=== PATIENT | female | born 1970 | race Caucasian/White ===

== ENCOUNTER 2017-10-29 05:44 | Inpatient (IN) | payer OTHER ==
[2017-10-29] MEDS ORDERED: ONDANSETRON 4 MG/2 ML VIAL IVP STA (06:02)
[2017-10-29] MEDS ORDERED: SODIUM CHLORIDE 0.9% 1,000 ML IV STA (06:02)
[2017-10-29] MEDS ORDERED: ASPIRIN 81 MG PO STA (06:02)
[2017-10-29] MEDS ORDERED: NITROGLYCERIN OINT 1 INCH/GM PACKET TOPICAL STA (06:02)
[2017-10-29] MEDS ORDERED: MORPHINE SULFATE 4 MG/0.8 ML SYRINGE (INJ) IV STA (06:02)
--- NOTE | 2017-10-29 06:09 | ED ---
Chest Pain HPI - General Chief Complaint: Chest Pain Stated Complaint: Chest Pain Time Seen by Provider: 10/29/17 05:49 Source: patient Mode of arrival: EMS Limitations: no limitations - History of Present Illness Initial Comments: 47 years old female male with chest pain about an hour ago, was in the center she said chest pain gets worse with deep breaths and it was 78/10. He recently she was evaluated at [facility] 2 days ago she had a cath done according to her she had a blockade to 35% and one of the main arteries she didn't require any stents she was sent home on aspirin area and now pain is 6/10 and no headaches no stiff neck, does have a chest pain and some shortness of breath no abdominal pain no frequency urgency dysuria no symptoms of TIA or CVA - Related Data Home Medications Medication Instructions Recorded Confirmed Ibuprofen [Motrin] 800 mg PO TID PRN 09/08/15 09/08/15 Previous Rx's Medication Instructions Recorded Benzonatate [Tessalon Perles] 100 mg PO TID PRN #12 capsule 09/08/15 Ibuprofen [Motrin] 600 mg PO Q6HR PRN #40 day 09/08/15 Phenazopyridine [Pyridium] 100 mg PO TID 3 Days day 09/08/15 Sulfamethoxazole/Trimethoprim 1 each PO Q12H 10 Days tab 09/08/15 [Bactrim DS 800-160 mg] Allergies Allergy/AdvReac Type Severity Reaction Status Date / Time No Known Allergies Allergy Verified 10/29/17 05:50 Review of Systems ROS Statement: Those systems with pertinent positive or pertinent negative responses have been documented in the HPI. ROS Other: All systems not noted in ROS Statement are negative. Past Medical History Past Medical History: No Reported History History of Any Multi-Drug Resistant Organisms: None Reported Past Surgical History: Heart Catheterization Additional Past Surgical History / Comment(s): wisdom teeth. Past Psychological History: No Psychological Hx Reported Smoking Status: Current every day smoker Past Alcohol Use History: Occasional Past Drug Use History: None Reported General Exam - General Exam Comments Initial Comments: General: The patient is awake and alert, in no distress, and does not appear acutely ill. Skin: Skin is warm and dry and no rashes or lesions are noted. Eye: Pupils are equal, round and reactive to light, extra-ocular movements are intact; there is normal conjunctiva bilaterally. Ears, nose, mouth and throat: There are moist mucous membranes and no oral lesions. Neck: The neck is supple, there is no tenderness or JVD. Cardiovascular: There is a regular rate and rhythm. No murmur, rub or gallop is appreciated. Respiratory: To auscultation bilateral, no wheezing no rhonchi no distress respiratory scott noticed Gastrointestinal: Soft, non-distended, non-tender abdomen without masses or organomegaly noted. There is no rebound or guarding present. Bowel sounds are unremarkable. Back: There is no tenderness to palpation in the midline. There is no obvious deformity. Musculoskeletal: Normal ROM, no tenderness, There is no pedal edema. There is no calf tenderness or swelling. No cords were appreciated. Neurological: CN II-XII intact, Cranial nerves III through XII are intact. There are no obvious motor or sensory deficits. Coordination appears grossly intact. Speech is normal. Psychiatric: Cooperative, appropriate mood & affect, normal judgment. Limitations: no limitations Course Vital Signs 10/29/17 05:46 Temperature 98 F Pulse Rate 75 Respiratory 16 Rate Blood Pressure 120/69 O2 Sat by Pulse 100 Oximetry EKG is normal sinus rhythm ventricular rate 76 MN interval is 124 QRS duration is 80 QT/QTc is 420/472 and aVF this EKG does not reveal any ST elevation or ST depression Patient is reassessed, CBC, troponin, comp his metabolic panel, chest x-ray, EKG are unremarkable she will be admitted to the hospital under Dr. Stein service and cardiology be consulted, this was discussed with the patient and she is agreeable with the Disposition Clinical Impression: Chest pain Disposition: ADMITTED IP TO THIS HOSP Condition: Good Referrals: Kentrell Joseph MD [Primary Care Provider] - 1-2 days
[2017-10-29 06:28] LABS: Basophils % (A) 0 %; Eosinophils # (A) 0.3 k/uL (0-0.7); Eosinophils % (A) 3 %; HCT 32.8 % (34.0-46.0); HGB 10.1 gm/dL (11.4-16.0); Hypochromasia Moderate; Lymphocytes # (A) 1.5 k/uL (1.0-4.8); Lymphocytes % (A) 17 %; MCH 25.3 pg (25.0-35.0); MCHC 30.8 g/dL (31.0-37.0); Monocytes # (A) 0.5 k/uL (0-1.0); Monocytes % (A) 5 %; Neutrophils # (A) 6.2 k/uL (1.3-7.7); Neutrophils % (A) 71 %; Platelet Count 343 k/uL (150-450); RBC 4.01 m/uL (3.80-5.40); RDW 14.2 % (11.5-15.5); WBC 8.7 k/uL (3.8-10.6)
[2017-10-29 06:41] LABS: ALT 17 U/L (9-52); AST 31 U/L (14-36); Albumin 3.9 g/dL (3.5-5.0); Alkaline Phosphatase 74 U/L (38-126); Anion Gap 11 mmol/L; Blood Urea Nitrogen 13 mg/dL (7-17); Calcium 8.9 mg/dL (8.4-10.2); Carbon Dioxide 22 mmol/L (22-30); Chloride 106 mmol/L (98-107); Glucose 89 mg/dL (74-99); Magnesium 2.1 mg/dL (1.6-2.3); Sodium 139 mmol/L (137-145); Total Bilirubin 0.7 mg/dL (0.2-1.3); Total Protein 7.1 g/dL (6.3-8.2)
[2017-10-29 06:43] LABS: Potassium 4.6 mmol/L (3.5-5.1)
[2017-10-29 06:47] LABS: Creatine Kinase 55 U/L (30-135)
--- NOTE | 2017-10-29 06:52 | XR ---
EXAM: XR Chest, 2 Views CLINICAL HISTORY: Chest pain TECHNIQUE: Frontal and lateral views of the chest. COMPARISON: CXR dated 09/08/2015 FINDINGS: Lungs: Unremarkable. No consolidation. Pleural space: Unremarkable. No pneumothorax. Heart: Unremarkable. No cardiomegaly. Mediastinum: Unremarkable. Bones/joints: Unremarkable. IMPRESSION: Normal chest x-rays.
[2017-10-29 06:57] LABS: Creatine Kinase MB <0.2 ng/mL (0.0-2.4)
[2017-10-29 07:01] LABS: Troponin I <0.012 ng/mL (0.000-0.034)
[2017-10-29 07:31] LABS: D-Dimer 0.47 mg/L FEU (<0.60); Prothrombin Time 9.6 sec (9.0-12.0)
[2017-10-29 07:33] LABS: Partial Thromboplastin Time 21.8 sec (22.0-30.0)
[2017-10-29] MEDS ORDERED: MORPHINE SULFATE 4 MG/0.8 ML SYRINGE (INJ) IV PRN (07:33)
[2017-10-29] MEDS ORDERED: NITROGLYCERIN SL TABS 0.4 MG TAB SUBLINGUAL PRN (07:33)
[2017-10-29] MEDS ORDERED: IBUPROFEN 800 MG TAB PO PRN (07:37)
[2017-10-29] MEDS ORDERED: SULFAMETHOX-TMP 800-160MG 1 EACH TAB PO SCH (07:45)
[2017-10-29 12:37] LABS: Creatine Kinase MB 1.7 ng/mL (0.0-2.4)
[2017-10-29 12:47] LABS: Troponin I 0.144 ng/mL (0.000-0.034)
--- NOTE | 2017-10-29 13:18 | P.DS ---
Providers Date of admission: 10/29/17 07:33 Attending physician: Ember Stein Consults: 10/29/17 07:33 Consult Physician Urgent Consulting Provider: Trupti Harris Consult Reason/Comments: Chest pain Do you want consulting provider notified?: Yes Primary care physician: Kentrell Joseph Hospital Course: Patient was discharged before I evaluated the patient Patient Condition at Discharge: Good Plan - Discharge Summary Discharge Rx Participant: No New Discharge Prescriptions: No Action Ibuprofen [Motrin] 800 mg PO TID PRN PRN Reason: Pain Atorvastatin [Lipitor] 10 mg PO HS Aspirin [Adult Low Dose Aspirin EC] 81 mg PO HS Discharge Medication List Ibuprofen [Motrin] 800 mg PO TID PRN 09/08/15 [History] Aspirin [Adult Low Dose Aspirin EC] 81 mg PO HS 10/29/17 [History] Atorvastatin [Lipitor] 10 mg PO HS 10/29/17 [History] Follow up Appointment(s)/Referral(s): Kentrell Joseph MD [Primary Care Provider] - 1-2 days
--- NOTE | 2017-10-29 13:18 | P.HPIM ---
History of Present Illness Patient was discharged before I evaluated the patient Past Medical History Past Medical History: No Reported History History of Any Multi-Drug Resistant Organisms: None Reported Past Surgical History: Heart Catheterization Additional Past Surgical History / Comment(s): wisdom teeth. Past Anesthesia/Blood Transfusion Reactions: No Reported Reaction Past Psychological History: No Psychological Hx Reported Smoking Status: Current every day smoker Past Alcohol Use History: Occasional Past Drug Use History: None Reported - Past Family History Mother Family Medical History: AFIB Brother(s) Family Medical History: Myocardial Infarction ([place]) Additional Family Medical History / Comment(s): brother at age 42 with [place] Medications and Allergies Home Medications Medication Instructions Recorded Confirmed Type Ibuprofen [Motrin] 800 mg PO TID PRN 09/08/15 10/29/17 History Aspirin [Adult Low Dose Aspirin EC] 81 mg PO HS 10/29/17 10/29/17 History Atorvastatin [Lipitor] 10 mg PO HS 10/29/17 10/29/17 History Allergies Allergy/AdvReac Type Severity Reaction Status Date / Time No Known Allergies Allergy Verified 10/29/17 10:53 Physical Exam Vitals: Vital Signs Temp Pulse Pulse Resp BP BP Pulse Ox 10/29/17 12:28 97.7 F 80 16 106/53 99 10/29/17 12:27 97.0 F L 76 16 106/70 99 10/29/17 10:59 68 16 109/57 99 10/29/17 08:33 72 18 132/79 98 10/29/17 07:25 72 18 126/61 99 10/29/17 05:46 98 F 75 16 120/69 100 Intake and Output 10/28/17 10/29/17 10/29/17 22:59 06:59 14:59 Other: Weight 99.79 kg 99.79 kg Results CBC & Chem 7: 10/29/17 05:54 10/29/17 05:54 Labs: Abnormal Lab Results - Last 24 Hours (Table) 10/29/17 10/29/17 10/29/17 Range/Units 05:52 05:54 11:31 Hgb 10.1 L (11.4-16.0) gm/dL Hct 32.8 L (34.0-46.0) % MCHC 30.8 L (31.0-37.0) g/dL APTT 21.8 L (22.0-30.0) sec Troponin I 0.144 H* (0.000-0.034) ng/mL Thrombosis Risk Factor Assmnt - Choose All That Apply Any of the Below Risk Factors Present?: Yes Each Factor Represents 1 point: Age 41-60 years, Obesity (BMI >25) Thrombosis Risk Factor Assessment Total Risk Factor Score: 2 Thrombosis Risk Factor Assessment Level: Low Risk
[2017-10-29] MEDS ORDERED: HEPARIN SODIUM,PORCINE 5,000 UNIT/ML 1 ML VIAL IV ONE (13:23)
[2017-10-29] MEDS ORDERED: HEPARIN SOD,PORK IN 0.45% NACL 25,000 UNIT in 0.45% NACL 1 500ML.BAG IV SCH (13:30)
[2017-10-29 15:10] LABS: Partial Thromboplastin Time 61.5 sec (22.0-30.0); Prothrombin Time 10.2 sec (9.0-12.0)
[2017-10-29] MEDS: PANTOPRAZOLE 40 MG/10 ML VIAL IVP SCH (16:13)
--- NOTE | 2017-10-29 17:02 | P.HPIM ---
History of Present Illness 45-year-old the female came in with compensative chest pain which started today morning, 7/10 chest pain radiating to the left arm pressure-like sensation nonpruritic in nature not associated with food. No wheezes or diaphoresis or shortness of breath patient had a cardiac catheterization done at [facility] about a week ago which did not show any significant coronary it was cardiovascular disease except for some 35% stenosis in one of the 3 main blood vessels. Patient denied any fever chills cough runny nose. Patient's chest pain is reproducible in nature. EKG did not show any acute ST-T wave changes facet of troponin is negative second one is mildly +0.144. Chest pain lasted for about an hour Review of Systems REVIEW OF SYSTEMS: CONSTITUTIONAL: No fever, no malaise, no fatigue. HEENT: No recent visual problems or hearing problems. Denied any sore throat. CARDIOVASCULAR: No orthopnea, PND, no palpitations, no syncope. PULMONARY: No shortness of breath, no cough, no hemoptysis. GASTROINTESTINAL: No diarrhea, no nausea, no vomiting, no abdominal pain. Normoactive bowel sounds. NEUROLOGICAL: No headaches, no weakness, no numbness. HEMATOLOGICAL: Denies any bleeding or petechiae. GENITOURINARY: Denies any burning micturition, frequency, or urgency. MUSCULOSKELETAL/RHEUMATOLOGICAL: Denies any joint pain, swelling, or any muscle pain. ENDOCRINE: Denies any polyuria or polydipsia. The rest of the 14-point review of systems is negative. Past Medical History Past Medical History: No Reported History History of Any Multi-Drug Resistant Organisms: None Reported Past Surgical History: Heart Catheterization Additional Past Surgical History / Comment(s): wisdom teeth. Past Anesthesia/Blood Transfusion Reactions: No Reported Reaction Past Psychological History: No Psychological Hx Reported Smoking Status: Current every day smoker Past Alcohol Use History: Occasional Past Drug Use History: None Reported - Past Family History Mother Family Medical History: AFIB Brother(s) Family Medical History: Myocardial Infarction ([place]) Additional Family Medical History / Comment(s): brother at age 42 with [place] Medications and Allergies Home Medications Medication Instructions Recorded Confirmed Type Ibuprofen [Motrin] 800 mg PO TID PRN 09/08/15 10/29/17 History Aspirin [Adult Low Dose Aspirin EC] 81 mg PO HS 10/29/17 10/29/17 History Atorvastatin [Lipitor] 10 mg PO HS 10/29/17 10/29/17 History Allergies Allergy/AdvReac Type Severity Reaction Status Date / Time No Known Allergies Allergy Verified 10/29/17 10:53 Physical Exam Vitals: Vital Signs Temp Pulse Pulse Pulse Resp BP BP 10/29/17 14:25 97.8 F 82 80 16 112/71 10/29/17 12:28 97.7 F 80 16 106/53 10/29/17 12:27 97.0 F L 76 16 106/70 10/29/17 10:59 68 16 109/57 10/29/17 08:33 72 18 132/79 10/29/17 07:25 72 18 126/61 10/29/17 05:46 98 F 75 16 120/69 Pulse Ox 10/29/17 14:25 99 10/29/17 12:28 99 10/29/17 12:27 99 10/29/17 10:59 99 10/29/17 08:33 98 10/29/17 07:25 99 10/29/17 05:46 100 Intake and Output 10/29/17 10/29/17 10/29/17 06:59 14:59 22:59 Other: Weight 99.79 kg 99.79 kg PHYSICAL EXAMINATION: GENERAL: The patient is alert and oriented x3, not in any acute distress. Well developed, well nourished. HEENT: Pupils are round and equally reacting to light. EOMI. No scleral icterus. No conjunctival pallor. Normocephalic, atraumatic. No pharyngeal erythema. No thyromegaly. CARDIOVASCULAR: S1 and S2 present. No murmurs, rubs, or gallops. PULMONARY: Chest is clear to auscultation, no wheezing or crackles. ABDOMEN: Soft, nontender, nondistended, normoactive bowel sounds. No palpable organomegaly. MUSCULOSKELETAL: No joint swelling or deformity. EXTREMITIES: No cyanosis, clubbing, or pedal edema. NEUROLOGICAL: Gross neurological examination did not reveal any focal deficits. SKIN: No rashes. Results CBC & Chem 7: 10/29/17 05:54 10/29/17 05:54 Labs: Abnormal Lab Results - Last 24 Hours (Table) 10/29/17 10/29/17 10/29/17 Range/Units 05:52 05:54 11:31 Hgb 10.1 L (11.4-16.0) gm/dL Hct 32.8 L (34.0-46.0) % MCHC 30.8 L (31.0-37.0) g/dL APTT 21.8 L (22.0-30.0) sec Troponin I 0.144 H* (0.000-0.034) ng/mL 10/29/17 Range/Units 14:47 Hgb (11.4-16.0) gm/dL Hct (34.0-46.0) % MCHC (31.0-37.0) g/dL APTT 61.5 H (22.0-30.0) sec Troponin I (0.000-0.034) ng/mL Thrombosis Risk Factor Assmnt - Choose All That Apply Any of the Below Risk Factors Present?: Yes Each Factor Represents 1 point: Age 41-60 years, Obesity (BMI >25) Thrombosis Risk Factor Assessment Total Risk Factor Score: 2 Thrombosis Risk Factor Assessment Level: Low Risk Assessment and Plan Plan: -Chest pain: Patient is being treated for non-ST rate microinfarction with IV heparin because of mildly elevated second troponin. Cardiology will evaluated the patient patient appears to have musculoskeletal chest pain from costochondritis. Further management as per cardiology. Patient had a recent cardiac catheterization -Hyperlipidemia -Chronic low back pain
[2017-10-29 18:54] LABS: Creatine Kinase MB 4.1 ng/mL (0.0-2.4); Troponin I 0.816 ng/mL (0.000-0.034)
[2017-10-29] MEDS: ATORVASTATIN 40 MG TAB PO SCH (19:57)
[2017-10-29] MEDS: HEPARIN SODIUM,PORCINE 5,000 UNIT/ML 1 ML VIAL IV PRN (21:37)
[2017-10-30] MEDS: HEPARIN SODIUM,PORCINE 5,000 UNIT/ML 1 ML VIAL IV PRN (04:49)
[2017-10-30 04:57] LABS: Cholesterol 119 mg/dL (<200); HDL Cholesterol 58 mg/dL (40-60); LDL Cholesterol,Calculated 42 mg/dL (0-99); Triglycerides 93 mg/dL (<150)
[2017-10-30] MEDS ORDERED: ASPIRIN 325 MG TAB PO SCH (09:00)
[2017-10-30] MEDS: HEPARIN SODIUM,PORCINE/D5W PMX 25,000 UNIT in DEXTROSE/WATER 1 500ML.BAG IV SCH (11:15)
--- NOTE | 2017-10-30 12:04 | P.CRDCN ---
History of Present Illness Consult date: 10/30/17 Requesting physician: Kimberli Wilson Consult reason: chest pain Chief complaint: Chest pain History of present illness: This is a 47-year-old female with history of nicotine dependence, hyperlipidemia, family history of premature coronary artery disease in her brother who had an [place] at the age of 40 to who was recently at [facility] with a non-Q-wave myocardial infarction at which time she underwent a cardiac catheterization by Dr. Jamaal Cardona which according to the patient revealed a 35% stenosis in one vessel. Patient was discharged home on a baby aspirin and statin. Patient states that initially she did quit smoking following this procedure, however recently her [id number] and she states that she did start smoking again. She re-presents to the hospital on this occasion with symptoms of chest tightness with radiation down the left arm and up into the left jaw. Her EKG on arrival here showed a normal sinus rhythm with no acute changes. Subsequent EKG performed showed normal sinus rhythm with evidence of ischemic changes in the anterior leads as compared with the first EKG. White blood cell count 8.7, hemoglobin 10.1. D-dimer 0.47, sodium 139, potassium 4.6, BUN 13, creatinine 0.5. Magnesium 2.1. Troponins 0.012, 0.14, 0.81. At the time of my examination this morning, patient is currently chest pain free. An echocardiogram with Doppler study has been performed, details still pending. Blood pressure 110/60 with a heart rate in the 70s, 100% on room air. Past Medical History Past Medical History: No Reported History History of Any Multi-Drug Resistant Organisms: None Reported Past Surgical History: Heart Catheterization Additional Past Surgical History / Comment(s): wisdom teeth. Past Anesthesia/Blood Transfusion Reactions: No Reported Reaction Past Psychological History: No Psychological Hx Reported Smoking Status: Current every day smoker Past Alcohol Use History: Occasional Past Drug Use History: None Reported - Past Family History Mother Family Medical History: AFIB Brother(s) Family Medical History: Myocardial Infarction ([place]) Additional Family Medical History / Comment(s): brother at age 42 with [place] Medications and Allergies Home Medications Medication Instructions Recorded Confirmed Type Ibuprofen [Motrin] 800 mg PO TID PRN 03/07/16 04/28/18 History Aspirin [Adult Low Dose Aspirin EC] 81 mg PO HS 10/29/17 10/29/17 History Atorvastatin [Lipitor] 10 mg PO HS 10/29/17 10/29/17 History Allergies Allergy/AdvReac Type Severity Reaction Status Date / Time No Known Allergies Allergy Verified 10/29/17 10:53 Physical Exam Vitals: Vital Signs Temp Pulse Pulse Pulse Resp BP BP 10/30/17 07:49 97.8 F 78 16 111/55 10/30/17 04:00 76 18 10/30/17 03:59 97.7 F 76 18 10/30/17 00:00 97.3 F L 85 18 10/29/17 20:16 10/29/17 20:00 98.1 F 85 85 18 10/29/17 14:25 97.8 F 82 80 16 10/29/17 12:28 97.7 F 80 16 10/29/17 12:27 97.0 F L 76 16 106/70 BP Pulse Ox 10/30/17 07:49 98 10/30/17 04:00 10/30/17 03:59 109/57 99 10/30/17 00:00 115/62 97 10/29/17 20:16 97 10/29/17 20:00 106/63 97 10/29/17 14:25 112/71 99 10/29/17 12:28 106/53 99 10/29/17 12:27 99 Intake and Output 10/29/17 10/30/17 10/30/17 22:59 06:59 14:59 Intake Total 807.667 187.489 Balance 807.667 187.489 Intake: Intake, IV Titration 147.667 187.489 Amount Heparin Sod,Pork in 0.45% 147.667 187.489 NaCl 25,000 unit In 0.45 % NaCl 1 500ml.bag @ 10 UNITS/KG/HR 19.95 mls/hr IV .Q24H [facility] Rx#: [id number] Oral 660 Other: Voiding Method Toilet Toilet Toilet # Voids 1 1 Weight 100.4 kg PHYSICAL EXAMINATION: HEENT: Head is atraumatic, normocephalic. Pupils equal, round. Neck is supple. There is no elevated jugular venous pressure. HEART EXAMINATION: Heart S1, S2 normal. No murmur or gallop heard. CHEST EXAMINATION: Lungs are clear to auscultation and precussion. No chest wall tenderness is noted on palpation or with deep breathing. ABDOMEN: Soft, nontender. Bowel sounds are heard. No organomegaly noted. EXTREMITIES: 2+ peripheral pulses with no evidence of peripheral edema and no calf tenderness noted. NEUROLOGIC patient is awake, alert and oriented -3. . Results 10/29/17 05:54 10/29/17 05:54 Cardiac Enzymes 10/29/17 10/29/17 Range/Units 11:31 17:52 CK-MB (CK-2) 1.7 4.1 H* (0.0-2.4) ng/mL Troponin I 0.144 H* 0.816 H* (0.000-0.034) ng/mL Coagulation 10/29/17 10/29/17 10/30/17 Range/Units 14:47 20:46 04:08 PT 10.2 (9.0-12.0) sec APTT 61.5 H 28.6 44.2 H (22.0-30.0) sec 10/30/17 Range/Units 10:51 PT (9.0-12.0) sec APTT 62.1 H (22.0-30.0) sec Lipids 10/30/17 Range/Units 04:08 Triglycerides 93 (<150) mg/dL Cholesterol 119 (<200) mg/dL HDL Cholesterol 58 (40-60) mg/dL Current Medications Generic Name Dose Route Start Last Admin Trade Name Freq PRN Reason Stop Dose Admin Aspirin 325 mg 10/30/17 09:00 Aspirin PO DAILY [facility] Atorvastatin Calcium 40 mg 10/29/17 21:00 10/29/17 19:57 Lipitor PO 40 mg HS THANH Administration Heparin Sodium (Porcine) 0 unit 10/29/17 13:23 10/30/17 04:49 Heparin IV 2,490 unit PER PROTOCOL PRN Administration Low PTT Protocol Heparin Sodium/Dextrose 25,000 500 mls @ 19.95 mls/hr 10/30/17 07:30 11:15 unit/ IV Solution IV 14.98 units/kg/hr .Q24H [facility] 29.9 mls/hr Protocol Administration 10 UNITS/KG/HR Ibuprofen 800 mg 10/29/17 07:37 Motrin PO TID PRN Mild Pain Morphine Sulfate 4 mg 10/29/17 07:33 Morphine Sulfate (Inj) IV Q5M PRN Chest Pain Nitroglycerin 0.4 mg 10/29/17 07:33 Nitrostat SUBLINGUAL Q5M PRN Chest Pain Pantoprazole Sodium 40 mg 10/29/17 15:15 10/29/17 16:13 Protonix IVP 40 mg DAILY THANH Administration Intake and Output 10/29/17 10/30/17 10/30/17 22:59 06:59 14:59 Intake Total 807.667 187.489 Balance 807.667 187.489 Intake: Intake, IV Titration 147.667 187.489 Amount Heparin Sod,Pork in 0.45% 147.667 187.489 NaCl 25,000 unit In 0.45 % NaCl 1 500ml.bag @ 10 UNITS/KG/HR 19.95 mls/hr IV .Q24H [facility] Rx#: [id number] Oral 660 Other: Voiding Method Toilet Toilet Toilet # Voids 1 1 Weight 100.4 kg 10/29/17 05:54 10/29/17 05:54 EKG Interpretations (text) EKG shows normal sinus rhythm with no acute changes. Assessment and Plan Plan: Assessment and plan #1 symptoms of chest tightness with associated radiation down the left arm and into the jaw, suggesting acute coronary syndrome. Troponins 0.012, 0.014 0.81. EKG shows normal sinus rhythm with no acute changes. Subsequent EKG showed normal sinus rhythm with ST-T wave changes noted in the anterior leads as compared with prior. Patient underwent a cardiac catheterization last week at [facility] which according to the patient revealed a 35% lesion in a vessel. We are waiting the report. #2 nicotine dependence #3 hyperlipidemia Plan We will repeat a subsequent troponin, review echocardiogram with Doppler study. Repeat another EKG. Decrease aspirin to 81 mg daily, continue Lipitor 40, add Plavix to her medication regime as well as a low-dose beta sary. Continue IV heparin. Patient will be kept nothing by mouth at midnight for possible repeat cardiac catheterization in the morning. Dr. Waters will discuss the patient with Dr. DEVYN Cardona, her arnp who performed a cardiac catheterization, recommendations then will be made. DNP note has been reviewed, I agree with a documented findings and plan of care. Patient was seen and examined.
--- NOTE | 2017-10-30 12:35 | ECHOF ---
Referral Reason:chest pain MEASUREMENTS -------- HEIGHT: 162.6 cm WEIGHT: 99.8 kg BP: 106/53 IVSd: 1.1 cm (0.6 - 1.1) LVIDd: 4.3 cm (3.9 - 5.3) LVPWd: 1.1 cm (0.6 - 1.1) EDV(Teich): 82 ml IVSs: 1.4 cm LVIDs: 3.2 cm LVPWs: 1.4 cm ESV(Teich): 42 ml EF(Teich): 49 % %FS: 24 % SV(Teich): 40 ml Ao Diam: 3.3 cm (2.0 - 3.7) RVIDd: 2.6 cm (< 3.3) LALs A4C: 5.1 cm LAAs A4C: 15.0 cm LAESV A-L A4C: 37 ml LAESV MOD A4C: 35 ml LALs A2C: 5.7 cm LAAs A2C: 17.4 cm LAESV A-L A2C: 45 ml LAESV MOD A2C: 43 ml LAESV(A-L): 43 ml LAESV Index (A-L): 21.31 ml/m Ao Diam: 3.0 cm (2.0 - 3.7) LA Diam: 2.4 cm (2.7 - 3.8) AV Cusp: 2.3 cm (1.5 - 2.6) EPSS: 0.6 cm MV E Nelson: 0.90 m/s MV DecT: 276 ms MV Dec Harlan: 3.4 m/s MV A Nelson: 0.83 m/s MV E/A Ratio: 1.09 AV Vmax: 1.74 m/s AV maxP.06 mmHg TR Vmax: 1.22 m/s TR maxP.93 mmHg RAP: 5.00 mmHg RVSP: 10.93 mmHg MV EF SLOPE: 87.15 mm/s (70 - 150) MV EXCURSION: 1.54 cm (> 18.000) FINDINGS -------- Sinus rhythm. This was a technically adequate study. The left ventricular size is normal. There is borderline concentric left ventricular hypertrophy. Overall left ventricular systolic function is normal with, an EF between 55 - 60 %. The right ventricle is normal in size and function. Normal LA size by volume 22+/-6 ml/m2. The right atrium is normal in size. The aortic valve is trileaflet, and appears structurally normal. No aortic stenosis or regurgitation. The mitral valve is normal. There is trace mitral regurgitation. Trace tricuspid regurgitation present. Right ventricular systolic pressure is normal at < 35 mmHg. There is no evidence of pulmonary hypertension. The pulmonic valve is normal. The aortic root size is normal. Normal inferior vena cava with normal inspiratory collapse consistent with estimated right atrial pre ssure of 5 mmHg. There is no pericardial effusion. CONCLUSIONS -------- 1. Sinus rhythm. 2. This was a technically adequate study. 3. The left ventricular size is normal. 4. There is borderline concentric left ventricular hypertrophy. 5. Overall left ventricular systolic function is normal with, an EF between 55 - 60 %. 6. Normal LA size by volume 22+/-6 ml/m2. 7. The aortic valve is trileaflet, and appears structurally normal. No aortic stenosis or regurgitati on. 8. There is trace mitral regurgitation. 9. Trace tricuspid regurgitation present. 10. Right ventricular systolic pressure is normal at < 35 mmHg. 11. There is no evidence of pulmonary hypertension. 12. The aortic root size is normal. 13. There is no pericardial effusion. DRAW FRAME RUNNER: Jose Willis RDCS
[2017-10-30] MEDS: METOPROLOL TARTRATE 12.5 MG TAB PO SCH ×2 (15:03→19:40)
[2017-10-30] MEDS: CLOPIDOGREL 75 MG TAB PO SCH (15:03)
[2017-10-30] MEDS: PANTOPRAZOLE 40 MG/10 ML VIAL IVP SCH (16:02)
--- NOTE | 2017-10-30 16:52 | P.PN ---
Subjective Patient given a chest pain patient has minimally elevated troponin which went up her eyes troponin 0.3 cardiology is considering redo Cardiac catheterization considering elevated troponins and dynamic EKG changes Constitutional: Denied any fatigue denied any fever. Cardio vascular: denied any chest pain, palpitations Gastrointestinal denied any nausea vomiting Pulmonary: Denied any shortness of breath cough Neurologic denied any new focal deficits Objective - Vital Signs Vital signs: Vital Signs Temp 97.7 F 10/30/17 16:33 Pulse 82 10/30/17 16:33 Resp 18 10/30/17 16:33 BP 120/58 10/30/17 16:33 Pulse Ox 97 10/30/17 16:33 Intake & Output 10/29/17 10/30/17 10/30/17 18:59 06:59 18:59 Intake Total 720 635.156 360 Output Total 300 Balance 720 635.156 60 Weight 99.79 kg 100.4 kg Intake: Intake, IV Titration 335.156 Amount Heparin Sod,Pork in 0.45% 335.156 NaCl 25,000 unit In 0.45 % NaCl 1 500ml.bag @ 10 UNITS/KG/HR 19.95 mls/hr IV .Q24H [facility] Rx#: [id number] Oral 720 300 360 Output: Urine 300 Other: Voiding Method Toilet Toilet # Voids 1 - Exam PHYSICAL EXAMINATION: GENERAL: The patient is alert and oriented x3, not in any acute distress. Well developed, well nourished. HEENT: Pupils are round and equally reacting to light. EOMI. No scleral icterus. No conjunctival pallor. Normocephalic, atraumatic. No pharyngeal erythema. No thyromegaly. CARDIOVASCULAR: S1 and S2 present. No murmurs, rubs, or gallops. PULMONARY: Chest is clear to auscultation, no wheezing or crackles. ABDOMEN: Soft, nontender, nondistended, normoactive bowel sounds. No palpable organomegaly. MUSCULOSKELETAL: No joint swelling or deformity. EXTREMITIES: No cyanosis, clubbing, or pedal edema. NEUROLOGICAL: Gross neurological examination did not reveal any focal deficits. SKIN: No rashes. - Labs CBC & Chem 7: 10/29/17 05:54 10/29/17 05:54 Labs: Abnormal Lab Results - Last 24 Hours (Table) 10/29/17 10/30/17 10/30/17 Range/Units 17:52 04:08 10:51 APTT 44.2 H 62.1 H (22.0-30.0) sec CK-MB (CK-2) 4.1 H* (0.0-2.4) ng/mL Troponin I 0.816 H* (0.000-0.034) ng/mL 10/30/17 Range/Units 12:38 APTT (22.0-30.0) sec CK-MB (CK-2) (0.0-2.4) ng/mL Troponin I 0.355 H* (0.000-0.034) ng/mL Assessment and Plan Plan: -Chest pain: Possibility of non-ST elevation myocardial infarction, further management and plan as mentioned above, her chest pain can be musculoskeletal in nature as well. -Hyperlipidemia -Chronic low back pain
[2017-10-30] MEDS: ATORVASTATIN 40 MG TAB PO SCH (19:40)
[2017-10-31] MEDS: METOPROLOL TARTRATE 12.5 MG TAB PO SCH ×2 (09:09→20:46)
[2017-10-31] MEDS: ASPIRIN 81 MG PO SCH (09:09)
[2017-10-31] MEDS: CLOPIDOGREL 75 MG TAB PO SCH (09:09)
[2017-10-31] MEDS: PANTOPRAZOLE 40 MG/10 ML VIAL IVP SCH (09:09)
[2017-10-31] MEDS ORDERED: SODIUM CHLORIDE 0.9% 1,000 ML in EMPTY BAG 1 BAG IV ONE (09:51)
[2017-10-31] MEDS ORDERED: NITROGLYCERIN SL TABS 0.4 MG TAB SUBLINGUAL PRN (09:51)
[2017-10-31] MEDS ORDERED: ASPIRIN 325 MG TAB PO STA (09:51)
[2017-10-31] MEDS ORDERED: ALPRAZolam 0.5 MG TAB PO PRN (09:51)
[2017-10-31] MEDS ORDERED: ALPRAZolam 0.25 MG TAB PO PRN (09:51)
[2017-10-31] MEDS ORDERED: ATORVASTATIN 80 MG TAB PO STA (09:51)
--- NOTE | 2017-10-31 15:03 | P.PN ---
Subjective Progress Note Date: 10/31/17 This is a 47-year-old female with history of nicotine dependence, hyperlipidemia, family history of premature coronary artery disease in her brother who had an [place] at the age of 40 to who was recently at [facility] with a non-Q-wave myocardial infarction at which time she underwent a cardiac catheterization by Dr. Jamaal Cardona which according to the patient revealed a 35% stenosis in one vessel. Patient was discharged home on a baby aspirin and statin. Patient states that initially she did quit smoking following this procedure, however recently her [id number] and she states that she did start smoking again. She re-presents to the hospital on this occasion with symptoms of chest tightness with radiation down the left arm and up into the left jaw. Her EKG on arrival here showed a normal sinus rhythm with no acute changes. Subsequent EKG performed showed normal sinus rhythm with evidence of ischemic changes in the anterior leads as compared with the first EKG. White blood cell count 8.7, hemoglobin 10.1. D-dimer 0.47, sodium 139, potassium 4.6, BUN 13, creatinine 0.5. Magnesium 2.1. Troponins 0.012, 0.14, 0.81. At the time of my examination this morning, patient is currently chest pain free. An echocardiogram with Doppler study has been performed, details still pending. Blood pressure 110/60 with a heart rate in the 70s, 100% on room air. 10/31/2017 It was seen and examined this morning, she denies any further chest discomfort, breathing overall has been stable. She will be scheduled to undergo cardiac catheterization tomorrow with Dr. Jamaal Cardona. 128/65 heart rate in the 60s to 70s. Objective - Vital Signs Vital signs: Vital Signs Temp 97.8 F 10/31/17 11:37 Pulse 73 10/31/17 11:38 Resp 16 10/31/17 11:38 BP 128/65 10/31/17 11:37 Pulse Ox 95 10/31/17 11:37 Intake & Output 10/30/17 10/31/17 10/31/17 18:59 06:59 18:59 Intake Total 360 934.080 360 Output Total 300 Balance 60 934.080 360 Weight 99 kg Intake: Intake, IV Titration 574.080 Amount Heparin Sodium,Porcine/ 574.080 D5w Pmx 25,000 unit In Dextrose/Water 1 500ml. bag @ 10 UNITS/KG/HR 19. 95 mls/hr IV .Q24H [facility] Rx #:[id number] Oral 360 360 360 Output: Urine 300 Other: Voiding Method Toilet Toilet Toilet # Voids 1 2 - Exam PHYSICAL EXAMINATION: HEENT: Head is atraumatic, normocephalic. Pupils equal, round. Neck is supple. There is no elevated jugular venous pressure. HEART EXAMINATION: Heart S1, S2 normal. No murmur or gallop heard. CHEST EXAMINATION: Lungs are clear to auscultation and precussion. No chest wall tenderness is noted on palpation or with deep breathing. ABDOMEN: Soft, nontender. Bowel sounds are heard. No organomegaly noted. EXTREMITIES: 2+ peripheral pulses with no evidence of peripheral edema and no calf tenderness noted. NEUROLOGIC patient is awake, alert and oriented -3. - Labs CBC & Chem 7: 10/29/17 05:54 10/29/17 05:54 Labs: Abnormal Lab Results - Last 24 Hours (Table) 10/30/17 10/31/17 10/31/17 Range/Units 18:35 00:26 05:26 APTT 44.7 H (22.0-30.0) sec Troponin I 0.291 H* 0.287 H* (0.000-0.034) ng/mL 10/31/17 Range/Units 12:55 APTT 51.4 H (22.0-30.0) sec Troponin I (0.000-0.034) ng/mL Assessment and Plan Plan: Assessment and plan #1 symptoms of chest tightness with associated radiation down the left arm and into the jaw, suggesting acute coronary syndrome. Troponins 0.012, 0.014 0.81. EKG shows normal sinus rhythm with no acute changes. Subsequent EKG showed normal sinus rhythm with ST-T wave changes noted in the anterior leads as compared with prior. Patient underwent a cardiac catheterization last week at [facility] which according to the patient revealed a 35% lesion in a vessel. We are waiting the report. #2 nicotine dependence #3 hyperlipidemia Plan Patient will be scheduled to undergo cardiac catheterization tomorrow with Dr. Jamaal Cardona. The risks and benefits were again explained to the patient in detail and she is willing to proceed. DNP note has been reviewed, I agree with a documented findings and plan of care. Patient was seen and examined.
[2017-10-31] MEDS: HEPARIN SODIUM,PORCINE/D5W PMX 25,000 UNIT in DEXTROSE/WATER 1 500ML.BAG IV SCH ×2 (16:57)
[2017-10-31] MEDS: MORPHINE ORAL SOLN 10 MG/5 ML CUP PO PRN ×2 (18:20→20:45)
[2017-10-31] MEDS ORDERED: NITROGLYCERIN OINT 1 INCH/GM PACKET TOPICAL PRN (19:53)
[2017-10-31] MEDS: ATORVASTATIN 40 MG TAB PO SCH (20:46)
[2017-11-01] MEDS: METOPROLOL TARTRATE 12.5 MG TAB PO SCH ×2 (05:40→20:38)
[2017-11-01] MEDS: CLOPIDOGREL 75 MG TAB PO SCH (05:41)
[2017-11-01] MEDS: PANTOPRAZOLE 40 MG/10 ML VIAL IVP SCH (05:41)
[2017-11-01 06:02] LABS: Glucose,Whole Blood 123 mg/dL (75-99)
[2017-11-01 06:05] LABS: HCT 31.5 % (34.0-46.0); HGB 9.5 gm/dL (11.4-16.0); Hypochromasia Moderate; MCH 24.9 pg (25.0-35.0); MCHC 30.1 g/dL (31.0-37.0); MCV 82.7 fL (80.0-100.0); Mean Platelet Volume 7.7; Platelet Count 375 k/uL (150-450); RBC 3.81 m/uL (3.80-5.40); RDW 14.3 % (11.5-15.5); WBC 10.4 k/uL (3.8-10.6)
[2017-11-01 06:28] LABS: Anion Gap 10 mmol/L; Blood Urea Nitrogen 11 mg/dL (7-17); Calcium 8.7 mg/dL (8.4-10.2); Carbon Dioxide 27 mmol/L (22-30); Chloride 101 mmol/L (98-107); Glucose 104 mg/dL (74-99); Potassium 4.4 mmol/L (3.5-5.1); Sodium 138 mmol/L (137-145)
[2017-11-01] MEDS ORDERED: MIDAZOLAM 2 MG/2 ML VIAL ONE (07:11)
[2017-11-01] MEDS ORDERED: LIDOCAINE 2% INJ 20 MG/ML (20 ML MDV) ONE (07:11)
[2017-11-01] MEDS ORDERED: diphenhydrAMINE 50 MG/ML 1 ML VIAL ONE (07:20)
[2017-11-01] MEDS: MIDAZOLAM 2 MG/2 ML VIAL IVP ONE ×2 (07:26→07:35)
[2017-11-01] MEDS ORDERED: diphenhydrAMINE 50 MG/ML 1 ML VIAL IVP ONE (07:26)
[2017-11-01] MEDS ORDERED: IV FLUID CONTINUATION 450 ML IV ONE (07:27)
[2017-11-01] MEDS ORDERED: LIDOCAINE 2% INJ 20 MG/ML SQ ONE (07:34)
[2017-11-01] MEDS ORDERED: BIVALIRUDIN 250 MG in SODIUM CHLORIDE 0.9% 35 ML IV ONE (07:51)
[2017-11-01] MEDS ORDERED: BIVALIRUDIN BOLUS 250 MG/50 ML IV ONE (07:51)
[2017-11-01] MEDS: NITROGLYCERIN 1000MCG/10ML SYRINGE INTRACORON ONE ×2 (08:04→08:33)
[2017-11-01] MEDS ORDERED: IOPAMIDOL-370 100ML BTL INJ ONE ×2 (08:06→08:35)
[2017-11-01] MEDS ORDERED: BIVALIRUDIN 250 MG in SODIUM CHLORIDE 0.9% 50 ML IV ONE (08:29)
[2017-11-01] MEDS ORDERED: TICAGRELOR 90 MG TAB ONE (08:36)
[2017-11-01] MEDS ORDERED: TICAGRELOR 90 MG TAB PO ONE (08:39)
[2017-11-01] MEDS ORDERED: ATROPINE SULFATE 0.1 MG/ML 10ML SYRINGE IV PRN (08:56)
[2017-11-01] MEDS ORDERED: ZOLPIDEM 5 MG TAB PO PRN (08:56)
[2017-11-01] MEDS ORDERED: MAG HYDROX/AL HYDROX/SIMETH 30 ML CUP PO PRN (08:56)
[2017-11-01] MEDS ORDERED: NITROGLYCERIN SL TABS 0.4 MG TAB SUBLINGUAL PRN (08:56)
[2017-11-01] MEDS ORDERED: RX INFO: IV CONTRAST WAS GIVEN 1 EACH MISC MISCELLANE PRN (08:56)
--- NOTE | 2017-11-01 10:03 | LTR ---
DATE OF SERVICE: 11/01/2017 RE: Gertrude Hayden Dear Kentrell; Thank you for the opportunity to participate in the care of Mrs. Gertrude Hayden. I am quite disappointed that this lady came back and now has what seems to be intrinsic dissection or a clot in the area where she had about a 40% narrowing. I deployed 3 drug-eluting stents and the entire mid LAD now has a full metal jacket. Excellent angiographic result was achieved with the patient has total relief of chest pain and angiographic appearance is excellent. Hopefully, she will quit smoking and work with risk factor modification. Prognosis remains guarded. The patient should be on aspirin and Brilinta or Plavix without interruption for 1 year.. Thank you for your referral and please call for questions. With kindest regards. Sincerely yours, MD NAIN Siu / EDA: [id number] /
--- NOTE | 2017-11-01 10:03 | CC ---
CARDIAC CATHETERIZATION REPORT DATE OF SERVICE: 11/01/2017 PROCEDURE: 1. Left heart catheterization and coronary angiography. 2. PTCA and stenting of mid LAD with 3 drug-eluting stents. PERFORMED BY: Dr. Mara Cardona. Moderate conscious sedation time was 1 hour, 5 minutes. Patient was monitored very closely. A combination of Versed and Benadryl were given. EKG, oxygen saturation and hemodynamics were monitored. CLINICAL INFORMATION: Mrs. Gertrude Hayden is a 47-year-old lady who was recently seen by me at [facility] and underwent a cardiac cath when she presented with a borderline troponin elevation and recurrent chest pain without significant EKG changes. Cardiac cath revealed a long lesion in the mid LAD of about 35%-40%, which was a smooth narrowing, noncritical, was advised medical therapy with aspirin and Lipitor and smoking cessation and discharged home. She presented to this hospital with chest discomfort, troponin elevation and precordial EKG changes suggestive of non-ST elevation NC. She was therefore advised repeat cardiac cath with the understanding that there may be some plaque rupture. Risks, benefits, options, rationale were discussed with the patient. PROCEDURE NOTE: Under local anesthesia and strict aseptic precautions, a 6-Yakut introducer was placed in the left femoral artery. Using standard Arben catheters, I performed coronary angiography and the same right Arben catheter was used to check LV pressure but LV- gram was not performed. Following the cardiac cath, I went on to perform PCI of LAD with 3 long drug-eluting stents. CARDIAC CATHETERIZATION FINDINGS: LEFT MAIN CORONARY ARTERY: This is a long patent disease-free vessel that bifurcates into LAD and circumflex. No significant disease noted. LEFT ANTERIOR DESCENDING CORONARY ARTERY: This is a vessel which is quite long and in the middle one-third, there is a long lesion. At the end of the long lesion, there is a 99% stenosis with possibly some thrombus. This represents progression of disease compared to the cath from 11 days ago. There are 2 diagonal branches that come off proximally and several septal branches and the vessel runs all the way to the apex, curves over the apex to supply the inferoapical portion of left ventricle. The entire mid LAD has a long 40%-50% disease segment with the distal end having a 99% stenosis. The possibility of an intrinsic dissection could not be excluded or there could be thrombus. RIGHT CORONARY ARTERY: A dominant vessel, no significant disease distally, bifurcates into PDA and PLV, both of which supply a sizable amount of myocardium. LEFT VENTRICULOGRAM: This was not performed. The left end-diastolic pressure was 15 mmHg without any gradient across the aortic valve. FINAL IMPRESSION: This patient has a 99% mid LAD lesion, represents progression of disease with clot and possibly some intrinsic dissection, although angiographically this was not evident. The circumflex and RCA were free of significant disease. RECOMMENDATION: Recommended intervention and proceeded to perform PCI of LAD in the same setting. PCI PROCEDURE DETAILS: I used a Voda 3.5 guide catheter to cannulate the left coronary artery. The whisper wire was used to cross the lesion, wire was kept distally. A 2.5 caliber, 15 mm Trek balloon was used to dilate the entire length of the lesion. I then deployed a 18 mm long 2.5 caliber Xience stent in the distal area where there was a 99% stenosis and I also went beyond it to cover any possibility of a dissection. Another 18 mm long 2.5 caliber Xience stent was telescoped into this in the midportion and the final proximal stent was a 23 mm long 2.5 caliber Xience stent. All 3 stents were deployed. Patient had chest pain with inflation and EKG changes. Excellent angiographic result without complication was achieved. The patient received 180 mg of Brilinta. She also received Angiomax bolus and infusion. Excellent angiographic result without complication was achieved. Angio-Seal device was used to secure hemostasis and she was sent to the room in a stable condition. The results were discussed with the patient and family. Complete cessation of smoking. a high dose of Lipitor, Brilinta, aspirin and beta blockers were advised. MMODL / IJN: [id number] /
[2017-11-01] MEDS ORDERED: ACETAMINOPHEN TAB 325 MG TAB PO PRN (10:06)
[2017-11-01 11:17] VITALS: BMI 37.5
[2017-11-01] MEDS ORDERED: ONDANSETRON 4 MG/2 ML VIAL IVP PRN (12:16)
[2017-11-01] MEDS: LOSARTAN 25 MG TAB PO SCH (12:26)
[2017-11-01] MEDS: ASPIRIN 81 MG PO SCH (12:26)
[2017-11-01] MEDS: SODIUM CHLORIDE 0.9% 1,000 ML IV SCH ×2 (12:28→20:39)
--- NOTE | 2017-11-01 15:23 | P.PN ---
Subjective 89-year-old admitted for shortness of breath patient does have pneumonia and patient is on the broad-spectrum antibiotics vancomycin and Zosyn and levofloxacin treating for healthcare associated pneumonia patient today's x-ray did show pulmonary edema cannot really assess JVD because of his accessory muscles of breathing. Patient will be given a dose of Lasix repeat a basic metabolic profile today and tomorrow. Echocardiogram will be obtained as well. 11/01/2017 Patient now found to have 99% stenosis of LAD for which patient underwent stenting. Still having some mild chest pressure and nausea patient is already on Protonix Zofran will be added we'll let him cardiology aware of her chest pressure. Constitutional: Denied any fatigue denied any fever. Cardio vascular: As mentioned in HPI Gastrointestinal denied any nausea vomiting Pulmonary: Denied any shortness of breath cough Neurologic denied any new focal deficits Objective - Vital Signs Vital signs: Vital Signs Temp 97.0 F L 11/01/17 09:00 Pulse 67 11/01/17 12:42 Resp 16 11/01/17 10:42 BP 115/66 11/01/17 12:42 Pulse Ox 98 11/01/17 11:51 Intake & Output 10/31/17 11/01/17 11/01/17 18:59 06:59 18:59 Intake Total 1047.145 414.955 921 Output Total 200 Balance 1047.145 414.955 721 Weight 99.3 kg 99.3 kg Intake: IV 303 Intake, IV Titration 307.145 414.955 500 Amount Heparin Sodium,Porcine/ 307.145 414.955 D5w Pmx 25,000 unit In Dextrose/Water 1 500ml. bag @ 10 UNITS/KG/HR 19. 95 mls/hr IV .Q24H [facility] Rx #:[id number] Sodium Chloride 0.9% 1, 500 000 ml @ 75 mls/hr IV . [id number] [facility] Rx#:[id number] Oral 740 118 Output: Urine 200 Other: Voiding Method Toilet Toilet # Voids 2 1 - Exam PHYSICAL EXAMINATION: GENERAL: The patient is alert and oriented x3, not in any acute distress. Well developed, well nourished. HEENT: Pupils are round and equally reacting to light. EOMI. No scleral icterus. No conjunctival pallor. Normocephalic, atraumatic. No pharyngeal erythema. No thyromegaly. CARDIOVASCULAR: S1 and S2 present. No murmurs, rubs, or gallops. PULMONARY: Chest is clear to auscultation, no wheezing or crackles. ABDOMEN: Soft, nontender, nondistended, normoactive bowel sounds. No palpable organomegaly. MUSCULOSKELETAL: No joint swelling or deformity. EXTREMITIES: No cyanosis, clubbing, or pedal edema. NEUROLOGICAL: Gross neurological examination did not reveal any focal deficits. SKIN: No rashes. - Labs CBC & Chem 7: 11/01/17 05:52 11/01/17 05:52 Labs: Abnormal Lab Results - Last 24 Hours (Table) 11/01/17 11/01/17 11/01/17 Range/Units 05:52 05:52 06:00 Hgb 9.5 L (11.4-16.0) gm/dL Hct 31.5 L (34.0-46.0) % MCH 24.9 L (25.0-35.0) pg MCHC 30.1 L (31.0-37.0) g/dL Glucose 104 H (74-99) mg/dL POC Glucose (mg/dL) 123 H (75-99) mg/dL Assessment and Plan Plan: -Chest pain: Possibility of non-ST elevation myocardial infarction, patient underwent cardiac catheterization and stenting of LAD, patient is on dual antiplatelet therapy beta sary statin. -Hyperlipidemia -Chronic low back pain
[2017-11-02 07:14] LABS: Basophils % (A) 0 %; Eosinophils # (A) 0.2 k/uL (0-0.7); Eosinophils % (A) 2 %; HGB 9.4 gm/dL (11.4-16.0); Hypochromasia Moderate; Lymphocytes % (A) 10 %; MCH 24.3 pg (25.0-35.0); MCHC 29.3 g/dL (31.0-37.0); MCV 82.7 fL (80.0-100.0); Mean Platelet Volume 7.1; Monocytes # (A) 0.5 k/uL (0-1.0); Monocytes % (A) 5 %; Neutrophils # (A) 8.2 k/uL (1.3-7.7); Neutrophils % (A) 82 %; Platelet Count 345 k/uL (150-450); RBC 3.87 m/uL (3.80-5.40); RDW 14.2 % (11.5-15.5)
[2017-11-02 07:17] LABS: Anion Gap 10 mmol/L; Blood Urea Nitrogen 10 mg/dL (7-17); Calcium 8.8 mg/dL (8.4-10.2); Carbon Dioxide 25 mmol/L (22-30); Chloride 104 mmol/L (98-107); Glucose 95 mg/dL (74-99); Potassium 4.8 mmol/L (3.5-5.1); Sodium 139 mmol/L (137-145)
[2017-11-02 08:25] VITALS: RESP 18
[2017-11-02] MEDS: ASPIRIN 81 MG PO SCH (08:52)
[2017-11-02] MEDS: LOSARTAN 25 MG TAB PO SCH (08:52)
[2017-11-02] MEDS: METOPROLOL TARTRATE 12.5 MG TAB PO SCH (08:52)
[2017-11-02] MEDS: PANTOPRAZOLE 40 MG/10 ML VIAL IVP SCH (08:52)
[2017-11-02] MEDS ORDERED: TICAGRELOR 90 MG TAB PO SCH (09:00)
--- NOTE | 2017-11-02 10:28 | P.PN ---
Subjective Progress Note Date: 11/02/17 This is a 47-year-old female with history of nicotine dependence, hyperlipidemia, family history of premature coronary artery disease in her brother who had an [place] at the age of 40 to who was recently at [facility] with a non-Q-wave myocardial infarction at which time she underwent a cardiac catheterization by Dr. Jamaal Cardona which according to the patient revealed a 35% stenosis in one vessel. Patient was discharged home on a baby aspirin and statin. Patient states that initially she did quit smoking following this procedure, however recently her [id number] and she states that she did start smoking again. She re-presents to the hospital on this occasion with symptoms of chest tightness with radiation down the left arm and up into the left jaw. Her EKG on arrival here showed a normal sinus rhythm with no acute changes. Subsequent EKG performed showed normal sinus rhythm with evidence of ischemic changes in the anterior leads as compared with the first EKG. White blood cell count 8.7, hemoglobin 10.1. D-dimer 0.47, sodium 139, potassium 4.6, BUN 13, creatinine 0.5. Magnesium 2.1. Troponins 0.012, 0.14, 0.81. At the time of my examination this morning, patient is currently chest pain free. An echocardiogram with Doppler study has been performed, details still pending. Blood pressure 110/60 with a heart rate in the 70s, 100% on room air. 10/31/2017 It was seen and examined this morning, she denies any further chest discomfort, breathing overall has been stable. She will be scheduled to undergo cardiac catheterization tomorrow with Dr. Jamaal Cardona. 128/65 heart rate in the 60s to 70s. 11/02/2017 Patient was taken to the cardiac catheterization lab yesterday where she underwent 3 stent placements to her left anterior descending artery. She was seen and examined this morning, feels well, denies any chest pain or difficulty in breathing. Left groin is soft with no evidence of any hematoma. Hemodynamically stable. EKG shows normal sinus rhythm with no new changes post- PCI. Hemoglobin 9.4, platelet count 345. BUN 10, creatinine 0.6. The patient has been encouraged to be up ambulating in the hallway today, we'll plan for possible discharge home around suppertime tonight if stable. Objective - Vital Signs Vital signs: Vital Signs Temp 97.8 F 11/02/17 08:00 Pulse 73 11/02/17 08:00 Resp 18 11/02/17 08:00 BP 111/56 11/02/17 08:00 Pulse Ox 96 11/02/17 08:00 Intake & Output 11/01/17 11/02/17 11/02/17 18:59 06:59 18:59 Intake Total 1397 400 118 Output Total 200 200 Balance 1197 200 118 Weight 99.3 kg 99.7 kg Intake: IV 303 Intake, IV Titration 500 Amount Sodium Chloride 0.9% 1, 500 000 ml @ 75 mls/hr IV . [id number] [facility] Rx#:[id number] Oral 594 400 118 Output: Urine 200 200 Other: Voiding Method Toilet # Voids 1 - Exam PHYSICAL EXAMINATION: HEENT: Head is atraumatic, normocephalic. Pupils equal, round. Neck is supple. There is no elevated jugular venous pressure. HEART EXAMINATION: Heart S1, S2 normal. No murmur or gallop heard. CHEST EXAMINATION: Lungs are clear to auscultation and precussion. No chest wall tenderness is noted on palpation or with deep breathing. ABDOMEN: Soft, nontender. Bowel sounds are heard. No organomegaly noted. Left groin soft, no evidence of any hematoma. EXTREMITIES: 2+ peripheral pulses with no evidence of peripheral edema and no calf tenderness noted. NEUROLOGIC patient is awake, alert and oriented -3. - Labs CBC & Chem 7: 11/02/17 06:04 11/02/17 06:04 Labs: Abnormal Lab Results - Last 24 Hours (Table) 11/02/17 Range/Units 06:04 Hgb 9.4 L (11.4-16.0) gm/dL Hct 32.0 L (34.0-46.0) % MCH 24.3 L (25.0-35.0) pg MCHC 29.3 L (31.0-37.0) g/dL Neutrophils # 8.2 H (1.3-7.7) k/uL Assessment and Plan Plan: Assessment and plan #1 symptoms of chest tightness with associated radiation down the left arm and into the jaw, suggesting acute coronary syndrome. Troponins 0.012, 0.014 0.81. EKG shows normal sinus rhythm with no acute changes. Subsequent EKG showed normal sinus rhythm with ST-T wave changes noted in the anterior leads as compared with prior. Patient underwent a cardiac catheterization last week at [facility] which according to the patient revealed a 35% lesion in a vessel. We are waiting the report. #2 nicotine dependence #3 hyperlipidemia Plan Patient underwent angioplasty with 3 stent placements to the LAD. She may be able to be discharged home later today, a follow-up appointment will be made with Dr. Jamaal Cardona on the of this month at 10 AM. Patient will be discharged home on aspirin 81 mg daily, Lipitor 80 mg daily, Cozaar 25 mg daily , metoprolol 12-1/2 mg twice a day, Brilinta 90 mg one tablet by mouth twice a day and sublingual nitroglycerin as needed for chest pain. Patient again has been encouraged regarding the importance of nicotine cessation and discontinuing the use of vapor cigarettes. DNP note has been reviewed, I agree with a documented findings and plan of care. Patient was seen and examined.
--- NOTE | 2017-11-02 10:55 | P.DS ---
Providers Date of admission: 10/30/17 15:35 Attending physician: Kentrell Joseph Consults: 10/29/17 13:21 Consult Physician Urgent Consulting Provider: Ibrahima Rasmussen Consult Reason/Comments: chest pain Do you want consulting provider notified?: Already Contacted 11/01/17 08:57 Consult Physician Routine Consulting Provider: Ibrahima Rasmussen Consult Reason/Comments: Post Interventional patient Do you want consulting provider notified?: Already Contacted Primary care physician: Kentrell Joseph Hospital Course: Patient was admitted for chest pain, had a recent cardiac catheterization which did not show any significant coronary occlusion but patient had dynamic EKG changes along with elevated troponin because of which patient underwent repeat cardiac catheterization which did not show any significant abnormality the third catheterization did show 99% stenosis of LAD a for which she underwenstenting Patient now found to have 99% stenosis of LAD for which patient underwent stenting. Patient doesn't have a chest pressure doesn't have any nausea vomiting is being discharged today in stable medical condition to home. PHYSICAL EXAMINATION: GENERAL: The patient is alert and oriented x3, not in any acute distress. Well developed, well nourished. HEENT: Pupils are round and equally reacting to light. EOMI. No scleral icterus. No conjunctival pallor. Normocephalic, atraumatic. No pharyngeal erythema. No thyromegaly. CARDIOVASCULAR: S1 and S2 present. No murmurs, rubs, or gallops. PULMONARY: Chest is clear to auscultation, no wheezing or crackles. ABDOMEN: Soft, nontender, nondistended, normoactive bowel sounds. No palpable organomegaly. MUSCULOSKELETAL: No joint swelling or deformity. EXTREMITIES: No cyanosis, clubbing, or pedal edema. NEUROLOGICAL: Gross neurological examination did not reveal any focal deficits. SKIN: No rashes. Assessment and Plan Plan: -Chest pain: Possibility of non-ST elevation myocardial infarction, patient underwent cardiac catheterization and stenting of LAD, patient is on dual antiplatelet therapy beta sary statin. -Hyperlipidemia -Chronic low back pain Patient Condition at Discharge: Good Plan - Discharge Summary Discharge Rx Participant: No New Discharge Prescriptions: New Atorvastatin [Lipitor] 80 mg PO HS #30 tab Losartan [Cozaar] 25 mg PO DAILY #30 tab Metoprolol Tartrate [Lopressor] 12.5 mg PO BID #60 tab Nitroglycerin Sl Tabs [Nitrostat] 0.4 mg SUBLINGUAL Q5M PRN #25 tab PRN Reason: Chest Pain Ticagrelor [Brilinta] 90 mg PO BID #60 tab Continue Aspirin [Adult Low Dose Aspirin EC] 81 mg PO HS Discontinued Ibuprofen [Motrin] 800 mg PO TID PRN PRN Reason: Pain Atorvastatin [Lipitor] 10 mg PO HS Discharge Medication List Aspirin [Adult Low Dose Aspirin EC] 81 mg PO HS 10/29/17 [History] Atorvastatin [Lipitor] 80 mg PO HS #30 tab 11/02/17 [Rx] Losartan [Cozaar] 25 mg PO DAILY #30 tab 11/02/17 [Rx] Metoprolol Tartrate [Lopressor] 12.5 mg PO BID #60 tab 11/02/17 [Rx] Nitroglycerin Sl Tabs [Nitrostat] 0.4 mg SUBLINGUAL Q5M PRN #25 tab 11/02/17 [Rx ] Ticagrelor [Brilinta] 90 mg PO BID #60 tab 11/02/17 [Rx] Follow up Appointment(s)/Referral(s): Kentrell Joseph MD [Primary Care Provider] - 3 Days Bella Cardona MD [STAFF PHYSICIAN] - 11/10/17 10:00 am Patient Instructions/Handouts: *Surgery [facility] - After Heart Catheterization - [employer] Instructions, How to Stop Smoking (DC), Heart Healthy Diet (DC) , Coronary Intravascular Stent Placement (DC) Discharge Disposition: HOME SELF-CARE
--- NOTE | 2017-11-02 10:57 | P.PN ---
Subjective Progress Note Date: 10/31/17 Patient given a chest pain with dynamic EKG changes, had a recent cardiac catheterization which did not show any significant coronary lesion but that is stenosis of 35% in LAD. Patient will undergo Cardiac catheterization again today because the dynamic EKG changes and elevated troponins. Constitutional: Denied any fatigue denied any fever. Cardio vascular: denied any chest pain, palpitations Gastrointestinal denied any nausea vomiting Pulmonary: Denied any shortness of breath cough Neurologic denied any new focal deficits Objective - Vital Signs Vital signs: Vital Signs Temp 97.8 F 11/02/17 08:00 Pulse 73 11/02/17 08:00 Resp 18 11/02/17 08:00 BP 111/56 11/02/17 08:00 Pulse Ox 96 11/02/17 08:00 Intake & Output 11/01/17 11/02/17 11/02/17 18:59 06:59 18:59 Intake Total 1397 400 118 Output Total 200 200 Balance 1197 200 118 Weight 99.3 kg 99.7 kg Intake: IV 303 Intake, IV Titration 500 Amount Sodium Chloride 0.9% 1, 500 000 ml @ 75 mls/hr IV . [id number] [facility] Rx#:[id number] Oral 594 400 118 Output: Urine 200 200 Other: Voiding Method Toilet # Voids 1 - Exam PHYSICAL EXAMINATION: GENERAL: The patient is alert and oriented x3, not in any acute distress. Well developed, well nourished. HEENT: Pupils are round and equally reacting to light. EOMI. No scleral icterus. No conjunctival pallor. Normocephalic, atraumatic. No pharyngeal erythema. No thyromegaly. CARDIOVASCULAR: S1 and S2 present. No murmurs, rubs, or gallops. PULMONARY: Chest is clear to auscultation, no wheezing or crackles. ABDOMEN: Soft, nontender, nondistended, normoactive bowel sounds. No palpable organomegaly. MUSCULOSKELETAL: No joint swelling or deformity. EXTREMITIES: No cyanosis, clubbing, or pedal edema. NEUROLOGICAL: Gross neurological examination did not reveal any focal deficits. SKIN: No rashes. - Labs CBC & Chem 7: 11/02/17 06:04 11/02/17 06:04 Labs: Abnormal Lab Results - Last 24 Hours (Table) 11/02/17 Range/Units 06:04 Hgb 9.4 L (11.4-16.0) gm/dL Hct 32.0 L (34.0-46.0) % MCH 24.3 L (25.0-35.0) pg MCHC 29.3 L (31.0-37.0) g/dL Neutrophils # 8.2 H (1.3-7.7) k/uL Assessment and Plan Plan: -Chest pain: Possibility of non-ST elevation myocardial infarction, patient will undergo cardiac elevation greater than acute changes and elevated troponins -Hyperlipidemia -Chronic low back pain
[2017-11-02 11:27] VITALS: BP 122/63; PULSE 67; TEMP 97.6
--- NOTE | 2017-11-02 13:58 | ECHOF ---
Referral Reason:Ant NSTEMI and LAD PCI MEASUREMENTS -------- HEIGHT: 162.6 cm WEIGHT: 98.9 kg BP: 129/58 IVSd: 1.3 cm (0.6 - 1.1) LVIDd: 3.9 cm (3.9 - 5.3) LVPWd: 1.4 cm (0.6 - 1.1) IVSs: 1.4 cm LVIDs: 3.9 cm LVPWs: 1.3 cm LA Diam: 3.2 cm (2.7 - 3.8) LAESV Index (A-L): 17.40 ml/m Ao Diam: 2.7 cm (2.0 - 3.7) AV Cusp: 1.8 cm (1.5 - 2.6) LA Diam: 3.6 cm (2.7 - 3.8) MV EXCURSION: 19.783 mm (> 18.000) MV EF SLOPE: 49 mm/s (70 - 150) EPSS: 0.6 cm MV E Nelson: 0.58 m/s MV DecT: 277 ms MV A Nelson: 0.68 m/s MV E/A Ratio: 0.85 RAP: 5.00 mmHg RVSP: 15.95 mmHg FINDINGS -------- Sinus rhythm. This was a technically adequate study. The left ventricular size is normal. There is mild concentric left ventricular hypertrophy. Overa ll left ventricular systolic function is normal with, an EF between 55 - 60 %. The right ventricle is normal in size. The left atrial size is normal. The right atrial size is normal. The aortic valve is trileaflet, and appears structurally normal. No aortic stenosis or regurgitation. Mild mitral annular calcification present. Mild mitral regurgitation is present. Mild tricuspid regurgitation present. There is no evidence of pulmonary hypertension. The right v entricular systolic pressure, as measured by Doppler, is 15.95mmHg. There is no pulmonic regurgitation present. The aortic root size is normal. Echo free space represents a pericardial fat pad. CONCLUSIONS -------- 1. The left ventricular size is normal. 2. There is mild concentric left ventricular hypertrophy. 3. Overall left ventricular systolic function is normal with, an EF between 55 - 60 %. 4. The aortic valve is trileaflet, and appears structurally normal. No aortic stenosis or regurgitati on. 5. Mild mitral annular calcification present. 6. Mild mitral regurgitation is present. 7. Mild tricuspid regurgitation present. 8. There is no evidence of pulmonary hypertension. 9. The right ventricular systolic pressure, as measured by Doppler, is 15.95mmHg. 10. There is no pulmonic regurgitation present. 11. The aortic root size is normal. 12. Echo free space represents a pericardial fat pad. REBAR WORKER: Laquita Estrada RDCS
[2017-11-02] MEDS ORDERED: ATORVASTATIN 80 MG TAB PO SCH (21:00)
--- NOTE | 2017-11-03 15:41 | CDI ---
Last Revision, June 2017 Documentation Clarification Form Date: 11/03/17 From: Patrizia Avina Phone: If you have a question regarding this query, please contact Jo Denney at [phone] between 8am and 5pm Admit Date: 10/30/2017 3:35:00 PM Patient Name: Gertrude Hayden Visit Number: [id number] Discharge Date: 11/02/17 ATTENTION: The Clinical Documentation Specialists (CDI) and [facility] Coding Staff appreciate your assistance in clarifying documentation. Please respond to the clarification below the line at the bottom and electronically sign. The CDI & [facility] Coding staff will review the response and follow-up if needed. Please note: Queries are made part of the Legal Health Record. If you have any questions, please contact the author of this message via ITS. Dr. Joe Waters Documentation in Sweta Mess's/your progress notes states that the patient was recently at [facility] with a non-Q wave myocardial infarction at which time she underwent a cardiac cath by Dr. Rajeev Cardona which according to the patient revealed a 35% stenosis in one vessel. Patient History/Risk Factors: Possibility of non-ST elevation myocardial infarction Treatment: Patient had previous heart cath In order to capture the severity of condition and necessary documentation specificity, please clarify the age of the previous MT: Within the last 4 weeks More than 4 weeks Specific date if known Unable to determine MTDD
--- NOTE | 2017-11-08 22:56 | CDI ---
Last Revision, June 2017 Documentation Clarification Form Date: 11/08/17 From: Patrizia Avina Phone: Admit Date: 10/30/2017 3:35:00 PM Patient Name: Gertrude Hayden Visit Number: [id number] Discharge Date: ATTENTION: The Clinical Documentation Specialists (CDI) and [facility] Coding Staff appreciate your assistance in clarifying documentation. Please respond to the clarification below the line at the bottom and electronically sign. The CDI & [facility] Coding staff will review the response and follow-up if needed. Please note: Queries are made part of the Legal Health Record. If you have any questions, please contact the author of this message via ITS. Dr. Joe Waters Thank you for signing your previous query. Please document a response before signing this query. Documentation in Sweta Wheeler's/your progress notes states that the patient was recently at [facility] with a non-Q wave myocardial infarction at which time she underwent a cardiac cath by Dr. Rajeev Cardona which according to the patient revealed a 35% stenosis in one vessel. Patient History/Risk Factors: Possibility of non-ST elevation myocardial infarction Treatment: Patient had previous heart cath In order to capture the severity of condition and necessary documentation specificity, please clarify the age of the previous PR: Within the last 4 weeks More than 4 weeks Specific date if known Unable to determine MTDD
--- NOTE | 2017-11-24 15:12 | P.PN ---
Progress Note - Text Progress Note Date: 11/24/17 This is an addendum to the cardiology progress note dictated. Patient had recent non-Q-wave myocardial infarction within the past 4 weeks. DNP note has been reviewed, I agree with a documented findings and plan of care. Patient was seen and examined.
== END 2017-11-02 12:09 | disposition home or self-care (01) | DRG 247 ==
LOC: EC 05:44 → 3OBS 07:33 → 6SEL 13:10 → OBSVTOIN 10-30 15:35
PROVIDERS: ADMIT Family Medicine; ATTEND Family Medicine
PROC: B2111ZZ Fluoroscopy of Multiple Coronary Arteries using Low Osmolar Contrast (ICD-10-PCS; 2017-11-01)
PROC: 027036Z Dilation of Coronary Artery, One Artery with Three Drug-eluting Intraluminal Devices, Percutaneous Approach (ICD-10-PCS; principal; 2017-11-01 07:15)
PROC: 4A023N7 Measurement of Cardiac Sampling and Pressure, Left Heart, Percutaneous Approach (ICD-10-PCS; 2017-11-01 07:15)
DX: I22.2 Subsequent non-ST elevation (NSTEMI) myocardial infarction (principal); I21.9 Acute myocardial infarction, unspecified; E78.5 Hyperlipidemia, unspecified; F17.290 Nicotine dependence, other tobacco product, uncomplicated; G89.29 Other chronic pain; E66.9 Obesity, unspecified; I25.10 Atherosclerotic heart disease of native coronary artery without angina pectoris; M94.0 Chondrocostal junction syndrome [Tietze]; M54.5 Low back pain; Z79.82 Long term (current) use of aspirin; Z79.899 Other long term (current) drug therapy; Z68.37 Body mass index [BMI] 37.0-37.9, adult
CPT/HCPCS: 36415; 71046; 80048; 80053; 80061; 82550; 82553; 83735; 84484; 84703; 85025; 85027; 85379; 85610; 85730; 93005; 93306; 93458; 94760; 96361; 96374; 96375; 99285

== ENCOUNTER → 2017-11-23 | Outpatient (CLI) | payer OTHER ==
[2017-11-23 14:47] LABS: HCT 28.5 % (34.0-46.0); HGB 8.9 gm/dL (11.4-16.0); Hypochromasia Moderate; MCH 24.6 pg (25.0-35.0); MCHC 31.3 g/dL (31.0-37.0); MCV 78.5 fL (80.0-100.0); Mean Platelet Volume 7.3; Platelet Count 306 k/uL (150-450); RBC 3.63 m/uL (3.80-5.40); RDW 14.8 % (11.5-15.5); WBC 6.3 k/uL (3.8-10.6)
[2017-11-23 15:11] LABS: ALT 57 U/L (9-52); AST 50 U/L (14-36); Anion Gap 13 mmol/L; Blood Urea Nitrogen 11 mg/dL (7-17); Calcium 9.1 mg/dL (8.4-10.2); Carbon Dioxide 26 mmol/L (22-30); Chloride 105 mmol/L (98-107); Glucose 83 mg/dL (74-99); Potassium 4.3 mmol/L (3.5-5.1); Sodium 144 mmol/L (137-145)
== END | disposition home or self-care (01) ==
LOC: LABWHC1 14:31
PROVIDERS: ATTEND Internal Medicine Interventional Cardiology
DX: I25.10 Atherosclerotic heart disease of native coronary artery without angina pectoris (principal)
CPT/HCPCS: 36415; 80048; 84450; 84460; 85027

== ENCOUNTER → 2018-01-03 | Outpatient (CLI) | payer OTHER ==
--- NOTE | 2018-01-03 09:42 | US ---
EXAMINATION TYPE: US pelvis complete transvag DATE OF EXAM: 01/03/2018 COMPARISON: NONE CLINICAL HISTORY: N92.0 EXCESSIVE AND FREQ MENSTRATION WITH CYCLE. Patient states having low iron. H eavy menses TECHNIQUE: Transvaginal (TV) and Transabdominal (TA) . Transabdominal sonographic images of the pel vis were acquired. Transvaginal sonographic images were medically necessary to better assess the fol lowing anatomy: Endometrium and left ovary Date of LMP: 12/15/2017, EXAM MEASUREMENTS: Uterus: 9.1 x 7.5 x 5.3 cm Endometrial Stripe: 1.7 cm Right Ovary: 2.5 x 1.9 x 1.7 cm Left Ovary: 2.7 x 1.2 x 1.8 cm 1. Uterus: Anteverted Heterogenous. Two right cystic appearing lesions seen: 1= fundal - 0.8 x 1.0 x 0.6 cm. 1= COURTNEY- 0.5 x 0.5 x 0.4 cm 2. Endometrium: Thickened 3. Right Ovary: hypoechoic follicle = 1.4 x 1.9 x 1.1 cm. Ovary only seen transabdominally. 4. Left Ovary: wnl 5. Bilateral Adnexa: wnl 6. Posterior cul-de-sac: no free fluid 7. Cervix- nabothian cysts IMPRESSION: 1. Endometrial thickening that could relate to endometrial polyp, endometrial mass, or endometrial hy perplasia. Additionally there is vascularity there is linear towards the central endometrium that cou ld represent a stalk of a polyp. Further evaluation with sonohysterogram or direct visualization melanie mmended. 2. Heterogeneity of the myometrium with cystic myometrial regions could relate to adenomyosis and fur ther characterization with MRI could be performed.
== END | disposition home or self-care (01) ==
LOC: RADUSWWP 06:56
PROVIDERS: ATTEND Family Medicine
DX: N80.0 Endometriosis of uterus (principal); R93.8 Abnormal findings on diagnostic imaging of other specified body structures
CPT/HCPCS: 76830; 76856

== ENCOUNTER 2018-02-13 13:19 | Inpatient (IN) | payer OTHER ==
[2018-02-13] MEDS ORDERED: ASPIRIN 81 MG PO STA (13:29)
[2018-02-13] MEDS ORDERED: NITROGLYCERIN OINT 1 INCH/GM PACKET TOPICAL STA (13:29)
--- NOTE | 2018-02-13 13:31 | ED ---
General Adult HPI - General Chief complaint: Chest Pain Stated complaint: CHEST PAIN TOOK NITRO Time Seen by Provider: 02/13/18 13:20 Source: patient, RN notes reviewed Mode of arrival: wheelchair Limitations: no limitations - History of Present Illness Initial comments: This is a 47-year-old female presents emergency Department complaining of chest heaviness. Patient states she has high blood pressure high cholesterol and has had 3 stents placed in November. Patient states that work she was running around and being very active when she started having chest pressure the center of her chest. Patient denies any radiation of pain. Patient denies any shortness of breath per patient denies any diaphoresis. Patient denies any nausea. Patient denies any abdominal pain patient denies nausea vomiting or diarrhea. Patient states she did take a nitroglycerin it did not seem to improve her symptoms. Patient states that she was not lightheaded or dizzy. Patient states this feels the same as it did when she had her stents placed earlier in the year. Patient denies any recent fever chills or cough. Patient states that her brother of a heart attack at 42 years of age. Patient states she used to smoke but quit since she had her stents placed. - Related Data Home Medications Medication Instructions Recorded Confirmed Aspirin [Adult Low Dose Aspirin EC] 81 mg PO DAILY 10/29/17 02/13/18 Clopidogrel [Plavix] 75 mg PO DAILY 02/13/18 02/13/18 Docusate [Colace] 100 mg PO BID 02/13/18 02/13/18 Ferrous Sulfate [Feosol] 325 mg PO BID 02/13/18 02/13/18 Pantoprazole Sodium [Protonix] 40 mg PO DAILY 02/13/18 02/13/18 Triamcinolone 0.1% Cream [Kenalog 1 applicatio TOPICAL BID PRN 02/13/18 02/13/18 0.1% Cream] Previous Rx's Medication Instructions Recorded Atorvastatin [Lipitor] 80 mg PO HS #30 tab 11/02/17 Losartan [Cozaar] 25 mg PO DAILY #30 tab 11/02/17 Metoprolol Tartrate [Lopressor] 12.5 mg PO BID #60 tab 11/02/17 Nitroglycerin Sl Tabs [Nitrostat] 0.4 mg SUBLINGUAL Q5M PRN #25 tab 05/02/18 Allergies Allergy/AdvReac Type Severity Reaction Status Date / Time No Known Allergies Allergy Verified 02/13/18 14:09 Review of Systems ROS Statement: Those systems with pertinent positive or pertinent negative responses have been documented in the HPI. ROS Other: All systems not noted in ROS Statement are negative. Past Medical History Past Medical History: Chest Pain / Angina, Myocardial Infarction ([place]) History of Any Multi-Drug Resistant Organisms: None Reported Past Surgical History: Heart Catheterization, Heart Catheterization With Stent Additional Past Surgical History / Comment(s): wisdom teeth. Past Anesthesia/Blood Transfusion Reactions: No Reported Reaction Past Psychological History: No Psychological Hx Reported Smoking Status: Current every day smoker Past Alcohol Use History: Occasional Past Drug Use History: None Reported - Past Family History Mother Family Medical History: AFIB Brother(s) Family Medical History: Myocardial Infarction ([place]) Additional Family Medical History / Comment(s): brother at age 42 with [place] General Exam - General Exam Comments Initial Comments: GENERAL: Patient is well-developed and well-nourished. Patient is nontoxic and well- hydrated and is in mild distress. ENT: Neck is soft and supple. No significant lymphadenopathy is noted. Oropharynx is clear. Moist mucous membranes. Neck has full range of motion without eliciting any pain. EYES: The sclera were anicteric and conjunctiva were pink and moist. Extraocular movements were intact and pupils were equal round and reactive to light. Eyelids were unremarkable. PULMONARY: Unlabored respirations. Good breath sounds bilaterally. No audible rales rhonchi or wheezing was noted. CARDIOVASCULAR: There is a regular rate and rhythm without any murmurs gallops or rubs. ABDOMEN: Soft and nontender with normal bowel sounds. No palpable organomegaly was noted. There is no palpable pulsatile mass. SKIN: Skin is clear with no lesions or rashes and otherwise unremarkable. NEUROLOGIC: Patient is alert and oriented x3. Cranial nerves II through XII are grossly intact. Motor and sensory are also intact. Normal speech, volume and content. Symmetrical smile. MUSCULOSKELETAL: Normal extremities with adequate strength and full range of motion. LYMPHATICS: No significant lymphadenopathy is noted PSYCHIATRIC: Normal psychiatric evaluation. Limitations: no limitations Course Vital Signs 02/13/18 02/13/18 13:20 13:49 Temperature 98.1 F Pulse Rate 64 70 Respiratory 20 18 Rate Blood Pressure 108/64 118/65 O2 Sat by Pulse 99 97 Oximetry Medical Decision Making - Medical Decision Making EKG shows normal sinus rhythm at 67 bpm OH interval 134 QRS is 74 Q-T intervals 450 QTC is 475. Patient's EKG shows no ST segment elevation or depression or T wave abnormalities are noted. Chest x-ray showed no acute abnormality. Started the patient heparin because of her significant history and presenting symptoms. I spoke with the [facility] hospitalist and admitted the patient I wrote admitting orders and I consult cardiology continued heparin and aspirin and Nitropaste on the floor. - Lab Data Result diagrams: 02/13/18 13:42 02/13/18 13:42 Lab Results 02/13/18 02/13/18 02/13/18 Range/Units 13:42 13:42 13:42 WBC 6.1 (3.8-10.6) k/uL RBC 3.75 L (3.80-5.40) m/uL Hgb 8.9 L (11.4-16.0) gm/dL Hct 29.4 L (34.0-46.0) % MCV 78.5 L (80.0-100.0) fL MCH 23.8 L (25.0-35.0) pg MCHC 30.4 L (31.0-37.0) g/dL RDW 17.6 H (11.5-15.5) % Plt Count 346 (150-450) k/uL Neutrophils % 71 % Lymphocytes % 20 % Monocytes % 5 % Eosinophils % 1 % Basophils % 1 % Neutrophils # 4.3 (1.3-7.7) k/uL Lymphocytes # 1.2 (1.0-4.8) k/uL Monocytes # 0.3 (0-1.0) k/uL Eosinophils # 0.1 (0-0.7) k/uL Basophils # 0.0 (0-0.2) k/uL Hypochromasia Marked Anisocytosis Slight Microcytosis Slight PT (9.0-12.0) sec INR (<1.2) APTT (22.0-30.0) sec Sodium 139 (137-145) mmol/L Potassium 4.3 (3.5-5.1) mmol/L Chloride 108 H (98-107) mmol/L Carbon Dioxide 22 (22-30) mmol/L Anion Gap 9 mmol/L BUN 12 (7-17) mg/dL Creatinine 0.50 L (0.52-1.04) mg/dL Est GFR (CKD-EPI)AfAm >90 (>60 ml/min/1.73 sqM) Est GFR (CKD-EPI)NonAf >90 (>60 ml/min/1.73 sqM) Glucose 89 (74-99) mg/dL Calcium 9.0 (8.4-10.2) mg/dL Magnesium 2.0 (1.6-2.3) mg/dL Total Bilirubin 0.4 (0.2-1.3) mg/dL AST 27 (14-36) U/L ALT 35 (9-52) U/L Alkaline Phosphatase 70 (38-126) U/L Total Creatine Kinase 47 (30-135) U/L CK-MB (CK-2) <0.2 (0.0-2.4) ng/mL CK-MB (CK-2) Rel Index Troponin I <0.012 (0.000-0.034) ng/mL Total Protein 6.9 (6.3-8.2) g/dL Albumin 3.9 (3.5-5.0) g/dL 02/13/18 Range/Units 13:42 WBC (3.8-10.6) k/uL RBC (3.80-5.40) m/uL Hgb (11.4-16.0) gm/dL Hct (34.0-46.0) % MCV (80.0-100.0) fL MCH (25.0-35.0) pg MCHC (31.0-37.0) g/dL RDW (11.5-15.5) % Plt Count (150-450) k/uL Neutrophils % % Lymphocytes % % Monocytes % % Eosinophils % % Basophils % % Neutrophils # (1.3-7.7) k/uL Lymphocytes # (1.0-4.8) k/uL Monocytes # (0-1.0) k/uL Eosinophils # (0-0.7) k/uL Basophils # (0-0.2) k/uL Hypochromasia Anisocytosis Microcytosis PT 10.0 (9.0-12.0) sec INR 1.0 (<1.2) APTT 21.5 L (22.0-30.0) sec Sodium (137-145) mmol/L Potassium (3.5-5.1) mmol/L Chloride (98-107) mmol/L Carbon Dioxide (22-30) mmol/L Anion Gap mmol/L BUN (7-17) mg/dL Creatinine (0.52-1.04) mg/dL Est GFR (CKD-EPI)AfAm (>60 ml/min/1.73 sqM) Est GFR (CKD-EPI)NonAf (>60 ml/min/1.73 sqM) Glucose (74-99) mg/dL Calcium (8.4-10.2) mg/dL Magnesium (1.6-2.3) mg/dL Total Bilirubin (0.2-1.3) mg/dL AST (14-36) U/L ALT (9-52) U/L Alkaline Phosphatase (38-126) U/L Total Creatine Kinase (30-135) U/L CK-MB (CK-2) (0.0-2.4) ng/mL CK-MB (CK-2) Rel Index Troponin I (0.000-0.034) ng/mL Total Protein (6.3-8.2) g/dL Albumin (3.5-5.0) g/dL Critical Care Time Critical Care Time: Yes Total Critical Care Time: 35 Disposition Clinical Impression: Unstable angina pectoris Disposition: ADMITTED IP TO THIS HOSP Referrals: Kentrell Joseph MD [Primary Care Provider] - 1-2 days Time of Disposition: 14:54
[2018-02-13 13:59] LABS: Anisocytosis Slight; Basophils % (A) 1 %; Eosinophils # (A) 0.1 k/uL (0-0.7); Eosinophils % (A) 1 %; HCT 29.4 % (34.0-46.0); HGB 8.9 gm/dL (11.4-16.0); Hypochromasia Marked; Lymphocytes # (A) 1.2 k/uL (1.0-4.8); Lymphocytes % (A) 20 %; MCH 23.8 pg (25.0-35.0); MCHC 30.4 g/dL (31.0-37.0); MCV 78.5 fL (80.0-100.0); Mean Platelet Volume 7.1; Microcytosis Slight; Monocytes # (A) 0.3 k/uL (0-1.0); Monocytes % (A) 5 %; Neutrophils # (A) 4.3 k/uL (1.3-7.7); Neutrophils % (A) 71 %; Platelet Count 346 k/uL (150-450); RBC 3.75 m/uL (3.80-5.40); RDW 17.6 % (11.5-15.5); WBC 6.1 k/uL (3.8-10.6)
[2018-02-13 14:12] LABS: ALT 35 U/L (9-52); AST 27 U/L (14-36); Albumin 3.9 g/dL (3.5-5.0); Alkaline Phosphatase 70 U/L (38-126); Anion Gap 9 mmol/L; Blood Urea Nitrogen 12 mg/dL (7-17); Carbon Dioxide 22 mmol/L (22-30); Chloride 108 mmol/L (98-107); Glucose 89 mg/dL (74-99); Potassium 4.3 mmol/L (3.5-5.1); Sodium 139 mmol/L (137-145); Total Bilirubin 0.4 mg/dL (0.2-1.3); Total Protein 6.9 g/dL (6.3-8.2)
[2018-02-13 14:15] LABS: Partial Thromboplastin Time 21.5 sec (22.0-30.0)
[2018-02-13 14:23] LABS: Creatine Kinase 47 U/L (30-135)
[2018-02-13 14:34] LABS: Creatine Kinase MB <0.2 ng/mL (0.0-2.4); Troponin I <0.012 ng/mL (0.000-0.034)
--- NOTE | 2018-02-13 14:42 | XR ---
EXAMINATION TYPE: XR chest 2V DATE OF EXAM: 02/13/2018 COMPARISON: 10/21/2017 TECHNIQUE: PA and lateral views submitted. HISTORY: Pain FINDINGS: The lungs are clear and there is no pneumothorax, pleural effusion, or focal pneumonia. Hypertrophi c change of the spine. IMPRESSION: 1. No acute process.
[2018-02-13] MEDS ORDERED: HEPARIN SODIUM,PORCINE 5,000 UNIT/ML 1 ML VIAL IV ONE (14:49)
[2018-02-13] MEDS ORDERED: NITROGLYCERIN SL TABS 0.4 MG TAB SUBLINGUAL PRN (14:54)
[2018-02-13] MEDS: HEPARIN SOD,PORK IN 0.45% NACL 25,000 UNIT in 0.45% NACL 1 500ML.BAG IV SCH (15:46)
[2018-02-13] MEDS: NITROGLYCERIN OINT 1 INCH/GM PACKET TOPICAL SCH (20:39)
[2018-02-13 20:40] LABS: Creatine Kinase 37 U/L (30-135)
[2018-02-13 20:48] LABS: Creatine Kinase MB <0.2 ng/mL (0.0-2.4); Troponin I <0.012 ng/mL (0.000-0.034)
[2018-02-13] MEDS ORDERED: HEPARIN SODIUM,PORCINE 5,000 UNIT/ML 1 ML VIAL IV STA (22:38)
[2018-02-13] MEDS ORDERED: TRIAMCINOLONE 0.1% CREAM 80 GM TUBE TOPICAL PRN (22:45)
[2018-02-14] MEDS: NITROGLYCERIN OINT 1 INCH/GM PACKET TOPICAL SCH ×4 (00:35→20:30)
[2018-02-14 02:57] LABS: Creatine Kinase 35 U/L (30-135)
[2018-02-14 03:10] LABS: Creatine Kinase MB <0.2 ng/mL (0.0-2.4); Troponin I <0.012 ng/mL (0.000-0.034)
[2018-02-14 03:26] LABS: Cholesterol 106 mg/dL (<200); HDL Cholesterol 47 mg/dL (40-60); LDL Cholesterol,Calculated 40 mg/dL (0-99); Triglycerides 97 mg/dL (<150)
--- NOTE | 2018-02-14 07:04 | P.CRDCN ---
History of Present Illness Consult date: 02/14/18 Chief complaint: Chest pain History of present illness: This is a pleasant 47-year-old female patient who sees Dr. DEVYN Cardona in the office as an outpatient with known history of CAD and status post a stenting of the LAD back in November 2017 where she received 3 stents to the LAD for severe underlying coronary artery disease was admitted to the hospital complaining of chest discomfort patient was in her usual state of health yesterday when she was driving to work and started experiencing discomfort in the mid of the chest , as a pressure on the chest then sharp kind of chest pain, without any radiation to the arm or neck or shoulders and without any associated symptoms of sweating, shortness of breath, dizziness or lightness or syncope. The patient did take nitroglycerin with some improvement in her chest discomfort. She stated that she was compliant with all her medications. She stated that she stopped smoking back in November when she received the stents. The EKG showed sinus rhythm without any ischemic ST or T-wave abnormalities. The cardiac enzymes checked and came in to be unremarkable. The chest x-ray did not show any acute abnormalities. Past Medical History Past Medical History: Coronary Artery Disease (CAD), Chest Pain / Angina, GERD/ Reflux, Myocardial Infarction (LA) Additional Past Medical History / Comment(s): anemia, "i never was told if i had high bp or high cholesterol-they put me on meds after my heart attack" Last Myocardial Infarction Date:: unk History of Any Multi-Drug Resistant Organisms: None Reported Past Surgical History: Heart Catheterization, Heart Catheterization With Stent Additional Past Surgical History / Comment(s): wisdom teeth. pt stated she has had 3 heart caths total, 3 stents Past Anesthesia/Blood Transfusion Reactions: No Reported Reaction, Motion Sickness Date of Last Stent Placement:: 11/01/17 Smoking Status: Former smoker - Past Family History Mother Family Medical History: AFIB Brother(s) Family Medical History: Myocardial Infarction ([place]) Additional Family Medical History / Comment(s): brother at age 42 with [place] Medications and Allergies Home Medications Medication Instructions Recorded Confirmed Type Aspirin [Adult Low Dose Aspirin EC] 81 mg PO DAILY 10/29/17 02/13/18 History Atorvastatin [Lipitor] 80 mg PO HS #30 tab 11/02/17 02/13/18 Rx Losartan [Cozaar] 25 mg PO DAILY #30 tab 11/02/17 02/13/18 Rx Metoprolol Tartrate [Lopressor] 12.5 mg PO BID #60 tab 11/02/17 02/13/18 Rx Nitroglycerin Sl Tabs [Nitrostat] 0.4 mg SUBLINGUAL Q5M PRN #25 tab 11/02/17 Rx Clopidogrel [Plavix] 75 mg PO DAILY 02/13/18 02/13/18 History Docusate [Colace] 100 mg PO BID 02/13/18 02/13/18 History Ferrous Sulfate [Feosol] 325 mg PO BID 02/13/18 02/13/18 History Pantoprazole Sodium [Protonix] 40 mg PO DAILY 02/13/18 02/13/18 History Triamcinolone 0.1% Cream [Kenalog 1 applicatio TOPICAL BID PRN 02/13/18 History 0.1% Cream] Allergies Allergy/AdvReac Type Severity Reaction Status Date / Time No Known Allergies Allergy Verified 02/13/18 14:09 Physical Exam Vitals: Vital Signs Temp Pulse Pulse Resp BP BP Pulse Ox 02/14/18 04:00 98.8 F 72 16 102/64 98 02/13/18 23:10 18 02/13/18 22:56 97.6 F 77 18 111/61 97 02/13/18 22:43 98 F 78 18 101/56 98 02/13/18 21:20 97.8 F 78 18 120/67 98 02/13/18 19:42 66 18 97/53 98 02/13/18 19:00 98.5 F 81 18 123/70 98 02/13/18 15:49 63 16 117/72 02/13/18 13:49 70 18 118/65 97 02/13/18 13:20 98.1 F 64 20 108/64 99 Intake and Output 02/13/18 02/14/18 02/14/18 22:59 06:59 14:59 Intake Total 150.667 Balance 150.667 Intake: Intake, IV Titration 150.667 Amount Heparin Sod,Pork in 0.45% 150.667 NaCl 25,000 unit In 0.45 % NaCl 1 500ml.bag @ 10. 25 UNITS/KG/HR 20 mls/hr IV .Q24H [facility] Rx#: [id number] Other: Voiding Method Toilet # Voids 1 2 Weight 97.568 kg - Constitutional General appearance: no acute distress - Respiratory Respiratory: bilateral: CTA - Cardiovascular Rhythm: regular Heart sounds: normal: S1, S2 Results 02/13/18 13:42 02/13/18 13:42 Cardiac Enzymes 02/13/18 02/13/18 02/13/18 Range/Units 13:42 13:42 20:01 AST 27 (14-36) U/L CK-MB (CK-2) <0.2 <0.2 (0.0-2.4) ng/mL Troponin I <0.012 <0.012 (0.000-0.034) ng/mL 02/14/18 Range/Units 02:08 AST (14-36) U/L CK-MB (CK-2) <0.2 (0.0-2.4) ng/mL Troponin I <0.012 (0.000-0.034) ng/mL Coagulation 02/13/18 02/13/18 02/14/18 Range/Units 13:42 21:47 05:54 PT 10.0 (9.0-12.0) sec APTT 21.5 L 39.4 H 47.7 H (22.0-30.0) sec Lipids 02/13/18 Range/Units 13:42 Triglycerides 97 (<150) mg/dL Cholesterol 106 (<200) mg/dL HDL Cholesterol 47 (40-60) mg/dL CBC 02/13/18 Range/Units 13:42 WBC 6.1 (3.8-10.6) k/uL RBC 3.75 L (3.80-5.40) m/uL Hgb 8.9 L (11.4-16.0) gm/dL Hct 29.4 L (34.0-46.0) % Plt Count 346 (150-450) k/uL Comprehensive Metabolic Panel 02/13/18 Range/Units 13:42 Sodium 139 (137-145) mmol/L Potassium 4.3 (3.5-5.1) mmol/L Chloride 108 H (98-107) mmol/L Carbon Dioxide 22 (22-30) mmol/L BUN 12 (7-17) mg/dL Creatinine 0.50 L (0.52-1.04) mg/dL Glucose 89 (74-99) mg/dL Calcium 9.0 (8.4-10.2) mg/dL AST 27 (14-36) U/L ALT 35 (9-52) U/L Alkaline Phosphatase 70 (38-126) U/L Total Protein 6.9 (6.3-8.2) g/dL Albumin 3.9 (3.5-5.0) g/dL Current Medications Generic Name Dose Route Start Last Admin Trade Name Freq PRN Reason Stop Dose Admin Aspirin 325 mg 02/14/18 09:00 Aspirin PO DAILY [facility] Atorvastatin Calcium 80 mg 02/14/18 21:00 Lipitor PO HS [facility] Docusate Sodium 100 mg 02/14/18 09:00 Colace PO BID [facility] Ferrous Sulfate 325 mg 02/14/18 09:00 Feosol PO BID [facility] Heparin Sodium/Sodium Chloride 500 mls @ 20 mls/hr 02/13/18 15:00 02/13/18 23 :18 25,000 unit/ Sodium Chloride IV 13.32 units/kg/hr .Q24H [facility] 26 mls/hr Titration Protocol 10.25 UNITS/KG/HR Metoprolol Tartrate 12.5 mg 02/14/18 09:00 Lopressor PO BID [facility] Nitroglycerin 1 inch 02/13/18 18:00 02/14/18 06:29 Nitro-Bid Oint TOPICAL Not Given Q6HR [facility] Nitroglycerin 0.4 mg 02/13/18 14:54 Nitrostat SUBLINGUAL Q5M PRN Chest Pain Triamcinolone Acetonide 1 applic 02/13/18 22:45 Kenalog TOPICAL BID PRN Itching Intake and Output 02/13/18 02/14/18 02/14/18 22:59 06:59 14:59 Intake Total 150.667 Balance 150.667 Intake: Intake, IV Titration 150.667 Amount Heparin Sod,Pork in 0.45% 150.667 NaCl 25,000 unit In 0.45 % NaCl 1 500ml.bag @ 10. 25 UNITS/KG/HR 20 mls/hr IV .Q24H [facility] Rx#: [id number] Other: Voiding Method Toilet # Voids 1 2 Weight 97.568 kg 02/13/18 13:42 02/13/18 13:42 Assessment and Plan Assessment: Assessment #1 atypical chest discomfort #2 known CAD and status post a stenting of the LAD Plan #1 the patient was ruled out for acute coronary event #2 I will schedule the patient to undergo a stress echocardiogram. Thank you for allowing us participate in her care and we'll continue following up with the patient
[2018-02-14] MEDS: METOPROLOL TARTRATE 12.5 MG TAB PO SCH ×2 (12:26→20:29)
[2018-02-14] MEDS: DOCUSATE 100 MG CAP PO SCH ×2 (12:26→20:29)
[2018-02-14] MEDS: FERROUS SULFATE 325 MG TAB PO SCH ×2 (12:27→20:29)
[2018-02-14] MEDS: ASPIRIN 325 MG TAB PO SCH (12:27)
[2018-02-14] MEDS ORDERED: NITROGLYCERIN SL TABS 0.4 MG TAB SUBLINGUAL PRN ×2 (12:28→13:25)
--- NOTE | 2018-02-14 12:34 | ECHOS ---
STRESS ECHOCARDIOGRAM DATE OF SERVICE: 02/14/2018 INDICATIONS: Chest pain. MEDICATIONS: BASELINE HEART RATE: 73 BASELINE BLOOD PRESSURE: 108/49 MAXIMUM HEART RATE: 157 MAXIMUM BLOOD PRESSURE: 108/49 85% MPHR: 149 100% MPHR: 175 METS: 7.7 MAXIMUM STAGE REACHED: II TOTAL EXERCISE TIME: 6 minutes CLINICAL INFORMATION: STRESS DATA: Pretesting physical examination showed a heart rate of 73, pressure is 108/49 mmHg. Baseline EKG showed sinus mechanism. The patient exercised on the treadmill according to Elvis protocol for a total of 6 minutes and achieved 7.7 METs. The max heart rate was 157, which is about 89% of maximum predicted heart rate. Maximum blood pressure was 108/49 mmHg. Clinically, the patient developed chest discomfort in response to exercise. The EKG showed about [address]-segment changes. ECHOCARDIOGRAM IMAGES: On echocardiogram images from parasternal long axis view, parasternal short axis view, apical 4 chamber and apical 2 chamber view were obtained as a baseline images, at the peak of the heart rate as well as on recovery. The echocardiogram images reveal wall motion abnormalities concerning for ischemia involving the basal septum of the left ventricle. CONCLUSION: 1. Average exercise tolerance. 2. Chest discomfort and shortness of breath in response to exercise. 3. Mildly abnormal EKG in response to exercise. 4. Abnormal echocardiogram in response to exercise with evidence of wall motion abnormalities concerning for ischemia. MMODL / IJN: [id number] /
[2018-02-14] MEDS ORDERED: SODIUM CHLORIDE 0.9% 1,000 ML in EMPTY BAG 1 BAG IV ONE (13:25)
[2018-02-14] MEDS ORDERED: ALPRAZolam 0.25 MG TAB PO PRN (13:25)
[2018-02-14] MEDS ORDERED: ASPIRIN 325 MG TAB PO STA (13:25)
[2018-02-14] MEDS ORDERED: ALPRAZolam 0.5 MG TAB PO PRN (13:25)
[2018-02-14] MEDS ORDERED: ATORVASTATIN 80 MG TAB PO STA (13:25)
[2018-02-14] MEDS: LOSARTAN 25 MG TAB PO SCH (14:16)
[2018-02-14] MEDS: CLOPIDOGREL 75 MG TAB PO SCH (14:16)
[2018-02-14] MEDS: PANTOPRAZOLE 40 MG TABLET PO SCH (14:17)
[2018-02-14] MEDS: ATORVASTATIN 80 MG TAB PO SCH (20:29)
--- NOTE | 2018-02-15 00:38 | P.HPIM ---
History of Present Illness H&P Date: 02/14/18 Chief Complaint: Chest pain Patient is a 47-year-old female with a known history of coronary artery disease with stent placement in November 2017 came to ER with complaints of chest discomfort. Patient was driving to work yesterday and was experiencing midsternal chest discomfort/ sharp pain. Denied any radiation to the arm neck or shoulders. No associated shortness of breath. No nausea vomiting or headache or dizziness or lightheadedness or diaphoresis. Patient does have significant family history of coronary artery disease. Patient used to smoke but quit since November 2017. Patient has been compliant with her medications. Chest x-ray showed no acute cardiopulmonary process. EKG showed normal sinus rhythm. Troponin 3 negative Review of Systems Constitutional: Patient denies any fever or chills . No generalized weakness or weight loss. Abdomen: Patient denied nausea vomiting and diarrhea and abdominal pain. Cardiovascular: Patient denies any chest pain or short of breath no palpitations. Respiratory: patient denied any cough is from production. No shortness of breath Neurologic: Patient denied any numbness or tingling headache. Musculoskeletal: Patient denies any complaints of joint swelling or deformity. Skin: Negative Psychiatric: Negative Endocrine: No heat or cold intolerance. No recent weight gain. Genitourinary: No dysuria or hematuria. All other 14 point ROS negative except the above Past Medical History Past Medical History: Coronary Artery Disease (CAD), Chest Pain / Angina, GERD/ Reflux, Myocardial Infarction ([place]) Additional Past Medical History / Comment(s): anemia, "i never was told if i had high bp or high cholesterol-they put me on meds after my heart attack" Last Myocardial Infarction Date:: unk History of Any Multi-Drug Resistant Organisms: None Reported Past Surgical History: Heart Catheterization, Heart Catheterization With Stent Additional Past Surgical History / Comment(s): wisdom teeth. pt stated she has had 3 heart caths total, 3 stents Past Anesthesia/Blood Transfusion Reactions: No Reported Reaction, Motion Sickness Date of Last Stent Placement:: 11/01/17 Smoking Status: Former smoker - Past Family History Mother Family Medical History: AFIB Brother(s) Family Medical History: Myocardial Infarction ([place]) Additional Family Medical History / Comment(s): brother at age 42 with [place] Medications and Allergies Home Medications Medication Instructions Recorded Confirmed Type Aspirin [Adult Low Dose Aspirin EC] 81 mg PO DAILY 10/29/17 02/13/18 History Atorvastatin [Lipitor] 80 mg PO HS #30 tab 11/02/17 02/13/18 Rx Losartan [Cozaar] 25 mg PO DAILY #30 tab 11/02/17 02/13/18 Rx Metoprolol Tartrate [Lopressor] 12.5 mg PO BID #60 tab 11/02/17 02/13/18 Rx Nitroglycerin Sl Tabs [Nitrostat] 0.4 mg SUBLINGUAL Q5M PRN #25 tab 11/02/17 Rx Clopidogrel [Plavix] 75 mg PO DAILY 02/13/18 02/13/18 History Docusate [Colace] 100 mg PO BID 02/13/18 02/13/18 History Ferrous Sulfate [Feosol] 325 mg PO BID 02/13/18 02/13/18 History Pantoprazole Sodium [Protonix] 40 mg PO DAILY 02/13/18 02/13/18 History Triamcinolone 0.1% Cream [Kenalog 1 applicatio TOPICAL BID PRN 02/13/18 History 0.1% Cream] Allergies Allergy/AdvReac Type Severity Reaction Status Date / Time No Known Allergies Allergy Verified 02/13/18 14:09 Physical Exam Vitals: Vital Signs Temp Pulse Pulse Resp BP BP Pulse Ox 02/14/18 11:45 98.1 F 77 18 111/72 98 02/14/18 08:00 98.1 F 66 18 101/65 98 02/14/18 04:00 98.8 F 72 16 102/64 98 02/13/18 23:10 18 02/13/18 22:56 97.6 F 77 18 111/61 97 02/13/18 22:43 98 F 78 18 101/56 98 02/13/18 21:20 97.8 F 78 18 120/67 98 02/13/18 19:42 66 18 97/53 98 02/13/18 19:00 98.5 F 81 18 123/70 98 02/13/18 15:49 63 16 117/72 02/13/18 13:49 70 18 118/65 97 02/13/18 13:20 98.1 F 64 20 108/64 99 Intake and Output 02/13/18 02/14/18 02/14/18 22:59 06:59 14:59 Intake Total 150.667 Balance 150.667 Intake: Intake, IV Titration 150.667 Amount Heparin Sod,Pork in 0.45% 150.667 NaCl 25,000 unit In 0.45 % NaCl 1 500ml.bag @ 10. 25 UNITS/KG/HR 20 mls/hr IV .Q24H [facility] Rx#: [id number] Other: Voiding Method Toilet Toilet # Voids 1 2 Weight 97.568 kg PHYSICAL EXAMINATION: Patient is lying in the bed comfortably, no acute distress, awake alert and oriented.. HEENT: Normocephalic. Neck is supple. Pupils reactive. Nostrils clear. Oral cavity is moist. Ears reveal no drainage. Neck reveals no JVD, carotid bruits, or thyromegaly. CHEST EXAMINATION: Trachea is central. Symmetrical expansion. Lung hernandes clear to auscultation and percussion. CARDIAC: Normal S1, S2 with no gallops. No murmurs ABDOMEN: Soft. Bowel sounds normal. No organomegaly. No abdominal bruits. Extremities: reveal no edema. No clubbing or cyanosis Neurologically awake, alert, oriented x3 with well-coordinated movements. No focal deficits noted Skin: No rash or skin lesions. Psychiatric: Coperative. Nonsuicidal Musculoskeletal: No joint swelling or deformity. Normal range of motion. Results CBC & Chem 7: 02/13/18 13:42 02/13/18 13:42 Labs: Abnormal Lab Results - Last 24 Hours (Table) 02/13/18 02/13/18 02/13/18 Range/Units 13:42 13:42 13:42 RBC 3.75 L (3.80-5.40) m/uL Hgb 8.9 L (11.4-16.0) gm/dL Hct 29.4 L (34.0-46.0) % MCV 78.5 L (80.0-100.0) fL MCH 23.8 L (25.0-35.0) pg MCHC 30.4 L (31.0-37.0) g/dL RDW 17.6 H (11.5-15.5) % APTT 21.5 L (22.0-30.0) sec Chloride 108 H (98-107) mmol/L Creatinine 0.50 L (0.52-1.04) mg/dL 02/13/18 02/14/18 Range/Units 21:47 05:54 RBC (3.80-5.40) m/uL Hgb (11.4-16.0) gm/dL Hct (34.0-46.0) % MCV (80.0-100.0) fL MCH (25.0-35.0) pg MCHC (31.0-37.0) g/dL RDW (11.5-15.5) % APTT 39.4 H 47.7 H (22.0-30.0) sec Chloride (98-107) mmol/L Creatinine (0.52-1.04) mg/dL Thrombosis Risk Factor Assmnt - DVT/VTE Prophylaxis DVT/VTE Prophylaxis: Pharmacologic Prophylaxis ordered - Choose All That Apply Each Factor Represents 1 point: Age 41-60 years, Obesity (BMI >25) Thrombosis Risk Factor Assessment Total Risk Factor Score: 2 Thrombosis Risk Factor Assessment Level: Low Risk Assessment and Plan Assessment: Abnormal stress echocardiogram Atypical chest pain. Ruled out acute coronary syndrome. Coronary artery disease with Recent history of stent placement 3 in November 2017 Family history of coronary artery disease GERD History of smoking History of [place] Plan: Patient will be continued on telemetry monitoring. Serial EKG and troponin 3 negative. Patient underwent stress echocardiogram as per cardiology recommendations. Patient was found have wall motion abnormalities in the stress echocardiogram. Cardiology is planning for cardiac catheterization tomorrow. Otherwise patient denied any chest pain at this time. Further recommendations based on the clinical course. Time with Patient: Greater than 30
[2018-02-15] MEDS: DOCUSATE 100 MG CAP PO SCH ×2 (05:34→21:12)
[2018-02-15] MEDS: FERROUS SULFATE 325 MG TAB PO SCH ×2 (05:34→21:12)
[2018-02-15] MEDS: ASPIRIN 325 MG TAB PO SCH (05:34)
[2018-02-15] MEDS: CLOPIDOGREL 75 MG TAB PO SCH (05:34)
[2018-02-15] MEDS: NITROGLYCERIN OINT 1 INCH/GM PACKET TOPICAL SCH (05:34)
[2018-02-15] MEDS: METOPROLOL TARTRATE 12.5 MG TAB PO SCH (05:35)
[2018-02-15] MEDS: PANTOPRAZOLE 40 MG TABLET PO SCH (05:35)
[2018-02-15] MEDS: LOSARTAN 25 MG TAB PO SCH (05:35)
[2018-02-15] MEDS ORDERED: VERAPAMIL 2.5 MG/ML 2 ML AMP ONE (07:06)
[2018-02-15] MEDS ORDERED: MIDAZOLAM 2 MG/2 ML VIAL ONE (07:06)
[2018-02-15] MEDS ORDERED: LIDOCAINE 1% INJ 10MG/ML (20 ML MDV) ONE (07:06)
[2018-02-15] MEDS ORDERED: diphenhydrAMINE 50 MG/ML 1 ML VIAL ONE (07:06)
[2018-02-15] MEDS ORDERED: MIDAZOLAM 2 MG/2 ML VIAL IV ONE (07:26)
[2018-02-15] MEDS ORDERED: IV FLUID CONTINUATION 1,000 ML IV ONE (07:27)
[2018-02-15] MEDS ORDERED: diphenhydrAMINE 50 MG/ML 1 ML VIAL IVP ONE (07:27)
[2018-02-15] MEDS: LIDOCAINE 1% INJ 10MG/ML (20 ML MDV) SQ ONE ×2 (07:31→07:40)
[2018-02-15] MEDS ORDERED: VERAPAMIL SYRINGE (5 MG/10 ML) INTRAARTER ONE (07:32)
[2018-02-15] MEDS ORDERED: fentaNYL (PF) 50 MCG/ML 2 ML AMP ONE (07:45)
[2018-02-15] MEDS ORDERED: fentaNYL (PF) 50 MCG/ML 2 ML AMP IV ONE (07:47)
[2018-02-15] MEDS: NITROGLYCERIN 1000MCG/10ML SYRINGE INTRACORON ONE ×3 (07:53→08:33)
[2018-02-15] MEDS ORDERED: BIVALIRUDIN 250 MG in SODIUM CHLORIDE 0.9% 50 ML IV ONE (08:03)
[2018-02-15] MEDS ORDERED: BIVALIRUDIN BOLUS 250 MG/50 ML IV ONE (08:03)
[2018-02-15] MEDS ORDERED: IOPAMIDOL-370 100ML BTL INJ ONE ×2 (08:22→08:33)
[2018-02-15] MEDS ORDERED: TICAGRELOR 90 MG TAB ONE (08:36)
[2018-02-15] MEDS ORDERED: MORPHINE SULFATE 4 MG/ML SYRINGE ONE ×2 (08:38→10:25)
[2018-02-15] MEDS ORDERED: MAG HYDROX/AL HYDROX/SIMETH 30 ML CUP PO PRN (08:54)
[2018-02-15] MEDS ORDERED: RX INFO: IV CONTRAST WAS GIVEN 1 EACH MISC MISCELLANE PRN (08:54)
[2018-02-15] MEDS ORDERED: ATROPINE SULFATE 0.1 MG/ML 10ML SYRINGE IV PRN (08:54)
[2018-02-15] MEDS: SODIUM CHLORIDE 0.9% 1,000 ML IV SCH (08:55)
[2018-02-15] MEDS: TICAGRELOR 90 MG TAB PO SCH ×2 (13:39→21:12)
[2018-02-15] MEDS: ASPIRIN 81 MG PO SCH (13:39)
[2018-02-15] MEDS: HEPARIN SOD,PORK IN 0.45% NACL 25,000 UNIT in 0.45% NACL 1 500ML.BAG IV SCH (13:40)
[2018-02-15 14:47] VITALS: BMI 36.9
--- NOTE | 2018-02-15 20:19 | CC ---
CARDIAC CATHETERIZATION REPORT DATE OF SERVICE: 02/15/2018. PROCEDURE: 1. Left heart catheterization and coronary angiography. 2. PTCA and stenting of in-stent restenosis in mid LAD with a drug-eluting stent. PERFORMED BY: Dr. Jamaal Cardona. SEDATION: Moderate conscious sedation time was 70 minutes. Patient was administered a combination of fentanyl and Versed, Benadryl and her oxygen saturation, hemodynamics and EKG were monitored closely. PROCEDURE NOTE: Under local anesthesia and strict aseptic precautions, I attempted access from the right radial, but I was unable to get good access, so I switched over to the right femoral. A 6-Kazakh introducer was placed in the right femoral artery under strict aseptic precautions and local anesthesia. Using standard Arben catheters, I performed coronary angiography and noted that the mid LAD within the previously placed stent had a significant lesion. I recommended intervention that was performed expeditiously. LV pressures were obtained with the same right Arben catheter but LV gram was not performed. PTCA PROCEDURE DETAILS: I used a Voda 3.5 curved catheter to cannulate the left coronary artery. A whisper wire was used to cross the lesion. Wire was kept distally. A 2.25 caliber 12 mm Trek balloon was used to help facilitate the advancement of the wire. I used an [place] 2.0 caliber 8 mm long stent and deployed this in the proximal lesion within the stented segment. Excellent angiographic result was achieved. I then used a 2.75 NC trek of 8 mm caliber and postdilated the Yuan stent. Excellent result was achieved. Distally, I used a 2.5 caliber 8 mm NC Trek balloon and gave multiple inflations in the distal area where there was also mild narrowing. Excellent angiographic result was achieved. Proximal to the stented segment, also I given additional inflation within the stented segment. Excellent angiographic result was achieved. The patient received Angiomax bolus and infusion. She also received 90 mg of Brilinta. The sheath was taken out and Angio-Seal device used to secure hemostasis and she was sent to the room in a stable condition. CARDIAC CATHETERIZATION FINDINGS: RIGHT CORONARY ARTERY: Dominant, disease-free vessel, has minor irregularities distally bifurcates in large PDA and PLV. No significant disease in a dominant RCA. LEFT MAIN CORONARY ARTERY: Short, patent vessel, free of significant disease that bifurcates into LAD and circumflex. LEFT ANTERIOR DESCENDING CORONARY ARTERY: This vessel was stented with 3 drug-eluting stents in the entire mid segment. Within the proximal stent, which was a 23 mm long 2.5 caliber stent, there is a narrowing of about 80% noted within the stented segment. There is a another area of narrowing also seen and another area of narrowing that was seen which was at a bend of about 50-60%, but this is thought to be more or less a bridging as well. Beyond this area, the caliber of the vessel improves and it runs all the way to the apex. There are therefore 2 areas of disease one is 80%, one is 50-60% and the 50-60% appears to have some bridging. Proximally, also there is some narrowing of moderate degree noted. The diagonal branch that comes off proximal to the stented segment is widely patent. LEFT POSTERIOR CIRCUMFLEX CORONARY ARTERY: Technically a nondominant vessel, gives off a high obtuse marginal then runs distally in the AV groove has minor irregularities and no significant disease. LEFT VENTRICULOGRAM: This was not performed. PCI PROCEDURE INFO: Lesions within the LAD were addressed with 1 drug-eluting stent and other areas were dilated. Excellent angiographic result was achieved without evident complication. Patient was sent to the room in stable condition and results were discussed with the patient as well as her family members, including her mother and her /boyfriend. NAIN / SALMAN: [id number] /
[2018-02-15] MEDS: ATORVASTATIN 80 MG TAB PO SCH (21:12)
[2018-02-15] MEDS: METOPROLOL TARTRATE 25 MG TAB PO SCH (21:12)
[2018-02-15] MEDS ORDERED: HYDROcodone/APAP 5-325MG 1 EACH TAB PO PRN (22:02)
--- NOTE | 2018-02-15 22:46 | P.PN ---
Subjective Progress Note Date: 02/15/18 Principal diagnosis: Unstable angina status post cardiac catheterization and PCI Patient is a 47-year-old female with a known history of coronary artery disease with stent placement in November 2017 came to ER with complaints of chest discomfort. Patient was driving to work yesterday and was experiencing midsternal chest discomfort/ sharp pain. Denied any radiation to the arm neck or shoulders. No associated shortness of breath. No nausea vomiting or headache or dizziness or lightheadedness or diaphoresis. Patient does have significant family history of coronary artery disease. Patient used to smoke but quit since November 2017. Patient has been compliant with her medications. Chest x-ray showed no acute cardiopulmonary process. EKG showed normal sinus rhythm. Troponin 3 negative 02/15/2018 Denied any complains of chest pain. Troponin 3 negative. Patient underwent cardiac Catheterization and was found to have mid LAD in-stent restenosis post PCI with drug-eluting stent. Otherwise patient denied any shortness of breath. No nausea vomiting or abdominal pain. All other review of systems negative except the above. Current medications reviewed Objective - Vital Signs Vital signs: Vital Signs Temp 97.4 F L 02/15/18 20:00 Pulse 73 02/15/18 20:00 Resp 18 02/15/18 20:00 BP 114/47 02/15/18 20:00 Pulse Ox 93 L 02/15/18 20:00 Intake & Output 02/15/18 02/15/18 02/16/18 06:59 18:59 06:59 Intake Total 980 423.9 Output Total 875 Balance 980 -451.1 Weight 97.568 kg Intake: IV 980 183.9 Sodium Chloride 0.9% 1, 980 000 ml In Empty Bag 1 bag @ 1 ML/KG/HR 97.56 mls/ hr IV .[id number] Rx#: [id number] Intake, IV Titration 0 Amount Sodium Chloride 0.9% 1, 0 000 ml @ 75 mls/hr IV . [id number] [facility] Rx#:[id number] Oral 240 Output: Urine 875 Other: Voiding Method Toilet Toilet # Voids 2 1 1 - Exam PHYSICAL EXAMINATION: Patient is lying in the bed comfortably, no acute distress, awake alert and oriented.. HEENT: Normocephalic. Neck is supple. Pupils reactive. Nostrils clear. Oral cavity is moist. Ears reveal no drainage. Neck reveals no JVD, carotid bruits, or thyromegaly. CHEST EXAMINATION: Trachea is central. Symmetrical expansion. Lung hernandes clear to auscultation and percussion. CARDIAC: Normal S1, S2 with no gallops. No murmurs ABDOMEN: Soft. Bowel sounds normal. No organomegaly. No abdominal bruits. Extremities: reveal no edema. No clubbing or cyanosis Neurologically awake, alert, oriented x3 with well-coordinated movements. No focal deficits noted Skin: No rash or skin lesions. Psychiatric: Coperative. Nonsuicidal Musculoskeletal: No joint swelling or deformity. Normal range of motion. - Labs CBC & Chem 7: 02/13/18 13:42 02/13/18 13:42 Assessment and Plan Assessment: Abnormal stress echocardiogram Unstable angina status post PCI due to mid LAD in-stent restenosis Coronary artery disease with Recent history of stent placement 3 in November 2017 Family history of coronary artery disease GERD History of smoking History of [place] Plan: Patient will be continued on telemetry monitoring. Serial EKG and troponin 3 negative. Patient underwent stress echocardiogram as per cardiology recommendations. Patient was found have wall motion abnormalities in the stress echocardiogram. Patient is status post cardiac Catheterization and PCI. Otherwise patient denied any chest pain at this time. Further recommendations based on the clinical course. Time with Patient: Greater than 30
[2018-02-16] MEDS: SODIUM CHLORIDE 0.9% 1,000 ML IV SCH (00:46)
[2018-02-16 06:27] LABS: Anisocytosis Slight; Basophils % (A) 0 %; Eosinophils # (A) 0.1 k/uL (0-0.7); Eosinophils % (A) 2 %; HCT 27.5 % (34.0-46.0); HGB 8.2 gm/dL (11.4-16.0); Hypochromasia Marked; Lymphocytes # (A) 1.2 k/uL (1.0-4.8); Lymphocytes % (A) 16 %; MCH 23.8 pg (25.0-35.0); MCHC 29.9 g/dL (31.0-37.0); MCV 79.6 fL (80.0-100.0); Microcytosis Slight; Monocytes # (A) 0.5 k/uL (0-1.0); Monocytes % (A) 6 %; Neutrophils # (A) 5.6 k/uL (1.3-7.7); Neutrophils % (A) 75 %; Platelet Count 257 k/uL (150-450); RBC 3.46 m/uL (3.80-5.40); RDW 18.4 % (11.5-15.5); WBC 7.5 k/uL (3.8-10.6)
[2018-02-16 06:33] LABS: Anion Gap 6 mmol/L; Blood Urea Nitrogen 8 mg/dL (7-17); Calcium 8.6 mg/dL (8.4-10.2); Carbon Dioxide 23 mmol/L (22-30); Chloride 108 mmol/L (98-107); Glucose 95 mg/dL (74-99); Potassium 4.1 mmol/L (3.5-5.1); Sodium 137 mmol/L (137-145)
[2018-02-16] MEDS: ASPIRIN 81 MG PO SCH (08:42)
[2018-02-16] MEDS: METOPROLOL TARTRATE 25 MG TAB PO SCH ×2 (08:42→20:17)
[2018-02-16] MEDS: LOSARTAN 25 MG TAB PO SCH (08:42)
[2018-02-16] MEDS: FERROUS SULFATE 325 MG TAB PO SCH ×2 (08:42→20:17)
[2018-02-16] MEDS: TICAGRELOR 90 MG TAB PO SCH ×2 (08:42→20:17)
[2018-02-16] MEDS: DOCUSATE 100 MG CAP PO SCH ×2 (08:42→20:17)
[2018-02-16] MEDS: PANTOPRAZOLE 40 MG TABLET PO SCH (08:42)
--- NOTE | 2018-02-16 14:33 | P.PN ---
Subjective Progress Note Date: 02/16/18 This is a pleasant 47-year-old female patient who sees Dr. DEVYN Cardona in the office as an outpatient with known history of CAD and status post a stenting of the LAD back in November 2017 where she received 3 stents to the LAD for severe underlying coronary artery disease was admitted to the hospital complaining of chest discomfort , her EKG showed normal sinus rhythm without any ischemic ST-T wave changes noted. Cardiac enzymes were checked and came back to be unremarkable. The patient underwent a stress echocardiographic study, which revealed mild abnormality in her EKG, this reason patient was advised to have a cardiac catheterization. This was performed yesterday by Dr. Cardona with subsequent angioplasty and stenting of the right coronary artery. Patient was seen and examined this morning, she was complaining of a significant amount of pain in her right groin, right site looks soft, no evidence of any hematoma, no bruit heard. She denies any chest pain today. Blood pressure 99/50 with a heart rate in the 60s, 99% on room air. EKG shows normal sinus rhythm with no changes from post-PCI. White blood cell count 7.5, hemoglobin 8.2, platelet count 257. Sodium 137, potassium 4.1, BUN 8, creatinine 0.5. Objective - Vital Signs Vital signs: Vital Signs Temp 97.2 F L 02/16/18 12:00 Pulse 67 02/16/18 12:00 Resp 16 02/16/18 12:00 BP 99/58 02/16/18 12:00 Pulse Ox 99 02/16/18 12:00 Intake & Output 02/15/18 02/16/18 02/16/18 18:59 06:59 18:59 Intake Total 423.9 480 Output Total 875 Balance -451.1 480 Weight 97.568 kg 96 kg Intake: IV 183.9 Intake, IV Titration 0 Amount Sodium Chloride 0.9% 1, 0 000 ml @ 75 mls/hr IV . [id number] [facility] Rx#:[id number] Oral 240 480 Output: Urine 875 Other: Voiding Method Toilet # Voids 1 1 1 - Exam PHYSICAL EXAMINATION: GENERAL: 47-year-old female in no acute distress at the time of my examination HEENT: Head is atraumatic, normocephalic. Pupils equal, round. Sclera anicteric. Conjunctiva are clear. Mucous membranes of the mouth are moist. Neck is supple. There is no elevated jugular venous pressure.] bruit is heard. HEART EXAMINATION: Heart S1, S2 normal. No murmur or gallop heard. CHEST EXAMINATION: Lungs are clear to auscultation and precussion. No chest wall tenderness is noted on palpation or with deep breathing. ABDOMEN: Soft, nontender. Bowel sounds are heard. No organomegaly noted. EXTREMITIES: 2+ peripheral pulses with no evidence of peripheral edema and no calf tenderness noted. Right groin soft, no evidence of any hematoma, no bruit , there is some ecchymosis noted. NEUROLOGIC patient is awake, alert and oriented ?-3. . - Labs CBC & Chem 7: 02/16/18 05:56 02/16/18 05:56 Labs: Abnormal Lab Results - Last 24 Hours (Table) 02/16/18 02/16/18 Range/Units 05:56 05:56 RBC 3.46 L (3.80-5.40) m/uL Hgb 8.2 L (11.4-16.0) gm/dL Hct 27.5 L (34.0-46.0) % MCV 79.6 L (80.0-100.0) fL MCH 23.8 L (25.0-35.0) pg MCHC 29.9 L (31.0-37.0) g/dL RDW 18.4 H (11.5-15.5) % Chloride 108 H (98-107) mmol/L Creatinine 0.50 L (0.52-1.04) mg/dL Assessment and Plan Plan: Assessment and plan #1 status post angioplasty and stenting of the LAD #2 history of coronary artery disease with prior stenting of the LAD in 2017 #3 hyperlipidemia #4 prior history of smoking, patient quit smoking in November of this year Plan We'll continue to monitor the patient for 24 hours, continue Brilinta 90 mg twice a day along with a baby aspirin, metoprolol, losartan, and Lipitor. DNP note has been reviewed, I agree with a documented findings and plan of care. Patient was seen and examined.
[2018-02-16] MEDS: ATORVASTATIN 80 MG TAB PO SCH (20:17)
--- NOTE | 2018-02-17 00:07 | P.PN ---
Subjective Progress Note Date: 02/16/18 Principal diagnosis: Unstable angina status post cardiac catheterization and PCI Patient is a 47-year-old female with a known history of coronary artery disease with stent placement in November 2017 came to ER with complaints of chest discomfort. Patient was driving to work yesterday and was experiencing midsternal chest discomfort/ sharp pain. Denied any radiation to the arm neck or shoulders. No associated shortness of breath. No nausea vomiting or headache or dizziness or lightheadedness or diaphoresis. Patient does have significant family history of coronary artery disease. Patient used to smoke but quit since November 2017. Patient has been compliant with her medications. Chest x-ray showed no acute cardiopulmonary process. EKG showed normal sinus rhythm. Troponin 3 negative 02/15/2018 Denied any complains of chest pain. Troponin 3 negative. Patient underwent cardiac Catheterization and was found to have mid LAD in-stent restenosis post PCI with drug-eluting stent. Otherwise patient denied any shortness of breath. No nausea vomiting or abdominal pain. 02/16/2018 Patient denied any complaints of chest pain or shortness of breath today. Patient is status post cardiac catheterization. Continue to monitor for another 24 hours as per cardiology recommendations. No nausea vomiting or abdominal pain. No acute overnight issues. All other review of systems negative except the above. Current medications reviewed Objective - Vital Signs Vital signs: Vital Signs Temp 97.2 F L 02/16/18 16:00 Pulse 63 02/16/18 16:00 Resp 16 02/16/18 16:00 BP 121/63 02/16/18 16:00 Pulse Ox 100 02/16/18 16:00 Intake & Output 02/16/18 02/16/18 02/17/18 06:59 18:59 06:59 Intake Total 720 Balance 720 Weight 96 kg Intake: Oral 720 Other: Voiding Method Toilet # Voids 1 1 - Exam PHYSICAL EXAMINATION: Patient is lying in the bed comfortably, no acute distress, awake alert and oriented.. HEENT: Normocephalic. Neck is supple. Pupils reactive. Nostrils clear. Oral cavity is moist. Ears reveal no drainage. Neck reveals no JVD, carotid bruits, or thyromegaly. CHEST EXAMINATION: Trachea is central. Symmetrical expansion. Lung hernandes clear to auscultation and percussion. CARDIAC: Normal S1, S2 with no gallops. No murmurs ABDOMEN: Soft. Bowel sounds normal. No organomegaly. No abdominal bruits. Extremities: reveal no edema. No clubbing or cyanosis Neurologically awake, alert, oriented x3 with well-coordinated movements. No focal deficits noted Skin: No rash or skin lesions. Psychiatric: Coperative. Nonsuicidal Musculoskeletal: No joint swelling or deformity. Normal range of motion. - Labs CBC & Chem 7: 02/16/18 05:56 02/16/18 05:56 Labs: Abnormal Lab Results - Last 24 Hours (Table) 02/16/18 02/16/18 Range/Units 05:56 05:56 RBC 3.46 L (3.80-5.40) m/uL Hgb 8.2 L (11.4-16.0) gm/dL Hct 27.5 L (34.0-46.0) % MCV 79.6 L (80.0-100.0) fL MCH 23.8 L (25.0-35.0) pg MCHC 29.9 L (31.0-37.0) g/dL RDW 18.4 H (11.5-15.5) % Chloride 108 H (98-107) mmol/L Creatinine 0.50 L (0.52-1.04) mg/dL Assessment and Plan Assessment: Abnormal stress echocardiogram Unstable angina status post PCI due to mid LAD in-stent restenosis Coronary artery disease with Recent history of stent placement 3 in November 2017 Family history of coronary artery disease GERD History of smoking History of SD Plan: Patient will be continued on telemetry monitoring. Serial EKG and troponin 3 negative. Patient underwent stress echocardiogram as per cardiology recommendations. Patient was found have wall motion abnormalities in the stress echocardiogram. Patient is status post cardiac Catheterization and PCI. Otherwise patient denied any chest pain at this time. Further recommendations based on the clinical course. Time with Patient: Greater than 30
[2018-02-17] MEDS: PANTOPRAZOLE 40 MG TABLET PO SCH (08:49)
[2018-02-17] MEDS: FERROUS SULFATE 325 MG TAB PO SCH (08:49)
[2018-02-17] MEDS: METOPROLOL TARTRATE 25 MG TAB PO SCH (08:49)
[2018-02-17] MEDS: ASPIRIN 81 MG PO SCH (08:49)
[2018-02-17] MEDS: LOSARTAN 25 MG TAB PO SCH (08:49)
[2018-02-17] MEDS: DOCUSATE 100 MG CAP PO SCH (08:49)
[2018-02-17] MEDS: TICAGRELOR 90 MG TAB PO SCH (09:52)
[2018-02-17 15:33] VITALS: BP 98/56; PULSE 65; RESP 18; TEMP 97.8
[2018-02-17] MEDS ORDERED: CLOPIDOGREL 75 MG TAB PO ONE (21:00)
[2018-02-18] MEDS ORDERED: CLOPIDOGREL 75 MG TAB PO SCH (09:00)
--- NOTE | 2018-02-20 10:49 | PN ---
PROGRESS NOTE This patient was admitted with unstable angina. Patient underwent a stent to the LAD. She is doing better. She is not having any pain in the right groin. There is no evidence of any hematoma. Blood pressure is 100/60 mmHg. First and second heart sounds are normal. Lungs are clinically clear to auscultation and percussion. The patient will be discharged home and follow up with Dr. Mara Cardona as an outpatient. MMODL / IJN: [id number] /
== END 2018-02-17 16:56 | disposition home or self-care (01) | DRG 247 ==
LOC: EC 13:19 → 3OBS 14:54 → OBSVTOIN 14:55 → 3OBS 22:04 → 6SEL 02-15 09:32
PROVIDERS: ADMIT Internal Medicine; ATTEND Internal Medicine
PROC: B2111ZZ Fluoroscopy of Multiple Coronary Arteries using Low Osmolar Contrast (ICD-10-PCS; 2018-02-15)
PROC: B2151ZZ Fluoroscopy of Left Heart using Low Osmolar Contrast (ICD-10-PCS; 2018-02-15)
PROC: 027034Z Dilation of Coronary Artery, One Artery with Drug-eluting Intraluminal Device, Percutaneous Approach (ICD-10-PCS; principal; 2018-02-15 06:55)
PROC: 4A023N7 Measurement of Cardiac Sampling and Pressure, Left Heart, Percutaneous Approach (ICD-10-PCS; 2018-02-15 06:55)
DX: I25.110 Atherosclerotic heart disease of native coronary artery with unstable angina pectoris (principal); T82.855A Stenosis of coronary artery stent, initial encounter; E78.00 Pure hypercholesterolemia, unspecified; F17.200 Nicotine dependence, unspecified, uncomplicated; I25.2 Old myocardial infarction; K21.9 Gastro-esophageal reflux disease without esophagitis; Y83.1 Surgical operation with implant of artificial internal device as the cause of abnormal reaction of the patient, or of later complication, without mention of misadventure at the time of the procedure; Z79.02 Long term (current) use of antithrombotics/antiplatelets; Z79.82 Long term (current) use of aspirin; Z79.899 Other long term (current) drug therapy; Z82.49 Family history of ischemic heart disease and other diseases of the circulatory system
CPT/HCPCS: 36415; 71046; 80048; 80053; 80061; 82550; 82553; 83735; 84484; 85025; 85610; 85730; 93005; 93351; 93458; 96365; 96366; 96376; 99291

== ENCOUNTER → 2018-08-21 | Outpatient (CLI) | payer OTHER ==
[2018-08-21 17:26] LABS: Anisocytosis Slight; Basophils % (A) 0 %; Eosinophils # (A) 0.1 k/uL (0-0.7); Eosinophils % (A) 1 %; HCT 41.1 % (34.0-46.0); HGB 12.6 gm/dL (11.4-16.0); Hypochromasia Slight; Lymphocytes # (A) 1.7 k/uL (1.0-4.8); Lymphocytes % (A) 22 %; MCH 28.4 pg (25.0-35.0); MCHC 30.7 g/dL (31.0-37.0); MCV 92.6 fL (80.0-100.0); Mean Platelet Volume 7.9; Monocytes # (A) 0.4 k/uL (0-1.0); Monocytes % (A) 5 %; Neutrophils # (A) 5.2 k/uL (1.3-7.7); Neutrophils % (A) 69 %; Platelet Count 270 k/uL (150-450); RBC 4.44 m/uL (3.80-5.40); RDW 17.1 % (11.5-15.5); WBC 7.7 k/uL (3.8-10.6)
== END ==
LOC: LABPAT 16:43
PROVIDERS: ATTEND Obstetrics & Gynecology Obstetrics
DX: Z01.818 Encounter for other preprocedural examination (principal); Z01.812 Encounter for preprocedural laboratory examination; I25.2 Old myocardial infarction; N92.0 Excessive and frequent menstruation with regular cycle
CPT/HCPCS: 36415; 85025; 93005

== ENCOUNTER 2018-08-28 07:37 | Day surgery (SDC) | payer OTHER ==
[2018-08-23 16:00] VITALS: BMI 37.8
[~2018-08-28 07:37] MED LIST: DEXAMETHASONE SOD PHOSPHATE 10 MG/ML 1 ML VIAL IV ONE; LACTATED RINGERS 1,000 ML IV SCH; LIDOCAINE 1% 20 ML VIAL (10MG/ML) FOR IV START INTRADERMA PRN; MIDAZOLAM (PF) 2 MG/2 ML VIAL IV PRN; ceFAZolin IN SWFI 2 GM/20 ML SYRINGE IVP ONE; fentaNYL (PF) 50 MCG/ML 2 ML AMP IV PRN
[2018-08-28] MEDS: ONDANSETRON 4 MG/2 ML VIAL IVP ONE ×2 (08:12→10:23)
[2018-08-28] MEDS ORDERED: DEXAMETHASONE SOD PHOS (MDV) 100 MG/10 ML VIAL IV ONE (08:13)
[2018-08-28] MEDS ORDERED: LIDOCAINE 1% INJ 10MG/ML (20 ML MDV) ONE (09:25)
[2018-08-28] MEDS ORDERED: MIDAZOLAM 2 MG/2 ML VIAL ONE (09:25)
[2018-08-28] MEDS ORDERED: fentaNYL (PF) 50 MCG/ML 2 ML AMP ONE (09:25)
[2018-08-28] MEDS ORDERED: PROPOFOL 10 MG/ML 20 ML VIAL IV ONE (09:25)
[2018-08-28] MEDS ORDERED: ACETAMINOPHEN IV (For NPO) 1,000 MG/100 ML VIAL ONE (09:25)
--- NOTE | 2018-08-28 10:04 | P.OP ---
Date of Procedure: 08/28/18 Preoperative Diagnosis: Menorrhagia uterine fibroids Postoperative Diagnosis: Same Procedure(s) Performed: Hysteroscopy, dilation and curettage, endometrial ablation with NovaSure Anesthesia: SHIN Surgeon: Katelynn Dickson Estimated Blood Loss (ml): 10 IV fluids (ml): 500 Urine output (ml): 50 Pathology: other (Endometrial curettings) Condition: stable Disposition: PACU Indications for Procedure: Heavy menstrual bleeding Operative Findings: Proliferative endometrium with endometrial polyp Description of Procedure: Patient was seen in the preoperative area and procedure was reviewed once again. Patient was just seen in consultation in the office for preop appointment risks reviewed with the patient in detail at that time including an element to infection, bleeding, perforation of the uterus, failure of procedure. Patient stated understanding of these risks and wished to proceed. Patient was taken back to the operating suite where general anesthesia was obtained without difficulty by the anesthesia department. She was then prepped and draped in normal sterile fashion in the dorsal lithotomy position. A weighted speculum was placed in the posterior vaginal vault the bladder was then drained with a red rubber catheter under sterile technique. The endocervical canal was then dilated to 17-Bengali and the uterus was sounded to 1170 m. At this time the hysteroscope was placed through the cervix and toward the uterus endometrial cavity was visualized proliferative endometrium with polyp was noted. Both ostia were visualized no defects were noted. Multiple pictures were taken and the hysteroscope was removed. Sharp curettage was then performed until gritty texture was noted in all 4 quadrants centimeter cavity. NovaSure device was then opened and set to the appropriate measurements 1-6.5, width of 2.5 power of 89 after the cavity assessment was completed and passed the cycle was allowed to complete for 69 seconds. Afterwards the device was removed without difficulty. The single-tooth tenaculum and had been placed on the anterior lip of the cervix was removed and hemostasis was appreciated. All counts were correct 2 patient tolerated procedure well and was taken to the recovery room awake and in stable condition.
[2018-08-28 10:08] VITALS: TEMP 97.6
[2018-08-28 10:57] VITALS: RESP 18
[2018-08-28 11:12] VITALS: BP 135/82; PULSE 78
== END 2018-08-28 11:26 | disposition home or self-care (01) ==
LOC: OR 07:37
PROVIDERS: ATTEND Obstetrics & Gynecology Obstetrics
DX: N84.0 Polyp of corpus uteri (principal); N92.0 Excessive and frequent menstruation with regular cycle; D25.9 Leiomyoma of uterus, unspecified; I25.10 Atherosclerotic heart disease of native coronary artery without angina pectoris; I10 Essential (primary) hypertension; E78.5 Hyperlipidemia, unspecified; I25.2 Old myocardial infarction; E66.9 Obesity, unspecified; Z68.37 Body mass index [BMI] 37.0-37.9, adult; Z87.891 Personal history of nicotine dependence; E78.00 Pure hypercholesterolemia, unspecified; D64.9 Anemia, unspecified; K21.9 Gastro-esophageal reflux disease without esophagitis; Z79.02 Long term (current) use of antithrombotics/antiplatelets; Z79.82 Long term (current) use of aspirin; Z79.899 Other long term (current) drug therapy; Z88.6 Allergy status to analgesic agent
CPT/HCPCS: 81025; 88305; 58563; J2250; J2405; J2001; J3010; J1100; J0131; J2704

== ENCOUNTER → 2018-09-13 | Outpatient (CLI) | payer OTHER ==
--- NOTE | 2018-09-13 15:42 | XR ---
EXAMINATION TYPE: XR Hip Complete LT DATE OF EXAM: 09/13/2018 COMPARISON: NONE HISTORY: Pain TECHNIQUE: 2 views submitted FINDINGS: There is no evidence of erosive change or acute fracture. Hypertrophic change of the acetabulum. No e rosive changes. IMPRESSION: 1. No evidence of acute fracture or dislocation. Correlate for femoral acetabular impingement. Follow -up MRI as clinically warranted.
--- NOTE | 2018-09-13 15:43 | XR ---
EXAM TYPE: LUMBAR SPINE X RAY SERIES COMPARISON: NONE HISTORY: Lower back pain TECHNIQUE: 4 views are submitted. FINDINGS: Alignment is anatomic. The pedicles are intact. The transverse processes are intact. There is no s pondylolysis or spondylolisthesis. Hypertrophic and degenerative change of the vertebral, severe deg enerative disc disease L5-S1. Multilevel facet arthropathy. IMPRESSION: 1. Multilevel degenerative disc disease and facet arthropathy. Suspect foraminal encroachment L5-S1 c orrelate with MRI as clinically warranted.
== END | disposition home or self-care (01) ==
LOC: RADXRMAIN 14:52
PROVIDERS: ATTEND Physician Assistant
DX: M51.37 Other intervertebral disc degeneration, lumbosacral region (principal); M46.97 Unspecified inflammatory spondylopathy, lumbosacral region; M25.552 Pain in left hip
CPT/HCPCS: 72100; 73502

== ENCOUNTER 2018-11-22 15:59 | Observation (INO) | payer OTHER ==
[2018-11-22 16:34] LABS: Basophils % (A) 0 %; Eosinophils # (A) 0.1 k/uL (0-0.7); Eosinophils % (A) 2 %; HCT 42.7 % (34.0-46.0); HGB 13.4 gm/dL (11.4-16.0); Lymphocytes # (A) 1.5 k/uL (1.0-4.8); Lymphocytes % (A) 21 %; MCH 29.5 pg (25.0-35.0); MCHC 31.4 g/dL (31.0-37.0); MCV 93.7 fL (80.0-100.0); Mean Platelet Volume 8.1; Monocytes # (A) 0.5 k/uL (0-1.0); Monocytes % (A) 6 %; Neutrophils % (A) 69 %; Platelet Count 268 k/uL (150-450); RBC 4.55 m/uL (3.80-5.40); RDW 14.5 % (11.5-15.5); WBC 7.3 k/uL (3.8-10.6)
[2018-11-22 16:43] LABS: INR 0.9 (<1.2); Prothrombin Time 9.9 sec (9.0-12.0)
[2018-11-22 16:45] LABS: ALT 15 U/L (9-52); AST 20 U/L (14-36); Albumin 4.3 g/dL (3.5-5.0); Alkaline Phosphatase 65 U/L (38-126); Anion Gap 9 mmol/L; Blood Urea Nitrogen 17 mg/dL (7-17); Calcium 9.8 mg/dL (8.4-10.2); Carbon Dioxide 25 mmol/L (22-30); Chloride 106 mmol/L (98-107); Glucose 92 mg/dL (74-99); Potassium 4.7 mmol/L (3.5-5.1); Sodium 140 mmol/L (137-145); Total Bilirubin 0.5 mg/dL (0.2-1.3); Total Protein 7.5 g/dL (6.3-8.2)
[2018-11-22 17:01] LABS: Partial Thromboplastin Time 22.6 sec (22.0-30.0)
[2018-11-22] MEDS ORDERED: HYDROcodone/APAP 5-325MG 1 EACH TAB PO STA (17:43)
--- NOTE | 2018-11-22 18:02 | ED ---
Chest Pain HPI - General Chief Complaint: Chest Pain Stated Complaint: Chest Pain Time Seen by Provider: 11/22/18 17:35 Source: patient Mode of arrival: wheelchair Limitations: no limitations - History of Present Illness Initial Comments: 38-year-old female patient presents to emergency department today for evaluation of chest pain and upper back pain. Patient states that she has had lingering chest pain for the last 3 days. Patient states his in the left chest. The patient states today she developed pain between her shoulder blades. Patient is currently rating her pain at a 3 out of 10 on the pain scale. Patient does have history of coronary artery disease and does have 3 stents, with the last placed in 02/18. Patient states that the pain waxes and wanes. States she did take a nitro on Tuesday didn't change her pain. Patient states she has intermittent shortness about the pending on the activity she is doing at this time. She denies any nausea or vomiting. Denies any abdominal pain. Denies any constipation, diarrhea, hematuria, dysuria, urinary frequency, urinary urgency. Patient was in to see her primary care physician today, they sent her in for further evaluation. - Related Data Home Medications Medication Instructions Recorded Confirmed Aspirin [Adult Low Dose Aspirin EC] 81 mg PO DAILY 10/29/17 11/22/18 Clopidogrel [Plavix] 75 mg PO DAILY 02/13/18 11/22/18 Docusate [Colace] 100 mg PO BID 02/13/18 11/22/18 Ferrous Sulfate [Iron (65 MG 325 mg PO BID 02/13/18 11/22/18 Elemental)] Pantoprazole Sodium [Protonix] 40 mg PO DAILY 02/13/18 11/22/18 Atorvastatin [Lipitor] 80 mg PO DAILY 08/23/18 11/22/18 Metoprolol Tartrate [Lopressor] 12.5 mg PO HS 08/23/18 11/22/18 Metoprolol Tartrate [Lopressor] 25 mg PO QAM 08/23/18 11/22/18 Hydrocodone/Acetaminophen [[place] 1 tab PO BID 11/22/18 11/22/18 5-325] Lisinopril [Prinivil] 5 mg PO DAILY 11/22/18 11/22/18 Previous Rx's Medication Instructions Recorded Nitroglycerin Sl Tabs [Nitrostat] 0.4 mg SUBLINGUAL Q5M PRN #25 tab 11/02/17 Allergies Allergy/AdvReac Type Severity Reaction Status Date / Time ibuprofen [From Motrin] AdvReac Unknown Verified 11/22/18 18:07 Review of Systems ROS Statement: Those systems with pertinent positive or pertinent negative responses have been documented in the HPI. ROS Other: All systems not noted in ROS Statement are negative. EKG Findings - EKG Comments: EKG Findings:: EKG obtained at 1614 shows normal sinus rhythm with a ventricular rate of 63, CT interval 136, QRS duration 80, QT 414, QTC 423. No evidence of ST elevation or depression. Past Medical History Past Medical History: Coronary Artery Disease (CAD), Chest Pain / Angina, GERD/Reflux, Myocardial Infarction ([place]) Additional Past Medical History / Comment(s): anemia, "i never was told if i had high bp or high cholesterol-they put me on meds after my heart attack" Last Myocardial Infarction Date:: unk History of Any Multi-Drug Resistant Organisms: None Reported Past Surgical History: Heart Catheterization, Heart Catheterization With Stent Additional Past Surgical History / Comment(s): wisdom teeth. pt stated she has had 3 heart caths total, 3 stents Past Anesthesia/Blood Transfusion Reactions: No Reported Reaction, Motion Sickness Date of Last Stent Placement:: 11/01/17 Past Psychological History: No Psychological Hx Reported Smoking Status: Former smoker - Past Family History Mother Family Medical History: AFIB Brother(s) Family Medical History: Myocardial Infarction ([place]) Additional Family Medical History / Comment(s): brother at age 42 with [place] General Exam Limitations: no limitations General appearance: alert, in no apparent distress, other (Physical well- developed, well-nourished adult female patient in no acute distress. Vital signs upon presentation are temperature 98.4F, pulse 63, respirations 16, blood pressure 122/71, pulse ox 100% on room air.) Eye exam: Present: normal appearance, PERRL, EOMI. Absent: scleral icterus, conjunctival injection, periorbital swelling ENT exam: Present: normal exam, normal oropharynx, mucous membranes moist Respiratory exam: Present: normal lung sounds bilaterally. Absent: respiratory distress, wheezes, rales, rhonchi, stridor Cardiovascular Exam: Present: regular rate, normal rhythm, normal heart sounds. Absent: systolic murmur, diastolic murmur, rubs, gallop, clicks GI/Abdominal exam: Present: soft, normal bowel sounds. Absent: distended, tenderness, guarding, rebound, rigid Neurological exam: Present: alert, oriented X3, CN II-XII intact Psychiatric exam: Present: normal affect, normal mood Skin exam: Present: warm, dry, intact, normal color. Absent: rash Course Vital Signs 11/22/18 11/22/18 11/22/18 16:07 18:09 18:45 Temperature 98.4 F Pulse Rate 63 68 67 Respiratory 16 16 Rate Blood Pressure 122/71 124/68 122/63 O2 Sat by Pulse 100 97 96 Oximetry Chest Pain MDM - MDM RADIOLOGY:Two-view x-ray of the chest is obtained. Report was reviewed in its entirety. Impression by Dr. Elizabeth shows normal chest with no change. MDM: 48 old female patient presents to the emergency department today for evaluation of chest pain 3 days, upper back pain starting today. Physical examination is unremarkable. Lungs are clear to auscultation with good air movement. Pain is not reproducible palpation. Labs reviewed and are unremarkable. Troponin negative. Patient does have past medical history significant for coronary artery disease and does have 3 stents. Given her past history and current symptoms will admit for observation, serial troponins, evaluation by cardiology. I did discuss findings, results, plan with the patient, she is agreeable. Disposition Clinical Impression: Chest pain Disposition: ADMITTED IP TO THIS [facility] Condition: Serious Referrals: Kentrell Joseph MD [Primary Care Provider] - 1-2 days Decision to Admit Reason: Admit from EC Decision Date: 11/22/18 Decision Time: 19:15
--- NOTE | 2018-11-22 18:30 | XR ---
EXAMINATION TYPE: XR chest 2V DATE OF EXAM: 11/22/2018 COMPARISON: 02/13/2018 HISTORY: Chest pain TECHNIQUE: Frontal and lateral views of the chest are obtained. FINDINGS: Heart and mediastinum are normal. Lungs are clear. Diaphragm is normal. Bony thorax appear s normal. IMPRESSION: Normal chest. No change.
[2018-11-22] MEDS ORDERED: ASPIRIN 325 MG TAB PO STA (18:40)
[2018-11-22] MEDS ORDERED: NITROGLYCERIN SL TABS 0.4 MG TAB SUBLINGUAL PRN (19:12)
[2018-11-22] MEDS ORDERED: MORPHINE SULFATE 4 MG/ML SYRINGE IVP STA (20:19)
[2018-11-22] MEDS ORDERED: HYDROcodone/APAP 5-325MG 1 EACH TAB PO PRN (21:00)
[2018-11-22] MEDS ORDERED: METOPROLOL TARTRATE 12.5 MG TAB PO SCH (21:00)
[2018-11-22 23:20] VITALS: BMI 37.8
[2018-11-22] MEDS: DOCUSATE 100 MG CAP PO SCH (23:23)
[2018-11-22] MEDS: FERROUS SULFATE 325 MG TAB PO SCH (23:23)
[2018-11-23 04:16] LABS: Cholesterol 117 mg/dL (<200); HDL Cholesterol 52 mg/dL (40-60); LDL Cholesterol,Calculated 36 mg/dL (0-99); Triglycerides 146 mg/dL (<150)
[2018-11-23] MEDS ORDERED: PANTOPRAZOLE 40 MG TABLET PO SCH (07:30)
[2018-11-23] MEDS ORDERED: LISINOPRIL 5 MG TAB PO SCH (09:00)
[2018-11-23] MEDS ORDERED: METOPROLOL TARTRATE 25 MG TAB PO SCH (09:00)
[2018-11-23] MEDS ORDERED: ASPIRIN 325 MG TAB PO SCH (09:00)
[2018-11-23] MEDS ORDERED: ATORVASTATIN 80 MG TAB PO SCH (09:00)
[2018-11-23] MEDS ORDERED: CLOPIDOGREL 75 MG TAB PO SCH (09:00)
--- NOTE | 2018-11-23 10:26 | P.CRDCN ---
History of Present Illness History of present illness: This is a pleasant 48-year-old female past medical history significant for coronary artery disease s/p multiple stent placements with recent in-stent restenosis and dyslipidemia. She follows in the office with Dr. Cardona. She states she has been feeling a pressure sensation in the mid-sternal region for the last 203 days. There is some radiation to the neck and upper back in between the shoulder blades. Associated with mild shortness of breath. The pain is intermittent and not associated with exertion, however the shortness of breath is worse when she exerts herself. No specific aggravating or alleviating factors. Currently chest pain free. EKG reveals sinus bradycardia heart rate 52. Chest x-ray negative for an acute cardiopulmonary process. Laboratory data reviewed, WBC 7.3, hemoglobin 13.4, platelets 268, sodium 140, potassium 4.7, creatinine 0.65, magnesium 2.0, cardiac enzymes negative 3, LDL 36, HDL 52. Current cardiac medications include aspirin 81 mg daily, atorvastatin 80 mg daily, Plavix 75 mg daily, Lopressor 12.5 mg at bedtime and 25 mg in the morning and lisinopril 5 mg daily. Most recent cardiac catheterization in February 2018 revealed in-stent restenosis of the mid LAD which was successfully stented at that time, RCA free of significant disease, left main free of significant disease, there are 3 stents in the LAD entire midsegment, the most proximal stent had 80% narrowing, another narrowing also seen beyond the bend of 50-60% and 2 areas of disease of 80% with some bridging proximally. Most recent echocardiogram obtained in the office November 2017 reveals preserved LV systolic function with ejection fraction 55%. At the time of my exam: CONSTITUTIONAL: Denies fever. Denies chills. EYES: Denies blurred vision. Denies vision changes. Denies eye pain. EARS, NOSE, MOUTH & THROAT: Denies headache. Denies sore throat. Denies ear pain. CARDIOVASCULAR: Denies chest pain. Denies shortness of breath. Denies orthopnea. Denies PND. Denies palpitations. RESPIRATORY: Denies cough. GASTROINTESTINAL: Denies abdominal pain. Denies diarrhea. Denies constipation. Denies nausea. Denies vomiting. MUSCULOSKELETAL: Denies myalgias. INTEGUMENTARY: Denies pruitis. Denies rash. NEUROLOGIC: Denies numbness. Denies tingling. Denies weakness. PSYCHIATRIC: Denies anxiety. Denies depression. ENDOCRINE: Denies fatigue. Denies weight change. Denies polydipsia. Denies polyurina. GENITOURINARY: Denies burning, hematuria or urgency with micturation. HEMATOLOGIC: Denies history of anemia. Denies bleeding. Blood pressure 93/50 heart rate 57 afebrile maintaining oxygen saturation on room air GENERAL: This is a 48-year-old female in no apparent distress at the time of my examination. HEENT: Head is atraumatic, normocephalic. Pupils are equal, round. Sclerae anicteric. Conjunctivae are clear. Mucous membranes of the mouth are moist. Neck is supple. There is no jugular venous distention. No carotid bruit is heard. LUNGS: Clear to auscultation no wheezes, rales or rhonchi. No chest wall tenderness is noted on palpation or with deep breathing. HEART: Regular rate and rhythm without murmurs, rubs or gallops. S1 and S2 heard. ABDOMEN: Soft, nontender. Bowel sounds are heard. No organomegaly noted. EXTREMITIES: No evidence of peripheral edema and no calf tenderness noted. VASCULAR: Radial and dorsalis pedis pulses palpated, no evidence of clubbing. NEUROLOGIC: Patient is awake, alert and oriented x3. ASSESSMENT Chest pain, atypical for angina. An acute coronary event has been ruled out. History of coronary artery disease s/p multiple stent placements, recently in February 2018. Maintained on dual antiplatelet therapy Dyslipidemia PLAN An acute coronary event has been ruled out. Obtain 2-D echocardiogram and Doppler study to assess cardiac structure and function. Perform stress echocardiogram to assess for stress-induced ischemia. Continue aspirin, atorvastatin, Plavix, Lopressor and lisinopril as previously ordered. If stress test is normal she is stable from a cardiac perspective, follow-up with Dr. Cardona in the office in 2 weeks. Thank you kindly for this consultation. Nurse Practitioner note has been reviewed, I agree with a documented findings and plan of care. Patient was seen and examined. Past Medical History Past Medical History: Coronary Artery Disease (CAD), Chest Pain / Angina, GERD/Reflux, Myocardial Infarction ([place]) Additional Past Medical History / Comment(s): anemia, "i never was told if i had high bp or high cholesterol-they put me on meds after my heart attack" Last Myocardial Infarction Date:: unk History of Any Multi-Drug Resistant Organisms: None Reported Past Surgical History: Ablation, Heart Catheterization, Heart Catheterization With Stent Additional Past Surgical History / Comment(s): uterine ablation 08/2018, wisdom teeth. pt stated she has had 3 heart caths total, 4 stents Past Anesthesia/Blood Transfusion Reactions: Postoperative Nausea & Vomiting (PONV) Date of Last Stent Placement:: 02/2018 Past Psychological History: No Psychological Hx Reported Additional Psychological History / Comment(s): lives with boyfriend. works at [employer] Smoking Status: Former smoker Past Alcohol Use History: Occasional Additional Past Alcohol Use History / Comment(s): started smoking at age 45(2014 and quit november 2017, smoked 1/2 ppd Past Drug Use History: None Reported - Past Family History Mother Family Medical History: AFIB Brother(s) Family Medical History: Myocardial Infarction (AL) Additional Family Medical History / Comment(s): brother at age 42 with AL Medications and Allergies Home Medications Medication Instructions Recorded Confirmed Type Aspirin [Adult Low Dose Aspirin EC] 81 mg PO DAILY 10/29/17 11/22/18 History Nitroglycerin Sl Tabs [Nitrostat] 0.4 mg SUBLINGUAL Q5M PRN #25 tab 11/02/17 11/22/18 Rx Clopidogrel [Plavix] 75 mg PO DAILY 02/13/18 11/22/18 History Docusate [Colace] 100 mg PO BID 02/13/18 11/22/18 History Ferrous Sulfate [Iron (65 MG 325 mg PO BID 02/13/18 11/22/18 History Elemental)] Pantoprazole Sodium [Protonix] 40 mg PO DAILY 02/13/18 11/22/18 History Atorvastatin [Lipitor] 80 mg PO DAILY 08/23/18 11/22/18 History Metoprolol Tartrate [Lopressor] 12.5 mg PO HS 08/23/18 11/22/18 History Metoprolol Tartrate [Lopressor] 25 mg PO QAM 08/23/18 11/22/18 History Hydrocodone/Acetaminophen [[place] 1 tab PO BID 11/22/18 11/22/18 History 5-325] Lisinopril [Prinivil] 5 mg PO DAILY 11/22/18 11/22/18 History Allergies Allergy/AdvReac Type Severity Reaction Status Date / Time ibuprofen [From Motrin] AdvReac Unknown Verified 11/22/18 18:07 Physical Exam Vitals: Vital Signs Temp Pulse Pulse Resp BP BP BP 11/23/18 08:00 57 L 18 11/23/18 07:30 97.7 F 57 L 18 93/50 11/23/18 04:00 98.3 F 61 18 106/70 11/23/18 00:00 97.6 F 61 18 116/79 11/22/18 20:50 98 F 52 L 16 132/77 11/22/18 20:00 97.5 F L 56 L 18 121/65 11/22/18 19:42 67 16 132/72 11/22/18 18:45 67 16 122/63 11/22/18 18:09 68 124/68 11/22/18 16:07 98.4 F 63 16 122/71 Pulse Ox 11/23/18 08:00 11/23/18 07:30 98 11/23/18 04:00 99 11/23/18 00:00 98 11/22/18 20:50 99 11/22/18 20:00 100 11/22/18 19:42 96 11/22/18 18:45 96 11/22/18 18:09 97 11/22/18 16:07 100 Intake and Output 11/22/18 11/23/18 11/23/18 22:59 06:59 14:59 Other: Voiding Method Toilet Toilet Toilet # Voids 1 Weight 99.79 kg Results 11/22/18 16:18 11/22/18 16:18 Cardiac Enzymes 11/22/18 11/22/18 11/22/18 Range/Units 16:18 16:18 22:22 AST 20 (14-36) U/L Troponin I <0.012 <0.012 (0.000-0.034) ng/mL 11/23/18 Range/Units 03:55 AST (14-36) U/L Troponin I <0.012 (0.000-0.034) ng/mL Coagulation 11/22/18 Range/Units 16:18 PT 9.9 (9.0-12.0) sec APTT 22.6 (22.0-30.0) sec Lipids 11/23/18 Range/Units 03:55 Triglycerides 146 (<150) mg/dL Cholesterol 117 (<200) mg/dL HDL Cholesterol 52 (40-60) mg/dL CBC 11/22/18 Range/Units 16:18 WBC 7.3 (3.8-10.6) k/uL RBC 4.55 (3.80-5.40) m/uL Hgb 13.4 (11.4-16.0) gm/dL Hct 42.7 (34.0-46.0) % Plt Count 268 (150-450) k/uL Comprehensive Metabolic Panel 11/22/18 Range/Units 16:18 Sodium 140 (137-145) mmol/L Potassium 4.7 (3.5-5.1) mmol/L Chloride 106 (98-107) mmol/L Carbon Dioxide 25 (22-30) mmol/L BUN 17 (7-17) mg/dL Creatinine 0.65 (0.52-1.04) mg/dL Glucose 92 (74-99) mg/dL Calcium 9.8 (8.4-10.2) mg/dL AST 20 (14-36) U/L ALT 15 (9-52) U/L Alkaline Phosphatase 65 (38-126) U/L Total Protein 7.5 (6.3-8.2) g/dL Albumin 4.3 (3.5-5.0) g/dL Current Medications Generic Name Dose Route Start Last Admin Trade Name Freq PRN Reason Stop Dose Admin Hydrocodone Bitart/Acetaminophen 1 each 11/22/18 21:00 [place] 5-325 PO BID PRN Pain Aspirin 325 mg 11/23/18 09:00 Aspirin PO DAILY [facility] Atorvastatin Calcium 80 mg 11/23/18 09:00 Lipitor PO DAILY [facility] Clopidogrel Bisulfate 75 mg 11/23/18 09:00 Plavix PO DAILY [facility] Docusate Sodium 100 mg 11/22/18 21:00 11/22/18 23:23 Colace PO 100 mg BID [facility] Administration Ferrous Sulfate 325 mg 11/22/18 21:00 11/22/18 23:23 Feosol PO 325 mg BID [facility] Administration Lisinopril 5 mg 11/23/18 09:00 Zestril PO DAILY [facility] Metoprolol Tartrate 12.5 mg 11/22/18 21:00 05/22/19 23:22 Lopressor PO 12.5 mg HS THANH Administration Metoprolol Tartrate 25 mg 11/23/18 09:00 Lopressor PO QAM THANH Nitroglycerin 0.4 mg 11/22/18 19:12 Nitrostat SUBLINGUAL Q5M PRN Chest Pain Pantoprazole Sodium 40 mg 11/23/18 07:30 Protonix PO AC-BRKFST THANH Intake and Output 11/22/18 11/23/18 11/23/18 22:59 06:59 14:59 Other: Voiding Method Toilet Toilet Toilet # Voids 1 Weight 99.79 kg 11/22/18 16:18 11/22/18 16:18
--- NOTE | 2018-11-23 10:42 | ECHOF ---
Referral Reason: MEASUREMENTS -------- HEIGHT: 167.6 cm WEIGHT: 99.8 kg BP: IVSd: 1.0 cm (0.6 - 1.1) LVIDd: 4.1 cm (3.9 - 5.3) LVPWd: 1.0 cm (0.6 - 1.1) IVSs: 1.5 cm LVIDs: 1.7 cm LVPWs: 1.2 cm LAESV Index (A-L): 15.98 ml/m Ao Diam: 2.7 cm (2.0 - 3.7) AV Cusp: 2.0 cm (1.5 - 2.6) LA Diam: 2.7 cm (2.7 - 3.8) EPSS: 0.9 cm MV E Nelson: 0.70 m/s MV DecT: 169 ms MV A Nelson: 0.73 m/s MV E/A Ratio: 0.95 RAP: 5.00 mmHg RVSP: 16.79 mmHg MV EF SLOPE: 83.81 mm/s (70 - 150) MV EXCURSION: 1.59 cm (> 18.000) FINDINGS -------- Sinus rhythm. This was a technically good study. The left ventricular size is normal. Left ventricular wall thickness is normal. Overall left vent ricular systolic function is normal with, an EF between 55 - 60 %. The right ventricle is normal in size. Left atrium is normal size by volume. The right atrial size is normal. Interatrial and interventricular septum intact. The aortic valve is trileaflet and appears structurally normal. There is trace mitral regurgitation. Trace tricuspid regurgitation present. The right ventricular systolic pressure, as measured by Dopp ler, is 16.79mmHg. There is no pulmonic regurgitation present. The aortic root size is normal. The inferior vena cava was not well visualized. There is no pericardial effusion. CONCLUSIONS -------- 1. Sinus rhythm. 2. This was a technically good study. 3. The left ventricular size is normal. 4. Left ventricular wall thickness is normal. 5. Overall left ventricular systolic function is normal with, an EF between 55 - 60 %. 6. The right ventricle is normal in size. 7. Left atrium is normal size by volume. 8. The right atrial size is normal. 9. Interatrial and interventricular septum intact. 10. The aortic valve is trileaflet and appears structurally normal. 11. There is trace mitral regurgitation. 12. Trace tricuspid regurgitation present. 13. The right ventricular systolic pressure, as measured by Doppler, is 16.79mmHg. 14. There is no pulmonic regurgitation present. 15. The aortic root size is normal. 16. The inferior vena cava was not well visualized. 17. There is no pericardial effusion. SENIOR TECHNICAL MANAGER: Karrie Manuel RDCS
--- NOTE | 2018-11-23 11:03 | ECHOS ---
STRESS ECHOCARDIOGRAM DATE OF SERVICE: 11/23/2018 INDICATIONS: Chest pain. MEDICATIONS: See list. BASELINE HEART RATE: 77 BASELINE BLOOD PRESSURE: 106/81 MAXIMUM HEART RATE: 162 MAXIMUM BLOOD PRESSURE: 191/72 85% MPHR: 148 100% MPHR: 174 METS: 7.3 MAXIMUM STAGE REACHED: III TOTAL EXERCISE TIME: 6 minutes CLINICAL INFORMATION: Chest pain. RESULTS Baseline EKG shows sinus rhythm, normal axis, normal intervals. Patient exercised on Elvis protocol for a total of 6 minutes achieving 7 METS. 93% of predicted maximal heart rate without chest pain or diagnostic ST-segment depression. Baseline echo shows normal left ventricular size, wall motion and systolic function. Postexercise, there is normal hyperdynamic response of all segments of myocardium noted. CONCLUSIONS: 1. Average exercise tolerance. 2. Negative stress test by EKG criteria. 3. Negative stress echo. MMLASTL / IJN: [id number] /
[2018-11-23 11:13] VITALS: BP 118/53; PULSE 92; RESP 14; TEMP 97.6
[2018-11-23] MEDS: DOCUSATE 100 MG CAP PO SCH (11:14)
[2018-11-23] MEDS: FERROUS SULFATE 325 MG TAB PO SCH (11:14)
[2018-11-23] MEDS ORDERED: ASPIRIN 81 MG PO SCH (11:15)
--- NOTE | 2018-11-23 11:19 | P.HPIM ---
History of Present Illness 48-year-old female presented to family physician with complaints of intermittent chest pain that waxes and wanes for 3 days. Pain radiates to neck and back no nausea or vomiting no sweats. Patient had does have a history of coronary disease with IA and stents 3 Review of Systems Cardiovascular: Reports chest pain Past Medical History Past Medical History: Coronary Artery Disease (CAD), Chest Pain / Angina, GERD/Reflux, Myocardial Infarction ([place]) Additional Past Medical History / Comment(s): anemia, "i never was told if i had high bp or high cholesterol-they put me on meds after my heart attack" Last Myocardial Infarction Date:: unk History of Any Multi-Drug Resistant Organisms: None Reported Past Surgical History: Ablation, Heart Catheterization, Heart Catheterization With Stent Additional Past Surgical History / Comment(s): uterine ablation 08/2018, wisdom teeth. pt stated she has had 3 heart caths total, 4 stents Past Anesthesia/Blood Transfusion Reactions: Postoperative Nausea & Vomiting (PONV) Date of Last Stent Placement:: 02/2018 Past Psychological History: No Psychological Hx Reported Additional Psychological History / Comment(s): lives with boyfriend. works at [employer] Smoking Status: Former smoker Past Alcohol Use History: Occasional Additional Past Alcohol Use History / Comment(s): started smoking at age 45(2014 and quit november 2017, smoked 1/2 ppd Past Drug Use History: None Reported - Past Family History Mother Family Medical History: AFIB Brother(s) Family Medical History: Myocardial Infarction ([place]) Additional Family Medical History / Comment(s): brother at age 42 with IA Medications and Allergies Home Medications Medication Instructions Recorded Confirmed Type Aspirin [Adult Low Dose Aspirin EC] 81 mg PO DAILY 10/29/17 11/22/18 History Nitroglycerin Sl Tabs [Nitrostat] 0.4 mg SUBLINGUAL Q5M PRN #25 tab 11/02/17 11/22/18 Rx Clopidogrel [Plavix] 75 mg PO DAILY 02/13/18 11/22/18 History Docusate [Colace] 100 mg PO BID 02/13/18 11/22/18 History Ferrous Sulfate [Iron (65 MG 325 mg PO BID 02/13/18 11/22/18 History Elemental)] Pantoprazole Sodium [Protonix] 40 mg PO DAILY 02/13/18 11/22/18 History Atorvastatin [Lipitor] 80 mg PO DAILY 08/23/18 11/22/18 History Metoprolol Tartrate [Lopressor] 12.5 mg PO HS 08/23/18 11/22/18 History Metoprolol Tartrate [Lopressor] 25 mg PO QAM 08/23/18 11/22/18 History Hydrocodone/Acetaminophen [[place] 1 tab PO BID 11/22/18 11/22/18 History 5-325] Lisinopril [Prinivil] 5 mg PO DAILY 11/22/18 11/22/18 History Allergies Allergy/AdvReac Type Severity Reaction Status Date / Time ibuprofen [From Motrin] AdvReac Unknown Verified 11/22/18 18:07 Physical Exam Vitals: Vital Signs Temp Pulse Pulse Resp BP BP BP 11/23/18 11:12 97.6 F 92 14 118/53 11/23/18 08:00 57 L 18 11/23/18 07:30 97.7 F 57 L 18 93/50 11/23/18 04:00 98.3 F 61 18 106/70 11/23/18 00:00 97.6 F 61 18 116/79 11/22/18 20:50 98 F 52 L 16 132/77 11/22/18 20:00 97.5 F L 56 L 18 121/65 11/22/18 19:42 67 16 132/72 11/22/18 18:45 67 16 122/63 11/22/18 18:09 68 124/68 11/22/18 16:07 98.4 F 63 16 122/71 Pulse Ox 11/23/18 11:12 95 11/23/18 08:00 11/23/18 07:30 98 11/23/18 04:00 99 11/23/18 00:00 98 11/22/18 20:50 99 11/22/18 20:00 100 11/22/18 19:42 96 11/22/18 18:45 96 11/22/18 18:09 97 11/22/18 16:07 100 Intake and Output 11/22/18 11/23/18 11/23/18 22:59 06:59 14:59 Other: Voiding Method Toilet Toilet Toilet # Voids 1 2 Weight 99.79 kg 99.79 kg - Constitutional General appearance: obese - EENT Eyes: PERRLA Ears: bilateral: normal - Neck Neck: normal ROM - Respiratory Respiratory: bilateral: CTA - Cardiovascular Rhythm: regular - Gastrointestinal General gastrointestinal: soft - Integumentary Integumentary: normal - Neurologic Neurologic: CNII-XII intact - Musculoskeletal Musculoskeletal: gait normal - Psychiatric Psychiatric: A&O x's 3, appropriate affect, intact judgment & insight Results CBC & Chem 7: 11/22/18 16:18 11/22/18 16:18 Chest x-ray: report reviewed Thrombosis Risk Factor Assmnt - Choose All That Apply Any of the Below Risk Factors Present?: Yes Each Factor Represents 1 point: Age 41-60 years, Obesity (BMI >25) Other Risk Factors: No Thrombosis Risk Factor Assessment Total Risk Factor Score: 2 Thrombosis Risk Factor Assessment Level: Low Risk Assessment and Plan Plan: Assessment Chest pain atypical troponins negative 3 History of coronary disease with IA and stents 3 GERD Dyslipidemia Plan Cardiology consultation Stress and echo done awaiting report if negative discharge home
--- NOTE | 2018-11-23 13:12 | P.DS ---
Providers Date of admission: 11/22/18 18:40 Expected date of discharge: 11/23/18 Attending physician: Kentrell Joseph Consults: 11/22/18 19:21 Consult Physician Urgent Consulting Provider: [facility] Consult Reason/Comments: Chest Pain Do you want consulting provider notified?: Yes Primary care physician: Kentrell Joseph [place] Hospital Course: For a special female was admitted through the emergency room for complaints of chest pain. Troponins are negative times three. Patient had echo a stress test negative for cardiology. Cleared for discharge per cardiology. Assessment atypical chest pain troponins negative times three history of coronary disease with RI and stent sensory GERD Plan follow up with family physician Dr. Kentrell Joseph and cardiology Patient Condition at Discharge: Serious Plan - Discharge Summary Discharge Rx Participant: No New Discharge Prescriptions: Continue Aspirin [Adult Low Dose Aspirin EC] 81 mg PO DAILY Nitroglycerin Sl Tabs [Nitrostat] 0.4 mg SUBLINGUAL Q5M PRN #25 tab PRN Reason: Chest Pain Pantoprazole Sodium [Protonix] 40 mg PO DAILY Ferrous Sulfate [Iron (65 MG Elemental)] 325 mg PO BID Clopidogrel [Plavix] 75 mg PO DAILY Docusate [Colace] 100 mg PO BID Metoprolol Tartrate [Lopressor] 12.5 mg PO HS Metoprolol Tartrate [Lopressor] 25 mg PO QAM Atorvastatin [Lipitor] 80 mg PO DAILY Hydrocodone/Acetaminophen [[place] 5-325] 1 tab PO BID Lisinopril [Prinivil] 5 mg PO DAILY Discharge Medication List Aspirin [Adult Low Dose Aspirin EC] 81 mg PO DAILY 10/29/17 [History] Nitroglycerin Sl Tabs [Nitrostat] 0.4 mg SUBLINGUAL Q5M PRN #25 tab 11/02/17 [Rx] Clopidogrel [Plavix] 75 mg PO DAILY 02/13/18 [History] Docusate [Colace] 100 mg PO BID 02/13/18 [History] Ferrous Sulfate [Iron (65 MG Elemental)] 325 mg PO BID 02/13/18 [History] Pantoprazole Sodium [Protonix] 40 mg PO DAILY 02/13/18 [History] Atorvastatin [Lipitor] 80 mg PO DAILY 08/23/18 [History] Metoprolol Tartrate [Lopressor] 12.5 mg PO HS 08/23/18 [History] Metoprolol Tartrate [Lopressor] 25 mg PO QAM 08/23/18 [History] Hydrocodone/Acetaminophen [[place] 5-325] 1 tab PO BID 11/22/18 [History] Lisinopril [Prinivil] 5 mg PO DAILY 11/22/18 [History] Follow up Appointment(s)/Referral(s): Kentrell Joseph MD [Primary Care Provider] - 1-2 days Bella Cardona MD [STAFF PHYSICIAN] - 2 Weeks (Office to call with appointment.)
[2018-11-24] MEDS ORDERED: ASPIRIN 81 MG PO SCH (09:00)
== END 2018-11-23 13:50 | disposition home or self-care (01) ==
LOC: EC 15:59 → 1SOBS 18:40
PROVIDERS: ADMIT Family Medicine; ATTEND Family Medicine
DX: R07.89 Other chest pain (principal); K21.9 Gastro-esophageal reflux disease without esophagitis; I25.10 Atherosclerotic heart disease of native coronary artery without angina pectoris; D64.9 Anemia, unspecified; E78.5 Hyperlipidemia, unspecified; R06.02 Shortness of breath; R00.1 Bradycardia, unspecified; E78.00 Pure hypercholesterolemia, unspecified; E66.9 Obesity, unspecified; Z68.37 Body mass index [BMI] 37.0-37.9, adult; Z79.82 Long term (current) use of aspirin; Z79.02 Long term (current) use of antithrombotics/antiplatelets; Z79.891 Long term (current) use of opiate analgesic; Z79.899 Other long term (current) drug therapy; Z88.6 Allergy status to analgesic agent; I25.2 Old myocardial infarction; Z95.5 Presence of coronary angioplasty implant and graft; Z87.891 Personal history of nicotine dependence; Z82.49 Family history of ischemic heart disease and other diseases of the circulatory system
CPT/HCPCS: 96374; 99285; 36415; 93005; 93306; 93351; 80061; 80053; 83735; 84484 ×2; 85025; 85610; 85730; 71046; G0378 ×2; J2270

== ENCOUNTER → 2018-12-18 | Outpatient (CLI) | payer OTHER ==
--- NOTE | 2018-12-18 08:11 | US ---
EXAMINATION TYPE: US abd limited kidneys/bladder DATE OF EXAM: 12/18/2018 COMPARISON: NONE CLINICAL HISTORY: 48-year-old female M54.5 Low Back Pain R10.9 Abdominal Pain. TECHNIQUE: Multiple sonographic images of the right upper quadrant, bilateral kidneys, and bladder we re obtained. FINDINGS: EXAM MEASUREMENTS: Liver Length: 12.0 cm Gallbladder Wall: 0.5 cm CBD: 0.8 cm Right Kidney: 10.6 x 5.3 x 5.4 cm Left Kidney: 10.9 x 6.4 x 5.9 cm Pancreas: visualized portions wnl Liver: wnl Gallbladder: thickened wall, possibly secondary to poor distention. No stones seen. No surrounding f luid. Positive Ardon's sign CBD: Mildly dilated. Right Kidney: No hydronephrosis. Left Kidney: No hydronephrosis. Bladder: wnl Bilateral Jets Seen Yes IMPRESSION: 1. Positive sonographic Ardon sign noted. Mild circumferential gallbladder wall thickening may relat e to poor distention. No gallstones, abnormal distention, or other ancillary imaging findings of acut e cholecystitis. If further imaging evaluation of the gallbladder is desired, HIDA scan can be consid ered. 2. Mild dilatation of the bile duct at 8 mm. Correlate with alkaline phosphatase and bili levels to e xclude biliary obstruction. ERCP or MRCP if clinically indicated.
== END | disposition home or self-care (01) ==
LOC: RADUSWWP 06:52
PROVIDERS: ATTEND Family Medicine
DX: K82.9 Disease of gallbladder, unspecified (principal); K31.89 Other diseases of stomach and duodenum; M54.5 Low back pain
CPT/HCPCS: 76705; 76770

== ENCOUNTER → 2018-12-22 | Outpatient (CLI) | payer OTHER ==
--- NOTE | 2018-12-22 15:11 | NM ---
Nuclear medicine hepatobiliary scan. HISTORY: Pain. DOSAGE: The patient received 8 ounces of ensure plus and 4.9 mCi of Technetium 99m Choletec. FINDINGS: There is normal hepatic extraction. The gallbladder is seen by 10 minutes. There is bilia ry to bowel clearance by 20 minutes. Ejection fraction is 70%. IMPRESSION: 1. Normal hepatobiliary exam
== END | disposition home or self-care (01) ==
LOC: RADNMMAIN 12:51
PROVIDERS: ATTEND Family Medicine
DX: R10.11 Right upper quadrant pain (principal)
CPT/HCPCS: 78226; A9537

== ENCOUNTER → 2019-01-01 | Outpatient (CLI) | payer OTHER ==
--- NOTE | 2019-01-01 21:52 | CT ---
EXAMINATION TYPE: CT abdomen w con DATE OF EXAM: 01/01/2019 COMPARISON: Correlation ultrasound 12/18/2018 HISTORY: 48-year-old female Right upper quadrant abdominal tenderness. TECHNIQUE: Contiguous axial scanning of the abdomen following administration of 100 ml Isovue 300 IV contrast. Delayed images through the kidneys and coronal/sagittal reconstructions performed. CT DLP: 1233 mGycm Automated exposure control for dose reduction was used. FINDINGS: Heart normal size without pericardial effusion. Coronary vessel calcifications are present. Lung base s clear without pleural effusion. Large amount of ingested debris within the stomach as well as oral contrast material. No focal liver lesion. On the present exam, bile duct has normal caliber. Portal venous system is pat ent. The gallbladder is collapsed. Adrenal glands, kidneys, spleen, and pancreas appear within normal limits. No dilated small bowel, free fluid, or free air. Mild haylee mesentery centrally. Borderline to mildly enlarged yon hepatic lymph nodes measuring up to 1.2 cm. Normal appendix. Moderate stool burden. No pericolonic inflammatory change. Bones: Degenerative disc disease and facet arthropathy lower lumbar spine. IMPRESSION: 1. 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 2. GIVEN A FEW BORDERLINE TO MILDLY ENLARGED YON HEPATIC LYMPH NODES MEASURING UP TO 1.2 CM, THREE- MONTH FOLLOW-UP IS RECOMMENDED TO ENSURE STABILITY/RESOLUTION OF THESE FINDINGS. 3. THE BILE DUCT IS NORMAL CALIBER ON THE PRESENT EXAM. GALLBLADDER IS COLLAPSED AND NORMAL. 4. CAD. MODERATE STOOL BURDEN. DEGENERATIVE CHANGES L5-S1.
== END | disposition home or self-care (01) ==
LOC: RADCTMAIN 16:36
PROVIDERS: ATTEND Internal Medicine Interventional Cardiology
DX: K82.8 Other specified diseases of gallbladder (principal); I25.10 Atherosclerotic heart disease of native coronary artery without angina pectoris; R19.5 Other fecal abnormalities
CPT/HCPCS: 74160; Q9967

== ENCOUNTER 2019-03-01 08:18 | Observation (INO) | payer OTHER ==
[2019-03-01] MEDS ORDERED: ASPIRIN 81 MG PO STA (08:35)
[2019-03-01 08:52] LABS: Basophils % (A) 1 %; Eosinophils # (A) 0.2 k/uL (0-0.7); Eosinophils % (A) 2 %; HCT 41.6 % (34.0-46.0); HGB 13.4 gm/dL (11.4-16.0); Lymphocytes # (A) 1.1 k/uL (1.0-4.8); Lymphocytes % (A) 17 %; MCH 31.5 pg (25.0-35.0); MCHC 32.2 g/dL (31.0-37.0); MCV 97.7 fL (80.0-100.0); Mean Platelet Volume 7.8; Monocytes # (A) 0.4 k/uL (0-1.0); Monocytes % (A) 6 %; Neutrophils # (A) 4.8 k/uL (1.3-7.7); Neutrophils % (A) 72 %; Platelet Count 243 k/uL (150-450); RBC 4.26 m/uL (3.80-5.40); RDW 12.5 % (11.5-15.5); WBC 6.6 k/uL (3.8-10.6)
[2019-03-01 09:01] LABS: INR 0.9 (<1.2); Partial Thromboplastin Time 23.6 sec (22.0-30.0); Prothrombin Time 10.2 sec (9.0-12.0)
[2019-03-01 09:03] LABS: ALT 25 U/L (9-52); AST 24 U/L (14-36); African American GFR (CKD) >90 (>60 ml/min/1.73 sqM); Albumin 4.1 g/dL (3.5-5.0); Alkaline Phosphatase 62 U/L (38-126); Anion Gap 9 mmol/L; Blood Urea Nitrogen 14 mg/dL (7-17); Calcium 8.9 mg/dL (8.4-10.2); Carbon Dioxide 25 mmol/L (22-30); Chloride 105 mmol/L (98-107); Glucose 91 mg/dL (74-99); Magnesium 1.8 mg/dL (1.6-2.3); Potassium 3.9 mmol/L (3.5-5.1); Sodium 139 mmol/L (137-145); Total Bilirubin 0.6 mg/dL (0.2-1.3); Total Protein 7.5 g/dL (6.3-8.2)
--- NOTE | 2019-03-01 09:07 | XR ---
EXAMINATION TYPE: XR chest 2V DATE OF EXAM: 03/01/2019 COMPARISON: 11/23/2015 HISTORY: Chest pain. History of [place]. TECHNIQUE: Frontal and lateral views of the chest are obtained. FINDINGS: There is no focal air space opacity, pleural effusion, or pneumothorax seen. The cardiac silhouette size is within normal limits. The osseous structures are intact. Minimal degenerative ch anges of the thoracic spine. IMPRESSION: No acute cardiopulmonary process.
--- NOTE | 2019-03-01 09:25 | ED ---
Weakness HPI - General Chief complaint: Weakness Stated complaint: Weakness, chest heaviness Time Seen by Provider: 03/01/19 08:24 Source: patient, RN notes reviewed Mode of arrival: wheelchair Limitations: no limitations - History of Present Illness Initial comments: This a 48-year-old female presents emergency Department chief complaint of chest heaviness. Patient states that symptoms have been present for at least a few days maybe up to week but states that worsened. She has taken nitro a few times throughout the week which alleviated some her symptoms. She does admit that she had an [place] last year in November had 3 stents placed and states that she had ago have one replaced in February. Patient states that she is a smoker, she stated that she had no history of hypertension hyperlipidemia diabetes that she does take medications now status post [place]. Patient denies any nausea vomiting nothing seems to make the pain feel better or worse denies shortness of breath. - Related Data Home Medications Medication Instructions Recorded Confirmed Aspirin [Adult Low Dose Aspirin EC] 81 mg PO DAILY 10/29/17 11/22/18 Clopidogrel [Plavix] 75 mg PO DAILY 02/13/18 11/22/18 Docusate [Colace] 100 mg PO BID 02/13/18 11/22/18 Ferrous Sulfate [Iron (65 MG 325 mg PO BID 02/13/18 11/22/18 Elemental)] Pantoprazole Sodium [Protonix] 40 mg PO DAILY 02/13/18 11/22/18 Atorvastatin [Lipitor] 80 mg PO DAILY 08/23/18 11/22/18 Metoprolol Tartrate [Lopressor] 12.5 mg PO HS 08/23/18 11/22/18 Metoprolol Tartrate [Lopressor] 25 mg PO QAM 08/23/18 11/22/18 Hydrocodone/Acetaminophen [[place] 1 tab PO BID 11/22/18 11/22/18 5-325] Lisinopril [Prinivil] 5 mg PO DAILY 11/22/18 11/22/18 Previous Rx's Medication Instructions Recorded Nitroglycerin Sl Tabs [Nitrostat] 0.4 mg SUBLINGUAL Q5M PRN #25 tab 11/02/17 Allergies Allergy/AdvReac Type Severity Reaction Status Date / Time ibuprofen [From Motrin] AdvReac Unknown Verified 03/01/19 08:21 Review of Systems ROS Statement: Those systems with pertinent positive or pertinent negative responses have been documented in the HPI. ROS Other: All systems not noted in ROS Statement are negative. Past Medical History Past Medical History: Coronary Artery Disease (CAD), Chest Pain / Angina, GERD/Reflux, Myocardial Infarction ([place]) Additional Past Medical History / Comment(s): anemia, "i never was told if i had high bp or high cholesterol-they put me on meds after my heart attack" Last Myocardial Infarction Date:: unk History of Any Multi-Drug Resistant Organisms: None Reported Past Surgical History: Ablation, Heart Catheterization, Heart Catheterization With Stent Additional Past Surgical History / Comment(s): uterine ablation 08/2018, wisdom teeth. pt stated she has had 3 heart caths total, 4 stents Past Anesthesia/Blood Transfusion Reactions: Postoperative Nausea & Vomiting (PONV) Date of Last Stent Placement:: 02/2018 Past Psychological History: No Psychological Hx Reported Smoking Status: Former smoker Past Alcohol Use History: Occasional Past Drug Use History: None Reported - Past Family History Mother Family Medical History: AFIB Brother(s) Family Medical History: Myocardial Infarction ([place]) Additional Family Medical History / Comment(s): brother at age 42 with [place] General Exam Limitations: no limitations General appearance: alert, in no apparent distress Head exam: Present: atraumatic, normocephalic, normal inspection Eye exam: Present: normal appearance, PERRL, EOMI. Absent: scleral icterus, conjunctival injection, periorbital swelling ENT exam: Present: normal exam, normal oropharynx, mucous membranes moist Neck exam: Present: normal inspection, full ROM. Absent: tenderness, meningismus, lymphadenopathy Respiratory exam: Present: normal lung sounds bilaterally. Absent: respiratory distress, wheezes, rales, rhonchi, stridor Cardiovascular Exam: Present: regular rate, normal rhythm, normal heart sounds. Absent: systolic murmur, diastolic murmur, rubs, gallop, clicks Neurological exam: Present: alert, oriented X3, CN II-XII intact Skin exam: Present: warm, dry, intact, normal color. Absent: rash Course Vital Signs 03/01/19 08:19 Temperature 97.9 F Pulse Rate 85 Respiratory 18 Rate Blood Pressure 147/87 O2 Sat by Pulse 98 Oximetry EKG Findings - EKG Comments: EKG Findings:: 8:33 normal sinus rhythm rate of 64. 140 QRS 70 QTC/QTC 438/451 Medical Decision Making - Medical Decision Making 48 show female presented for chest discomfort, chest heaviness. These are the same exact symptoms that she's had in the past with her [place]. 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 Patient was started on heparin recheck repeat troponins ordered, cardiology evaluation - Lab Data Result diagrams: 03/01/19 08:39 03/01/19 08:39 Lab Results 03/01/19 03/01/19 03/01/19 Range/Units 08:39 08:39 08:39 WBC 6.6 (3.8-10.6) k/uL RBC 4.26 (3.80-5.40) m/uL Hgb 13.4 (11.4-16.0) gm/dL Hct 41.6 (34.0-46.0) % MCV 97.7 (80.0-100.0) fL MCH 31.5 (25.0-35.0) pg MCHC 32.2 (31.0-37.0) g/dL RDW 12.5 (11.5-15.5) % Plt Count 243 (150-450) k/uL Neutrophils % 72 % Lymphocytes % 17 % Monocytes % 6 % Eosinophils % 2 % Basophils % 1 % Neutrophils # 4.8 (1.3-7.7) k/uL Lymphocytes # 1.1 (1.0-4.8) k/uL Monocytes # 0.4 (0-1.0) k/uL Eosinophils # 0.2 (0-0.7) k/uL Basophils # 0.0 (0-0.2) k/uL PT (9.0-12.0) sec INR (<1.2) APTT (22.0-30.0) sec Sodium 139 (137-145) mmol/L Potassium 3.9 (3.5-5.1) mmol/L Chloride 105 (98-107) mmol/L Carbon Dioxide 25 (22-30) mmol/L Anion Gap 9 mmol/L BUN 14 (7-17) mg/dL Creatinine 0.64 (0.52-1.04) mg/dL Est GFR (CKD-EPI)AfAm >90 (>60 ml/min/1.73 sqM) Est GFR (CKD-EPI)NonAf >90 (>60 ml/min/1.73 sqM) Glucose 91 (74-99) mg/dL Calcium 8.9 (8.4-10.2) mg/dL Magnesium 1.8 (1.6-2.3) mg/dL Total Bilirubin 0.6 (0.2-1.3) mg/dL AST 24 (14-36) U/L ALT 25 (9-52) U/L Alkaline Phosphatase 62 (38-126) U/L Troponin I (0.000-0.034) ng/mL NT-Pro-B Natriuret Pep 164 pg/mL Total Protein 7.5 (6.3-8.2) g/dL Albumin 4.1 (3.5-5.0) g/dL Lipase 94 (23-300) U/L 03/01/19 03/01/19 Range/Units 08:39 08:39 WBC (3.8-10.6) k/uL RBC (3.80-5.40) m/uL Hgb (11.4-16.0) gm/dL Hct (34.0-46.0) % MCV (80.0-100.0) fL MCH (25.0-35.0) pg MCHC (31.0-37.0) g/dL RDW (11.5-15.5) % Plt Count (150-450) k/uL Neutrophils % % Lymphocytes % % Monocytes % % Eosinophils % % Basophils % % Neutrophils # (1.3-7.7) k/uL Lymphocytes # (1.0-4.8) k/uL Monocytes # (0-1.0) k/uL Eosinophils # (0-0.7) k/uL Basophils # (0-0.2) k/uL PT 10.2 (9.0-12.0) sec INR 0.9 (<1.2) APTT 23.6 (22.0-30.0) sec Sodium (137-145) mmol/L Potassium (3.5-5.1) mmol/L Chloride (98-107) mmol/L Carbon Dioxide (22-30) mmol/L Anion Gap mmol/L BUN (7-17) mg/dL Creatinine (0.52-1.04) mg/dL Est GFR (CKD-EPI)AfAm (>60 ml/min/1.73 sqM) Est GFR (CKD-EPI)NonAf (>60 ml/min/1.73 sqM) Glucose (74-99) mg/dL Calcium (8.4-10.2) mg/dL Magnesium (1.6-2.3) mg/dL Total Bilirubin (0.2-1.3) mg/dL AST (14-36) U/L ALT (9-52) U/L Alkaline Phosphatase (38-126) U/L Troponin I <0.012 (0.000-0.034) ng/mL NT-Pro-B Natriuret Pep pg/mL Total Protein (6.3-8.2) g/dL Albumin (3.5-5.0) g/dL Lipase (23-300) U/L Disposition Clinical Impression: Chest pain Disposition: ADMITTED IP TO THIS HOSP Condition: Stable Referrals: Kentrell Joseph MD [Primary Care Provider] - 1-2 days
[2019-03-01] MEDS ORDERED: HEPARIN SODIUM,PORCINE 5,000 UNIT/ML 1 ML VIAL IV ONE (10:12)
[2019-03-01] MEDS: HEPARIN SOD,PORK IN 0.45% NACL 25,000 UNIT in 0.45% NACL 1 250ML.BAG IV SCH (10:53)
--- NOTE | 2019-03-01 11:50 | P.HPIM ---
History of Present Illness 48-year-old female presented emergency room after complaints of fatigue for 1 week and chest pain today. Patient does have history of coronary disease with stents and IA. History of GERD. Review of Systems Constitutional: Reports fatigue Cardiovascular: Reports chest pain Past Medical History Past Medical History: Coronary Artery Disease (CAD), Chest Pain / Angina, GERD/Reflux, Myocardial Infarction ([place]) Additional Past Medical History / Comment(s): anemia, "i never was told if i had high bp or high cholesterol-they put me on meds after my heart attack" Last Myocardial Infarction Date:: unk History of Any Multi-Drug Resistant Organisms: None Reported Past Surgical History: Ablation, Heart Catheterization, Heart Catheterization With Stent Additional Past Surgical History / Comment(s): uterine ablation 08/2018, wisdom teeth. pt stated she has had 3 heart caths total, 4 stents Past Anesthesia/Blood Transfusion Reactions: Postoperative Nausea & Vomiting (PONV) Date of Last Stent Placement:: 02/2018 Past Psychological History: No Psychological Hx Reported Smoking Status: Former smoker Past Alcohol Use History: Occasional Past Drug Use History: None Reported - Past Family History Mother Family Medical History: AFIB Brother(s) Family Medical History: Myocardial Infarction ([place]) Additional Family Medical History / Comment(s): brother at age 42 with [place] Medications and Allergies Home Medications Medication Instructions Recorded Confirmed Type Aspirin [Adult Low Dose Aspirin EC] 81 mg PO DAILY 10/29/17 03/01/19 History Nitroglycerin Sl Tabs [Nitrostat] 0.4 mg SUBLINGUAL Q5M PRN #25 tab 11/02/17 03/01/19 Rx Clopidogrel [Plavix] 75 mg PO DAILY 02/13/18 03/01/19 History Docusate [Colace] 100 mg PO BID 02/13/18 03/01/19 History Ferrous Sulfate [Iron (65 MG 325 mg PO BID 02/13/18 03/01/19 History Elemental)] Pantoprazole Sodium [Protonix] 40 mg PO DAILY 02/13/18 03/01/19 History Atorvastatin [Lipitor] 80 mg PO DAILY 08/23/18 03/01/19 History Metoprolol Tartrate [Lopressor] 12.5 mg PO HS 08/23/18 03/01/19 History Metoprolol Tartrate [Lopressor] 25 mg PO QAM 08/23/18 03/01/19 History Hydrocodone/Acetaminophen [[place] 1 tab PO BID PRN 11/22/18 03/01/19 History 5-325] Lisinopril [Prinivil] 5 mg PO HS 11/22/18 03/01/19 History Acetaminophen-Codeine 300-30mg 1 - 2 tab PO Q4-6H PRN 03/01/19 03/01/19 History [Tylenol w/codeine #3] Allergies Allergy/AdvReac Type Severity Reaction Status Date / Time ibuprofen [From Motrin] AdvReac Unknown Verified 03/01/19 11:00 Physical Exam Vitals: Vital Signs Temp Pulse Resp BP Pulse Ox 03/01/19 10:28 55 L 18 122/67 98 03/01/19 08: 97.9 F 85 18 147/87 98 Intake and Output 02/28/19 03/01/19 03/01/19 22:59 06:59 14:59 Other: Weight 99.79 kg - Constitutional General appearance: mild distress - EENT Eyes: PERRLA Ears: bilateral: normal - Neck Neck: normal ROM - Respiratory Respiratory: bilateral: CTA - Cardiovascular Rhythm: regular - Gastrointestinal General gastrointestinal: soft - Integumentary Integumentary: normal - Neurologic Neurologic: CNII-XII intact - Musculoskeletal Musculoskeletal: gait normal - Psychiatric Psychiatric: A&O x's 3, appropriate affect, intact judgment & insight Results CBC & Chem 7: 03/01/19 08:39 03/01/19 08:39 Chest x-ray: report reviewed (EKG normal sinus rhythm) Assessment and Plan Plan: Assessment Chest pain History of IA with coronary disease with stents GERD Plan Cardiology consultation
--- NOTE | 2019-03-01 14:32 | P.CRDCN ---
History of Present Illness History of present illness: This is a pleasant 48-year-old female past medical history significant for coronary artery disease, myocardial infarction, hypertension, dyslipidemia, gastroesophageal reflux disease and chronic nicotine dependence. She has gone through episodes of tobacco cessation however she isn't smoking for the previous 2 weeks. She follows in the office with Dr. Cardona. 2 weeks ago her ex- who is the father of her 2 children very suddenly and unexpectedly. This has been causing her great amount of stress. She states for the previous one week she has felt increasingly fatigued with intermittent episodes of lightheadedness, shortness of breath and a heavy pressure sensation in the midsternal region that radiates across her entire anterior chest. There is no r adiation through to the back, down the arm, into the neck or jaw. This morning while at work she again was feeling a heavy pressure sensation in the chest but this time she also started feeling nauseated. Due to her previous medical history and her symptoms seeming to progress she came to the hospital for further evaluation. She is seen and examined resting comfortably sitting up in the stretcher in no acute distress. She continues to feel a mild ache in the chest. Sometimes it seems to be exacerbated by taking a deep breath. It is not reproducible on palpation. EKG reveals sinus mechanism, heart rate [address] or T wave abnormalities noted. Chest x-ray negative for an acute cardiopulmonary process. Laboratory data reviewed, WBC 6.6, hemoglobin 13.4, platelets 243, sodium 139, potassium 3.9, creatinine 0.64, magnesium 1.8, cardiac enzymes negative 1, proBNP 164. Current cardiac medications include aspirin 81 mg daily, atorvastatin 80 mg daily, Plavix 75 mg daily, lisinopril 5 mg at bedtime, Lopressor 25 mg in the morning and 12.5 mg at bedtime. Most recent echocardiogram obtained November 2018 reveals preserved LV systolic function with ejection fraction 55-60%. Most recent stress test performed November 2018 was negative for stress-induced ischemia. Most recent cardiac catheterization performed February 2018 revealed in-stent restenosis of the mid LAD which was successfully stented at that time, RCA free of significant disease, left main free of significant disease, 3 stents in the LAD in the midportion, most proximal stent has 80% narrowing, another narrowing seen beyond the bend of 50-60% in 2 areas of disease of 80% with some bridging proximally. At the time of my exam: CONSTITUTIONAL: Denies fever. Denies chills. EYES: Denies blurred vision. Denies vision changes. Denies eye pain. EARS, NOSE, MOUTH & THROAT: Denies headache. Denies sore throat. Denies ear pain. CARDIOVASCULAR: Complains of chest pain. Denies shortness of breath. Denies orthopnea. Denies PND. Denies palpitations. RESPIRATORY: Denies cough. GASTROINTESTINAL: Denies abdominal pain. Denies diarrhea. Denies constipation. Denies nausea. Denies vomiting. MUSCULOSKELETAL: Denies myalgias. INTEGUMENTARY: Denies pruitis. Denies rash. NEUROLOGIC: Denies numbness. Denies tingling. Denies weakness. PSYCHIATRIC: Denies anxiety. Denies depression. ENDOCRINE: Denies fatigue. Denies weight change. Denies polydipsia. Denies polyurina. GENITOURINARY: Denies burning, hematuria or urgency with micturation. HEMATOLOGIC: Denies history of anemia. Denies bleeding. Blood pressure 141/52 heart rate 56 afebrile maintaining oxygen saturation on room air GENERAL: This is a 48-year-old female in no apparent distress at the time of my examination. HEENT: Head is atraumatic, normocephalic. Pupils are equal, round. Sclerae anicteric. Conjunctivae are clear. Mucous membranes of the mouth are moist. Neck is supple. There is no jugular venous distention. No carotid bruit is heard. LUNGS: Clear to auscultation no wheezes, rales or rhonchi. No chest wall tenderness is noted on palpation or with deep breathing. HEART: Regular rate and rhythm without murmurs, rubs or gallops. S1 and S2 heard. ABDOMEN: Soft, nontender. Bowel sounds are heard. No organomegaly noted. EXTREMITIES: No evidence of peripheral edema and no calf tenderness noted. VASCULAR: Radial and dorsalis pedis pulses palpated, no evidence of clubbing. NEUROLOGIC: Patient is awake, alert and oriented x3. ASSESSMENT Precordial chest pain Significant stress and anxiety at home secondary to the loss of the left one History of coronary artery disease status post multiple stent placements with history of in-stent restenosis Hypertension Dyslipidemia Chronic nicotine dependence PLAN Continue to obtain serial cardiac enzymes to rule out an acute coronary event. Decrease aspirin to 81 mg. Resume Plavix, lisinopril, metoprolol and atorvastatin as previously ordered. Obtain limited echocardiogram to assess LV function. Nothing by mouth after midnight tonight. Further recommendations to follow based upon clinical course. Thank you kindly for this consultation. Nurse Practitioner note has been reviewed, I agree with a documented findings and plan of care. Patient was seen and examined. Past Medical History Past Medical History: Coronary Artery Disease (CAD), Chest Pain / Angina, GERD/Reflux, Myocardial Infarction ([place]) Additional Past Medical History / Comment(s): Pt states she has never been diagnosed with htn or high cholesterol-was placed on meds for these after her HI, anemia, chronic low back pain. Last Myocardial Infarction Date:: unk History of Any Multi-Drug Resistant Organisms: None Reported Past Surgical History: Ablation, Heart Catheterization, Heart Catheterization With Stent Additional Past Surgical History / Comment(s): Cardiac caths, PCI with a total of 4 stents, uterine ablation, wisdom teeth extractions. Past Anesthesia/Blood Transfusion Reactions: Motion Sickness, Postoperative Nausea & Vomiting (PONV) Date of Last Stent Placement:: 02/2018 Smoking Status: Former smoker - Past Family History Mother Family Medical History: AFIB Additional Family Medical History / Comment(s): Maternal grandmother also had A fib. Brother(s) Family Medical History: Myocardial Infarction ([place]) Additional Family Medical History / Comment(s): brother at age 42 with [place] Father Family Medical History: Blood Disorder Additional Family Medical History / Comment(s): Father from aides. Medications and Allergies Home Medications Medication Instructions Recorded Confirmed Type Aspirin [Adult Low Dose Aspirin EC] 81 mg PO DAILY 10/29/17 03/01/19 History Nitroglycerin Sl Tabs [Nitrostat] 0.4 mg SUBLINGUAL Q5M PRN #25 tab 11/02/17 03/01/19 Rx Clopidogrel [Plavix] 75 mg PO DAILY 02/13/18 03/01/19 History Docusate [Colace] 100 mg PO BID 02/13/18 03/01/19 History Ferrous Sulfate [Iron (65 MG 325 mg PO BID 02/13/18 03/01/19 History Elemental)] Pantoprazole Sodium [Protonix] 40 mg PO DAILY 02/13/18 03/01/19 History Atorvastatin [Lipitor] 80 mg PO DAILY 08/23/18 03/01/19 History Metoprolol Tartrate [Lopressor] 12.5 mg PO HS 08/23/18 03/01/19 History Metoprolol Tartrate [Lopressor] 25 mg PO QAM 08/23/18 03/01/19 History Hydrocodone/Acetaminophen [[place] 1 tab PO BID PRN 11/22/18 03/01/19 History 5-325] Lisinopril [Prinivil] 5 mg PO HS 11/22/18 03/01/19 History Acetaminophen-Codeine 300-30mg 1 - 2 tab PO Q4-6H PRN 03/01/19 03/01/19 History [Tylenol w/codeine #3] Allergies Allergy/AdvReac Type Severity Reaction Status Date / Time ibuprofen [From Motrin] AdvReac Unknown Verified 03/01/19 11:00 Physical Exam Vitals: Vital Signs Temp Pulse Resp BP Pulse Ox 03/01/19 12:25 97.9 F 56 L 18 141/52 98 03/01/19 10:28 55 L 18 122/67 98 03/01/19 08:19 97.9 F 85 18 147/87 98 Intake and Output 02/28/19 03/01/19 03/01/19 22:59 06:59 14:59 Other: Weight 99.79 kg Results 03/01/19 08:39 03/01/19 08:39 Cardiac Enzymes 03/01/19 03/01/19 Range/Units 08:39 08:39 AST 24 (14-36) U/L Troponin I <0.012 (0.000-0.034) ng/mL Coagulation 03/01/19 Range/Units 08:39 PT 10.2 (9.0-12.0) sec APTT 23.6 (22.0-30.0) sec CBC 03/01/19 Range/Units 08:39 WBC 6.6 (3.8-10.6) k/uL RBC 4.26 (3.80-5.40) m/uL Hgb 13.4 (11.4-16.0) gm/dL Hct 41.6 (34.0-46.0) % Plt Count 243 (150-450) k/uL Comprehensive Metabolic Panel 03/01/19 Range/Units 08:39 Sodium 139 (137-145) mmol/L Potassium 3.9 (3.5-5.1) mmol/L Chloride 105 (98-107) mmol/L Carbon Dioxide 25 (22-30) mmol/L BUN 14 (7-17) mg/dL Creatinine 0.64 (0.52-1.04) mg/dL Glucose 91 (74-99) mg/dL Calcium 8.9 (8.4-10.2) mg/dL AST 24 (14-36) U/L ALT 25 (9-52) U/L Alkaline Phosphatase 62 (38-126) U/L Total Protein 7.5 (6.3-8.2) g/dL Albumin 4.1 (3.5-5.0) g/dL Current Medications Generic Name Dose Route Start Last Admin Trade Name Freq PRN Reason Stop Dose Admin Hydrocodone Bitart/Acetaminophen 1 each 03/01/19 21:00 [place] 5-325 PO BID [facility] Aspirin 325 mg 03/02/19 09:00 Aspirin PO DAILY [facility] Atorvastatin Calcium 80 mg 03/02/19 09:00 Lipitor PO DAILY [facility] Clopidogrel Bisulfate 75 mg 03/02/19 09:00 Plavix PO DAILY [facility] Docusate Sodium 100 mg 03/01/19 21:00 Colace PO BID [facility] Ferrous Sulfate 325 mg 03/01/19 21:00 Feosol PO BID [facility] Heparin Sodium/Sodium Chloride 250 mls @ 10 mls/hr 03/01/19 10:15 03/01/19 10:53 25,000 unit/ Sodium Chloride IV 10.021 units/kg/hr .Q24H THANH 10 mls/hr Administration Protocol 10.021 UNITS/KG/HR Lisinopril 5 mg 03/02/19 09:00 Zestril PO DAILY [facility] Metoprolol Tartrate 12.5 mg 03/01/19 21:00 Lopressor PO HS THANH Metoprolol Tartrate 25 mg 03/02/19 09:00 Lopressor PO QAM [facility] Nitroglycerin 0.4 mg 03/01/19 10:12 Nitrostat SUBLINGUAL Q5M PRN Chest Pain Pantoprazole Sodium 40 mg 03/02/19 07:30 Protonix PO AC-BRKFST THANH Intake and Output 02/28/19 03/01/19 03/01/19 22:59 06:59 14:59 Other: Weight 99.79 kg Patient Weight 08/30/19 06:59 Weight 99.79 kg 03/01/19 08:39 03/01/19 08:39
--- NOTE | 2019-03-01 17:20 | ECHOF ---
Referral Reason:lv function MEASUREMENTS -------- HEIGHT: 162.6 cm WEIGHT: 99.8 kg BP: FINDINGS -------- Sinus rhythm. Limited Study for LV Function. Echo done 11/19. Overall left ventricular systolic function is normal with, an EF between 55 - 60 %. There is no pericardial effusion. CONCLUSIONS -------- 1. Sinus rhythm. 2. Overall left ventricular systolic function is normal with, an EF between 55 - 60 %. 3. There is no pericardial effusion. SIFTER OPERATOR: Laquita Estrada RDCS
[2019-03-01] MEDS ORDERED: HEPARIN SODIUM,PORCINE 5,000 UNIT/ML 1 ML VIAL IV PRN (18:23)
[2019-03-01] MEDS: HYDROcodone/APAP 5-325MG 1 EACH TAB PO SCH (20:22)
[2019-03-01] MEDS: DOCUSATE 100 MG CAP PO SCH (20:23)
[2019-03-01] MEDS: FERROUS SULFATE 325 MG TAB PO SCH (20:23)
[2019-03-01] MEDS ORDERED: METOPROLOL TARTRATE 12.5 MG TAB PO SCH (21:00)
[2019-03-01] MEDS: NITROGLYCERIN SL TABS 0.4 MG TAB SUBLINGUAL PRN ×3 (21:54→22:06)
[2019-03-02] MEDS: HEPARIN SOD,PORK IN 0.45% NACL 25,000 UNIT in 0.45% NACL 1 250ML.BAG IV SCH (04:24)
[2019-03-02 06:36] LABS: Mean Platelet Volume 8.5; Platelet Count 204 k/uL (150-450)
[2019-03-02 06:47] LABS: Cholesterol 112 mg/dL (<200); HDL Cholesterol 51 mg/dL (40-60); LDL Cholesterol,Calculated 38 mg/dL (0-99); Triglycerides 114 mg/dL (<150)
[2019-03-02] MEDS ORDERED: PANTOPRAZOLE 40 MG TABLET PO SCH (07:30)
[2019-03-02 07:34] VITALS: RESP 18
[2019-03-02] MEDS: DOCUSATE 100 MG CAP PO SCH (08:55)
[2019-03-02] MEDS: HYDROcodone/APAP 5-325MG 1 EACH TAB PO SCH (08:55)
[2019-03-02] MEDS: FERROUS SULFATE 325 MG TAB PO SCH (08:56)
[2019-03-02] MEDS ORDERED: ATORVASTATIN 80 MG TAB PO SCH (09:00)
[2019-03-02] MEDS ORDERED: ASPIRIN 325 MG TAB PO SCH (09:00)
[2019-03-02] MEDS ORDERED: LISINOPRIL 5 MG TAB PO SCH (09:00)
[2019-03-02] MEDS ORDERED: METOPROLOL TARTRATE 25 MG TAB PO SCH (09:00)
[2019-03-02] MEDS ORDERED: CLOPIDOGREL 75 MG TAB PO SCH (09:00)
[2019-03-02] MEDS ORDERED: ASPIRIN 81 MG PO SCH (09:00)
--- NOTE | 2019-03-02 09:44 | P.PN ---
Subjective This is a pleasant 48-year-old female past medical history significant for coronary artery disease, myocardial infarction, hypertension, dyslipidemia, gastroesophageal reflux disease and chronic nicotine dependence. She has gone through episodes of tobacco cessation however she isn't smoking for the previous 2 weeks. She follows in the office with Dr. Cardona. 2 weeks ago her ex- who is the father of her 2 children very suddenly and unexpectedly. This has been causing her great amount of stress. She states for the previous one week she has felt increasingly fatigued with intermittent episodes of lightheadedness, shortness of breath and a heavy pressure sensation in the midsternal region that radiates across her entire anterior chest. There is no radiation through to the back, down the arm, into the neck or jaw. This morning while at work she again was feeling a heavy pressure sensation in the chest but this time she also started feeling nauseated. Due to her previous medical history and her symptoms seeming to progress she came to the hospital for further evaluation. She is seen and examined resting comfortably sitting up in the stretcher in no acute distress. She continues to feel a mild ache in the chest. Sometimes it seems to be exacerbated by taking a deep breath. It is not reproducible on palpation. EKG reveals sinus mechanism, heart rate [address] or T wave abnormalities noted. Chest x-ray negative for an acute cardiopulmonary process. Laboratory data reviewed, WBC 6.6, hemoglobin 13.4, platelets 243, sodium 139, potassium 3.9, creatinine 0.64, magnesium 1.8, cardiac enzymes negative 1, proBNP 164. Current cardiac medications include aspirin 81 mg daily, atorvastatin 80 mg daily, Plavix 75 mg daily, lisinopril 5 mg at bedtime, Lopressor 25 mg in the morning and 12.5 mg at bedtime. Most recent echocardiogram obtained November 2018 reveals preserved LV systolic function with ejection fraction 55-60%. Most recent stress test performed November 2018 was negative for stress-induced ischemia. Most recent cardiac catheterization performed February 2018 revealed in-stent restenosis of the mid LAD which was successfully stented at that time, RCA free of significant disease, left main free of significant disease, 3 stents in the LAD in the midportion, most proximal stent has 80% narrowing, another narrowing seen beyond the bend of 50-60% in 2 areas of disease of 80% with some bridging proximally. 03/02/2019 Pt is seen and examined up in no acute distress. She denies active chest pain, shortness of breath, dizziness or palpitations. Cardiac enzymes negative x3, LSL 38, limited echo reveals preserved LV systolic function with EF 55-60% with no pericardia effusion. Blood pressure 111/70 heart rate 61 afebrile and maintaining oxygen saturation on room air. GENERAL: This is a 48-year-old female in no apparent distress at the time of my examination. HEENT: Head is atraumatic, normocephalic. Pupils are equal, round. Sclerae anicteric. Conjunctivae are clear. Mucous membranes of the mouth are moist. Neck is supple. There is no jugular venous distention. No carotid bruit is heard. LUNGS: Clear to auscultation no wheezes, rales or rhonchi. No chest wall tend erness is noted on palpation or with deep breathing. HEART: Regular rate and rhythm without murmurs, rubs or gallops. S1 and S2 heard. ABDOMEN: Soft, nontender. Bowel sounds are heard. No organomegaly noted. EXTREMITIES: No evidence of peripheral edema and no calf tenderness noted. ASSESSMENT Precordial chest pain Significant stress and anxiety at home secondary to the loss of the left one History of coronary artery disease status post multiple stent placements with history of in-stent restenosis Hypertension Dyslipidemia Chronic nicotine dependence PLAN An acute coronary event has been ruled out. Continue current medical regimen. Increase activity and ambulation in the halls. Assess for exertional chest pain. Stable for discharge from a cardiac perspective, follow up in the office with Dr. Cardona in 1-2 weeks. Nurse Practitioner note has been reviewed, I agree with a documented findings and plan of care. Patient was seen and examined. Objective - Vital Signs Vital signs: Vital Signs Temp 98.3 F 03/02/19 07:00 Pulse 61 03/02/19 07:00 Resp 18 03/02/19 07:00 BP 111/70 03/02/19 07:00 Pulse Ox 98 03/02/19 07:00 Intake & Output 03/01/19 03/02/19 03/02/19 18:59 06:59 18:59 Intake Total 77 127.617 Balance 77 127.617 Weight 99.79 kg Intake: Intake, IV Titration 77 127.617 Amount Heparin Sod,Pork in 0.45% 77 127.617 NaCl 25,000 unit In 0.45 % NaCl 1 250ml.bag @ 10. 021 UNITS/KG/HR 10 mls/hr IV .Q24H [facility] Rx#: [id number] Other: # Voids 1 - Labs CBC & Chem 7: 03/02/19 06:09 03/01/19 08:39 Labs: Abnormal Lab Results - Last 24 Hours (Table) 03/01/19 03/01/19 03/02/19 Range/Units 17:55 23:58 06:09 APTT 36.1 H 56.3 H 58.5 H (22.0-30.0) sec
[2019-03-02] MEDS ORDERED: SODIUM CHLORIDE 0.9% 1,000 ML in EMPTY BAG 1 BAG IV ONE (10:41)
--- NOTE | 2019-03-02 10:44 | P.PN ---
Progress Note - Text After ambulating in the halls the patient describes a heavy pressure pain in the chest with radiation around her torso to her back. Recommend proceeding with cardiac catheterization. I have discussed the risks, benefits and alternative therapies for the above-mentioned procedure and for both sedation/analgesia as well as necessary blood product administration, if indicated, as they pertain to this patient. The patient has indicated understanding and acceptance of the risks and procedures discussed.
[2019-03-02] MEDS ORDERED: ASPIRIN 81 MG PO ONE (10:45)
[2019-03-02] MEDS ORDERED: LIDOCAINE 1% INJ 10MG/ML (20 ML MDV) ONE (12:43)
[2019-03-02] MEDS ORDERED: HEPARIN SODIUM 1,000 UN/ML (10ML VL) ONE (12:43)
[2019-03-02] MEDS ORDERED: SODIUM CHLORIDE 0.9% 1,000 ML IV ONE (12:48)
[2019-03-02] MEDS: MIDAZOLAM (PF) 2 MG/2 ML VIAL IVP ONE ×2 (12:51→12:54)
[2019-03-02] MEDS ORDERED: LIDOCAINE 1% INJ 10MG/ML (20 ML MDV) SQ ONE (12:52)
--- NOTE | 2019-03-02 12:53 | P.PN ---
Subjective Patient is a pleasant 48-year-old female came in for chest pain patient did have exertional chest and because of which patient is undergoing cardiac catheterization today. If that's negative patient will be discharged today patient chest pain may be related to degenerative thoracic spine disease. Patient had recent extensive workup for gallbladder disease which was ruled out. If patient the cardiac cath doesn't show any significant occlusion patient will be discharged today. Constitutional: Denied any fatigue denied any fever. Cardio vascular: denied any palpitations Gastrointestinal denied any nausea vomiting Pulmonary: Denied any shortness of breath cough Neurologic denied any new focal deficits All inpatient medications were reviewed and appropriate changes in these medications as dictated in the interval history and assessment and plan. Objective - Vital Signs Vital signs: Vital Signs Temp 97.5 F L 03/02/19 11:20 Pulse 62 03/02/19 11:20 Resp 18 03/02/19 11:20 BP 116/73 03/02/19 11:20 Pulse Ox 96 03/02/19 11:20 Intake & Output 03/01/19 03/02/19 03/02/19 18:59 06:59 18:59 Intake Total 77 127.617 Balance 77 127.617 Weight 99.79 kg Intake: Intake, IV Titration 77 127.617 Amount Heparin Sod,Pork in 0.45% 77 127.617 NaCl 25,000 unit In 0.45 % NaCl 1 250ml.bag @ 10. 021 UNITS/KG/HR 10 mls/hr IV .Q24H [facility] Rx#: [id number] Other: # Voids 1 - Exam PHYSICAL EXAMINATION: GENERAL: The patient is alert and oriented x3, not in any acute distress. Well developed, well nourished. HEENT: Pupils are round and equally reacting to light. EOMI. No scleral icterus. No conjunctival pallor. Normocephalic, atraumatic. No pharyngeal erythema. No thyromegaly. CARDIOVASCULAR: S1 and S2 present. No murmurs, rubs, or gallops. PULMONARY: Chest is clear to auscultation, no wheezing or crackles. ABDOMEN: Soft, nontender, nondistended, normoactive bowel sounds. No palpable organomegaly. MUSCULOSKELETAL: No joint swelling or deformity. EXTREMITIES: No cyanosis, clubbing, or pedal edema. NEUROLOGICAL: Gross neurological examination did not reveal any focal deficits. SKIN: No rashes. - Labs CBC & Chem 7: 03/02/19 06:09 03/01/19 08:39 Labs: Abnormal Lab Results - Last 24 Hours (Table) 03/01/19 03/01/19 03/02/19 Range/Units 17:55 23:58 06:09 APTT 36.1 H 56.3 H 58.5 H (22.0-30.0) sec Assessment and Plan Plan: -Chest pain possibly of unstable angina cannot be ruled out because of which patient will undergo cardiac catheterization that's negative patient will be discharged today. -Anxiety disorder -Sweaty of degenerative thoracic spine disease -Hypertension -The dyslipidemia
--- NOTE | 2019-03-02 12:54 | P.DS ---
Providers Date of admission: 03/01/19 11:11 Attending physician: Kentrell Joseph Consults: 03/01/19 10:12 Consult Physician Urgent Consulting Provider: Horace Rodrigues Consult Reason/Comments: chest pain Do you want consulting provider notified?: Yes Primary care physician: Kentrell Joseph Hospital Course: Please refer to my progress note Patient Condition at Discharge: Stable Plan - Discharge Summary Discharge Rx Participant: No New Discharge Prescriptions: Continue Aspirin [Adult Low Dose Aspirin EC] 81 mg PO DAILY Nitroglycerin Sl Tabs [Nitrostat] 0.4 mg SUBLINGUAL Q5M PRN #25 tab PRN Reason: Chest Pain Pantoprazole Sodium [Protonix] 40 mg PO DAILY Ferrous Sulfate [Iron (65 MG Elemental)] 325 mg PO BID Clopidogrel [Plavix] 75 mg PO DAILY Docusate [Colace] 100 mg PO BID Metoprolol Tartrate [Lopressor] 12.5 mg PO HS Metoprolol Tartrate [Lopressor] 25 mg PO QAM Atorvastatin [Lipitor] 80 mg PO DAILY Hydrocodone/Acetaminophen [Ellery 5-325] 1 tab PO BID PRN PRN Reason: Pain Lisinopril [Prinivil] 5 mg PO HS Acetaminophen-Codeine 300-30mg [Tylenol w/codeine #3] 1 - 2 tab PO Q4-6H PRN PRN Reason: Pain Discharge Medication List Aspirin [Adult Low Dose Aspirin EC] 81 mg PO DAILY 10/29/17 [History] Nitroglycerin Sl Tabs [Nitrostat] 0.4 mg SUBLINGUAL Q5M PRN #25 tab 11/02/17 [Rx] Clopidogrel [Plavix] 75 mg PO DAILY 02/13/18 [History] Docusate [Colace] 100 mg PO BID 02/13/18 [History] Ferrous Sulfate [Iron (65 MG Elemental)] 325 mg PO BID 02/13/18 [History] Pantoprazole Sodium [Protonix] 40 mg PO DAILY 02/13/18 [History] Atorvastatin [Lipitor] 80 mg PO DAILY 08/23/18 [History] Metoprolol Tartrate [Lopressor] 12.5 mg PO HS 08/23/18 [History] Metoprolol Tartrate [Lopressor] 25 mg PO QAM 08/23/18 [History] Hydrocodone/Acetaminophen [Ellery 5-325] 1 tab PO BID PRN 11/22/18 [History] Lisinopril [Prinivil] 5 mg PO HS 11/22/18 [History] Acetaminophen-Codeine 300-30mg [Tylenol w/codeine #3] 1 - 2 tab PO Q4-6H PRN 03/01/19 [History] Follow up Appointment(s)/Referral(s): Kentrell Joseph MD [Primary Care Provider] - 3 Days Bella Cardona MD [Family Provider] - 2 Weeks Discharge Disposition: HOME SELF-CARE
[2019-03-02] MEDS ORDERED: IOPAMIDOL-370 100ML BTL INJ ONE (13:06)
[2019-03-02] MEDS ORDERED: SODIUM CHLORIDE 0.9% 1,000 ML IV SCH (13:30)
[2019-03-02 14:49] VITALS: TEMP 98.4
[2019-03-02 16:23] VITALS: BP 119/56; PULSE 63
--- NOTE | 2019-03-02 16:32 | CC ---
CARDIAC CATHETERIZATION REPORT DATE OF SERVICE: 03/02/2019 PROCEDURE: Left heart catheterization and coronary angiography. PERFORMED BY: Dr. Mara Cardona. Moderate conscious sedation time was 15 minutes. Patient was given 1.5 mg of Versed. His oxygen saturation, hemodynamics and EKG were monitored closely. CLINICAL INFORMATION: Mrs. Gertrude Hayden is a 48-year-old lady with a known history of [id number] IL involving the LAD distribution, for which she had stenting performed in 2018, probably sometime in the spring. Later on for a restenotic lesion in February of 2018, I performed another stent within the stented segment. This was an Yuan stent and I post dilated the entire stented area with a larger balloon. She did well since discharge but came into the hospital with episodes of chest pain that seemed to recur while she was in the hospital without EKG changes, but had significant chest pressure radiating to the back. Troponins were negative. Because of the long stented segment and recurrent chest pains while in the hospital, she was advised coronary angiography after due discussion. I explained to her the rationale, risks, benefits and options. PROCEDURE NOTE: Under local anesthesia and strict aseptic precautions, a 6-Upper Sorbian introducer was placed in the right femoral artery. Standard Arben catheters were used to perform coronary angiography, and the same right Arben catheter was used to check LV pressures. LV gram was not performed. The sheath was taken out and Angio-Seal device used to secure hemostasis and she was sent to the room in stable condition. CARDIAC CATHETERIZATION FINDINGS: The left ventricular end-diastolic pressure was about 14-15 mmHg without any gradient across the aortic valve. CORONARY ANGIOGRAPHY FINDINGS: LEFT MAIN CORONARY ARTERY: Long, patent, disease-free vessel that bifurcates into LAD and circumflex. LEFT ANTERIOR DESCENDING CORONARY ARTERY: Good-caliber vessel extends along the anterior wall, supplying a sizable amount of myocardium. It gives off a diagonal and 2 septal branches, and the entire stented area is widely patent with remarkably good angiographic appearance and flow. Beyond the stented segment, the vessel becomes tortuous. No significant disease. It runs all the way to the apex, supplying a sizable amount of myocardium. The LAD therefore is disease-free and the stented segment is widely patent. LEFT POSTERIOR CIRCUMFLEX CORONARY ARTERY: Nondominant vessel gives off a high first obtuse marginal and then runs in the AV groove and gives off a posterolateral branch. The 2 branches that come off from the circumflex are free of significant disease. RIGHT CORONARY ARTERY: Dominant vessel. No significant disease. Distally bifurcates into large PDA and PLV, both of which are free of significant disease. RCA is therefore a dominant, disease-free vessel. Left ventriculogram was not performed. FINAL IMPRESSION: This patient has widely patent LAD at the site of previous stenting without any restenosis. The dominant RCA and nondominant circumflex are free of significant disease. Filling pressures are at the high end of normal and there is no gradient across the aortic valve. RECOMMENDATIONS: Findings were discussed with the patient, her and mother in great detail. Unfortunately this lady has resumed smoking and is also using some recreational drugs. I have advised her to refrain from smoking, modify her lifestyle, and continued medical therapy, including dual antiplatelet therapy, statin, beta sary and lisinopril will be continued. She will be discharged later on today if she remains stable, and I will see her on Tuesday at 8:15 a.m. I discussed my thoughts in detail with the patient as well as her family members. MMLASTL / IJN: [id number] /
== END 2019-03-02 20:15 | disposition home or self-care (01) ==
LOC: EC 08:18 → 1SOBS 11:11
PROVIDERS: ADMIT Family Medicine; ATTEND Family Medicine
DX: R07.89 Other chest pain (principal); I25.10 Atherosclerotic heart disease of native coronary artery without angina pectoris; F41.9 Anxiety disorder, unspecified; Z73.3 Stress, not elsewhere classified; K21.9 Gastro-esophageal reflux disease without esophagitis; D64.9 Anemia, unspecified; R53.83 Other fatigue; I10 Essential (primary) hypertension; R53.1 Weakness; E78.5 Hyperlipidemia, unspecified; G89.29 Other chronic pain; M54.5 Low back pain; R11.0 Nausea; R42 Dizziness and giddiness; R06.02 Shortness of breath; G31.89 Other specified degenerative diseases of nervous system; F17.200 Nicotine dependence, unspecified, uncomplicated; Z79.82 Long term (current) use of aspirin; Z79.02 Long term (current) use of antithrombotics/antiplatelets; Z79.891 Long term (current) use of opiate analgesic; Z79.899 Other long term (current) drug therapy; Z88.6 Allergy status to analgesic agent; I25.2 Old myocardial infarction; Z95.5 Presence of coronary angioplasty implant and graft; Z82.49 Family history of ischemic heart disease and other diseases of the circulatory system
CPT/HCPCS: 96366 ×3; 96376; 96365; 99285; 36415; 93005; 93308; 93458; 83880; 80061; 80053; 83690; 83735; 84484; 85025; 85049; 85610; 85730 ×2; 71046; G0378 ×2; C1760; C1894 ×2; C1769 ×3; J1644 ×3; J2001; Q9967; J2250

== ENCOUNTER 2019-04-06 13:17 | Emergency (ER) | payer OTHER ==
[2019-04-06 13:24] VITALS: RESP 18
[2019-04-06 15:45] LABS: Basophils % (A) 1 %; Eosinophils # (A) 0.1 k/uL (0-0.7); Eosinophils % (A) 2 %; HCT 42.4 % (34.0-46.0); HGB 13.4 gm/dL (11.4-16.0); Lymphocytes # (A) 1.3 k/uL (1.0-4.8); Lymphocytes % (A) 22 %; MCH 31.1 pg (25.0-35.0); MCHC 31.6 g/dL (31.0-37.0); MCV 98.5 fL (80.0-100.0); Monocytes # (A) 0.2 k/uL (0-1.0); Monocytes % (A) 4 %; Neutrophils # (A) 4.1 k/uL (1.3-7.7); Neutrophils % (A) 69 %; Platelet Count 232 k/uL (150-450); RDW 12.3 % (11.5-15.5)
[2019-04-06 15:48] LABS: ALT 28 U/L (9-52); AST 26 U/L (14-36); African American GFR (CKD) >90 (>60 ml/min/1.73 sqM); Albumin 4.1 g/dL (3.5-5.0); Alkaline Phosphatase 72 U/L (38-126); Anion Gap 10 mmol/L; Blood Urea Nitrogen 13 mg/dL (7-17); Calcium 9.3 mg/dL (8.4-10.2); Carbon Dioxide 24 mmol/L (22-30); Chloride 105 mmol/L (98-107); Glucose 86 mg/dL (74-99); Non-African American GFR(CKD) >90 (>60 ml/min/1.73 sqM); Potassium 3.8 mmol/L (3.5-5.1); Sodium 139 mmol/L (137-145); Total Bilirubin 0.9 mg/dL (0.2-1.3); Total Protein 7.6 g/dL (6.3-8.2)
--- NOTE | 2019-04-06 16:12 | ED ---
General Adult HPI - General Chief complaint: Recheck/Abnormal Lab/Rx Stated complaint: [facility] - carbon monoxide exposure Time Seen by Provider: 04/06/19 14:45 Source: patient Mode of arrival: ambulatory Limitations: no limitations - History of Present Illness Initial comments: Patient is a 48-year-old female presenting to the emergency Department with comp laints of nausea, lightheadedness 3 days. Patient states she works at [employer] and they had a carbon monoxide leak that started on Tuesday. Patient states they did fix it and they are reopened however she still having symptoms. Patient did not go to work today and wanted to be seen. Patient denies any vomiting, chest pain, shortness breath. Patient has no pertinent past medical history. Upon arrival to ER, vital signs are stable. - Related Data Home Medications Medication Instructions Recorded Confirmed Aspirin [Adult Low Dose Aspirin EC] 81 mg PO DAILY 10/29/17 03/01/19 Clopidogrel [Plavix] 75 mg PO DAILY 02/13/18 03/01/19 Docusate [Colace] 100 mg PO BID 02/13/18 03/01/19 Ferrous Sulfate [Iron (65 MG 325 mg PO BID 02/13/18 03/01/19 Elemental)] Pantoprazole Sodium [Protonix] 40 mg PO DAILY 02/13/18 03/01/19 Atorvastatin [Lipitor] 80 mg PO DAILY 08/23/18 03/01/19 Metoprolol Tartrate [Lopressor] 12.5 mg PO HS 08/23/18 03/01/19 Metoprolol Tartrate [Lopressor] 25 mg PO QAM 08/23/18 03/01/19 Hydrocodone/Acetaminophen [Heidrick 1 tab PO BID PRN 11/22/18 03/01/19 5-325] Lisinopril [Prinivil] 5 mg PO HS 11/22/18 03/01/19 Acetaminophen-Codeine 300-30mg 1 - 2 tab PO Q4-6H PRN 03/01/19 03/01/19 [Tylenol w/codeine #3] Previous Rx's Medication Instructions Recorded Nitroglycerin Sl Tabs [Nitrostat] 0.4 mg SUBLINGUAL Q5M PRN #25 tab 11/02/17 Ondansetron Odt [Zofran Odt] 4 mg PO Q8HR PRN #10 tab 04/06/19 Allergies Allergy/AdvReac Type Severity Reaction Status Date / Time ibuprofen [From Motrin] AdvReac Unknown Verified 04/06/19 13:24 Review of Systems ROS Statement: Those systems with pertinent positive or pertinent negative responses have been documented in the HPI. ROS Other: All systems not noted in ROS Statement are negative. Past Medical History Past Medical History: Coronary Artery Disease (CAD), Chest Pain / Angina, GERD /Reflux, Myocardial Infarction (SD) Additional Past Medical History / Comment(s): Pt states she has never been diagnosed with htn or high cholesterol-was placed on meds for these after her SD, anemia, chronic low back pain. Last Myocardial Infarction Date:: unk History of Any Multi-Drug Resistant Organisms: None Reported Past Surgical History: Ablation, Heart Catheterization, Heart Catheterization With Stent Additional Past Surgical History / Comment(s): Cardiac caths, PCI with a total of 4 stents, uterine ablation, wisdom teeth extractions. Past Anesthesia/Blood Transfusion Reactions: Motion Sickness, Postoperative Nausea & Vomiting (PONV) Date of Last Stent Placement:: 02/2018 Past Psychological History: No Psychological Hx Reported Smoking Status: Former smoker Past Alcohol Use History: Occasional Past Drug Use History: None Reported - Past Family History Mother Family Medical History: AFIB Additional Family Medical History / Comment(s): Maternal grandmother also had A fib. Brother(s) Family Medical History: Myocardial Infarction (SD) Additional Family Medical History / Comment(s): brother at age 42 with SD Father Family Medical History: Blood Disorder Additional Family Medical History / Comment(s): Father from aides. General Exam - General Exam Comments Initial Comments: GENERAL: Well-appearing, well-nourished and in no acute distress. HEAD: Atraumatic, normocephalic. EYES: Pupils equal round and reactive to light, extraocular movements intact, sclera anicteric, conjunctiva are normal. ENT: TMs normal, nares patent, oropharynx clear without exudates. Moist mucous membranes. NECK: Normal range of motion, supple without lymphadenopathy or JVD. LUNGS: Breath sounds clear to auscultation bilaterally and equal. No wheezes rales or rhonchi. HEART: Regular rate and rhythm without murmurs, rubs or gallops. ABDOMEN: Soft, nontender, normoactive bowel sounds. No guarding, no rebound. No masses appreciated. : Deferred EXTREMITIES: Normal range of motion, no pitting or edema. No clubbing or cyanosis. NEUROLOGICAL: Cranial nerves II through XII grossly intact. Normal speech, normal gait. PSYCH: Normal mood, normal affect. SKIN: Warm, Dry, normal turgor, no rashes or lesions noted. Limitations: no limitations Course Vital Signs 04/06/19 04/06/19 13:21 16:35 Temperature 98 F 97.8 F Pulse Rate 61 57 L Respiratory 18 18 Rate Blood Pressure 135/71 110/79 O2 Sat by Pulse 99 100 Oximetry Medical Decision Making - Medical Decision Making Patient is a 48-year-old female with carbon monoxide exposure at work 3 days ago. Patient is complaining of nausea, lightheadedness. Patient's vital signs are normal upon arrival. Patient's exam is normal today. CBC, CMP are normal. Carbon monoxide level is normal at 2.4. Patient is stable for discharge at this time. Patient will be discharged with Zofran as needed for nausea. She will follow up with PCP as needed for persistent symptoms. Return parameters were discussed with the patient she verbalized understanding. Case discussed with Dr. France. - Lab Data Result diagrams: 04/06/19 15:24 04/06/19 15:24 Lab Results 04/06/19 04/06/19 04/06/19 Range/Units 15:24 15:24 15:24 WBC 6.0 (3.8-10.6) k/uL RBC 4.30 (3.80-5.40) m/uL Hgb 13.4 (11.4-16.0) gm/dL Hct 42.4 (34.0-46.0) % MCV 98.5 (80.0-100.0) fL MCH 31.1 (25.0-35.0) pg MCHC 31.6 (31.0-37.0) g/dL RDW 12.3 (11.5-15.5) % Plt Count 232 (150-450) k/uL Neutrophils % 69 % Lymphocytes % 22 % Monocytes % 4 % Eosinophils % 2 % Basophils % 1 % Neutrophils # 4.1 (1.3-7.7) k/uL Lymphocytes # 1.3 (1.0-4.8) k/uL Monocytes # 0.2 (0-1.0) k/uL Eosinophils # 0.1 (0-0.7) k/uL Basophils # 0.0 (0-0.2) k/uL Carbon Monoxide, Quant 2.4 (<10.0) % Sodium 139 (137-145) mmol/L Potassium 3.8 (3.5-5.1) mmol/L Chloride 105 (98-107) mmol/L Carbon Dioxide 24 (22-30) mmol/L Anion Gap 10 mmol/L BUN 13 (7-17) mg/dL Creatinine 0.58 (0.52-1.04) mg/dL Est GFR (CKD-EPI)AfAm >90 (>60 ml/min/1.73 sqM) Est GFR (CKD-EPI)NonAf >90 (>60 ml/min/1.73 sqM) Glucose 86 (74-99) mg/dL Calcium 9.3 (8.4-10.2) mg/dL Total Bilirubin 0.9 (0.2-1.3) mg/dL AST 26 (14-36) U/L ALT 28 (9-52) U/L Alkaline Phosphatase 72 (38-126) U/L Total Protein 7.6 (6.3-8.2) g/dL Albumin 4.1 (3.5-5.0) g/dL Disposition Clinical Impression: Carbon monoxide exposure, Nausea Disposition: HOME SELF-CARE Condition: Stable Instructions (If sedation given, give patient instructions): Carbon Monoxide Poisoning (ED) Additional Instructions: Please return to the Emergency Department if symptoms worsen or any other concerns. Follow-up with PCP as necessary. Prescriptions: Ondansetron Odt [Zofran Odt] 4 mg PO Q8HR PRN #10 tab PRN Reason: Nausea Is patient prescribed a controlled substance at d/c from ED?: No Referrals: Kentrell Joseph MD [Primary Care Provider] - 1-2 days
[2019-04-06 16:36] VITALS: BP 110/79; PULSE 57; TEMP 97.8
== END 2019-04-06 16:35 | disposition home or self-care (01) ==
LOC: EC 13:17
DX: T58.91XA Toxic effect of carbon monoxide from unspecified source, accidental (unintentional), initial encounter (principal); R11.0 Nausea; R42 Dizziness and giddiness; I25.119 Atherosclerotic heart disease of native coronary artery with unspecified angina pectoris; I25.2 Old myocardial infarction; K21.9 Gastro-esophageal reflux disease without esophagitis; Z79.82 Long term (current) use of aspirin; Z79.02 Long term (current) use of antithrombotics/antiplatelets; Z79.899 Other long term (current) drug therapy; Z88.6 Allergy status to analgesic agent; Z87.891 Personal history of nicotine dependence; Z95.5 Presence of coronary angioplasty implant and graft; Y92.69 Other specified industrial and construction area as the place of occurrence of the external cause; Y99.0 Civilian activity done for income or pay
CPT/HCPCS: 36415; 80053; 82375; 85025; 99283

== ENCOUNTER → 2019-04-23 | Outpatient (CLI) | payer OTHER ==
--- NOTE | 2019-04-24 10:29 | MM ---
Reason for exam: screening (asymptomatic). Last mammogram was performed 4 years and 8 months ago. History: Family history of breast cancer in maternal aunt. Took hormonal contraceptives for 2 years 6 months. Physical Findings: A clinical breast exam by your physician is recommended on an annual basis and results should be correlated with mammographic findings. MG Screening Mammo w CAD Bilateral CC and MLO view(s) were taken. Prior study comparison: September 03, 2014, mammogram, performed at [facility]. There are scattered fibroglandular densities. Benign appearing calcifications in the right breast. No suspicious abnormality. No significant changes when compared with prior studies. ASSESSMENT: Benign, BI-RAD 2 RECOMMENDATION: Routine screening mammogram of both breasts in 1 year.
== END | disposition home or self-care (01) ==
LOC: RADMAMWWP 10:18
PROVIDERS: ATTEND Family Medicine
DX: Z12.31 Encounter for screening mammogram for malignant neoplasm of breast (principal)
CPT/HCPCS: 77067

== ENCOUNTER 2019-04-30 20:08 | Emergency (ER) | payer OTHER ==
[2019-04-30 20:16] VITALS: RESP 18; TEMP 97.8
--- NOTE | 2019-04-30 21:08 | ED ---
Neuro HPI - General Chief Complaint: Neuro Symptoms/Deficit Stated Complaint: Neuro Symptoms Time Seen by Provider: 04/30/19 20:26 Source: patient, RN notes reviewed, old records reviewed Mode of arrival: ambulatory Limitations: no limitations - History of Present Illness Is the patient presenting with stroke symptoms?: No -: days(s) (3) Initial Comments: This is a 48-year-old female the ER for evaluation. Patient sent in by medics pressure evaluation of right sided face numbness and tingling occasional pain. Patient also right arm tingling currently. Medical history significant for positive history of heart disease, patient has history of stents. Patient's taken all medications as prescribed. Patient states she's had about 3 days of right-sided facial numbness and pain. Left-sided dental infection [facility] His symptoms is brought into her [facility] entered the ER for further management. Patient denying any chest pain no shortness of breath she states when she had her chest pain or heart attack in the past she did have left-sided chest pain completely different than the symptoms she feels now. Patient denying any other neurological complaint no or sensation abnormalities or weakness Location: right face, right arm History of same: No Place: home Severity: mild Quality: numb, tingling Improves With: none Worsens With: none On Anticoagulants: Yes Context: gradual onset Associated Symptoms: denies other symptoms Treatments Prior to Arrival: none - Related Data Home Medications: Home Medications Medication Instructions Recorded Confirmed Aspirin [Adult Low Dose Aspirin EC] 81 mg PO DAILY 10/29/17 04/30/19 Clopidogrel [Plavix] 75 mg PO DAILY 02/13/18 04/30/19 Docusate [Colace] 100 mg PO BID 02/13/18 04/30/19 Ferrous Sulfate [Iron (65 MG 325 mg PO BID 02/13/18 04/30/19 Elemental)] Pantoprazole Sodium [Protonix] 40 mg PO DAILY 02/13/18 04/30/19 Atorvastatin [Lipitor] 80 mg PO DAILY 08/23/18 04/30/19 Metoprolol Tartrate [Lopressor] 12.5 mg PO HS 08/23/18 04/30/19 Metoprolol Tartrate [Lopressor] 25 mg PO QAM 08/23/18 04/30/19 Hydrocodone/Acetaminophen [[place] 1 tab PO BID PRN 11/22/18 04/30/19 5-325] Lisinopril [Prinivil] 5 mg PO HS 11/22/18 04/30/19 Previous Rx's Medication Instructions Recorded Nitroglycerin Sl Tabs [Nitrostat] 0.4 mg SUBLINGUAL Q5M PRN #25 tab 11/02/17 Allergies/Adverse Reactions: Allergies Allergy/AdvReac Type Severity Reaction Status Date / Time ibuprofen [From Motrin] AdvReac Unknown Verified 04/30/19 21:02 Review of Systems ROS Statement: Those systems with pertinent positive or pertinent negative responses have been documented in the HPI. ROS Other: All systems not noted in ROS Statement are negative. General Exam Limitations: no limitations General appearance: alert, in no apparent distress Head exam: Present: atraumatic, normocephalic, normal inspection Eye exam: Present: normal appearance, PERRL, EOMI. Absent: scleral icterus, conjunctival injection, periorbital swelling ENT exam: Present: normal exam, mucous membranes moist Neck exam: Present: normal inspection. Absent: tenderness, meningismus, lymphadenopathy Respiratory exam: Present: normal lung sounds bilaterally. Absent: respiratory distress, wheezes, rales, rhonchi, stridor Cardiovascular Exam: Present: regular rate, normal rhythm, normal heart sounds. Absent: systolic murmur, diastolic murmur, rubs, gallop, clicks GI/Abdominal exam: Present: soft, normal bowel sounds. Absent: distended, tenderness, guarding, rebound, rigid Extremities exam: Present: normal inspection, full ROM, normal capillary refill. Absent: tenderness, pedal edema, joint swelling, calf tenderness Back exam: Present: normal inspection Neurological exam: Present: alert, oriented X3, CN II-XII intact Psychiatric exam: Present: normal affect, normal mood Skin exam: Present: warm, dry, intact, normal color. Absent: rash Stroke MDM - NIH Stroke Scale 1a. Level of Consciousness: (0) alert 1b. LOC Questions: (0) answers correctly 1c. LOC Commands: (0) performs tasks correctly 2. Best Gaze: (0) normal 3. Visual: (0) no visual loss 4. Facial Palsy: (0) normal symmetrical movement 5a. Motor Arm Left: (0) no drift 5b. Motor Arm Right: (0) no drift 6a. Motor Leg Left: (0) no drift 6b. Motor Leg Right: (0) no drift 7. Limb Ataxia: (0) absent 8. Sensory: (0) normal 9. Best Language: (0) no aphasia 10. Dysarthria: (0) normal 11. Extinction/Inattention: (0) no abnormality - Thrombolytic Inclusion/Exclusion Thrombolytic Exclusion Criteria: Symptom Onset > 4.5 Hours - Medical Decision Making 48 female the ER with history of heart disease coming in for nonspecific paresthesias of right face right arm. CT is negative EKG is normal patient can be discharged home - Radiology Data Radiology results: report reviewed, image reviewed - EKG Data -: EKG Interpreted by Me (EKG shows sinus bradycardia rate of 58, RI 120, QRS 80, QTC 447) Past Medical History Past Medical History: Coronary Artery Disease (CAD), Chest Pain / Angina, GERD/Reflux, Myocardial Infarction (MA) Additional Past Medical History / Comment(s): Pt states she has never been diagnosed with htn or high cholesterol-was placed on meds for these after her MA, anemia, chronic low back pain. Last Myocardial Infarction Date:: unk History of Any Multi-Drug Resistant Organisms: None Reported Past Surgical History: Ablation, Heart Catheterization, Heart Catheterization With Stent Additional Past Surgical History / Comment(s): Cardiac caths, PCI with a total of 4 stents, uterine ablation, wisdom teeth extractions. Past Anesthesia/Blood Transfusion Reactions: Motion Sickness, Postoperative Nausea & Vomiting (PONV) Date of Last Stent Placement:: 02/2018 Past Psychological History: No Psychological Hx Reported Smoking Status: Former smoker Past Alcohol Use History: Occasional Past Drug Use History: None Reported - Past Family History Mother Family Medical History: AFIB Additional Family Medical History / Comment(s): Maternal grandmother also had A fib. Brother(s) Family Medical History: Myocardial Infarction (MA) Additional Family Medical History / Comment(s): brother at age 42 with MA Father Family Medical History: Blood Disorder Additional Family Medical History / Comment(s): Father from aides. Course Vital Signs 04/30/19 20:11 Temperature 97.8 F Pulse Rate 69 Respiratory 18 Rate Blood Pressure 122/73 O2 Sat by Pulse 98 Oximetry - Reevaluation(s) Reevaluation #1: 04/30/19 21:07 Medical records reviewed Reevaluation #2: 04/30/19 21:36 Patient has no significant neurological deficit no chest pain Disposition Clinical Impression: Paresthesia Disposition: HOME SELF-CARE Condition: Good Instructions (If sedation given, give patient instructions): Paresthesia (ED) Is patient prescribed a controlled substance at d/c from ED?: No Referrals: Kentrell Joseph MD [Primary Care Provider] - 1-2 days
--- NOTE | 2019-04-30 21:09 | CT ---
EXAMINATION TYPE: CT brain wo con DATE OF EXAM: 04/30/2019 COMPARISON: None HISTORY: Right arm numbness. CT DLP: 1077.4 mGycm. Automated Exposure Control for Dose Reduction was Utilized. TECHNIQUE: CT scan of the head is performed without contrast. FINDINGS: Ventricles and sulci appear normal. There is no mass effect nor midline shift. There is no sign of intracranial hemorrhage. The calvarium is intact. IMPRESSION: Negative head CT scan.
[2019-04-30] MEDS ORDERED: ACET/COD 300 MG/30 MG STARTER PACK 6 TAB BTL PO STA (21:45)
[2019-04-30] MEDS ORDERED: PENICILLIN VK 500MG STARTER 4 TAB BTL PO STA (21:45)
[2019-04-30 21:59] VITALS: BP 118/74; PULSE 72
== END 2019-04-30 21:59 | disposition home or self-care (01) ==
LOC: EC 20:08
DX: R20.2 Paresthesia of skin (principal); I25.119 Atherosclerotic heart disease of native coronary artery with unspecified angina pectoris; K21.9 Gastro-esophageal reflux disease without esophagitis; I25.2 Old myocardial infarction; G89.29 Other chronic pain; M54.5 Low back pain; Z79.82 Long term (current) use of aspirin; Z79.02 Long term (current) use of antithrombotics/antiplatelets; Z79.899 Other long term (current) drug therapy; Z88.6 Allergy status to analgesic agent; Z95.5 Presence of coronary angioplasty implant and graft; Z87.891 Personal history of nicotine dependence; Z82.49 Family history of ischemic heart disease and other diseases of the circulatory system
CPT/HCPCS: 70450; 93005; 99285

== ENCOUNTER 2019-07-17 14:47 | Observation (INO) | payer OTHER ==
[2019-07-17] MEDS ORDERED: NITROGLYCERIN OINT 1 INCH/GM PACKET TOPICAL STA (15:46)
[2019-07-17] MEDS ORDERED: ASPIRIN 81 MG PO STA (15:46)
--- NOTE | 2019-07-17 15:55 | ED ---
General Adult HPI - General Chief complaint: Chest Pain Stated complaint: Chest pain, SOB Source: patient, RN notes reviewed, old records reviewed Mode of arrival: ambulatory Limitations: no limitations - History of Present Illness Initial comments: This is a 49-year-old female with past mental history significant for heart attack and multiple stent placements. Patient denies diabetes high blood pressure or high cholesterol although she says she is taking high blood pressur e high cholesterol medications. Patient denies any smoking. Patient states she started having chest pain yesterday and it has been waxing and waning since then. Patient states today the pain goes to shoulder and some numbness down her arm. Patient also complains of shortness of breath worsening with exertion. Patient denies any fever chills or cough per patient denies lightheadedness or dizziness. Patient denies any numbness weakness. Patient denies abdominal pain patient denies nausea vomiting diarrhea. - Related Data Home Medications Medication Instructions Recorded Confirmed Aspirin [Adult Low Dose Aspirin EC] 81 mg PO DAILY 10/29/17 07/17/19 Clopidogrel [Plavix] 75 mg PO DAILY 02/13/18 07/17/19 Docusate [Colace] 100 mg PO BID 02/13/18 07/17/19 Pantoprazole Sodium [Protonix] 40 mg PO BID 02/13/18 07/17/19 Atorvastatin [Lipitor] 80 mg PO DAILY 08/23/18 07/17/19 Metoprolol Tartrate [Lopressor] 25 mg PO BID 08/23/18 07/17/19 Hydrocodone/Acetaminophen [[place] 1 tab PO BID PRN 11/22/18 07/17/19 5-325] Lisinopril [Prinivil] 5 mg PO DAILY 11/22/18 07/17/19 Fluticasone Nasal [place] [Flonase 2 spr EA NOSTRIL DAILY 07/17/19 07/17/19 Nasal Jay] Pregabalin [Lyrica] 75 mg PO BID 07/17/19 07/17/19 Previous Rx's Medication Instructions Recorded Nitroglycerin Sl Tabs [Nitrostat] 0.4 mg SUBLINGUAL Q5M PRN #25 tab 11/02/17 Allergies Allergy/AdvReac Type Severity Reaction Status Date / Time ibuprofen [From Motrin] AdvReac Unknown Verified 07/17/19 16:41 Review of Systems ROS Statement: Those systems with pertinent positive or pertinent negative responses have been documented in the HPI. ROS Other: All systems not noted in ROS Statement are negative. Past Medical History Past Medical History: Coronary Artery Disease (CAD), Chest Pain / Angina, GERD/Reflux, Myocardial Infarction (PR) Additional Past Medical History / Comment(s): Pt states she has never been diagnosed with htn or high cholesterol-was placed on meds for these after her PR, anemia, chronic low back pain. Last Myocardial Infarction Date:: unk History of Any Multi-Drug Resistant Organisms: None Reported Past Surgical History: Ablation, Heart Catheterization, Heart Catheterization With Stent Additional Past Surgical History / Comment(s): Cardiac caths, PCI with a total of 4 stents, uterine ablation, wisdom teeth extractions. Past Anesthesia/Blood Transfusion Reactions: Motion Sickness, Postoperative Nausea & Vomiting (PONV) Date of Last Stent Placement:: 02/2018 Past Psychological History: No Psychological Hx Reported Smoking Status: Former smoker Past Alcohol Use History: Occasional Past Drug Use History: None Reported - Past Family History Mother Family Medical History: AFIB Additional Family Medical History / Comment(s): Maternal grandmother also had A fib. Brother(s) Family Medical History: Myocardial Infarction (PR) Additional Family Medical History / Comment(s): brother at age 42 with PR Father Family Medical History: Blood Disorder Additional Family Medical History / Comment(s): Father from aides. General Exam - General Exam Comments Initial Comments: GENERAL: Patient is well-developed and well-nourished. Patient is nontoxic and well- hydrated and is in mild distress. ENT: Neck is soft and supple. No significant lymphadenopathy is noted. Oropharynx is clear. Moist mucous membranes. Neck has full range of motion without eliciting any pain. EYES: The sclera were anicteric and conjunctiva were pink and moist. Extraocular movements were intact and pupils were equal round and reactive to light. Eyelids were unremarkable. PULMONARY: Unlabored respirations. Good breath sounds bilaterally. No audible rales rhonchi or wheezing was noted. CARDIOVASCULAR: There is a regular rate and rhythm without any murmurs gallops or rubs. ABDOMEN: Soft and nontender with normal bowel sounds. SKIN: Skin is clear with no lesions or rashes and otherwise unremarkable. NEUROLOGIC: Patient is alert and oriented x3. Cranial nerves II through XII are grossly intact. Motor and sensory are also intact. Normal speech, volume and content. Symmetrical smile. MUSCULOSKELETAL: Normal extremities with adequate strength and full range of motion. LYMPHATICS: No significant lymphadenopathy is noted PSYCHIATRIC: Normal psychiatric evaluation. Limitations: no limitations Course Vital Signs 07/17/19 14:51 Temperature 97.9 F Pulse Rate 65 Respiratory 18 Rate Blood Pressure 116/64 O2 Sat by Pulse 98 Oximetry Medical Decision Making - Medical Decision Making EKG shows normal sinus rhythm at 66 bpm WA interval is 122 QRS is 80 QT interval is 416 QTC is 436. Patient's EKG shows T-wave inversions in 3 and aVF. Chest x-ray shows no acute abnormality. I started the patient heparin because the unstable angina patient a past history. I spoke with Dr. Joseph he agreed to admit the patient wanted the patient admitted with consult cardiology I did so. I continued heparin and aspirin Nitropaste on the floor. - Lab Data Result diagrams: 07/17/19 15:40 07/17/19 15:40 Lab Results 07/17/19 07/17/19 07/17/19 Range/Units 15:40 15:40 15:40 WBC 6.1 (3.8-10.6) k/uL RBC 4.38 (3.80-5.40) m/uL Hgb 13.6 (11.4-16.0) gm/dL Hct 42.3 (34.0-46.0) % MCV 96.6 (80.0-100.0) fL MCH 31.1 (25.0-35.0) pg MCHC 32.2 (31.0-37.0) g/dL RDW 12.3 (11.5-15.5) % Plt Count 264 (150-450) k/uL Neutrophils % 68 % Lymphocytes % 21 % Monocytes % 6 % Eosinophils % 2 % Basophils % 1 % Neutrophils # 4.1 (1.3-7.7) k/uL Lymphocytes # 1.3 (1.0-4.8) k/uL Monocytes # 0.4 (0-1.0) k/uL Eosinophils # 0.1 (0-0.7) k/uL Basophils # 0.0 (0-0.2) k/uL PT 9.4 (9.0-12.0) sec INR 0.9 (<1.2) APTT 21.2 L (22.0-30.0) sec Sodium 139 (137-145) mmol/L Potassium 4.2 (3.5-5.1) mmol/L Chloride 106 (98-107) mmol/L Carbon Dioxide 23 (22-30) mmol/L Anion Gap 10 mmol/L BUN 15 (7-17) mg/dL Creatinine 0.64 (0.52-1.04) mg/dL Est GFR (CKD-EPI)AfAm >90 (>60 ml/min/1.73 sqM) Est GFR (CKD-EPI)NonAf >90 (>60 ml/min/1.73 sqM) Glucose 93 (74-99) mg/dL Calcium 9.0 (8.4-10.2) mg/dL Magnesium 2.0 (1.6-2.3) mg/dL Total Bilirubin 0.5 (0.2-1.3) mg/dL AST 29 (14-36) U/L ALT 20 (4-34) U/L Alkaline Phosphatase 84 (38-126) U/L Troponin I (0.000-0.034) ng/mL Total Protein 7.8 (6.3-8.2) g/dL Albumin 4.2 (3.5-5.0) g/dL 07/17/19 Range/Units 15:40 WBC (3.8-10.6) k/uL RBC (3.80-5.40) m/uL Hgb (11.4-16.0) gm/dL Hct (34.0-46.0) % MCV (80.0-100.0) fL MCH (25.0-35.0) pg MCHC (31.0-37.0) g/dL RDW (11.5-15.5) % Plt Count (150-450) k/uL Neutrophils % % Lymphocytes % % Monocytes % % Eosinophils % % Basophils % % Neutrophils # (1.3-7.7) k/uL Lymphocytes # (1.0-4.8) k/uL Monocytes # (0-1.0) k/uL Eosinophils # (0-0.7) k/uL Basophils # (0-0.2) k/uL PT (9.0-12.0) sec INR (<1.2) APTT (22.0-30.0) sec Sodium (137-145) mmol/L Potassium (3.5-5.1) mmol/L Chloride (98-107) mmol/L Carbon Dioxide (22-30) mmol/L Anion Gap mmol/L BUN (7-17) mg/dL Creatinine (0.52-1.04) mg/dL Est GFR (CKD-EPI)AfAm (>60 ml/min/1.73 sqM) Est GFR (CKD-EPI)NonAf (>60 ml/min/1.73 sqM) Glucose (74-99) mg/dL Calcium (8.4-10.2) mg/dL Magnesium (1.6-2.3) mg/dL Total Bilirubin (0.2-1.3) mg/dL AST (14-36) U/L ALT (4-34) U/L Alkaline Phosphatase (38-126) U/L Troponin I <0.012 (0.000-0.034) ng/mL Total Protein (6.3-8.2) g/dL Albumin (3.5-5.0) g/dL Critical Care Time Critical Care Time: Yes Total Critical Care Time: 35 Disposition Clinical Impression: Unstable angina pectoris Disposition: ADMITTED IP TO THIS HOSP Referrals: Kentrell Joseph MD [Primary Care Provider] - 1-2 days Time of Disposition: 17:17
[2019-07-17 16:10] LABS: Basophils % (A) 1 %; Eosinophils # (A) 0.1 k/uL (0-0.7); Eosinophils % (A) 2 %; HCT 42.3 % (34.0-46.0); HGB 13.6 gm/dL (11.4-16.0); Lymphocytes # (A) 1.3 k/uL (1.0-4.8); Lymphocytes % (A) 21 %; MCH 31.1 pg (25.0-35.0); MCHC 32.2 g/dL (31.0-37.0); MCV 96.6 fL (80.0-100.0); Mean Platelet Volume 8.5; Monocytes # (A) 0.4 k/uL (0-1.0); Monocytes % (A) 6 %; Neutrophils # (A) 4.1 k/uL (1.3-7.7); Neutrophils % (A) 68 %; Platelet Count 264 k/uL (150-450); RBC 4.38 m/uL (3.80-5.40); RDW 12.3 % (11.5-15.5); WBC 6.1 k/uL (3.8-10.6)
[2019-07-17 16:20] LABS: ALT 20 U/L (4-34); AST 29 U/L (14-36); African American GFR (CKD) >90 (>60 ml/min/1.73 sqM); Albumin 4.2 g/dL (3.5-5.0); Alkaline Phosphatase 84 U/L (38-126); Anion Gap 10 mmol/L; Blood Urea Nitrogen 15 mg/dL (7-17); Carbon Dioxide 23 mmol/L (22-30); Chloride 106 mmol/L (98-107); Glucose 93 mg/dL (74-99); Non-African American GFR(CKD) >90 (>60 ml/min/1.73 sqM); Potassium 4.2 mmol/L (3.5-5.1); Sodium 139 mmol/L (137-145); Total Bilirubin 0.5 mg/dL (0.2-1.3); Total Protein 7.8 g/dL (6.3-8.2)
[2019-07-17 16:40] LABS: INR 0.9 (<1.2); Partial Thromboplastin Time 21.2 sec (22.0-30.0); Prothrombin Time 9.4 sec (9.0-12.0)
--- NOTE | 2019-07-17 16:59 | XR ---
EXAMINATION TYPE: XR chest 2V DATE OF EXAM: 07/17/2019 COMPARISON: 03/01/2019 HISTORY: Chest pain TECHNIQUE: FINDINGS: Heart and mediastinum are normal. Lungs are clear. Diaphragm is normal. Bony thorax appears normal. There are chest leads. IMPRESSION: Normal chest. No change.
[2019-07-17] MEDS ORDERED: HEPARIN SODIUM,PORCINE 5,000 UNIT/ML 1 ML VIAL IV ONE (17:15)
[2019-07-17] MEDS ORDERED: HEPARIN SOD,PORK IN 0.45% NACL 25,000 UNIT in 0.45% NACL 1 250ML.BAG IV SCH (17:15)
[2019-07-17] MEDS ORDERED: NITROGLYCERIN SL TABS 0.4 MG TAB SUBLINGUAL PRN (17:17)
[2019-07-17] MEDS ORDERED: HYDROcodone/APAP 5-325MG 1 EACH TAB PO PRN (21:27)
[2019-07-17] MEDS: LISINOPRIL 5 MG TAB PO SCH (22:36)
[2019-07-17] MEDS: PREGABALIN 75 MG CAP PO SCH (22:36)
[2019-07-17] MEDS: DOCUSATE 100 MG CAP PO SCH (22:36)
[2019-07-17] MEDS: METOPROLOL TARTRATE 25 MG TAB PO SCH (22:36)
[2019-07-17] MEDS: PANTOPRAZOLE 40 MG TABLET PO SCH (22:36)
[2019-07-18] MEDS: NITROGLYCERIN OINT 1 INCH/GM PACKET TOPICAL SCH ×2 (00:08→06:21)
[2019-07-18 01:26] VITALS: RESP 16
[2019-07-18 04:42] LABS: Cholesterol 115 mg/dL (<200); HDL Cholesterol 41 mg/dL (40-60); LDL Cholesterol,Calculated 50 mg/dL (0-99); Triglycerides 122 mg/dL (<150)
[2019-07-18] MEDS: PANTOPRAZOLE 40 MG TABLET PO SCH (06:21)
[2019-07-18 08:27] VITALS: TEMP 97.7
[2019-07-18] MEDS ORDERED: ASPIRIN 81 MG PO SCH (09:00)
[2019-07-18] MEDS ORDERED: ATORVASTATIN 80 MG TAB PO SCH (09:00)
[2019-07-18] MEDS ORDERED: FLUTICASONE 50MCG/SPRAY NASAL 16GM EA NOSTRIL SCH (09:00)
[2019-07-18] MEDS ORDERED: ASPIRIN 325 MG TAB PO SCH (09:00)
--- NOTE | 2019-07-18 10:04 | P.CRDCN ---
History of Present Illness Consult date: 07/18/19 Requesting physician: Kentrell Joseph Consult reason: chest pain Chief complaint: Chest pain History of present illness: This is a 49-year-old female who follows with Dr. Jamaal Cardona in the office. She has a known history of coronary artery disease, prior non-ST elevation OR involving the LAD distribution, she had stenting performed in 2018, later on for restenotic lesion in February 2018 another stent was placed in the same area. Most recently patient underwent a cardiac catheterization in February 2019 which revealed a widely patent LAD at the site of prior stenting without any evidence of restenosis. The dominant RCA and nondominant circumflex were free of any disease. Patient also has history of hypertension, hyperlipidemia, chronic nicotine dependence, GERD. She states that approximately a month and a half ago she was started on Lyrica, since then she's been having intermittent chest pain which she initially felt may be heartburn, she's been taking Tums, also taking sublingual nitroglycerin without total relief of her symptoms. She states that the discomfort in her chest never goes away completely. Ultimately she did feel this same discomfort in the left side of her chest, the pain does worsen when she moves her arm, or if she changes position when lying down. Blood pressure 95/65, heart rate in the 70s, afebrile, 97% on room air. White blood cell count is normal, hemoglobin 13.6, platelet count 264. Sodium 139, potassium 4.2, BUN 15, creatinine 0.6. Magnesium 2.0. Troponins are negative 3. Chest x-ray normal. EKG shows a normal sinus rhythm with mild T wave inversion noted in the inferior lateral leads. At the time of my examination this morning, patient still complains of a mild ache in the left upper chest area, she states that it worsens when I have her roll over in bed or sit forward. Past Medical History Past Medical History: Coronary Artery Disease (CAD), Chest Pain / Angina, GERD/Reflux, Myocardial Infarction (OR) Additional Past Medical History / Comment(s): Pt states she has never been diagnosed with htn or high cholesterol-was placed on meds for these after her OR, anemia, chronic low back pain. Last Myocardial Infarction Date:: unk History of Any Multi-Drug Resistant Organisms: None Reported Past Surgical History: Ablation, Heart Catheterization, Heart Catheterization With Stent Additional Past Surgical History / Comment(s): Cardiac caths, PCI with a total of 4 stents, uterine ablation, wisdom teeth extractions. Past Anesthesia/Blood Transfusion Reactions: Motion Sickness, Postoperative Nausea & Vomiting (PONV) Date of Last Stent Placement:: 02/2018 Past Psychological History: No Psychological Hx Reported Additional Psychological History / Comment(s): lives with boyfriend, children, and a friend. Works doing private care. Smoking Status: Former smoker Past Alcohol Use History: Occasional Additional Past Alcohol Use History / Comment(s): started smoking at age 45(2014 and quit november 2017) smoked 1/2 ppd Past Drug Use History: None Reported - Past Family History Mother Family Medical History: AFIB Additional Family Medical History / Comment(s): Maternal grandmother also had A fib. Brother(s) Family Medical History: Myocardial Infarction (OR) Additional Family Medical History / Comment(s): brother at age 42 with OR Father Family Medical History: Blood Disorder Additional Family Medical History / Comment(s): Father from aides. Medications and Allergies Home Medications Medication Instructions Recorded Confirmed Type Aspirin [Adult Low Dose Aspirin EC] 81 mg PO DAILY 10/29/17 07/17/19 History Nitroglycerin Sl Tabs [Nitrostat] 0.4 mg SUBLINGUAL Q5M PRN #25 tab 11/02/17 Rx Clopidogrel [Plavix] 75 mg PO DAILY 02/13/18 07/17/19 History Docusate [Colace] 100 mg PO BID 02/13/18 07/17/19 History Pantoprazole Sodium [Protonix] 40 mg PO BID 02/13/18 07/17/19 History Atorvastatin [Lipitor] 80 mg PO DAILY 08/23/18 07/17/19 History Metoprolol Tartrate [Lopressor] 25 mg PO BID 08/23/18 07/17/19 History Hydrocodone/Acetaminophen [[place] 1 tab PO BID PRN 11/22/18 07/17/19 History 5-325] Lisinopril [Prinivil] 5 mg PO DAILY 11/22/18 07/17/19 History Fluticasone Nasal [place] [Flonase 2 spr EA NOSTRIL DAILY 07/17/19 07/17/19 History Nasal [place]] Pregabalin [Lyrica] 75 mg PO BID 07/17/19 07/17/19 History Allergies Allergy/AdvReac Type Severity Reaction Status Date / Time ibuprofen [From Motrin] AdvReac Unknown Verified 07/17/19 16:41 Physical Exam Vitals: Vital Signs Temp Pulse Pulse Resp BP BP Pulse Ox 07/18/19 08:20 97.7 F 70 16 95/65 97 07/18/19 04:00 97.2 F L 63 16 102/56 98 07/18/19 00:00 97.8 F 61 16 104/66 97 07/17/19 20:45 97.7 F 60 18 104/70 100 07/17/19 17:47 61 18 107/71 100 07/17/19 14:51 97.9 F 65 18 116/64 98 Intake and Output 07/17/19 07/18/19 07/18/19 22:59 06:59 14:59 Other: Voiding Method Toilet Toilet # Voids 1 1 Weight 102.512 kg PHYSICAL EXAMINATION: GENERAL: 47-year-old female in no acute distress at the time of my examination HEENT: Head is atraumatic, normocephalic. Pupils equal, round. Sclera anicteric. Conjunctiva are clear. Mucous membranes of the mouth are moist. Neck is supple. There is no elevated jugular venous pressure.] bruit is heard. HEART EXAMINATION: Heart S1, S2 normal. No murmur or gallop heard. CHEST EXAMINATION: Lungs are clear to auscultation and precussion. No chest wall tenderness is noted on palpation or with deep breathing. ABDOMEN: Soft, nontender. Bowel sounds are heard. No organomegaly noted. EXTREMITIES: 2+ peripheral pulses with no evidence of peripheral edema and no calf tenderness noted. NEUROLOGIC patient is awake, alert and oriented ?-3. Results 07/17/19 15:40 07/17/19 15:40 Cardiac Enzymes 07/17/19 07/17/19 07/17/19 Range/Units 15:40 15:40 22:28 AST 29 (14-36) U/L Troponin I <0.012 <0.012 (0.000-0.034) ng/mL 07/18/19 Range/Units 03:40 AST (14-36) U/L Troponin I <0.012 (0.000-0.034) ng/mL Coagulation 07/17/19 07/17/19 07/18/19 Range/Units 15:40 22:28 06:21 PT 9.4 (9.0-12.0) sec APTT 21.2 L 52.4 H 51.4 H (22.0-30.0) sec Lipids 07/18/19 Range/Units 03:38 Triglycerides 122 (<150) mg/dL Cholesterol 115 (<200) mg/dL HDL Cholesterol 41 (40-60) mg/dL CBC 07/17/19 Range/Units 15:40 WBC 6.1 (3.8-10.6) k/uL RBC 4.38 (3.80-5.40) m/uL Hgb 13.6 (11.4-16.0) gm/dL Hct 42.3 (34.0-46.0) % Plt Count 264 (150-450) k/uL Comprehensive Metabolic Panel 07/17/19 Range/Units 15:40 Sodium 139 (137-145) mmol/L Potassium 4.2 (3.5-5.1) mmol/L Chloride 106 (98-107) mmol/L Carbon Dioxide 23 (22-30) mmol/L BUN 15 (7-17) mg/dL Creatinine 0.64 (0.52-1.04) mg/dL Glucose 93 (74-99) mg/dL Calcium 9.0 (8.4-10.2) mg/dL AST 29 (14-36) U/L ALT 20 (4-34) U/L Alkaline Phosphatase 84 (38-126) U/L Total Protein 7.8 (6.3-8.2) g/dL Albumin 4.2 (3.5-5.0) g/dL Current Medications Generic Name Dose Route Start Last Admin Trade Name Freq PRN Reason Stop Dose Admin Hydrocodone Bitart/Acetaminophen 1 each 07/17/19 21:27 [place] 5-325 PO BID PRN Pain Aspirin 81 mg 07/18/19 09:00 Aspirin PO DAILY [facility] Atorvastatin Calcium 80 mg 07/18/19 09:00 Lipitor PO DAILY [facility] Docusate Sodium 100 mg 07/17/19 21:30 07/17/19 22:36 Colace PO 100 mg BID THANH Administration Fluticasone Propionate 2 spray 07/18/19 09:00 Flonase Nasal [place] EA NOSTRIL DAILY THANH Heparin Sodium/Sodium Chloride 250 mls @ 10.005 mls/hr 07/17/19 17:15 07/17/19 17:42 25,000 unit/ Sodium Chloride IV 9.76 units/kg/hr .Q24H THANH 10.005 mls/hr Administration Protocol 9.76 UNITS/KG/HR Lisinopril 5 mg 07/17/19 21:30 07/17/19 22:36 Zestril PO 5 mg DAILY THANH Administration Metoprolol Tartrate 25 mg 07/17/19 21:30 07/17/19 22:36 Lopressor PO 25 mg BID THANH Administration Nitroglycerin 0.4 mg 07/17/19 17:17 Nitrostat SUBLINGUAL Q5M PRN Chest Pain Nitroglycerin 1 inch 07/18/19 00:00 07/18/19 06:21 Nitro-Bid Oint TOPICAL 1 inch Q6HR THANH Administration Pantoprazole Sodium 40 mg 07/17/19 21:30 07/18/19 06:21 Protonix PO 40 mg AC-BID THANH Administration Pregabalin 75 mg 07/17/19 21:30 07/17/19 22:36 Lyrica PO 75 mg BID THANH Administration Intake and Output 07/17/19 07/18/19 07/18/19 22:59 06:59 14:59 Other: Voiding Method Toilet Toilet # Voids 1 1 Weight 102.512 kg 07/17/19 15:40 07/17/19 15:40 EKG Interpretations (text) EKG shows a normal sinus rhythm with T wave inversion noted in the inferior lateral leads. Assessment and Plan Plan: Assessment and plan #1 chest pain, atypical in nature, appears that it may be musculoskeletal. Troponins negative 2. EKG shows normal sinus rhythm with T wave inversion in the inferior lateral leads #2 known history of coronary artery disease with prior LAD stenting, most recently in February of last year patient underwent a cardiac catheterization which revealed a patent stent in the LAD #3 hypertension #4 hyperlipidemia #5 nicotine dependence Plan We will continue the patient on a baby aspirin daily, Lipitor 80 daily, discontinue the IV heparin, continue Zestril, continue metoprolol 25 mg one tablet by mouth twice a day, discontinue Nitropaste. From cardiology's perspective, patient may be able to be discharged home to follow-up with Dr. Jamaal Cardona in the office. DNP note has been reviewed, I agree with a documented findings and plan of care. Patient was seen and examined.
[2019-07-18 10:40] VITALS: BP 104/69; PULSE 64
[2019-07-18] MEDS: DOCUSATE 100 MG CAP PO SCH (10:41)
[2019-07-18] MEDS: METOPROLOL TARTRATE 25 MG TAB PO SCH (10:41)
[2019-07-18] MEDS: LISINOPRIL 5 MG TAB PO SCH (10:41)
[2019-07-18] MEDS: PREGABALIN 75 MG CAP PO SCH (10:41)
--- NOTE | 2019-07-18 11:48 | P.HPIM ---
History of Present Illness 49-year-old female presented to family physician with complaints of chest pain radiating to left arm patient does have a history of coronary disease with SC and stents 4. Patient was evaluated by cardiology and cleared for discharge Review of Systems Cardiovascular: Reports chest pain Past Medical History Past Medical History: Coronary Artery Disease (CAD), Chest Pain / Angina, GERD/Reflux, Myocardial Infarction (SC) Additional Past Medical History / Comment(s): Pt states she has never been diagnosed with htn or high cholesterol-was placed on meds for these after her SC, anemia, chronic low back pain. Last Myocardial Infarction Date:: unk History of Any Multi-Drug Resistant Organisms: None Reported Past Surgical History: Ablation, Heart Catheterization, Heart Catheterization With Stent Additional Past Surgical History / Comment(s): Cardiac caths, PCI with a total of 4 stents, uterine ablation, wisdom teeth extractions. Past Anesthesia/Blood Transfusion Reactions: Motion Sickness, Postoperative Nausea & Vomiting (PONV) Date of Last Stent Placement:: 02/2018 Past Psychological History: No Psychological Hx Reported Additional Psychological History / Comment(s): lives with boyfriend, children, and a friend. Works doing private care. Smoking Status: Former smoker Past Alcohol Use History: Occasional Additional Past Alcohol Use History / Comment(s): started smoking at age 45(2014 and quit november 2017) smoked 1/2 ppd Past Drug Use History: None Reported - Past Family History Mother Family Medical History: AFIB Additional Family Medical History / Comment(s): Maternal grandmother also had A fib. Brother(s) Family Medical History: Myocardial Infarction (SC) Additional Family Medical History / Comment(s): brother at age 42 with SC Father Family Medical History: Blood Disorder Additional Family Medical History / Comment(s): Father from aides. Medications and Allergies Home Medications Medication Instructions Recorded Confirmed Type Aspirin [Adult Low Dose Aspirin EC] 81 mg PO DAILY 10/29/17 07/17/19 History Nitroglycerin Sl Tabs [Nitrostat] 0.4 mg SUBLINGUAL Q5M PRN #25 tab 11/02/17 07/17/19 Rx Clopidogrel [Plavix] 75 mg PO DAILY 02/13/18 07/17/19 History Docusate [Colace] 100 mg PO BID 02/13/18 07/17/19 History Pantoprazole Sodium [Protonix] 40 mg PO BID 02/13/18 07/17/19 History Atorvastatin [Lipitor] 80 mg PO DAILY 08/23/18 07/17/19 History Metoprolol Tartrate [Lopressor] 25 mg PO BID 08/23/18 07/17/19 History Hydrocodone/Acetaminophen [[place] 1 tab PO BID PRN 11/22/18 07/17/19 History 5-325] Lisinopril [Prinivil] 5 mg PO DAILY 11/22/18 07/17/19 History Fluticasone Nasal [place] [Flonase 2 spr EA NOSTRIL DAILY 07/17/19 07/17/19 History Nasal [place]] Pregabalin [Lyrica] 75 mg PO BID 07/17/19 07/17/19 History Allergies Allergy/AdvReac Type Severity Reaction Status Date / Time ibuprofen [From Motrin] AdvReac Unknown Verified 07/17/19 16:41 Physical Exam Vitals: Vital Signs Temp Pulse Pulse Resp BP BP Pulse Ox 07/18/19 10:40 64 16 07/18/19 10:38 64 16 104/69 97 07/18/19 08:20 97.7 F 70 16 95/65 97 07/18/19 04:00 97.2 F L 63 16 102/56 98 07/18/19 00:00 97.8 F 61 16 104/66 97 07/17/19 20:45 97.7 F 60 18 104/70 100 07/17/19 17:47 61 18 107/71 100 07/17/19 14:51 97.9 F 65 18 116/64 98 Intake and Output 07/17/19 07/18/19 07/18/19 22:59 06:59 14:59 Other: Voiding Method Toilet Toilet # Voids 1 1 Weight 102.512 kg - Constitutional General appearance: mild distress - EENT Eyes: PERRLA Ears: bilateral: normal - Neck Neck: normal ROM - Respiratory Respiratory: bilateral: CTA - Cardiovascular Rhythm: regular - Gastrointestinal General gastrointestinal: soft - Integumentary Integumentary: normal - Neurologic Neurologic: CNII-XII intact - Musculoskeletal Musculoskeletal: gait normal - Psychiatric Psychiatric: A&O x's 3, appropriate affect, intact judgment & insight Results CBC & Chem 7: 07/17/19 15:40 07/17/19 15:40 Labs: Abnormal Lab Results - Last 24 Hours (Table) 07/17/19 07/17/19 07/18/19 Range/Units 15:40 22:28 06:21 APTT 21.2 L 52.4 H 51.4 H (22.0-30.0) sec Chest x-ray: report reviewed Thrombosis Risk Factor Assmnt - Choose All That Apply Any of the Below Risk Factors Present?: Yes Each Factor Represents 1 point: Age 41-60 years, Obesity (BMI >25) Thrombosis Risk Factor Assessment Total Risk Factor Score: 2 Thrombosis Risk Factor Assessment Level: Low Risk Assessment and Plan Plan: Assessment Chest pain atypical troponins negative 3 cleared by cardiology Coronary disease SC with stents 4 GERD Plan Cleared for discharge per cardiology Follow-up with family physician Dr. Kentrell Joseph Follow-up with cardiology
--- NOTE | 2019-07-18 11:52 | P.DS ---
Providers Date of admission: 07/17/19 17:17 Expected date of discharge: 07/18/19 Attending physician: eKntrell Joseph Consults: 07/17/19 17:17 Consult Physician Urgent Consulting Provider: [facility] Consult Reason/Comments: Unstable angina Do you want consulting provider notified?: Yes Primary care physician: Kentrell Joseph [facility] Course: Patient was admitted to the emergency room with complaints of chest pain. Patient had been in the family physician office with complaints of the chest pain radiating to left arm. Patient was evaluated by cardiology and cleared for discharge Assessment Atypical chest pain troponins negative 3 cleared by cardiology Coronary disease history with NM and stents 4 GERD Plan Follow-up with cardiology and family physician Dr. Kentrell Joseph Plan - Discharge Summary New Discharge Prescriptions: Continue Aspirin [Adult Low Dose Aspirin EC] 81 mg PO DAILY Nitroglycerin Sl Tabs [Nitrostat] 0.4 mg SUBLINGUAL Q5M PRN #25 tab PRN Reason: Chest Pain Pantoprazole Sodium [Protonix] 40 mg PO BID Clopidogrel [Plavix] 75 mg PO DAILY Docusate [Colace] 100 mg PO BID Metoprolol Tartrate [Lopressor] 25 mg PO BID Atorvastatin [Lipitor] 80 mg PO DAILY Hydrocodone/Acetaminophen [[place] 5-325] 1 tab PO BID PRN PRN Reason: Pain Lisinopril [Prinivil] 5 mg PO DAILY Fluticasone Nasal [place] [Flonase Nasal [place]] 2 spr EA NOSTRIL DAILY Pregabalin [Lyrica] 75 mg PO BID Discharge Medication List Aspirin [Adult Low Dose Aspirin EC] 81 mg PO DAILY 10/29/17 [History] Nitroglycerin Sl Tabs [Nitrostat] 0.4 mg SUBLINGUAL Q5M PRN #25 tab 11/02/17 [Rx] Clopidogrel [Plavix] 75 mg PO DAILY 02/13/18 [History] Docusate [Colace] 100 mg PO BID 02/13/18 [History] Pantoprazole Sodium [Protonix] 40 mg PO BID 02/13/18 [History] Atorvastatin [Lipitor] 80 mg PO DAILY 08/23/18 [History] Metoprolol Tartrate [Lopressor] 25 mg PO BID 08/23/18 [History] Hydrocodone/Acetaminophen [[place] 5-325] 1 tab PO BID PRN 11/22/18 [History] Lisinopril [Prinivil] 5 mg PO DAILY 11/22/18 [History] Fluticasone Nasal [place] [Flonase Nasal [place]] 2 spr EA NOSTRIL DAILY 07/17/19 [History] Pregabalin [Lyrica] 75 mg PO BID 07/17/19 [History] Follow up Appointment(s)/Referral(s): Kentrell Joseph MD [Primary Care Provider] - 1-2 days
--- NOTE | 2019-07-24 08:45 | CDI ---
Documentation Clarification Form Date: 07/24/19 From: Maggie Evangelista CCS Phone: If you have a question about this query, please contact Jo Denney, Recruiter at [phone] between 8am and 5pm. Admit Date: 07/17/19 Discharge Date: 07/18/19 Patient Name: Gertrude Hayden Visit Number: [id number] ATTENTION: The Clinical Documentation Specialists (CDI) and [facility] Coding Staff appreciate your assistance in clarifying documentation. Please respond to the clarification below the line at the bottom and electronically sign. The CDI & [facility] Coding staff will review the response and follow-up if needed. Please note: Queries are made part of the Legal Health Record. If you have any questions, please contact the author of this message via ITS. Dear Dr. Joseph Patient is admitted with a chief complaint of chest pain is documented in the H&P, ED, and Consult. Patient C/O: Chest pain radiating to the left arm History/Risk factors: CAD, Hx MA, HX PTCA w/ stents x 4, GERD, Tobacco Hx, HTN, Hyperlipidemia Clinical Indicators: Intermittent chest pain taking Nitrostat w/o total relief of her symptoms Labs: Negative troponin Treatment: Nitrostat 0.4 mg sublingual Q5M PRN Consults: Cardiology- Dr. Blanco In your professional opinion, can please clarify if the chest pain signifies, or is due to: CAD with angina (specify vessel and type of angina if known) Cardiac arrhythmias (specify type if known) Chest wall pain Costochondritis GERD Psychogenic chest pain Unstable angina Other condition, please specify Unable to determine MTDD
== END 2019-07-18 13:07 | disposition home or self-care (01) ==
LOC: EC 14:47 → INTOOBSV 17:17 → UNDOADMIN 17:17 → 3SCARD 17:17 → UNDODISIN 07-18 13:07
PROVIDERS: ADMIT Family Medicine; ATTEND Family Medicine
DX: R07.89 Other chest pain (principal); I25.10 Atherosclerotic heart disease of native coronary artery without angina pectoris; K21.9 Gastro-esophageal reflux disease without esophagitis; G89.29 Other chronic pain; M54.5 Low back pain; I10 Essential (primary) hypertension; E78.5 Hyperlipidemia, unspecified; I25.2 Old myocardial infarction; E66.9 Obesity, unspecified; Z68.38 Body mass index [BMI] 38.0-38.9, adult; Z95.5 Presence of coronary angioplasty implant and graft; Z79.82 Long term (current) use of aspirin; Z79.02 Long term (current) use of antithrombotics/antiplatelets; Z79.899 Other long term (current) drug therapy; Z79.891 Long term (current) use of opiate analgesic; Z88.6 Allergy status to analgesic agent; Z86.2 Personal history of diseases of the blood and blood-forming organs and certain disorders involving the immune mechanism; Z98.890 Other specified postprocedural states; Z87.898 Personal history of other specified conditions; Z91.89 Other specified personal risk factors, not elsewhere classified; Z87.891 Personal history of nicotine dependence; Z82.49 Family history of ischemic heart disease and other diseases of the circulatory system; Z83.0 Family history of human immunodeficiency virus [HIV] disease
CPT/HCPCS: 93005 ×2; 96376; 96365; 96366 ×2; 99291; 36415; 80061; 80053; 83735; 84484 ×2; 85025; 85610; 85730 ×2; 71046; G0378 ×2; J1644 ×2

== ENCOUNTER 2019-11-25 16:57 | Emergency (ER) | payer OTHER ==
[2019-11-25 17:10] VITALS: BP 102/53; PULSE 77; RESP 18; TEMP 99.3
[2019-11-25] MEDS ORDERED: Acetaminophen-Codeine 300-30mg TAB PO STA (17:14)
--- NOTE | 2019-11-25 18:20 | ED ---
General Adult HPI - General Chief complaint: Extremity Injury, Lower Stated complaint: Ankle injury Time Seen by Provider: 11/25/19 17:11 Source: patient, RN notes reviewed, old records reviewed Mode of arrival: ambulatory Limitations: no limitations - History of Present Illness Initial comments: 49-year-old female patient presents to ED with chief complaint of left ankle pain. Patient reports that she suffered 2 ankle inversion injury is the last 2 days. Denies any trauma to head or neck. Is ambulatory. Denies any other complaints. Systemic: Pt denies fatigue, fever/chills, rash. Pt denies weakness, night sweats, weight loss. Neuro: Pt denies headache, visual disturbances, syncope or pre-syncope. HEENT: Pt denies ocular discharge or irritation, otalgia, rhinorrhea, pharyngitis or notable lymphadenopathy. Cardiopulmonary: Pt denies chest pain, SOB, heart palpitations, dyspnea on exertion. Abdominal/GI: Pt denies abdominal pain, n/v/d. : Pt denies dysuria, burning w/ urination, frequency/urgency. Denies new onset urinary or bowel incontinence. MSK: Pt denies myalgia, loss of strength or function in extremities. Neuro: Pt denies new onset weakness, paresthesias. - Related Data Home Medications Medication Instructions Recorded Confirmed Aspirin [Adult Low Dose Aspirin EC] 81 mg PO DAILY 10/29/17 07/17/19 Clopidogrel [Plavix] 75 mg PO DAILY 02/13/18 07/17/19 Docusate [Colace] 100 mg PO BID 02/13/18 07/17/19 Pantoprazole Sodium [Protonix] 40 mg PO BID 02/13/18 07/17/19 Atorvastatin [Lipitor] 80 mg PO DAILY 08/23/18 07/17/19 Metoprolol Tartrate [Lopressor] 25 mg PO BID 08/23/18 07/17/19 Hydrocodone/Acetaminophen [[place] 1 tab PO BID PRN 11/22/18 07/17/19 5-325] Lisinopril [Prinivil] 5 mg PO DAILY 11/22/18 07/17/19 Fluticasone Nasal [place] [Flonase 2 spr EA NOSTRIL DAILY 07/17/19 07/17/19 Nasal [place]] Pregabalin [Lyrica] 75 mg PO BID 07/17/19 07/17/19 Previous Rx's Medication Instructions Recorded Nitroglycerin Sl Tabs [Nitrostat] 0.4 mg SUBLINGUAL Q5M PRN #25 tab 11/02/17 Allergies Allergy/AdvReac Type Severity Reaction Status Date / Time ibuprofen [From Motrin] AdvReac Unknown Verified 11/25/19 17:10 Review of Systems ROS Statement: Those systems with pertinent positive or pertinent negative responses have been documented in the HPI. ROS Other: All systems not noted in ROS Statement are negative. Past Medical History Past Medical History: Coronary Artery Disease (CAD), Chest Pain / Angina, GERD/Reflux, Myocardial Infarction ([place]) Additional Past Medical History / Comment(s): Pt states she has never been diagnosed with htn or high cholesterol-was placed on meds for these after her [place], anemia, chronic low back pain. Last Myocardial Infarction Date:: unk History of Any Multi-Drug Resistant Organisms: None Reported Past Surgical History: Ablation, Heart Catheterization, Heart Catheterization With Stent Additional Past Surgical History / Comment(s): Cardiac caths, PCI with a total of 4 stents, uterine ablation, wisdom teeth extractions. Past Anesthesia/Blood Transfusion Reactions: Motion Sickness, Postoperative Nausea & Vomiting (PONV) Date of Last Stent Placement:: 02/2018 Past Psychological History: No Psychological Hx Reported Smoking Status: Former smoker Past Alcohol Use History: Occasional Past Drug Use History: None Reported - Past Family History Mother Family Medical History: AFIB Additional Family Medical History / Comment(s): Maternal grandmother also had A fib. Brother(s) Family Medical History: Myocardial Infarction ([place]) Additional Family Medical History / Comment(s): brother at age 42 with [place] Father Family Medical History: Blood Disorder Additional Family Medical History / Comment(s): Father from aides. General Exam - General Exam Comments Initial Comments: Constitutional: NAD, AOX3, Pt has pleasant affect. HEENT: NC/AT, trachea midline, neck supple, no lymphadenopathy. Posterior pharynx non erythematous, without exudates. External ears appear normal, without discharge. Mucous membranes moist. Eyes PERRLA, EOM intact. There is no scleral icterus. No pallor noted. Cardiopulmonary: RRR, no murmurs, rubs or gallops, no JVD noted. Lungs CTAB in anterior and posterior hernandes. No peripheral edema. Abdominal exam: Abdomen soft and non-distended. Abdomen non-tender to palpation in all 4 quadrants. Bowel sounds active in LLQ. No hepatosplenomegaly. No ecchymosis Neuro: CN II-XII grossly intact. No nuchal rigidity. No raccon eyes, no tejada sign, no hemotympanum. No cervical spinal tenderness. MSK: No posterior calf tenderness bilaterally, homans sign negative bilaterally. Posterior tibialis and radial pulse +2 bilaterally. Sensation intact in upper and lower extremities. Full active ROM in upper and lower extremities, 5/5 stregnth. No proximal tib-fib tenderness. Left lateral malleoli nontender palpation. Mild swelling is noted. No ecchymoses. Limitations: no limitations Course Vital Signs 11/25/19 17:07 Temperature 99.3 F Pulse Rate 77 Respiratory 18 Rate Blood Pressure 102/53 O2 Sat by Pulse 98 Oximetry Medical Decision Making - Medical Decision Making 49-year-old female patient presents to ED with chief complaint of left ankle pain. Patient reports that she suffered 2 ankle inversion injury is the last 2 days. Denies any trauma to head or neck. Is ambulatory. Denies any other complaints. Pt VSS, afebrile. Physical exam displayed: No proximal tib-fib tenderness. Left lateral malleoli nontender palpation. Mild swelling is noted. No ecchymoses. Plain films are negative. Patient placed in ankle stirrup brace. Advised to use crutches follow up with primary care orthopedic consult return to ER if condition worsens. Case discussed with Dr. Harris. Disposition Clinical Impression: Ankle sprain Disposition: HOME SELF-CARE Condition: Stable Instructions (If sedation given, give patient instructions): Ankle Sprain (ED) Additional Instructions: Follow-up with primary care provider and orthopedic consult tomorrow. Continue to wear stirrup brace. Use crutches do not bear weight on left lower extremity. Return to ER if condition worsens. Is patient prescribed a controlled substance at d/c from ED?: No Referrals: Kentrell Joseph MD [Primary Care Provider] - 1-2 days Marco Snider MD [Medical Doctor] - 1-2 days
--- NOTE | 2019-11-25 18:42 | XR ---
Left foot and left ankle HISTORY: Pain and swelling 3 views of the left ankle and 3 views the left foot There is soft tissue swelling. Bone mineralization, joint spaces and alignment are maintained. There is a plantar calcaneal spur. Enthesophyte present at the insertion of the Achilles tendon. IMPRESSION: No fracture or dislocation.
== END 2019-11-25 19:34 | disposition home or self-care (01) ==
LOC: EC 16:57
DX: S93.402A Sprain of unspecified ligament of left ankle, initial encounter (principal); I25.119 Atherosclerotic heart disease of native coronary artery with unspecified angina pectoris; K21.9 Gastro-esophageal reflux disease without esophagitis; I25.2 Old myocardial infarction; E78.5 Hyperlipidemia, unspecified; I10 Essential (primary) hypertension; G89.29 Other chronic pain; M54.5 Low back pain; Z79.82 Long term (current) use of aspirin; Z79.02 Long term (current) use of antithrombotics/antiplatelets; Z79.51 Long term (current) use of inhaled steroids; Z79.899 Other long term (current) drug therapy; Z95.5 Presence of coronary angioplasty implant and graft; Z88.6 Allergy status to analgesic agent; Z87.891 Personal history of nicotine dependence; X50.1XXA Overexertion from prolonged static or awkward postures, initial encounter
CPT/HCPCS: 99284

== ENCOUNTER 2019-12-25 16:04 | Emergency (ER) | payer OTHER ==
[2019-12-25 16:18] VITALS: RESP 18; TEMP 98.2
[2019-12-25 17:14] LABS: Basophils % (A) 1 %; Eosinophils # (A) 0.2 k/uL (0-0.7); Eosinophils % (A) 2 %; HCT 39.3 % (34.0-46.0); HGB 12.8 gm/dL (11.4-16.0); Hypochromasia Slight; Lymphocytes # (A) 1.5 k/uL (1.0-4.8); Lymphocytes % (A) 19 %; MCH 30.7 pg (25.0-35.0); MCHC 32.7 g/dL (31.0-37.0); Mean Platelet Volume 8.2; Monocytes # (A) 0.5 k/uL (0-1.0); Monocytes % (A) 6 %; Neutrophils # (A) 5.6 k/uL (1.3-7.7); Neutrophils % (A) 71 %; Platelet Count 281 k/uL (150-450); RBC 4.18 m/uL (3.80-5.40); RDW 13.2 % (11.5-15.5); WBC 7.9 k/uL (3.8-10.6)
[2019-12-25 17:19] LABS: Prothrombin Time 10.2 sec (9.0-12.0)
[2019-12-25 17:23] LABS: ALT 18 U/L (4-34); AST 24 U/L (14-36); African American GFR (CKD) >90 (>60 ml/min/1.73 sqM); Albumin 3.9 g/dL (3.5-5.0); Alkaline Phosphatase 74 U/L (38-126); Anion Gap 7 mmol/L; Blood Urea Nitrogen 13 mg/dL (7-17); Carbon Dioxide 26 mmol/L (22-30); Chloride 105 mmol/L (98-107); Glucose 90 mg/dL (74-99); Non-African American GFR(CKD) >90 (>60 ml/min/1.73 sqM); Potassium 4.2 mmol/L (3.5-5.1); Sodium 138 mmol/L (137-145); Total Bilirubin 0.3 mg/dL (0.2-1.3); Total Protein 7.4 g/dL (6.3-8.2)
[2019-12-25 18:10] LABS: Appearance,Urine Clear (Clear); Bacteria,Urine Rare /hpf; Bilirubin,Urine Negative (Negative); Blood,Urine Trace (Negative); Color,Urine Yellow; Glucose,Urine (UA) Negative (Negative); Ketones,Urine Negative (Negative); Leukocyte Esterase,Urine Negative (Negative); Mucus,Urine Few /hpf; Nitrite,Urine Negative (Negative); PH, Urine 5.5 (5.0-8.0); Protein,Urine Negative (Negative); RBC,Urine 2 /hpf (0-5); Specific Gravity,Urine 1.022 (1.001-1.035); Squamous Epithelial Cell,Urine 4 /hpf (0-4); Urobilinogen,Urine <2.0 mg/dL (<2.0); WBC,Urine 2 /hpf (0-5)
--- NOTE | 2019-12-25 18:23 | CT ---
EXAMINATION TYPE: CT brain wo con DATE OF EXAM: 12/25/2019 COMPARISON: 04/22/2019 HISTORY: Loss of vision, lightheaded x3 days CT DLP: 1102.8 mGycm Automated exposure control for dose reduction was used. Ventricles and sulci appear normal. There is no mass effect nor midline shift. There is no sign of in tracranial hemorrhage. The calvarium is intact. There is no evidence of cerebral edema. Skull base is intact. IMPRESSION: Normal unenhanced head CT scan. No change.
--- NOTE | 2019-12-25 18:24 | XR ---
EXAMINATION TYPE: XR chest 2V DATE OF EXAM: 12/25/2019 COMPARISON: 07/17/2019 HISTORY: Lightheaded. Fatigue. TECHNIQUE: FINDINGS: Heart and mediastinum are normal. Lungs are clear. Diaphragm is normal. Bony thorax appears normal. IMPRESSION: Normal chest. No change.
--- NOTE | 2019-12-25 18:28 | CT ---
EXAMINATION TYPE: CT angio head neck DATE OF EXAM: 12/25/2019 COMPARISON: None HISTORY: Lightheaded and vision changes CT DLP: 627.8 mGycm Automated exposure control for dose reduction was used. CONTRAST: Performed with IV Contrast, patient injected with 65 mL of Isovue 370. There are 3-D post processed images. There is normal branching pattern of the great vessels on the aortic arch. There is bilateral arteria l flow in the subclavian arteries. There is arterial flow in the vertebral arteries and vertebrobasil ar artery system. The basilar artery fills mostly from the right side. There is arterial flow in the common internal and external carotid arteries bilaterally. The carotid artery bifurcations appear widely patent. There is no evidence of stenosis. There is no evidence of c arotid or vertebral artery aneurysm or dissection. There is arterial flow in the anterior middle and posterior cerebral arteries. I see no evidence of i ntracranial arterial stenosis. There is no sign of intracranial aneurysm or neovascularity. There is normal contrast opacification of the venous sinuses. IMPRESSION: Negative CT angiogram of the brain. Negative CT angiogram of the neck.
--- NOTE | 2019-12-25 19:29 | ED ---
Dizziness HPI - General Chief Complaint: Dizziness Stated Complaint: LightHeaded Time Seen by Provider: 12/25/19 16:15 Source: patient Mode of arrival: wheelchair Limitations: no limitations - History of Present Illness Initial Comments: The patient is a 49-year-old female with past medical history of coronary artery disease who presents to the emergency department with presyncope and memory issues since Tuesday. Patient reports that she will have intermittent sensation that she is going to passout. Denies any syncopal episodes. Denies that it is worse with positional changes. She admits to intermittent blurred vision when this happens. Denies any associated unilateral numbness or weakness. Denies vertigo or ataxia. 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 She states that Dr. Cardona recommended t hat she follow up with her primary care doctor in regards to her symptoms. She did see Dr. Joseph in office who did a physical exam and recommended that the patient go to the emergency room for further evaluation. She denies any associated chest pain or shortness of breath. No abdominal pain. Changes in her bowel or bladder habits. Reports to feeling asymptomatic at this time. There are no other alleviating, precipitating or modifying factors - Related Data Home Medications Medication Instructions Recorded Confirmed Aspirin [Adult Low Dose Aspirin EC] 81 mg PO DAILY 10/29/17 07/17/19 Clopidogrel [Plavix] 75 mg PO DAILY 02/13/18 07/17/19 Docusate [Colace] 100 mg PO BID 02/13/18 07/17/19 Pantoprazole Sodium [Protonix] 40 mg PO BID 02/13/18 07/17/19 Atorvastatin [Lipitor] 80 mg PO DAILY 08/23/18 07/17/19 Metoprolol Tartrate [Lopressor] 25 mg PO BID 08/23/18 07/17/19 Hydrocodone/Acetaminophen [[place] 1 tab PO BID PRN 11/22/18 07/17/19 5-325] Lisinopril [Prinivil] 5 mg PO DAILY 11/22/18 07/17/19 Fluticasone Nasal [place] [Flonase 2 spr EA NOSTRIL DAILY 07/17/19 07/17/19 Nasal [place]] Pregabalin [Lyrica] 75 mg PO BID 07/17/19 07/17/19 Previous Rx's Medication Instructions Recorded Nitroglycerin Sl Tabs [Nitrostat] 0.4 mg SUBLINGUAL Q5M PRN #25 tab 11/02/17 Allergies Allergy/AdvReac Type Severity Reaction Status Date / Time ibuprofen [From Motrin] AdvReac Unknown Verified 12/25/19 16:18 Review of Systems ROS Statement: Those systems with pertinent positive or pertinent negative responses have been documented in the HPI. ROS Other: All systems not noted in ROS Statement are negative. Past Medical History Past Medical History: Coronary Artery Disease (CAD), Chest Pain / Angina, GERD/Reflux, Myocardial Infarction ([place]) Additional Past Medical History / Comment(s): Pt states she has never been diagnosed with htn or high cholesterol-was placed on meds for these after her [place], anemia, chronic low back pain. Last Myocardial Infarction Date:: unk History of Any Multi-Drug Resistant Organisms: None Reported Past Surgical History: Ablation, Heart Catheterization, Heart Catheterization With Stent Additional Past Surgical History / Comment(s): Cardiac caths, PCI with a total of 4 stents, uterine ablation, wisdom teeth extractions. Past Anesthesia/Blood Transfusion Reactions: Motion Sickness, Postoperative Nausea & Vomiting (PONV) Date of Last Stent Placement:: 02/2018 Past Psychological History: No Psychological Hx Reported Smoking Status: Former smoker Past Alcohol Use History: Occasional Past Drug Use History: None Reported - Past Family History Mother Family Medical History: AFIB Additional Family Medical History / Comment(s): Maternal grandmother also had A fib. Brother(s) Family Medical History: Myocardial Infarction ([place]) Additional Family Medical History / Comment(s): brother at age 42 with OR Father Family Medical History: Blood Disorder Additional Family Medical History / Comment(s): Father from aides. General Exam Limitations: no limitations General appearance: alert, in no apparent distress Head exam: Present: atraumatic, normocephalic, normal inspection Eye exam: Present: normal appearance, PERRL, EOMI. Absent: scleral icterus, conjunctival injection, periorbital swelling ENT exam: Present: normal exam, mucous membranes moist Neck exam: Present: normal inspection. Absent: tenderness, meningismus, lymphadenopathy Respiratory exam: Present: normal lung sounds bilaterally. Absent: respiratory distress, wheezes, rales, rhonchi, stridor Cardiovascular Exam: Present: regular rate, normal rhythm, normal heart sounds. Absent: systolic murmur, diastolic murmur, rubs, gallop, clicks GI/Abdominal exam: Present: soft, normal bowel sounds. Absent: distended, tenderness, guarding, rebound, rigid Extremities exam: Present: normal inspection, full ROM, normal capillary refill. Absent: tenderness, pedal edema, joint swelling, calf tenderness Back exam: Present: normal inspection Neurological exam: Present: alert, oriented X3, CN II-XII intact, normal gait, reflexes normal, other (finger to nose is symmetric. No truncal ataxia) Psychiatric exam: Present: normal affect, normal mood Skin exam: Present: warm, dry, intact, normal color. Absent: rash Course Vital Signs 12/25/19 12/25/19 16:15 19:40 Temperature 98.2 F Pulse Rate 62 77 Respiratory 18 18 Rate Blood Pressure 117/75 110/67 O2 Sat by Pulse 98 99 Oximetry EKG Findings - EKG Comments: EKG Findings:: EKG demonstrates a normal sinus rhythm with a ventricular rate of 60. MS interval 142. QRS 78. QTC of 470. No acute ST segment elevations or depressions concerning for ischemic changes Medical Decision Making - Medical Decision Making Upon arrival the patient was placed into room 25. A thorough history and physical exam was performed. A 12-lead EKG was performed. Laboratory studies were conducted. Patient was sent in from the primary care office with recommendation to have a CT of the patient's brain. Upon return of results I did review them and discuss results with the patient. I discussed diagnosis, differential and treatment options. At this time CT of the patient's brain demonstrates no acute findings. Chest x-ray demonstrates no acute findings and CT angiography demonstrates negative CT angiogram of the head and neck. I do believe the patient is stable for discharge home. She is to follow up with her primary care doctor in regards to her symptoms. Return to the emergency room for any new or worsening symptoms. Patient was in agreement with this and she was discharged home in stable condition - Lab Data Result diagrams: 12/25/19 16:47 12/25/19 16:47 Lab Results 12/25/19 12/25/19 12/25/19 Range/Units 16:47 16:47 16:47 WBC 7.9 (3.8-10.6) k/uL RBC 4.18 (3.80-5.40) m/uL Hgb 12.8 (11.4-16.0) gm/dL Hct 39.3 (34.0-46.0) % MCV 94.0 (80.0-100.0) fL MCH 30.7 (25.0-35.0) pg MCHC 32.7 (31.0-37.0) g/dL RDW 13.2 (11.5-15.5) % Plt Count 281 (150-450) k/uL Neutrophils % 71 % Lymphocytes % 19 % Monocytes % 6 % Eosinophils % 2 % Basophils % 1 % Neutrophils # 5.6 (1.3-7.7) k/uL Lymphocytes # 1.5 (1.0-4.8) k/uL Monocytes # 0.5 (0-1.0) k/uL Eosinophils # 0.2 (0-0.7) k/uL Basophils # 0.0 (0-0.2) k/uL Hypochromasia Slight PT (9.0-12.0) sec INR (<1.2) Sodium 138 (137-145) mmol/L Potassium 4.2 (3.5-5.1) mmol/L Chloride 105 (98-107) mmol/L Carbon Dioxide 26 (22-30) mmol/L Anion Gap 7 mmol/L BUN 13 (7-17) mg/dL Creatinine 0.64 (0.52-1.04) mg/dL Est GFR (CKD-EPI)AfAm >90 (>60 ml/min/1.73 sqM) Est GFR (CKD-EPI)NonAf >90 (>60 ml/min/1.73 sqM) Glucose 90 (74-99) mg/dL Calcium 9.0 (8.4-10.2) mg/dL Total Bilirubin 0.3 (0.2-1.3) mg/dL AST 24 (14-36) U/L ALT 18 (4-34) U/L Alkaline Phosphatase 74 (38-126) U/L Troponin I <0.012 (0.000-0.034) ng/mL Total Protein 7.4 (6.3-8.2) g/dL Albumin 3.9 (3.5-5.0) g/dL Urine Color Urine Appearance (Clear) Urine pH (5.0-8.0) Ur Specific [place] (1.001-1.035) Urine Protein (Negative) Urine Glucose (UA) (Negative) Urine Ketones (Negative) Urine Blood (Negative) Urine Nitrite (Negative) Urine Bilirubin (Negative) Urine Urobilinogen (<2.0) mg/dL Ur Leukocyte Esterase (Negative) Urine RBC (0-5) /hpf Urine WBC (0-5) /hpf Ur Squamous Epith Cells (0-4) /hpf Urine Bacteria (None) /hpf Urine Mucus (None) /hpf 12/25/19 12/25/19 Range/Units 16:47 17:48 WBC (3.8-10.6) k/uL RBC (3.80-5.40) m/uL Hgb (11.4-16.0) gm/dL Hct (34.0-46.0) % MCV (80.0-100.0) fL MCH (25.0-35.0) pg MCHC (31.0-37.0) g/dL RDW (11.5-15.5) % Plt Count (150-450) k/uL Neutrophils % % Lymphocytes % % Monocytes % % Eosinophils % % Basophils % % Neutrophils # (1.3-7.7) k/uL Lymphocytes # (1.0-4.8) k/uL Monocytes # (0-1.0) k/uL Eosinophils # (0-0.7) k/uL Basophils # (0-0.2) k/uL Hypochromasia PT 10.2 (9.0-12.0) sec INR 1.0 (<1.2) Sodium (137-145) mmol/L Potassium (3.5-5.1) mmol/L Chloride (98-107) mmol/L Carbon Dioxide (22-30) mmol/L Anion Gap mmol/L BUN (7-17) mg/dL Creatinine (0.52-1.04) mg/dL Est GFR (CKD-EPI)AfAm (>60 ml/min/1.73 sqM) Est GFR (CKD-EPI)NonAf (>60 ml/min/1.73 sqM) Glucose (74-99) mg/dL Calcium (8.4-10.2) mg/dL Total Bilirubin (0.2-1.3) mg/dL AST (14-36) U/L ALT (4-34) U/L Alkaline Phosphatase (38-126) U/L Troponin I (0.000-0.034) ng/mL Total Protein (6.3-8.2) g/dL Albumin (3.5-5.0) g/dL Urine Color Yellow Urine Appearance Clear (Clear) Urine pH 5.5 (5.0-8.0) Ur Specific [place] 1.022 (1.001-1.035) Urine Protein Negative (Negative) Urine Glucose (UA) Negative (Negative) Urine Ketones Negative (Negative) Urine Blood Trace H (Negative) Urine Nitrite Negative (Negative) Urine Bilirubin Negative (Negative) Urine Urobilinogen <2.0 (<2.0) mg/dL Ur Leukocyte Esterase Negative (Negative) Urine RBC 2 (0-5) /hpf Urine WBC 2 (0-5) /hpf Ur Squamous Epith Cells 4 (0-4) /hpf Urine Bacteria Rare H (None) /hpf Urine Mucus Few H (None) /hpf Disposition Clinical Impression: Pre-syncope Disposition: HOME SELF-CARE Condition: Stable Instructions (If sedation given, give patient instructions): Dizziness (ED) Additional Instructions: Please follow-up with your primary care doctor in regards to your symptoms. Return to the ED for any new or worsening symptoms. Is patient prescribed a controlled substance at d/c from ED?: No Referrals: Kentrell Joseph MD [Primary Care Provider] - 1-2 days Time of Disposition: 19:34
[2019-12-25 19:42] VITALS: BP 110/67; PULSE 77
== END 2019-12-25 19:46 | disposition home or self-care (01) ==
LOC: EC 16:04
DX: R55 Syncope and collapse (principal); R41.3 Other amnesia; H53.8 Other visual disturbances; I25.110 Atherosclerotic heart disease of native coronary artery with unstable angina pectoris; K21.9 Gastro-esophageal reflux disease without esophagitis; I25.2 Old myocardial infarction; Z88.6 Allergy status to analgesic agent; Z79.82 Long term (current) use of aspirin; Z79.899 Other long term (current) drug therapy; Z87.891 Personal history of nicotine dependence; Z95.5 Presence of coronary angioplasty implant and graft
CPT/HCPCS: 36415; 93005; 80053; 84484; 85025; 85610; 81001; 71046; 70496; 70450; 70498; 99284; Q9967

== ENCOUNTER → 2020-05-23 | Outpatient (CLI) | payer OTHER ==
[2020-05-23 14:22] LABS: Basophils % (A) 1 %; Eosinophils # (A) 0.1 k/uL (0-0.7); Eosinophils % (A) 2 %; HCT 38.5 % (34.0-46.0); HGB 12.5 gm/dL (11.4-16.0); Lymphocytes % (A) 18 %; MCH 30.1 pg (25.0-35.0); MCHC 32.3 g/dL (31.0-37.0); Monocytes # (A) 0.3 k/uL (0-1.0); Monocytes % (A) 5 %; Neutrophils % (A) 73 %; Platelet Count 243 k/uL (150-450); RBC 4.14 m/uL (3.80-5.40); RDW 14.1 % (11.5-15.5); WBC 5.5 k/uL (3.8-10.6)
[2020-05-23 20:03] LABS: African American GFR (CKD) 101.8 (60.0-200.0); Albumin/Globulin Ratio 1.43 (1.60-3.17); Anion Gap 9.1 mmol/L (4.00-12.00); BUN/Creat Ratio 21.25 Ratio (12.00-20.00); Carbon Dioxide 24.9 mmol/L (21.6-31.8); Chol/HDL Ratio 3.06; Globulin 2.8 g/dL (1.6-3.3); Non-African American GFR(CKD) 87.8 (60.0-200.0); Potassium 4.7 mmol/L (3.5-5.5); Total Bilirubin 0.4 mg/dL (0.2-1.2); Total Protein 6.8 g/dL (6.2-8.2)
== END | disposition home or self-care (01) ==
LOC: LABWHC1 12:11
PROVIDERS: ATTEND Nurse Practitioner
DX: Z00.00 Encounter for general adult medical examination without abnormal findings (principal); Z20.9 Contact with and (suspected) exposure to unspecified communicable disease
CPT/HCPCS: 36415; 80053; 80061; 83540; 84439; 84443; 85025; 86803

== ENCOUNTER 2020-09-23 02:58 | Emergency (ER) | payer OTHER ==
[2020-09-23 03:04] VITALS: TEMP 97.7
[2020-09-23] MEDS ORDERED: SODIUM CHLORIDE 0.9% 1,000 ML IV STA (03:39)
--- NOTE | 2020-09-23 03:40 | ED ---
Chest Pain HPI - General Chief Complaint: Back Pain/Injury Stated Complaint: LT flank pain Time Seen by Provider: 09/23/20 03:13 Source: patient, RN notes reviewed, old records reviewed Mode of arrival: ambulatory Limitations: no limitations - History of Present Illness Initial Comments: This is a 50-year-old female DF for evaluation patient presents today for evaluation regards to sided shoulder pain and arm pain back pain scapular pain. Patient does have history of TX was concerned of heart symptoms have been persistent for greater than a day. Was originally not concerned about her heart maybe pulled muscle but the symptoms have been again continuous with no shortness of breath no diaphoresis. Patient does have a heart history is significant for stent placement MD Complaint: chest pain -: days(s) Onset: during rest, during exertion Pain Location: left chest Pain Radiation: LUE Severity: moderate Quality: aching Consistency: constant Improves With: nothing Worsens With: palpation, movement Context: other (None) Anginal Symptoms: other (9) Other Symptoms: other (9) Treatments Prior to Arrival: none - Related Data Home Medications Medication Instructions Recorded Confirmed Aspirin [Adult Low Dose Aspirin EC] 81 mg PO DAILY 10/29/17 07/17/19 Clopidogrel [Plavix] 75 mg PO DAILY 02/13/18 07/17/19 Docusate [Colace] 100 mg PO BID 02/13/18 07/17/19 Pantoprazole Sodium [Protonix] 40 mg PO BID 02/13/18 07/17/19 Atorvastatin [Lipitor] 80 mg PO DAILY 08/23/18 07/17/19 Metoprolol Tartrate [Lopressor] 25 mg PO BID 08/23/18 07/17/19 Hydrocodone/Acetaminophen [[place] 1 tab PO BID PRN 11/22/18 07/17/19 5-325] lisinopriL [Prinivil] 5 mg PO DAILY 11/22/18 07/17/19 Fluticasone Nasal [place] [Flonase 2 spr EA NOSTRIL DAILY 07/17/19 07/17/19 Nasal [place]] Pregabalin [Lyrica] 75 mg PO BID 07/17/19 07/17/19 Previous Rx's Medication Instructions Recorded Nitroglycerin Sl Tabs [Nitrostat] 0.4 mg SUBLINGUAL Q5M PRN #25 tab 11/02/17 Allergies Allergy/AdvReac Type Severity Reaction Status Date / Time ibuprofen [From Motrin] AdvReac Unknown Verified 09/23/20 03:04 Review of Systems ROS Statement: Those systems with pertinent positive or pertinent negative responses have been documented in the HPI. ROS Other: All systems not noted in ROS Statement are negative. EKG Findings - EKG Comments: EKG Findings:: EKG shows sinus rhythm 63 AL 144 QRS 78 QTc 448 Past Medical History Past Medical History: Coronary Artery Disease (CAD), Chest Pain / Angina, GERD/Reflux, Myocardial Infarction ([place]) Additional Past Medical History / Comment(s): Pt states she has never been diagnosed with htn or high cholesterol-was placed on meds for these after her [place], anemia, chronic low back pain. Last Myocardial Infarction Date:: unk History of Any Multi-Drug Resistant Organisms: None Reported Past Surgical History: Ablation, Heart Catheterization, Heart Catheterization With Stent Additional Past Surgical History / Comment(s): Cardiac caths, PCI with a total of 4 stents, uterine ablation, wisdom teeth extractions. Past Anesthesia/Blood Transfusion Reactions: Motion Sickness, Postoperative Nausea & Vomiting (PONV) Date of Last Stent Placement:: 02/2018 Past Psychological History: No Psychological Hx Reported Smoking Status: Former smoker Past Alcohol Use History: Occasional Past Drug Use History: None Reported - Past Family History Mother Family Medical History: AFIB Additional Family Medical History / Comment(s): Maternal grandmother also had A fib. Brother(s) Family Medical History: Myocardial Infarction ([place]) Additional Family Medical History / Comment(s): brother at age 42 with [place] Father Family Medical History: Blood Disorder Additional Family Medical History / Comment(s): Father from aides. General Exam Limitations: no limitations General appearance: alert, in no apparent distress Head exam: Present: atraumatic, normocephalic, normal inspection Eye exam: Present: normal appearance, PERRL, EOMI. Absent: scleral icterus, conjunctival injection, periorbital swelling ENT exam: Present: normal exam, mucous membranes moist Neck exam: Present: normal inspection. Absent: tenderness, meningismus, lymphadenopathy Respiratory exam: Present: normal lung sounds bilaterally. Absent: respiratory distress, wheezes, rales, rhonchi, stridor Cardiovascular Exam: Present: regular rate, normal rhythm, normal heart sounds. Absent: systolic murmur, diastolic murmur, rubs, gallop, clicks GI/Abdominal exam: Present: soft, normal bowel sounds. Absent: distended, tenderness, guarding, rebound, rigid Extremities exam: Present: normal inspection, full ROM, normal capillary refill. Absent: tenderness, pedal edema, joint swelling, calf tenderness Back exam: Present: normal inspection Neurological exam: Present: alert, oriented X3, CN II-XII intact Psychiatric exam: Present: normal affect, normal mood Skin exam: Present: warm, dry, intact, normal color. Absent: rash Course Vital Signs 09/23/20 03:02 Temperature 97.7 F Pulse Rate 72 Respiratory 18 Rate Blood Pressure 129/72 O2 Sat by Pulse 98 Oximetry - Reevaluation(s) Reevaluation #1: 09/23/20 04:26 Medical record is reviewed Reevaluation #2: 09/23/20 05:03 Patient is in no acute distress no specific chest pain or shortness of breath currently Reevaluation #3: 09/23/20 05:03 Patient informed results and can be discharged home Chest Pain MDM - MDM 50 female to the ER for evaluation of left shoulder pain left arm pain. CT chest negative for acute disease. Troponin negative patient can be discharged home Disposition Clinical Impression: Chest pain, Thoracic back pain, Left shoulder pain, Strain of left trapezius muscle Disposition: HOME SELF-CARE Condition: Good Instructions (If sedation given, give patient instructions): Shoulder Pain (ED) Is patient prescribed a controlled substance at d/c from ED?: No Referrals: Kentrell Joseph MD [Primary Care Provider] - 1-2 days
[2020-09-23 04:34] LABS: Basophils % (A) 1 %; Eosinophils # (A) 0.1 k/uL (0-0.7); Eosinophils % (A) 2 %; HCT 35.5 % (34.0-46.0); HGB 11.7 gm/dL (11.4-16.0); Lymphocytes # (A) 1.2 k/uL (1.0-4.8); Lymphocytes % (A) 22 %; MCH 29.3 pg (25.0-35.0); MCHC 32.9 g/dL (31.0-37.0); Mean Platelet Volume 8.2; Monocytes # (A) 0.4 k/uL (0-1.0); Monocytes % (A) 8 %; Neutrophils # (A) 3.6 k/uL (1.3-7.7); Neutrophils % (A) 65 %; Platelet Count 218 k/uL (150-450); RBC 3.99 m/uL (3.80-5.40); RDW 13.9 % (11.5-15.5); WBC 5.6 k/uL (3.8-10.6)
[2020-09-23 04:48] LABS: ALT 17 U/L (4-34); AST 24 U/L (14-36); African American GFR (CKD) >90 (>60 ml/min/1.73 sqM); Albumin 3.5 g/dL (3.5-5.0); Alkaline Phosphatase 76 U/L (38-126); Anion Gap 8 mmol/L; Blood Urea Nitrogen 18 mg/dL (7-17); Calcium 9.1 mg/dL (8.4-10.2); Carbon Dioxide 25 mmol/L (22-30); Chloride 106 mmol/L (98-107); Creatine Kinase 62 U/L (30-135); Glucose 106 mg/dL (74-99); Lipase 155 U/L (23-300); Magnesium 1.8 mg/dL (1.6-2.3); Non-African American GFR(CKD) >90 (>60 ml/min/1.73 sqM); Potassium 4.3 mmol/L (3.5-5.1); Sodium 139 mmol/L (137-145); Total Bilirubin 0.3 mg/dL (0.2-1.3); Total Protein 6.5 g/dL (6.3-8.2)
[2020-09-23 04:59] LABS: Creatine Kinase MB <0.2 ng/mL (0.0-2.4); Troponin I <0.012 ng/mL (0.000-0.034)
--- NOTE | 2020-09-23 05:00 | CT ---
EXAM: CT Angiography Chest With Intravenous Contrast CLINICAL HISTORY: Left-sided chest pain. Reason: cp TECHNIQUE: Axial computed tomographic angiography images of the chest with intravenous contrast. CTDI is 16.87 mGy and DLP is 502.30 mGy-cm. This CT exam was performed using one or more of the following dose reduction techniques: automated exposure control, adjustment of the mA and/or kV according to patient size, and/or use of iterative reconstruction technique. MIP reconstructed images were created and reviewed. COMPARISON: Chest x-ray from December 25, 2019 FINDINGS: Pulmonary arteries: The pulmonary arterial tree is well-opacified with contrast. No pulmonary emboli are identified. Aorta: The thoracic aorta is nondilated. There is no aneurysm or dissection. Lungs: Lungs are well inflated with a trace amount of subsegmental atelectasis in the lung bases. No infiltrate or consolidation is seen. Pleural space: Unremarkable. No significant effusion. No pneumothorax. Heart: The heart is not enlarged. Severe coronary calcification versus stent in the LAD. No pericardial effusion is seen. No evidence of RV dysfunction. Bones/joints: No acute fracture. No dislocation. Soft tissues: Unremarkable. Lymph nodes: Unremarkable. No enlarged lymph nodes. IMPRESSION: No acute findings in the visualized arteries of the chest.
[2020-09-23 05:06] LABS: D-Dimer 0.5 mg/L FEU (<0.60); INR 0.9 (<1.2); Prothrombin Time 9.7 sec (9.0-12.0)
[2020-09-23 05:09] LABS: Appearance,Urine Clear (Clear); Bilirubin,Urine Negative (Negative); Blood,Urine Negative (Negative); Color,Urine Yellow; Glucose,Urine (UA) Negative (Negative); Hyaline Casts,Urine 2 /lpf (0-2); Ketones,Urine Negative (Negative); Leukocyte Esterase,Urine Trace (Negative); Mucus,Urine Moderate /hpf; Nitrite,Urine Negative (Negative); Protein,Urine Trace (Negative); RBC,Urine 1 /hpf (0-5); Squamous Epithelial Cell,Urine 15 /hpf (0-4); Urobilinogen,Urine <2.0 mg/dL (<2.0); WBC,Urine 7 /hpf (0-5)
[2020-09-23] MEDS ORDERED: Acetaminophen-Codeine 300-30mg TAB PO STA (05:09)
[2020-09-23] MEDS ORDERED: ACET/COD 300 MG/30 MG STARTER PACK 6 TAB BTL PO STA (05:09)
[2020-09-23 05:12] LABS: Specific Gravity,Urine >1.050 (1.001-1.035)
[2020-09-23 05:23] VITALS: BP 125/69; PULSE 60; RESP 17
[2020-09-23 05:25] LABS: Partial Thromboplastin Time 20.9 sec (22.0-30.0)
== END 2020-09-23 05:23 | disposition home or self-care (01) ==
LOC: EC 02:58
DX: S46.812A Strain of other muscles, fascia and tendons at shoulder and upper arm level, left arm, initial encounter (principal); I25.10 Atherosclerotic heart disease of native coronary artery without angina pectoris; I25.2 Old myocardial infarction; K21.9 Gastro-esophageal reflux disease without esophagitis; Z79.82 Long term (current) use of aspirin; Z87.891 Personal history of nicotine dependence; X58.XXXA Exposure to other specified factors, initial encounter
CPT/HCPCS: 36415; 93005; 85379; 83880; 80053; 82550; 82553; 83690; 83735; 84484; 85025; 85610; 85730; 81001; 71275; 99285; 96360; Q9967

== ENCOUNTER → 2020-12-04 | Outpatient (CLI) | payer OTHER ==
--- NOTE | 2020-12-04 19:05 | XR ---
Right wrist HISTORY: S63.501A Unspecified sprain of RT wrist 4 views of the right wrist Bone mineralization, joint spaces and alignment are maintained. IMPRESSION: No fracture or dislocation. Consider wrist MRI from better evaluation.
== END | disposition home or self-care (01) ==
LOC: RADXRMAIN 16:58
PROVIDERS: ATTEND Family Medicine
DX: S63.501A Unspecified sprain of right wrist, initial encounter (principal)

== ENCOUNTER → 2021-02-24 | Outpatient (CLI) | payer OTHER ==
--- NOTE | 2021-02-24 14:34 | XR ---
Bilateral elbows HISTORY: Pain, M77.12 Lateral epicondylitis, Lt elbow 3 views of each elbow submitted Bone mineralization, joint spaces and alignment are maintained. No evident joint effusion. Symmetric excrescence is noted at the level the medial epicondyles of the distal humeri could be related to jina cific tendinitis. There is an enthesophyte at insertion of triceps tendon on the left. No fracture or dislocation. IMPRESSION: No acute abnormality evident. Additional findings above. Elbow MRI may be of benefit.
== END | disposition home or self-care (01) ==
LOC: RADXRMAIN 12:45
PROVIDERS: ATTEND Nurse Practitioner
DX: M77.12 Lateral epicondylitis, left elbow (principal)

== ENCOUNTER → 2021-02-25 | Outpatient (CLI) | payer OTHER ==
--- NOTE | 2021-03-02 11:23 | MM ---
Reason for exam: screening (asymptomatic). Last mammogram was performed 1 year and 10 months ago. History: Family history of breast cancer in maternal aunt. Took hormonal contraceptives for 2 years 6 months. Physical Findings: A clinical breast exam by your physician is recommended on an annual basis and results should be correlated with mammographic findings. MG 3D Screening Mammo W/Cad Bilateral CC and MLO view(s) were taken. Prior study comparison: April 23, 2019, bilateral MG screening mammo w CAD. There are scattered fibroglandular densities. No significant changes when compared with prior studies. ASSESSMENT: Negative, BI-RAD 1 RECOMMENDATION: Routine screening mammogram of both breasts in 1 year.
== END | disposition home or self-care (01) ==
LOC: RADMAMWWP 16:53
PROVIDERS: ATTEND Family Medicine
DX: Z12.31 Encounter for screening mammogram for malignant neoplasm of breast (principal); Z80.3 Family history of malignant neoplasm of breast
CPT/HCPCS: 77063; 77067

== ENCOUNTER → 2022-06-08 | Outpatient (CLI) | payer OTHER ==
--- NOTE | 2022-06-09 10:13 | MM ---
Reason for Exam: Screening (asymptomatic). Last mammogram was performed 1 year(s) and 4 month(s) ago. Patient History: Menarche at age 13. First Full-Term at age 24. Premenopausal. Hormonal Contraceptives for 2 years, 6 months. Maternal aunt had breast cancer. Last menstrual period: 05/25/2022 Risk Values: Mirna 5 year model risk: 0.9%. NCI Lifetime model risk: 8.9%. Prior Study Comparison: 09/03/2014 Screening Mammogram, [facility]. 04/23/2019 Bilateral Screening Mammogram, [facility]. 02/25/2021 Bilateral Screening Mammogram, [facility]. Tissue Density: There are scattered fibroglandular densities. Findings: Analyzed By CAD. There are a few grouped benign-appearing round calcifications redemonstrated throughout the bilateral breasts. Benign-appearing bilateral axillary lymph nodes are redemonstrated. There is no suspicious new group of microcalcifications or new suspicious mass in either breast. Overall Assessment: Benign, BI-RAD 2 Management: Screening Mammogram of both breasts in 1 year. A clinical breast exam by your physician is recommended on an annual basis and results should be correlated with mammographic findings. Electronically signed and approved by: Nickolas Turner M.D.
== END | disposition home or self-care (01) ==
LOC: RADMAMWWP 14:04
PROVIDERS: ATTEND Family Medicine
DX: Z12.31 Encounter for screening mammogram for malignant neoplasm of breast (principal); Z80.3 Family history of malignant neoplasm of breast
CPT/HCPCS: 77067

== ENCOUNTER → 2022-10-14 | Outpatient (CLI) | payer OTHER ==
[2022-10-15 01:09] LABS: % Iron Saturation 4.67 (12.00-45.00); ALT 18 U/L (8-44); AST 24 U/L (13-35); African American GFR (CKD) 116.3 (60.0-200.0); Albumin/Globulin Ratio 1.28 (1.60-3.17); Alkaline Phosphatase 62 U/L (41-126); BUN/Creat Ratio 31.53 Ratio (12.00-20.00); Blood Urea Nitrogen 22.2 mg/dL (9.0-27.0); Calcium 9.4 mg/dL (8.7-10.3); Carbon Dioxide 24.1 mmol/L (20.0-27.5); Chloride 106 mmol/L (96-109); Chol/HDL Ratio 2.51 Ratio; Ferritin 8.6 ng/mL (10.0-291.0); Globulin 3.2 g/dL (1.6-3.3); Glucose 97 mg/dL (70-110); Iron 23 ug/dL (50-170); LDL Cholesterol,Calculated 49.1 mg/dL (0.0-131.0); Non-African American GFR(CKD) 100.3 (60.0-200.0); Potassium 4.4 mmol/L (3.5-5.5); Sodium 141 mmol/L (135-145); Total Iron Binding Capacity 489 ug/dL (228-460); Total Protein 7.2 g/dL (6.2-8.2)
[2022-10-15 01:42] LABS: Basophils # (A) 0.06 X 10*3/uL (0.00-0.10); Basophils % (A) 1.1 %; Eosinophils # (A) 0.05 X 10*3/uL (0.04-0.35); Eosinophils % (A) 0.9 %; HCT 35.8 % (37.2-46.3); HGB 9.9 g/dL (12.0-15.0); Immature Grans, Automated 0.2 %; Lymphocytes # (A) 1.54 X 10*3/uL (0.90-5.00); Lymphocytes % (A) 27.8 %; MCH 24.3 pg (27.0-32.0); MCHC 27.7 g/dL (32.0-37.0); Mean Platelet Volume 11.6 fL (9.5-12.2); Monocytes # (A) 0.52 X 10*3/uL (0.20-1.00); Monocytes % (A) 9.4 %; NRBC Per 100 WBC 0 /100 WBCS (0.0-0.0); Neutrophils # (A) 3.35 X 10*3/uL (1.80-7.70); Neutrophils % (A) 60.6 %; Platelet Count 335 X 10*3/uL (140-440); RBC 4.07 X 10*6/uL (4.10-5.20); RDW 19.8 % (11.5-14.5); WBC 5.53 X 10*3/uL (4.50-10.00)
== END | disposition home or self-care (01) ==
LOC: LABWHC1 13:17
PROVIDERS: ATTEND Family Medicine
DX: R53.83 Other fatigue (principal)
CPT/HCPCS: 36415; 80053; 80061; 82306; 82607; 82728; 83540; 83550; 84439; 84443; 85025

== ENCOUNTER 2022-10-21 06:46 | Emergency (ER) | payer OTHER ==
[2022-10-21] MEDS ORDERED: SODIUM CHLORIDE 0.9% 500 ML 500 ML IV STA (07:06)
--- NOTE | 2022-10-21 07:12 | ED ---
General Adult HPI - General Chief complaint: Weakness Stated complaint: weakness,neausea Time Seen by Provider: 10/21/22 06:55 Source: patient, RN notes reviewed, old records reviewed Mode of arrival: ambulatory Limitations: no limitations - History of Present Illness Initial comments: This is a nontoxic appearing 52-year-old female that presents ambulatory with family member complaining of weakness and fatigue with hot flashes and chills, nausea and dry heaves and intermittent dizziness for the past 2 weeks. did see her primary care doctor last week Dr. Joseph regarding her symptoms and had labs drawn. She does have a follow-up appointment with him today. States symptoms seemed to be getting worse so she came to the ER. She denies any chest pain or difficulty breathing. No cough or fevers. She does have a history of anemia, coronary artery disease, GERD, [place] with 4 stents. -: week(s) (2) Severity scale (1-10): 0 Consistency: constant Associated Symptoms: fever/chills (no documented fever), malaise, nausea/vomiting (dry heaves), other (dizziness) - Related Data Home Medications Medication Instructions Recorded Confirmed Aspirin [Adult Low Dose Aspirin EC] 81 mg PO DAILY 10/29/17 08/11/22 Clopidogrel [Plavix] 75 mg PO DAILY 02/13/18 08/11/22 Docusate [Colace] 100 mg PO BID 02/13/18 08/11/22 Atorvastatin [Lipitor] 80 mg PO DAILY 08/23/18 08/11/22 Metoprolol Tartrate [Lopressor] 25 mg PO DAILY 08/23/18 08/11/22 lisinopriL [Prinivil] 5 mg PO DAILY 11/22/18 08/11/22 Fluticasone Nasal [place] [Flonase 2 spr EA NOSTRIL DAILY 07/17/19 08/11/22 Nasal [place]] Pregabalin [Lyrica] 75 mg PO HS 07/17/19 08/11/22 Cetirizine HCl [Zyrtec] 10 mg PO DAILY 08/09/22 08/11/22 Famotidine 20 mg PO BID 08/09/22 08/11/22 HYDROcodone/APAP 7.5-325MG [[place] 1 tab PO BID PRN 08/09/22 08/11/22 7.5-325] Metoprolol Tartrate [Lopressor] 12.5 mg PO HS 08/09/22 08/11/22 Pregabalin [Lyrica] 150 mg PO BID 08/09/22 08/11/22 Unk Mulit Vitamin 1 tab PO DAILY 08/09/22 08/11/22 Previous Rx's Medication Instructions Recorded Nitroglycerin Sl Tabs [Nitrostat] 0.4 mg SUBLINGUAL Q5M PRN #25 tab 11/02/17 Allergies Allergy/AdvReac Type Severity Reaction Status Date / Time ibuprofen [From Motrin] AdvReac Unknown Verified 10/21/22 06:50 Review of Systems ROS Statement: Those systems with pertinent positive or pertinent negative responses have been documented in the HPI. ROS Other: All systems not noted in ROS Statement are negative. Past Medical History Past Medical History: Coronary Artery Disease (CAD), Chest Pain / Angina, GERD/Reflux, Myocardial Infarction ([place]), Osteoarthritis (OA) Additional Past Medical History / Comment(s): Pt states she has never been diagnosed with htn or high cholesterol-was placed on meds for these after her [place], hx of anemia, chronic low back pain.sciatic nerve. arthritis in neck, carpal tunnel bilateral wrists. Last Myocardial Infarction Date:: 2017 History of Any Multi-Drug Resistant Organisms: None Reported Past Surgical History: Heart Catheterization, Heart Catheterization With Stent, Uterine Ablation Additional Past Surgical History / Comment(s): Cardiac caths, PCI with a total of 4 stents, uterine ablation, wisdom teeth extractions. Past Anesthesia/Blood Transfusion Reactions: Motion Sickness, Postoperative Nausea & Vomiting (PONV) Additional Past Anesthesia/Blood Transfusion Reaction / Comment(s): no blood transfusions Date of Last Stent Placement:: 02/2018 Past Psychological History: No Psychological Hx Reported Smoking Status: Former smoker Past Alcohol Use History: None Reported Past Drug Use History: None Reported - Past Family History Mother Family Medical History: AFIB Additional Family Medical History / Comment(s): Maternal grandmother also had A fib. Brother(s) Family Medical History: Myocardial Infarction ([place]) Additional Family Medical History / Comment(s): brother at age 42 with [place] Father Family Medical History: Blood Disorder Additional Family Medical History / Comment(s): Father from AIDs. General Exam Limitations: no limitations General appearance: alert, in no apparent distress Head exam: Present: atraumatic Eye exam: Absent: scleral icterus, conjunctival injection, periorbital swelling ENT exam: Present: mucous membranes moist Neck exam: Present: full ROM. Absent: meningismus Respiratory exam: Present: normal lung sounds bilaterally. Absent: respiratory distress, accessory muscle use Cardiovascular Exam: Present: regular rate GI/Abdominal exam: Present: soft, normal bowel sounds. Absent: distended, tenderness, guarding, rebound, rigid Extremities exam: Present: full ROM, normal capillary refill. Absent: pedal edema Back exam: Absent: tenderness Neurological exam: Present: alert, oriented X3, normal gait Psychiatric exam: Present: normal affect, normal mood Skin exam: Present: warm, dry, normal color. Absent: cyanosis, diaphoretic, pallor, mottled Course Vital Signs 10/21/22 06:51 Temperature 97.9 F Pulse Rate 73 Respiratory 18 Rate Blood Pressure 113/76 O2 Sat by Pulse 98 Oximetry EKG Findings - EKG Results: EKG: sinus rhythm (Sinus rhythm with a ventricular rate of 62, CT interval 0.135, QRS 0.85, QTC 0.425) Medical Decision Making - Medical Decision Making Patient presents with fatigue, generalized weakness and intermittent nausea with dry heaves for the past 2 weeks. Denies any fevers. No abdominal pain. No chest pain or difficulty breathing. Patient seen primary care doctor last week for these symptoms and had labs draw n. These labs were reviewed showing a hemoglobin of 9.9 and hematocrit of 35.8. Electrolytes are unremarkable. Her iron was low at 23, TIBC of 489, ferritin low at 8.6 Today labs show no evidence of leukocytosis. Hemoglobin has improved from 9.9 to 10.3. Electrolytes are unremarkable. Troponin is negative at 0.012. TSH 1.8 EKG shows sinus rhythm with a ventricular rate of 62, CT interval 0.135, QRS 0.85, QTC 0.425. No change compared to old 09/23/2020. Chest x-ray interpreted by me shows no evidence of focal consolidation. Cardiac silhouette within normal size. Trachea is midline. Radiologist's interpretation no acute cardiopulmonary disease or process. Patient is hemodynamically stable. No focal neurological deficits. At this time I do not have a source for the patient's fatigue and weakness. She was directed to follow up with her doctor as scheduled today at 9:40. Return to the emergency room with any new or concerning symptoms. Patient and family member agreeable to this plan of care. Case discussed with Dr. Harris. Was pt. sent in by a medical professional or institution (, [facility], [facility], urgent care, hospital, or penitentiary...) When possible be specific @ -No Did you speak to anyone other than the patient for history (EMS, parent, family, police, friend...)? What history was obtained from this source @ -No Did you review nursing and triage notes (agree or disagree)? Why? @ -I reviewed and agree with nursing and triage notes Were old charts reviewed (outside hosp., previous admission, EMS record, old EKG, old radiological studies, urgent care reports/EKG's, penitentiary records)? Report findings @ -Lab work drawn for 10/14/22, old EKG 09/23/20 Differential Diagnosis (chest pain, altered mental status, abdominal pain women, abdominal pain men, vaginal bleeding, weakness, fever, dyspnea, syncope, headache, dizziness, GI bleed, back pain, seizure, CVA, palpatations, mental hea lth, musculoskeletal)? @ -Differential Weakness: Hypoglycemia, shock, sepsis, hyponatremia, anemia, infection, [place], ETOH, adverse medicine reaction, overdose, stroke, this is not meant to be an all-inclusive list. EKG interpreted by me (3pts min.). @ -As above X-rays interpreted by me (1pt min.). @ -Yes as above CT interpreted by me (1pt min.). @ -None done U/S interpreted by me (1pt. min.). @ -None done What testing was considered but not performed or refused? (CT, X-rays, U/S, labs)? Why? @ -None What meds were considered but not given or refused? Why? @ -None Did you discuss the management of the patient with other professionals (professionals i.e. , [facility], [facility], lab, RT, psych nurse, social work coordinator, cornetist, teacher, corporate responsibility officer, rn case mgr)? Give summary @ -No Was smoking cessation discussed for >3mins.? @ -No Was critical care preformed (if so, how long)? @ -No Were there social determinants of health that impacted care today? How? (Homelessness, low income, unemployed, alcoholism, drug addiction, transportation, low edu. Level, literacy, decrease access to med. care, longterm, rehab)? @ -No Was there de-escalation of care discussed even if they declined (Discuss DNR or withdrawal of care, Hospice)? DNR status @ -No What co-morbidities impacted this encounter? (DM, HTN, Smoking, COPD, CAD, Cancer, CVA, ARF, Chemo, Hep., AIDS, mental health diagnosis, sleep apnea, morbid obesity)? @ -Coronary artery disease, [place], osteoarthritis, anemia Was patient admitted / discharged? Hospital course, mention meds given and route, prescriptions, significant lab abnormalities, going to OR and other pertinent info. @ -Discharged Undiagnosed new problem with uncertain prognosis? @ -No Drug Therapy requiring intensive monitoring for toxicity (Heparin, Nitro, Insulin, Cardizem)? @ -No Were any procedures done? @ -No Diagnosis/symptom? @ -Fatigue, weakness Acute, or Chronic, or Acute on Chronic? @ -Acute Uncomplicated (without systemic symptoms) or Complicated (systemic symptoms)? @ -Uncomplicated Side effects of treatment? @ -No Exacerbation, Progression, or Severe Exacerbation? @ -No Poses a threat to life or bodily function? How? (Chest pain, [place], [place], pneumonia, PE, COPD, DKA, ARF, appy, cholecystitis, CVA, Diverticulitis, Homicidal, Suicid al, threat to staff... and all critical care pts) @ -No - Lab Data Result diagrams: 10/21/22 07:06 10/21/22 07:06 Lab Results 10/21/22 10/21/22 10/21/22 Range/Units 07:06 07:06 07:06 WBC 5.5 (3.8-10.6) k/uL RBC 4.04 (3.80-5.40) m/uL Hgb 10.3 L (11.4-16.0) gm/dL Hct 33.5 L (34.0-46.0) % MCV 83.0 (80.0-100.0) fL MCH 25.6 (25.0-35.0) pg MCHC 30.8 L (31.0-37.0) g/dL RDW 17.6 H (11.5-15.5) % Plt Count 256 (150-450) k/uL MPV 8.9 Neutrophils % 68 % Lymphocytes % 22 % Monocytes % 5 % Eosinophils % 1 % Basophils % 0 % Neutrophils # 3.7 (1.3-7.7) k/uL Lymphocytes # 1.2 (1.0-4.8) k/uL Monocytes # 0.3 (0-1.0) k/uL Eosinophils # 0.1 (0-0.7) k/uL Basophils # 0.0 (0-0.2) k/uL Hypochromasia Slight Anisocytosis Slight PT 10.4 (9.0-12.0) sec INR 1.0 (<1.2) APTT 21.5 L (22.0-30.0) sec Sodium 139 (137-145) mmol/L Potassium 3.8 (3.5-5.1) mmol/L Chloride 106 (98-107) mmol/L Carbon Dioxide 25 (22-30) mmol/L Anion Gap 8 mmol/L BUN 16 (7-17) mg/dL Creatinine 0.56 (0.52-1.04) mg/dL Est GFR (CKD-EPI)AfAm >90 (>60 ml/min/1.73 sqM) Est GFR (CKD-EPI)NonAf >90 (>60 ml/min/1.73 sqM) Glucose 96 (74-99) mg/dL Plasma Lactic Acid Toney (0.7-2.0) mmol/L Calcium 8.4 (8.4-10.2) mg/dL Magnesium 1.9 (1.6-2.3) mg/dL Total Bilirubin 0.5 (0.2-1.3) mg/dL AST 24 (14-36) U/L ALT 22 (4-34) U/L Alkaline Phosphatase 57 (38-126) U/L Troponin I (0.000-0.034) ng/mL Total Protein 7.1 (6.3-8.2) g/dL Albumin 3.9 (3.5-5.0) g/dL TSH 1.810 (0.465-4.680) mIU/L 10/21/22 10/21/22 Range/Units 07:06 07:06 WBC (3.8-10.6) k/uL RBC (3.80-5.40) m/uL Hgb (11.4-16.0) gm/dL Hct (34.0-46.0) % MCV (80.0-100.0) fL MCH (25.0-35.0) pg MCHC (31.0-37.0) g/dL RDW (11.5-15.5) % Plt Count (150-450) k/uL MPV Neutrophils % % Lymphocytes % % Monocytes % % Eosinophils % % Basophils % % Neutrophils # (1.3-7.7) k/uL Lymphocytes # (1.0-4.8) k/uL Monocytes # (0-1.0) k/uL Eosinophils # (0-0.7) k/uL Basophils # (0-0.2) k/uL Hypochromasia Anisocytosis PT (9.0-12.0) sec INR (<1.2) APTT (22.0-30.0) sec Sodium (137-145) mmol/L Potassium (3.5-5.1) mmol/L Chloride (98-107) mmol/L Carbon Dioxide (22-30) mmol/L Anion Gap mmol/L BUN (7-17) mg/dL Creatinine (0.52-1.04) mg/dL Est GFR (CKD-EPI)AfAm (>60 ml/min/1.73 sqM) Est GFR (CKD-EPI)NonAf (>60 ml/min/1.73 sqM) Glucose (74-99) mg/dL Plasma Lactic Acid Toney 1.3 (0.7-2.0) mmol/L Calcium (8.4-10.2) mg/dL Magnesium (1.6-2.3) mg/dL Total Bilirubin (0.2-1.3) mg/dL AST (14-36) U/L ALT (4-34) U/L Alkaline Phosphatase (38-126) U/L Troponin I <0.012 (0.000-0.034) ng/mL Total Protein (6.3-8.2) g/dL Albumin (3.5-5.0) g/dL TSH (0.465-4.680) mIU/L Disposition Clinical Impression: Weakness, Fatigue Disposition: HOME SELF-CARE Condition: Good Instructions (If sedation given, give patient instructions): Weakness (ED), Fatigue (ED) Additional Instructions: Follow-up with your primary care doctor today as scheduled. Return to the emergency room with any new or concerning symptoms including chest pain, difficulty breathing, or fevers. Is patient prescribed a controlled substance at d/c from ED?: No Referrals: Kentrell Joseph MD [Primary Care Provider] - 1-2 days Time of Disposition: 08:47
[2022-10-21 07:53] LABS: Anisocytosis Slight; Basophils % (A) 0 %; Eosinophils # (A) 0.1 k/uL (0-0.7); Eosinophils % (A) 1 %; HCT 33.5 % (34.0-46.0); HGB 10.3 gm/dL (11.4-16.0); Hypochromasia Slight; Lymphocytes # (A) 1.2 k/uL (1.0-4.8); Lymphocytes % (A) 22 %; MCH 25.6 pg (25.0-35.0); MCHC 30.8 g/dL (31.0-37.0); Mean Platelet Volume 8.9; Monocytes # (A) 0.3 k/uL (0-1.0); Monocytes % (A) 5 %; Neutrophils # (A) 3.7 k/uL (1.3-7.7); Neutrophils % (A) 68 %; Platelet Count 256 k/uL (150-450); RBC 4.04 m/uL (3.80-5.40); RDW 17.6 % (11.5-15.5); WBC 5.5 k/uL (3.8-10.6)
[2022-10-21 08:02] LABS: ALT 22 U/L (4-34); AST 24 U/L (14-36); African American GFR (CKD) >90 (>60 ml/min/1.73 sqM); Albumin 3.9 g/dL (3.5-5.0); Alkaline Phosphatase 57 U/L (38-126); Anion Gap 8 mmol/L; Blood Urea Nitrogen 16 mg/dL (7-17); Calcium 8.4 mg/dL (8.4-10.2); Carbon Dioxide 25 mmol/L (22-30); Chloride 106 mmol/L (98-107); Glucose 96 mg/dL (74-99); Magnesium 1.9 mg/dL (1.6-2.3); Non-African American GFR(CKD) >90 (>60 ml/min/1.73 sqM); Potassium 3.8 mmol/L (3.5-5.1); Sodium 139 mmol/L (137-145); Total Bilirubin 0.5 mg/dL (0.2-1.3); Total Protein 7.1 g/dL (6.3-8.2)
--- NOTE | 2022-10-21 08:04 | XR ---
EXAMINATION TYPE: XR chest 2V DATE OF EXAM: 10/21/2022 7:59 AM COMPARISON: Chest radiographs from 12/25/2019. TECHNIQUE: XR chest 2V Frontal and lateral views of the chest. CLINICAL INDICATION:Female, 52 years old with history of Weakness; FINDINGS: Lungs/Pleura: There is no evidence of pleural effusion, focal consolidation, or pneumothorax. Pulmonary vascularity: Unremarkable. Heart/mediastinum: Cardiomediastinal silhouette is unremarkable. Musculoskeletal: No acute osseous pathology. Mild degenerative changes of the thoracic spine. IMPRESSION: No acute cardiopulmonary disease/process.
[2022-10-21 08:26] LABS: Prothrombin Time 10.4 sec (9.0-12.0)
[2022-10-21 08:34] LABS: Partial Thromboplastin Time 21.5 sec (22.0-30.0)
[2022-10-21 08:59] VITALS: BP 121/69; PULSE 51; RESP 16; TEMP 98.1
== END 2022-10-21 08:54 | disposition home or self-care (01) ==
LOC: EC 06:46
DX: R53.1 Weakness (principal); R53.83 Other fatigue; I25.10 Atherosclerotic heart disease of native coronary artery without angina pectoris; K21.9 Gastro-esophageal reflux disease without esophagitis; I25.2 Old myocardial infarction; M19.90 Unspecified osteoarthritis, unspecified site; Z87.891 Personal history of nicotine dependence; Z88.6 Allergy status to analgesic agent; Z79.82 Long term (current) use of aspirin; Z79.02 Long term (current) use of antithrombotics/antiplatelets; Z79.899 Other long term (current) drug therapy
CPT/HCPCS: 36415; 71046; 80053; 83605; 83735; 84443; 84484; 85025; 85610; 85730; 93005; 99285

== ENCOUNTER → 2022-11-25 | Outpatient (CLI) | payer OTHER ==
[2022-11-25 15:03] LABS: Basophils # (A) 0.05 X 10*3/uL (0.00-0.10); Basophils % (A) 0.8 %; Eosinophils # (A) 0.06 X 10*3/uL (0.04-0.35); Eosinophils % (A) 0.9 %; HCT 42.1 % (37.2-46.3); HGB 12.6 g/dL (12.0-15.0); Immature Grans, Automated 0.3 %; Lymphocytes % (A) 19.9 %; MCH 27.4 pg (27.0-32.0); MCHC 29.9 g/dL (32.0-37.0); MCV 91.5 fL (80.0-97.0); Mean Platelet Volume 12.5 fL (9.5-12.2); Monocytes # (A) 0.38 X 10*3/uL (0.20-1.00); Monocytes % (A) 5.8 %; NRBC Per 100 WBC 0 /100 WBCS (0.0-0.0); Neutrophils # (A) 4.71 X 10*3/uL (1.80-7.70); Neutrophils % (A) 72.3 %; Platelet Count 259 X 10*3/uL (140-440); RDW 20.9 % (11.5-14.5); Reticulocyte % 1.36 % (0.10-1.80); WBC 6.52 X 10*3/uL (4.50-10.00)
[2022-11-25 15:58] LABS: % Iron Saturation 11.46 (12.00-45.00); C Reactive Protein <0.30 mg/dL (0.00-0.80); Ferritin 19.9 ng/mL (10.0-291.0); Iron 52 ug/dL (50-170); Rheumatoid Factor, Qnt <10 IU/mL (0-15); Total Iron Binding Capacity 456 ug/dL (228-460)
[2022-11-25 16:04] LABS: Erythrocyte Sedimentation Rate 20 mm/Hr (0-20)
== END | disposition home or self-care (01) ==
LOC: LABWHC1 07:42
PROVIDERS: ATTEND Family Medicine
DX: D50.9 Iron deficiency anemia, unspecified (principal)
CPT/HCPCS: 36415; 82728; 83540; 83550; 85025; 85045; 85652; 86038; 86140; 86431

== ENCOUNTER → 2023-05-12 | Outpatient (CLI) | payer OTHER ==
--- NOTE | 2023-05-12 12:13 | FL ---
EXAMINATION TYPE: FL barium swallow w video DATE OF EXAM: 05/12/2023 COMPARISON: NONE HISTORY: Dysphagia TECHNIQUE: Fluoroscopy. FINDINGS: Fluoroscopic guidance was provided for the procedure performed in conjunction with the formerly named [facility] pathology department. Please see complete report forthcoming from the Speech Pathology departmen t. Various consistencies from thin liquid to solids were administered. Fluoroscopy time 47 seconds. Number of images: 0. No aspiration or penetration was evident. No significant pooling was observed in the vallecula. There was normal propulsion of the bolus. IMPRESSION: 1. No acute abnormality modified barium swallow
== END | disposition home or self-care (01) ==
LOC: RADFLMAIN 10:41
PROVIDERS: ATTEND Psychiatry & Neurology Neurology
DX: R13.10 Dysphagia, unspecified (principal)
CPT/HCPCS: 74230

== ENCOUNTER 2023-07-01 05:03 | Emergency (ER) | payer OTHER ==
[2023-07-01 05:22] VITALS: TEMP 98.1
[2023-07-01] MEDS ORDERED: Acetaminophen-Codeine 300-30mg TAB PO STA (06:23)
--- NOTE | 2023-07-01 06:47 | ED ---
General Adult HPI - General Chief complaint: Extremity Injury, Upper Stated complaint: Left Arm Pain Time Seen by Provider: 07/01/23 06:09 Source: patient, RN notes reviewed Mode of arrival: ambulatory Limitations: no limitations - History of Present Illness Initial comments: 53-year-old female presents the emergency department with a chief co mplaint of left shoulder pain. Patient reports that she hit her left shoulder on the doorknob on Tuesday06/29/2023. She reports worsening pain that she describes as throbbing and worse with movement ever since. She's been taking Tylenol at home with mild symptomatic improvement. She denies any numbness, tingling or weakness. - Related Data Home Medications Medication Instructions Recorded Confirmed Aspirin [Adult Low Dose Aspirin EC] 81 mg PO DAILY 10/29/17 08/11/22 Clopidogrel [Plavix] 75 mg PO DAILY 02/13/18 08/11/22 Docusate [Colace] 100 mg PO BID 02/13/18 08/11/22 Atorvastatin [Lipitor] 80 mg PO DAILY 08/23/18 08/11/22 Metoprolol Tartrate [Lopressor] 25 mg PO DAILY 08/23/18 08/11/22 lisinopriL [Prinivil] 5 mg PO DAILY 11/22/18 08/11/22 Fluticasone Nasal [place] [Flonase 2 spr EA NOSTRIL DAILY 07/17/19 08/11/22 Nasal [place]] Pregabalin [Lyrica] 75 mg PO HS 07/17/19 08/11/22 Cetirizine HCl [Zyrtec] 10 mg PO DAILY 08/09/22 08/11/22 Famotidine 20 mg PO BID 08/09/22 08/11/22 HYDROcodone/APAP 7.5-325MG [[place] 1 tab PO BID PRN 08/09/22 08/11/22 7.5-325] Metoprolol Tartrate [Lopressor] 12.5 mg PO HS 08/09/22 08/11/22 Pregabalin [Lyrica] 150 mg PO BID 08/09/22 08/11/22 Unk Mulit Vitamin 1 tab PO DAILY 08/09/22 08/11/22 Previous Rx's Medication Instructions Recorded Nitroglycerin Sl Tabs [Nitrostat] 0.4 mg SUBLINGUAL Q5M PRN #25 tab 05/02/18 Allergies Allergy/AdvReac Type Severity Reaction Status Date / Time ibuprofen [From Motrin] AdvReac Unknown Verified 10/21/22 06:50 Review of Systems ROS Statement: Those systems with pertinent positive or pertinent negative responses have been documented in the HPI. ROS Other: All systems not noted in ROS Statement are negative. Past Medical History Past Medical History: Coronary Artery Disease (CAD), Chest Pain / Angina, GERD/Reflux, Myocardial Infarction ([place]), Osteoarthritis (OA) Additional Past Medical History / Comment(s): Pt states she has never been diagnosed with htn or high cholesterol-was placed on meds for these after her [place], hx of anemia, chronic low back pain.sciatic nerve. arthritis in neck, carpal tunnel bilateral wrists. Last Myocardial Infarction Date:: 2017 History of Any Multi-Drug Resistant Organisms: None Reported Past Surgical History: Heart Catheterization, Heart Catheterization With Stent, Uterine Ablation Additional Past Surgical History / Comment(s): Cardiac caths, PCI with a total of 4 stents, uterine ablation, wisdom teeth extractions. Past Anesthesia/Blood Transfusion Reactions: Motion Sickness, Postoperative Nausea & Vomiting (PONV) Additional Past Anesthesia/Blood Transfusion Reaction / Comment(s): no blood transfusions Date of Last Stent Placement:: 02/2018 Past Psychological History: No Psychological Hx Reported Smoking Status: Former smoker Past Alcohol Use History: None Reported Past Drug Use History: None Reported - Past Family History Mother Family Medical History: AFIB Additional Family Medical History / Comment(s): Maternal grandmother also had A fib. Brother(s) Family Medical History: Myocardial Infarction ([place]) Additional Family Medical History / Comment(s): brother at age 42 with [place] Father Family Medical History: Blood Disorder Additional Family Medical History / Comment(s): Father from AIDs. General Exam - General Exam Comments Initial Comments: General: Alert, in no acute distress Head: atraumatic normocephalic. Eyes PERRL, EOMI intact, mucous membranes moist Respiratory: Lungs clear to auscultation bilaterally Cardiovascular: Heart rate regular rate and rhythm Abdominal: Soft without guarding or rebound Extremities: Normal inspection with full range of motion and normal capillary refill, left shoulder with generalized tenderness to palpation. Limited range of motion secondary to pain. Neuroogic: alert and oriented 3, CN II-XII intact, able to ambulate with steady gait Skin: warm dry and intact with normal color Limitations: no limitations Course Vital Signs 07/01/23 07/01/23 05:06 08:20 Temperature 98.1 F 98.1 F Pulse Rate 67 74 Respiratory 18 16 Rate Blood Pressure 155/77 144/78 O2 Sat by Pulse 99 99 Oximetry Medical Decision Making - Medical Decision Making Was pt. sent in by a medical professional or institution (, BRANDON, PRESS DEPARTMENT MANAGER, urgent care, hospital, or senior care...) When possible be specific @ -[No] Did you speak to anyone other than the patient for history (EMS, parent, family, police, friend...)? What history was obtained from this source @ -[No] Did you review nursing and triage notes (agree or disagree)? Why? @ -[I reviewed and agree with nursing and triage notes] Were old charts reviewed (outside hosp., previous admission, EMS record, old EKG, old radiological studies, urgent care reports/EKG's, senior care records)? Report findings @ -[No old charts were reviewed] Differential Diagnosis (chest pain, altered mental status, abdominal pain women, abdominal pain men, vaginal bleeding, weakness, fever, dyspnea, syncope, headache, dizziness, GI bleed, back pain, seizure, CVA, palpatations, mental health, musculoskeletal)? @ -[not applicable] EKG interpreted by me (3pts min.). @ -[As above] X-rays interpreted by me (1pt min.). @ -X-ray of left shoulder and elbow do not reveal any acute fracture or dislocation. There is a humeral spur however. CT interpreted by me (1pt min.). @ -[None done] U/S interpreted by me (1pt. min.). @ -[None done] What testing was considered but not performed or refused? (CT, X-rays, U/S, labs)? Why? @ -[None] What meds were considered but not given or refused? Why? @ -[None] Did you discuss the management of the patient with other professionals ( professionals i.e. BRANDON Ivy, PRESS DEPARTMENT MANAGER, lab, RT, psych nurse, dialysis social worker, freelance interpreter/translator, teacher, promotion officer, casey saw operator)? Give summary @ -[No] Was smoking cessation discussed for >3mins.? @ -[No] Was critical care preformed (if so, how long)? @ -[No] Were there social determinants of health that impacted care today? How? (Homelessness, low income, unemployed, alcoholism, drug addiction, transportation, low edu. Level, literacy, decrease access to med. care, fdc, rehab)? @ -[No] Was there de-escalation of care discussed even if they declined (Discuss DNR or withdrawal of care, Hospice)? DNR status @ -[No] What co-morbidities impacted this encounter? (DM, HTN, Smoking, COPD, CAD, Cancer, CVA, ARF, Chemo, Hep., AIDS, mental health diagnosis, sleep apnea, morbid obesity)? @ -[None] Was patient admitted / discharged? Hospital course, mention meds given and route, prescriptions, significant lab abnormalities, going to OR and other pertinent info. @ -Discharged. This is a 53-year-old female who presents the emergency department with left shoulder pain. Patient had a thorough history and physical exam performed. Left shoulder with generalized shoulder tenderness with palpation. Limited range of motion secondary to pain. Distal neurovascular intact. 2+ radial pulses. Patient had x-rays which were negative for any acute fracture or dislocation. She was provided Motrin was symptomatically improvement. Return precautions were discussed. Discharged in stable condition and all questions were addressed. Case is discussed with Dr. Blanchard, ED attending who agrees with plan of care Undiagnosed new problem with uncertain prognosis? @ -[No] Drug Therapy requiring intensive monitoring for toxicity (Heparin, Nitro, Insulin, Cardizem)? @ -[No] Were any procedures done? @ -[No] Diagnosis/symptom? @ -Left Shoulder Pain Acute, or Chronic, or Acute on Chronic? @ -Acute Uncomplicated (without systemic symptoms) or Complicated (systemic symptoms)? @ -Uncomplicated Side effects of treatment? @ -[No] Exacerbation, Progression, or Severe Exacerbation? @ -[No] Poses a threat to life or bodily function? How? (Chest pain, [place], [place], pneumonia, PE, COPD, DKA, ARF, appy, cholecystitis, CVA, Diverticulitis, Homicidal, Suicidal, threat to staff... and all critical care pts) @ -Low likelihood Disposition Clinical Impression: Bone spur Disposition: HOME SELF-CARE Condition: Stable Instructions (If sedation given, give patient instructions): Arthralgia (ED), Shoulder Pain (ED) Additional Instructions: Follow-up with her PCP in 3-5 days Please return if worsening pain, swelling, develop Is patient prescribed a controlled substance at d/c from ED?: No Referrals: Kentrell Joseph MD [Primary Care Provider] - 1-2 days Mary Gonzalez DO [Doctor of Osteopathic Medicine] - 1-2 days Time of Disposition: 08:11
--- NOTE | 2023-07-01 07:47 | XR ---
EXAMINATION TYPE: XR humerus 2 views LT, XR forearm 2 views LT DATE OF EXAM: 07/01/2023 COMPARISON: NONE HISTORY: 53-year-old female with injury after hitting elbow on door. Worsening pain and throbbing. FINDINGS: Left shoulder: There is a calcific focus measuring 1.4 cm adjacent to the greater tuberosity. Mild to moderate degen erative change AC joint. No humeral shaft fracture seen. Forearm: Minimal spurring at the medial epicondyle. There is a posterior olecranon spur. No elbow joint effusi on identified. No acute fracture, subluxation, or dislocation seen. IMPRESSION: 1. Left shoulder: A 1.4 cm calcification adjacent to the greater tuberosity. This may be seen in sett ing of calcific tendinitis. Clinically correlate. Otherwise, no acute osseous anomaly seen. 2. Left forearm: Chronic bone spur from the olecranon. No elbow joint effusion or acute osseous abnor mality seen.
[2023-07-01] MEDS ORDERED: ACET/COD 300 MG/30 MG STARTER PACK 6 TAB BTL PO STA (08:13)
[2023-07-01 08:41] VITALS: BP 144/78; PULSE 74; RESP 16
== END 2023-07-01 08:32 | disposition home or self-care (01) ==
LOC: EC 05:03
DX: M77.9 Enthesopathy, unspecified (principal); I25.10 Atherosclerotic heart disease of native coronary artery without angina pectoris; I25.2 Old myocardial infarction; K21.9 Gastro-esophageal reflux disease without esophagitis; Z79.82 Long term (current) use of aspirin; Z79.02 Long term (current) use of antithrombotics/antiplatelets; Z79.899 Other long term (current) drug therapy; Z87.891 Personal history of nicotine dependence; Z88.6 Allergy status to analgesic agent; Z95.5 Presence of coronary angioplasty implant and graft
CPT/HCPCS: 99283

== ENCOUNTER 2023-08-10 08:18 | Day surgery (SDC) | payer OTHER ==
--- NOTE | 2023-08-08 15:32 | P.HPOR ---
History of Present Illness H&P Date: 08/08/23 Subjective: This is a 52 year old female that presents today for follow up evaluation regarding left lateral elbow pain and hand paresthesias. The steroid injection for her lateral epicondylitis improved her symptoms but they have started to return over the last month. Her paresthesias in the thumb index, and middle fingers have been present for 10 years and are no longer responding to conservative treatment with bracing. Physical Examination: LUE: AIN/PIN/Radial/Ulnar/Median motor intact. Radial/Ulnar/Median SILT. 2+/4 Radial/Ulnar pulses palpated. 5/5 APB, 5/5 FDI. Negative Finkelsteins, negative CMC grind, Positive Durkan's compression. Pain with resisted wrist extension with TTP over ECRB. Pain with resisted elbow extension or wrist flexion. Impression: 1.) Left lateral epicondylitis 2.) Left carpal tunnel syndrome Plan: Diagnosis and treatment options were discussed with the patient. She has failed over 2 years of conservative treatment for her lateral epicondylitis with multiple injections and would like to pursue surgery with left lateral epicondylar debridement as well as as left endoscopic vs open carpal tunnel release. Risks and benefits of surgery including bleeding, infection, damage to surrounding tissue, need for further surgery, possible need to convert to open procedure, residual numbness were discussed and the patient wished to go forward with surgery. I anticipate 4 to 6 weeks off of work post operatively. PCP clearance is requested. CC: Dr. Kentrell Joseph -John Ramey DO Orthopedic Hand/Upper Extremity Surgeon Past Medical History Past Medical History: Coronary Artery Disease (CAD), Chest Pain / Angina, GERD/Reflux, Myocardial Infarction ([place]), Osteoarthritis (OA) Additional Past Medical History / Comment(s): Pt states she has never been diagnosed with htn or high cholesterol-was placed on meds for these after her [place], hx of anemia, chronic low back pain.sciatic nerve. arthritis in neck, carpal tunnel bilateral wrists. Last Myocardial Infarction Date:: 2017 History of Any Multi-Drug Resistant Organisms: None Reported Past Surgical History: Heart Catheterization, Heart Catheterization With Stent, Uterine Ablation Additional Past Surgical History / Comment(s): Cardiac caths, PCI with a total of 4 stents, uterine ablation, wisdom teeth extractions. Past Anesthesia/Blood Transfusion Reactions: Motion Sickness, Postoperative Nausea & Vomiting (PONV) Additional Past Anesthesia/Blood Transfusion Reaction / Comment(s): no blood transfusions Date of Last Stent Placement:: 02/2018 Past Psychological History: No Psychological Hx Reported Smoking Status: Former smoker Past Alcohol Use History: None Reported Past Drug Use History: None Reported - Past Family History Mother Family Medical History: AFIB Additional Family Medical History / Comment(s): Maternal grandmother also had A fib. Brother(s) Family Medical History: Myocardial Infarction ([place]) Additional Family Medical History / Comment(s): brother at age 42 with [place] Father Family Medical History: Blood Disorder Additional Family Medical History / Comment(s): Father from AIDs. Medications and Allergies Home Medications Medication Instructions Recorded Confirmed Type Aspirin [Adult Low Dose Aspirin EC] 81 mg PO DAILY 10/29/17 08/11/22 History Nitroglycerin Sl Tabs [Nitrostat] 0.4 mg SUBLINGUAL Q5M PRN #25 tab 11/02/17 08/11/22 Rx Clopidogrel [Plavix] 75 mg PO DAILY 02/13/18 08/11/22 History Docusate [Colace] 100 mg PO BID 02/13/18 08/11/22 History Atorvastatin [Lipitor] 80 mg PO DAILY 08/23/18 08/11/22 History Metoprolol Tartrate [Lopressor] 25 mg PO DAILY 08/23/18 08/11/22 History lisinopriL [Prinivil] 5 mg PO DAILY 11/22/18 08/11/22 History Fluticasone Nasal [place] [Flonase 2 spr EA NOSTRIL DAILY 07/17/19 08/11/22 History Nasal [place]] Pregabalin [Lyrica] 75 mg PO HS 07/17/19 08/11/22 History Cetirizine HCl [Zyrtec] 10 mg PO DAILY 08/09/22 08/11/22 History Famotidine 20 mg PO BID 08/09/22 08/11/22 History HYDROcodone/APAP 7.5-325MG [[place] 1 tab PO BID PRN 08/09/22 08/11/22 History 7.5-325] Metoprolol Tartrate [Lopressor] 12.5 mg PO HS 08/09/22 08/11/22 History Pregabalin [Lyrica] 150 mg PO BID 08/09/22 08/11/22 History Unk Mulit Vitamin 1 tab PO DAILY 08/09/22 08/11/22 History Allergies Allergy/AdvReac Type Severity Reaction Status Date / Time ibuprofen [From Motrin] AdvReac Unknown Verified 10/21/22 06:50 Physical Examination Osteopathic Statement: *. No significant issues noted on an osteopathic structural exam other than those noted in the History and Physical/Consult.
[2023-08-09 09:07] VITALS: BMI 35.6
[~2023-08-10 08:18] MED LIST changes: -DEXAMETHASONE SOD PHOSPHATE 10 MG/ML 1 ML VIAL IV ONE; +HYDROmorphone 0.5 MG/0.5 ML SYRINGE IVP PRN; -LACTATED RINGERS 1,000 ML IV SCH; +LIDOCAINE 1% (10MG/ML) FOR IV START INTRADERMA PRN; -LIDOCAINE 1% 20 ML VIAL (10MG/ML) FOR IV START INTRADERMA PRN; -MIDAZOLAM (PF) 2 MG/2 ML VIAL IV PRN; +MIDAZOLAM 2 MG/2 ML VIAL IV PRN; +Pre Op ABX Message 1 EACH MISC MISCELLANE ONE; -ceFAZolin IN SWFI 2 GM/20 ML SYRINGE IVP ONE; -fentaNYL (PF) 50 MCG/ML 2 ML AMP IV PRN
[2023-08-10 08:40] VITALS: RESP 16; TEMP 97.1
[2023-08-10] MEDS: LACTATED RINGERS 1,000 ML IV SCH (08:40)
[2023-08-10] MEDS: DEXAMETHASONE SOD PHOSPHATE 4 MG/ML 1 ML VIAL IV ONE (08:45)
[2023-08-10] MEDS: ONDANSETRON 4 MG/2 ML VIAL IVP ONE (08:45)
[2023-08-10] MEDS: MIDAZOLAM 2 MG/2 ML VIAL IVP ONE ×2 (08:53→08:55)
[2023-08-10] MEDS: fentaNYL (PF) 50 MCG/1 ML VIAL IVP ONE ×2 (08:54→08:55)
[2023-08-10] MEDS ORDERED: DEXAMETHASONE SOD PHOSPHATE 4 MG/ML 1 ML VIAL ONE (08:59)
[2023-08-10] MEDS ORDERED: MIDAZOLAM 2 MG/2 ML VIAL ONE (08:59)
[2023-08-10] MEDS ORDERED: ROPIVACAINE 5 MG/ML 30 ML VIAL ONE (08:59)
[2023-08-10] MEDS ORDERED: PROPOFOL 10 MG/ML 20 ML VIAL IV ONE (08:59)
[2023-08-10] MEDS ORDERED: fentaNYL (PF) 50 MCG/ML 2 ML AMP ONE (08:59)
[2023-08-10] MEDS: LIDOCAINE 2% (PF) 20 MG/ML 10 ML AMP SQ ONE ×2 (09:03)
[2023-08-10] MEDS: BUPIVACAINE (PF) 0.5% 30 ML VIAL SQ ONE ×2 (09:03)
[2023-08-10] MEDS: SODIUM CHLORIDE 0.9% 100 ML with ceFAZolin 2,000 MG IV ONE (09:04)
--- NOTE | 2023-08-10 09:19 | P.ANPRN ---
Procedure Note - Anesthesia - Nerve Block Performed Left Supraclavicular Single Time Out Performed: Yes Date of Procedure: 08/10/23 Procedure Start Time: 08:53 Procedure Stop Time: 09:01 Location of Patient: PreOp Indication: Acute Post-Operative Pain, Requested by Surgeon Sedation Type: Sedate with meaningful contact maintained Preparation: Sterile Prep Needle Types: Pajunk Needle Gauge: 21 Ultrasound used to visualize needle placement: Yes Ultrasound used to observe medication spread: Yes Injectate: 0.5% Ropivacaine (see comment for volume) (30 ml + 4 mg Dexamethasone) Blood Aspirated: No Pain Paresthesia on Injection Noted: No Resistance on Injection: Normal Image Stored and Saved: Yes Events: Uneventful and Well Tolerated
[2023-08-10 10:43] VITALS: BP 117/67; PULSE 59
--- NOTE | 2023-08-10 11:37 | P.OP ---
Date of Procedure: 08/10/23 Preoperative Diagnosis: 1.) Left carpal tunnel syndrome 2.) Left lateral epicondylitis Postoperative Diagnosis: 1.) Left carpal tunnel syndrome 2.) Left lateral epicondylitis Procedure(s) Performed: 1.) Left endoscopic carpal tunnel release 2.) Left lateral epicondylar debridement with extensor tendon release with subsequent repair at level of elbow Anesthesia: regional Surgeon: John Ramey Employment Attorney #1: Vinay Owusu Estimated Blood Loss (ml): 10 Pathology: none sent Condition: stable Disposition: PACU Description of Procedure: This is a 53 year old female who presents today for surgical intervention for left lateral epicondylitis and left carpal tunnel syndrome that has failed extensive conservative treatment. Risks and benefits of surgery were discussed with the patient including bleeding, damage to surrounding tissue, infection, need for further surgery as well as risks of anesthesia including pulmonary embolism and even and the patient wished to proceed with surgical intervention. The patient was seen in the pre-operative area by myself. Consent and H&P were completed and updated. The correct extremity was marked in the pre- operative area by myself and all other questions were answered. Operative Narrative: The patient was brought to the operating room by the department of anesthesia. They remained on the portable stretcher and a rolling hand table was brought to the side of the operative extremity. Pre-operative time out was performed indicating the correct patient, procedure and laterality. All in the room agreed. Pre-operative antibiotics were given prior to skin incision. The patient was then drifted off to sleep by the department of anesthesia .A nonsterile tourniquet was then applied to the operative extremity and the left upper extremity was then prepped and draped in normal sterile fashion. The operative extremity was the exsanguinated with an esmarch bandage and the tourniquet was inflated to 250mmHg. 15 blade scalpel was utilized to make a transverse incision on the palmar skin just ulnar to the palmaris longus tendon at the level of the distal wrist crease. Ragnell retractor was then placed radially and blunt dissection was performed to reveal the distal forearm fascia. This was lifted with fine Abner pick ups and Littler tenotomy scissors were then used to open the forearm fascia transversely and a double skin hook was then placed. Hamate finder was placed into the carpal tunnel and then sequential sized dilators were inserted followed by the synovial elevator to separate the flexor tenosynovium from the undersurface of the transverse carpal ligament and a washboard texture was felt. The MicroAire endoscopic carpal tunnel release system gun was the then inserted into the carpal tunnel hugging the deep portion of the transverse carpal ligament in line with the base of the ring finger. Transverse fibers of the ligament were directly visualized. Pressure was applied on the palm to reveal the distal extent of the transverse carpal ligament. The blade was then deployed and the distal half of the transverse carpal ligament was released. The scope was then brought distal again and remaining transverse fibers were incised with the blade. The proximal half of the transverse carpal ligament was then divided and again the scope was advanced distal and remaining transverse fibers were incised with the blade. The radial and ulnar leaflets were directly visualized and mobile consistent with complete release. Tenotomy scissors were then utilized to release the remaining distal forearm fascia under direct visualization taking care to preserve the palmar cutaneous branch of the median nerve. Skin closure was performed with interrupted 4-0 Monocryl suture. A longitudinal skin incision was made with a 15 blade scalpel overlying the lateral epicondyle with extension distally. Blunt dissection was taken down to the common extensor tendon origin. This was sharply incised longitudinal and sen retractors were then placed deep to the common extensor tendon which revealed t he extensively inflamed and degenerative ECRB tendon origin. The degenerative tissue was then sharply excised. The lateral epicondyle was the decorticated with a rongeur down to bleeding bone taking care to remain anterior to the origin of the LUCL. The wound was then irrigated. A side to side tendon repair was performed utilizing 3-0 Vicryl suture incorporating the common extensor tendon. The elbow as then stressed with varus and valgus stress and was stable at all degrees of motion. Closure was then performed with 4-0 monocryl suture. A sterile dressing consisting of mastisol, steri strips, 4x4s, webril and an cindy wrap and sling was applied. Vinay TAYLOR was present for the case to assist in major portions of the procedure. The patient was then woken by the department of anesthesia and transferred to PACU in stable condition. John Ramey D.O. Orthopedic Hand/Upper Extremity Surgeon
== END 2023-08-10 10:39 | disposition home or self-care (01) ==
LOC: OR 08:18
PROVIDERS: ATTEND Orthopaedic Surgery Hand Surgery
DX: G56.02 Carpal tunnel syndrome, left upper limb (principal); M77.12 Lateral epicondylitis, left elbow; G89.18 Other acute postprocedural pain; I25.10 Atherosclerotic heart disease of native coronary artery without angina pectoris; K21.9 Gastro-esophageal reflux disease without esophagitis; I25.2 Old myocardial infarction; M19.90 Unspecified osteoarthritis, unspecified site; Z82.49 Family history of ischemic heart disease and other diseases of the circulatory system; D64.9 Anemia, unspecified; G89.29 Other chronic pain; Z95.5 Presence of coronary angioplasty implant and graft; Z98.890 Other specified postprocedural states; Z87.891 Personal history of nicotine dependence; Z79.82 Long term (current) use of aspirin; Z79.02 Long term (current) use of antithrombotics/antiplatelets; Z79.899 Other long term (current) drug therapy; Z88.6 Allergy status to analgesic agent
CPT/HCPCS: 81025; 64415; 29848; 26418; 24358; J2250; J1100; J2405; J0690; J3010 ×2; J2795; J2704

== ENCOUNTER 2024-03-14 06:10 | Observation (INO) | payer BC, OTHER ==
[2024-03-14] MEDS: ASPIRIN 81 MG PO STA (06:27)
--- NOTE | 2024-03-14 06:31 | ED ---
Chest Pain HPI - General Chief Complaint: Chest Pain Stated Complaint: Chest Pain Time Seen by Provider: 03/14/24 06:16 Source: patient, family, RN notes reviewed Mode of arrival: ambulatory Limitations: no limitations - History of Present Illness Initial Comments: 53-year-old female presents emergency department with chief complaint of chest pain. Patient states started this morning/overnight. Patient states that she has centralized chest pain rating down her left arm into her left jaw region. She has significant cardiac history with stent placement, states that she was a former smoker. Patient states she was placed on medication for hyperlipidemia. Patient states that she did tear tried nitro but did not alleviate her symptoms. She states she had symptoms couple weeks ago with notes after did alleviate her symptoms. Patient denies any fevers or chills no significant diaphoretic episodes minimal nausea. Patient denies any leg pain, leg swelling denies any recent URI symptoms no other complaints. - Related Data Home Medications Medication Instructions Recorded Confirmed Aspirin [Adult Low Dose Aspirin EC] 81 mg PO DAILY 10/29/17 08/09/23 Clopidogrel [Plavix] 75 mg PO DAILY 02/13/18 08/09/23 Docusate [Colace] 100 mg PO BID 02/13/18 08/09/23 Atorvastatin [Lipitor] 80 mg PO DAILY 08/23/18 08/09/23 Metoprolol Tartrate [Lopressor] 25 mg PO DAILY 08/23/18 08/09/23 lisinopriL [Prinivil] 5 mg PO DAILY 11/22/18 08/09/23 Pregabalin [Lyrica] 75 mg PO HS 07/17/19 08/09/23 Cetirizine HCl [Zyrtec] 10 mg PO DAILY 08/09/22 08/09/23 Famotidine 20 mg PO BID 08/09/22 08/09/23 HYDROcodone/APAP 7.5-325MG [[place] 1 tab PO BID PRN 08/09/22 08/09/23 7.5-325] Metoprolol Tartrate [Lopressor] 12.5 mg PO HS 08/09/22 08/09/23 Pregabalin [Lyrica] 150 mg PO BID 08/09/22 08/09/23 Ferrous Sulfate [Feosol] 325 mg PO BID 08/09/23 08/09/23 Previous Rx's Medication Instructions Recorded Nitroglycerin Sl Tabs [Nitrostat] 0.4 mg SUBLINGUAL Q5M PRN #25 tab 11/02/17 Allergies Allergy/AdvReac Type Severity Reaction Status Date / Time ibuprofen [From Motrin] AdvReac ON PLAVIX Verified 03/14/24 06:14 Review of Systems ROS Statement: Those systems with pertinent positive or pertinent negative responses have been documented in the HPI. ROS Other: All systems not noted in ROS Statement are negative. EKG Findings - EKG Comments: EKG Findings:: EKG performed at 6: 20 sinus rhythm rate 62 UT 164 QRS 84 QT/QTc 409/415 - EKG Results: EKG: interpreted by MAUREEN Past Medical History Past Medical History: Coronary Artery Disease (CAD), Chest Pain / Angina, GERD/Reflux, Myocardial Infarction ([place]), Osteoarthritis ([place]) Additional Past Medical History / Comment(s): Pt states she has never been diagnosed with htn or high cholesterol-was placed on meds for these after her [place], hx of anemia, chronic low back pain.sciatic nerve. arthritis in neck, carpal tunnel bilateral wrists. Last Myocardial Infarction Date:: 2017 History of Any Multi-Drug Resistant Organisms: None Reported Past Surgical History: Heart Catheterization, Heart Catheterization With Stent, Uterine Ablation Additional Past Surgical History / Comment(s): Cardiac caths, PCI with a total of 4 stents, uterine ablation, wisdom teeth extractions. COLONOSCOPY Past Anesthesia/Blood Transfusion Reactions: Motion Sickness, Postoperative Nausea & Vomiting (PONV) Additional Past Anesthesia/Blood Transfusion Reaction / Comment(s): no blood transfusions Date of Last Stent Placement:: 02/2018 Past Psychological History: No Psychological Hx Reported Smoking Status: Former smoker Past Alcohol Use History: None Reported Past Drug Use History: None Reported - Past Family History Mother Family Medical History: AFIB Additional Family Medical History / Comment(s): Maternal grandmother also had A fib. Brother(s) Family Medical History: Myocardial Infarction ([place]) Additional Family Medical History / Comment(s): brother at age 42 with [place] Father Family Medical History: Blood Disorder Additional Family Medical History / Comment(s): Father from AIDs. General Exam Limitations: no limitations General appearance: alert, in no apparent distress Head exam: Present: atraumatic, normocephalic, normal inspection Eye exam: Present: normal appearance, PERRL, EOMI. Absent: scleral icterus, conjunctival injection, periorbital swelling ENT exam: Present: normal exam, normal oropharynx, mucous membranes moist Neck exam: Present: normal inspection, full ROM. Absent: tenderness, meningismus, lymphadenopathy Respiratory exam: Present: normal lung sounds bilaterally. Absent: respiratory distress, wheezes, rales, rhonchi, stridor Cardiovascular Exam: Present: regular rate, normal rhythm, normal heart sounds. Absent: systolic murmur, diastolic murmur, rubs, gallop, clicks GI/Abdominal exam: Present: soft, normal bowel sounds. Absent: distended, tenderness, guarding, rebound, rigid Neurological exam: Present: alert, oriented X3, CN II-XII intact Course Vital Signs 03/14/24 06:11 Temperature 97.5 F L Pulse Rate 70 Respiratory 18 Rate Blood Pressure 133/75 O2 Sat by Pulse 99 Oximetry Chest Pain MDM - MDM Was pt. sent in by a medical professional or institution (, PA, ACCOUNTS RECEIVABLE ASSOCIATE, urgent care, hospital, or shelter...) When possible be specific @ -No Did you speak to anyone other than the patient for history (EMS, parent, family, police, friend...)? What history was obtained from this source @ -No Did you review nursing and triage notes (agree or disagree)? Why? @ -I reviewed and agree with nursing and triage notes Were old charts reviewed (outside hosp., previous admission, EMS record, old EKG, old radiological studies, urgent care reports/EKG's, shelter records)? Report findings @ -Reviewed prior heart cath in 2019 Differential Diagnosis (chest pain, altered mental status, abdominal pain women, abdominal pain men, vaginal bleeding, weakness, fever, dyspnea, syncope, headache, dizziness, GI bleed, back pain, seizure, CVA, palpatations, mental health, musculoskeletal)? @ -Differential Chest Pain: Stable Angina, Unstable Angina, STEMI, NSTEMI Aortic Dissection, Pneumothorax, Musculoskeletal, Esophageal Spasm GERD, Cholecystitis, Pancreatitis, Zoster, this is not meant to be an all-inclusive list. EKG interpreted by me (3pts min.). @ -As above X-rays interpreted by me (1pt min.). @ -Chest x-ray shows no acute cardiopulmonary process CT interpreted by me (1pt min.). @ -None done U/S interpreted by me (1pt. min.). @ -None done What testing was considered but not performed or refused? (CT, X-rays, U/S, labs)? Why? @ -None What meds were considered but not given or refused? Why? @ -None Did you discuss the management of the patient with other professionals (professionals i.e. DrJoni, PA, ACCOUNTS RECEIVABLE ASSOCIATE, lab, RT, psych nurse, thermometer production worker, cafeteria operator, teacher, employment security officer, case specialist)? Give summary @ -EMH for admission Was smoking cessation discussed for >3mins.? @ -No Was critical care preformed (if so, how long)? @ -No Were there social determinants of health that impacted care today? How? (Homelessness, low income, unemployed, alcoholism, drug addiction, transportation, low edu. Level, literacy, decrease access to med. care, [facility], rehab)? @ -No Was there de-escalation of care discussed even if they declined (Discuss DNR or withdrawal of care, Hospice)? DNR status @ -No What co-morbidities impacted this encounter? (DM, HTN, Smoking, COPD, CAD, Cancer, CVA, ARF, Chemo, Hep., AIDS, mental health diagnosis, sleep apnea, morbid obesity)? @ -CAD Was patient admitted / discharged? Hospital course, mention meds given and rou te, prescriptions, significant lab abnormalities, going to OR and other pertinent info. @ -Admitted patient presented for chest pain concerning ACS symptoms. Patient has significant CAD history initial troponin is negative patient be admitted for echocardiogram, cardiology evaluation repeat troponin Undiagnosed new problem with uncertain prognosis? @ -No Drug Therapy requiring intensive monitoring for toxicity (Heparin, Nitro, Insulin, Cardizem)? @ -No Were any procedures done? @ -No Diagnosis/symptom? @ -Chest pain Acute, or Chronic, or Acute on Chronic? @ -Acute Uncomplicated (without systemic symptoms) or Complicated (systemic symptoms)? @ -Uncomplicated Side effects of treatment? @ -No Exacerbation, Progression, or Severe Exacerbation? @ -No Poses a threat to life or bodily function? How? (Chest pain, [place], [place], pneumonia, PE, COPD, DKA, ARF, appy, cholecystitis, CVA, Diverticulitis, Homicidal, Suicidal, threat to staff... and all critical care pts) @ -No Disposition Clinical Impression: Chest pain Disposition: ADMITTED IP TO THIS HOSP Condition: Fair Referrals: Kentrell Joseph MD [Primary Care Provider] - 1-2 days Time of Disposition: 08:24
[2024-03-14] MEDS: KETOROLAC 15 MG/ML 1 ML VIAL IVP STA (06:43)
[2024-03-14 06:44] LABS: Basophils % (A) 1 %; Eosinophils # (A) 0.1 k/uL (0-0.7); Eosinophils % (A) 2 %; HCT 41.8 % (34.0-46.0); HGB 13.2 gm/dL (11.4-16.0); Lymphocytes # (A) 1.3 k/uL (1.0-4.8); Lymphocytes % (A) 26 %; MCHC 31.7 g/dL (31.0-37.0); Mean Platelet Volume 8.6; Monocytes # (A) 0.2 k/uL (0-1.0); Monocytes % (A) 5 %; Neutrophils # (A) 3.3 k/uL (1.3-7.7); Neutrophils % (A) 65 %; Platelet Count 237 k/uL (150-450); RBC 4.14 m/uL (3.80-5.40); RDW 12.2 % (11.5-15.5); WBC 5.1 k/uL (3.8-10.6)
[2024-03-14 06:53] LABS: ALT 34 U/L (4-34); African American GFR (CKD) >90 (>60 ml/min/1.73 sqM); Anion Gap 6 mmol/L; Blood Urea Nitrogen 18 mg/dL (7-17); Carbon Dioxide 28 mmol/L (22-30); Chloride 107 mmol/L (98-107); Glucose 113 mg/dL (74-99); Non-African American GFR(CKD) >90 (>60 ml/min/1.73 sqM); Sodium 141 mmol/L (137-145)
[2024-03-14 06:57] LABS: Potassium 4.4 mmol/L (3.5-5.1)
[2024-03-14 06:58] LABS: AST 52 U/L (14-36); Alkaline Phosphatase 52 U/L (38-126); Total Bilirubin 0.9 mg/dL (0.2-1.3); Total Protein 7.2 g/dL (6.3-8.2)
[2024-03-14 07:02] LABS: NT-Pro-B-Type Natriuretic Pept 122 pg/mL
[2024-03-14 07:03] LABS: INR 0.9 (<1.2); Partial Thromboplastin Time 22.3 sec (22.0-30.0); Prothrombin Time 10.2 sec (10.0-12.5)
--- NOTE | 2024-03-14 07:46 | XR ---
EXAM: XR Chest, 1 View CLINICAL HISTORY: Reason: Chest Pain TECHNIQUE: Frontal view of the chest. COMPARISON: 10/21/22 FINDINGS: Lungs: Normal lung volumes. No evidence of airspace consolidation. No pulmonary edema. Pleural space: Unremarkable. No pneumothorax. No significant pleural effusions. Heart: Unremarkable. No cardiomegaly. Mediastinum: Unremarkable. Normal mediastinal contour. Bones/joints: Unremarkable. No acute fracture. IMPRESSION: There is no evidence of active cardiopulmonary abnormality.
[2024-03-14] MEDS ORDERED: NITROGLYCERIN SL TABS 0.4 MG TAB SUBLINGUAL PRN ×3 (08:21→12:16)
--- NOTE | 2024-03-14 09:20 | P.HPIM ---
History of Present Illness This is a pleasant 53 years old female who presents because of chest pain of 1 day duration. Patient says 2 days ago also she had chest pain which is resolved. This time comes with chest pain of 1 day duration on the left side 6/10 in severity radiating to the left arm and shoulder felt like sharp with no specific precipitating or relieving factors per patient but associated with significant tenderness Patient denies any other complaint like no shortness of breath or coughing. No other GI/ symptoms. No headache dizziness weakness or numbness Patient denies smoking alcohol or illicit drugs Hemodynamically stable and afebrile Labs unremarkable including CBC, BMP, liver enzymes, INR First troponin is negative less than 0.012 proBNP 122 Chest x-ray is negative for acute process EKG sinus rhythm at [address]-T changes Patient started on aspirin 325 mg in the emergency room, at home she takes Plavix Review of Systems Review of systems CONSTITUTIONAL: No fever, no malaise, no fatigue. HEENT: No recent visual problems or hearing problems. Denied any sore throat. CARDIOVASCULAR: No orthopnea, PND, no palpitations, no syncope. PULMONARY: No shortness of breath, no cough, no hemoptysis. GASTROINTESTINAL: No diarrhea, no nausea, no vomiting, no abdominal pain. Normoactive bowel sounds. NEUROLOGICAL: No headaches, no weakness, no numbness. HEMATOLOGICAL: Denies any bleeding or petechiae. GENITOURINARY: Denies any burning micturition, frequency, or urgency. MUSCULOSKELETAL/RHEUMATOLOGICAL: Denies any joint pain, swelling, or any muscle pain. ENDOCRINE: Denies any polyuria or polydipsia. Past Medical History Past Medical History: Coronary Artery Disease (CAD), Chest Pain / Angina, GERD/Reflux, Myocardial Infarction ([place]), Osteoarthritis ([place]) Additional Past Medical History / Comment(s): Pt states she has never been diagnosed with htn or high cholesterol-was placed on meds for these after her [place], hx of anemia, chronic low back pain.sciatic nerve. arthritis in neck, carpal tunnel bilateral wrists. Last Myocardial Infarction Date:: 2017 History of Any Multi-Drug Resistant Organisms: None Reported Past Surgical History: Heart Catheterization, Heart Catheterization With Stent, Uterine Ablation Additional Past Surgical History / Comment(s): Cardiac caths, PCI with a total of 4 stents, uterine ablation, wisdom teeth extractions. COLONOSCOPY Past Anesthesia/Blood Transfusion Reactions: Motion Sickness, Postoperative Nausea & Vomiting (PONV) Additional Past Anesthesia/Blood Transfusion Reaction / Comment(s): no blood transfusions Date of Last Stent Placement:: 02/2018 Past Psychological History: No Psychological Hx Reported Smoking Status: Former smoker Past Alcohol Use History: None Reported Past Drug Use History: None Reported - Past Family History Mother Family Medical History: AFIB Additional Family Medical History / Comment(s): Maternal grandmother also had A fib. Brother(s) Family Medical History: Myocardial Infarction ([place]) Additional Family Medical History / Comment(s): brother at age 42 with [place] Father Family Medical History: Blood Disorder Additional Family Medical History / Comment(s): Father from AIDs. Medications and Allergies Home Medications Medication Instructions Recorded Confirmed Type Aspirin [Adult Low Dose Aspirin EC] 81 mg PO DAILY 10/29/17 03/14/24 History Nitroglycerin Sl Tabs [Nitrostat] 0.4 mg SUBLINGUAL Q5M PRN #25 tab 11/02/17 03/14/24 Rx Clopidogrel [Plavix] 75 mg PO DAILY 02/13/18 03/14/24 History Docusate [Colace] 100 mg PO BID 02/13/18 03/14/24 History Atorvastatin [Lipitor] 80 mg PO DAILY 08/23/18 03/14/24 History Metoprolol Tartrate [Lopressor] 25 mg PO DAILY 08/23/18 03/14/24 History lisinopriL [Prinivil] 5 mg PO DAILY 11/22/18 03/14/24 History Pregabalin [Lyrica] 75 mg PO HS 07/17/19 03/14/24 History Cetirizine HCl [Zyrtec] 10 mg PO DAILY 08/09/22 03/14/24 History Famotidine 20 mg PO BID 08/09/22 03/14/24 History HYDROcodone/APAP 7.5-325MG [[place] 1 tab PO BID PRN 08/09/22 03/14/24 History 7.5-325] Metoprolol Tartrate [Lopressor] 12.5 mg PO HS 08/09/22 03/14/24 History Pregabalin [Lyrica] 150 mg PO BID 08/09/22 03/14/24 History Ferrous Sulfate [Feosol] 325 mg PO BID 08/09/23 03/14/24 History Allergies Allergy/AdvReac Type Severity Reaction Status Date / Time ibuprofen [From Motrin] AdvReac ON PLAVIX Verified 03/14/24 09:05 Physical Exam Vitals: Vital Signs Temp Pulse Resp BP Pulse Ox 03/14/24 06:11 97.5 F L 70 18 133/75 99 Intake and Output 03/13/24 03/14/24 03/14/24 22:59 06:59 14:59 Other: Weight 95.254 kg GENERAL: The patient is alert and oriented x3, not in any acute distress. Well developed, well nourished. HEENT: Pupils are round and equally reacting to light. EOMI. No scleral icterus. No conjunctival pallor. Normocephalic, atraumatic. No pharyngeal erythema. No thyromegaly. -CARDIOVASCULAR: S1 and S2 present. No murmurs, rubs, or gallops. Left upper chest tenderness PULMONARY: Chest is clear to auscultation, no wheezing , no crackles. ABDOMEN: Soft, nontender, nondistended, normoactive bowel sounds. No palpable organomegaly. MUSCULOSKELETAL: No joint swelling or deformity. EXTREMITIES: No cyanosis, clubbing, or pedal edema. NEUROLOGICAL: Gross neurological examination did not reveal any focal deficits. SKIN: No rashes. no petechiae. Results CBC & Chem 7: 03/14/24 06:25 03/14/24 06:25 Labs: Abnormal Lab Results - Last 24 Hours (Table) 03/14/24 03/14/24 Range/Units 06:25 06:25 MCV 101.0 H (80.0-100.0) fL BUN 18 H (7-17) mg/dL Glucose 113 H (74-99) mg/dL AST 52 H (14-36) U/L Assessment and Plan Assessment: Chest pain, rule out cardiac causes Hypertension Obesity with BMI of 36 Plan: Will do serial troponin Follow-up echocardiogram Continue with aspirin Cardiology consult GI prophylaxis: Subcu heparin DVT prophylaxis: Pepcid
[2024-03-14] MEDS ORDERED: HEPARIN SODIUM 1,000 UN/ML (10ML VL) IV PRN (11:30)
[2024-03-14] MEDS ORDERED: ALPRAZolam 0.25 MG TAB PO PRN ×2 (11:37→12:16)
[2024-03-14] MEDS ORDERED: ALPRAZolam 0.5 MG TAB PO PRN ×2 (11:37→12:16)
--- NOTE | 2024-03-14 11:40 | P.CRDCN ---
History of Present Illness History of present illness: HISTORY OF PRESENT ILLNESS: This is a 53-year-old female with a past medical history significant for CAD with previous stenting, hypertension, and hyperlipidemia. Patient follows in the office with Dr. Cardona. We have been asked to see the patient in consultation for chest pain. Patient examined at the bedside. Patient states that she woke up this morning with chest discomfort. She dates the pain was in the middle of her chest and radiated down to her left arm. She states that she had to take nitro this morning. She does report some relief of the pain with nitro. She does report having a similar episode about 2 days ago as well. She also states just prior to us entering the room she had an episode of chest pain that lasted for about 10 minutes. DIAGNOSTICS: - EKG reveals sinus mechanism with T wave inversions inferiorly. - Chest xray negative for acute cardiopulmonary abnormality - Laboratory data: WBC 5.1. Hemoglobin 13.2. Platelet count 237. Sodium 141. Potassium 4.4. BUN 18. Creatinine 0.63. Troponin negative x 1 - Current home cardiac medications include lisinopril 5 mg daily, metoprolol tartrate 25 mg in the morning and 12.5 mg at night, Plavix 75 mg daily, Lipitor 80 mg daily, aspirin 81 mg daily - Most recent echocardiogram obtained in 2019 revealing ejection fraction 55 to 60% - Cardiac catheterization history: 2019 with widely patent LAD at the site of previously stented segment. Dominant RCA and nondominant circumflex are free of significant disease. REVIEW OF SYSTEMS: At the time of my exam: CONSTITUTIONAL: Denies fever or chills. HEENT: Denies blurred vision, vision changes, or eye pain. Denies hemoptysis CARDIOVASCULAR: Denies chest pain. Denies orthopnea. Denies PND. Denies palpitations RESPIRATORY: Denies shortness of breath. GASTROINTESTINAL: Denies abdominal pain. Denies nausea or vomiting. HEMATOLOGIC: Denies bleeding disorders. GENITOURINARY: Denies any blood in urine. SKIN: Denies pruitis. Denies rash. PHYSICAL EXAM: VITAL SIGNS: Reviewed. GENERAL: Well-developed in no acute distress. HEENT: Head is normocephalic. Pupils are equal, round. Sclerae anicteric. Mucous membranes of the mouth are moist. Neck supple. No JVD or thyromegaly LUNGS: Respirations even and unlabored. Lungs essentially clear to auscultation bilaterally. HEART: Regular rate and rhythm. S1 and S2 heard. ABDOMEN: Soft. Nondistended. Nontender. EXTREMITIES: Normal range of motion. No clubbing or cyanosis. Peripheral pulses intact. No lower extremity edema NEUROLOGIC: Awake and alert. Oriented x 3. ASSESSMENT: Unstable angina Coronary artery disease with previous stenting of the LAD Hypertension Hyperlipidemia PLAN: Obtain 2D echo to assess cardiac structure and function Resume home cardiac medications Begin IV heparin Add Nitropaste Patient to undergo cardiac catheterization today with Dr. Cardona Further recommendations pending patient course Nurse practitioner note has been reviewed by physician. Signing provider agrees with the documented findings, assessment, and plan of care documented by TRANSITIONAL CARE NURSE as a scribe. Past Medical History Past Medical History: Coronary Artery Disease (CAD), Chest Pain / Angina, GERD/Reflux, Myocardial Infarction ([place]), Osteoarthritis ([place]) Additional Past Medical History / Comment(s): Pt states she has never been diagnosed with htn or high cholesterol-was placed on meds for these after her [place], hx of anemia, chronic low back pain.sciatic nerve. arthritis in neck, carpal tunnel bilateral wrists. Last Myocardial Infarction Date:: 2017 History of Any Multi-Drug Resistant Organisms: None Reported Past Surgical History: Heart Catheterization, Heart Catheterization With Stent, Uterine Ablation Additional Past Surgical History / Comment(s): Cardiac caths, PCI with a total of 4 stents, uterine ablation, wisdom teeth extractions. COLONOSCOPY Past Anesthesia/Blood Transfusion Reactions: Motion Sickness, Postoperative Nausea & Vomiting (PONV) Additional Past Anesthesia/Blood Transfusion Reaction / Comment(s): no blood transfusions Date of Last Stent Placement:: 02/2018 Past Psychological History: No Psychological Hx Reported Smoking Status: Former smoker Past Alcohol Use History: None Reported Past Drug Use History: None Reported - Past Family History Mother Family Medical History: AFIB Additional Family Medical History / Comment(s): Maternal grandmother also had A fib. Brother(s) Family Medical History: Myocardial Infarction ([place]) Additional Family Medical History / Comment(s): brother at age 42 with [place] Father Family Medical History: Blood Disorder Additional Family Medical History / Comment(s): Father from AIDs. Medications and Allergies Home Medications Medication Instructions Recorded Confirmed Type Aspirin [Adult Low Dose Aspirin EC] 81 mg PO DAILY 10/29/17 03/14/24 History Nitroglycerin Sl Tabs [Nitrostat] 0.4 mg SUBLINGUAL Q5M PRN #25 tab 11/02/17 03/14/24 Rx Clopidogrel [Plavix] 75 mg PO DAILY 02/13/18 03/14/24 History Docusate [Colace] 100 mg PO BID 02/13/18 03/14/24 History Atorvastatin [Lipitor] 80 mg PO DAILY 08/23/18 03/14/24 History Metoprolol Tartrate [Lopressor] 25 mg PO DAILY 08/23/18 03/14/24 History lisinopriL [Prinivil] 5 mg PO DAILY 11/22/18 03/14/24 History Pregabalin [Lyrica] 75 mg PO HS 07/17/19 03/14/24 History Cetirizine HCl [Zyrtec] 10 mg PO DAILY 08/09/22 03/14/24 History Famotidine 20 mg PO BID 08/09/22 03/14/24 History HYDROcodone/APAP 7.5-325MG [[place] 1 tab PO BID PRN 08/09/22 03/14/24 History 7.5-325] Metoprolol Tartrate [Lopressor] 12.5 mg PO HS 08/09/22 03/14/24 History Pregabalin [Lyrica] 150 mg PO BID 08/09/22 03/14/24 History Ferrous Sulfate [Feosol] 325 mg PO BID 08/09/23 03/14/24 History Allergies Allergy/AdvReac Type Severity Reaction Status Date / Time ibuprofen [From Motrin] AdvReac ON PLAVIX Verified 03/14/24 09:05 Physical Exam Vitals: Vital Signs Temp Pulse Resp BP Pulse Ox 03/14/24 09:00 58 L 16 148/79 97 03/14/24 07:00 53 L 16 136/84 96 03/14/24 06:11 97.5 F L 70 18 133/75 99 Intake and Output 03/13/24 03/14/24 03/14/24 22:59 06:59 14:59 Other: Weight 95.254 kg Results 03/14/24 11:34 03/14/24 06:25 Cardiac Enzymes 03/14/24 03/14/24 Range/Units 06:25 06:25 AST 52 H (14-36) U/L Troponin I <0.012 (0.000-0.034) ng/mL Coagulation 03/14/24 Range/Units 06:25 PT 10.2 (10.0-12.5) sec APTT 22.3 (22.0-30.0) sec CBC 03/14/24 Range/Units 06:25 WBC 5.1 (3.8-10.6) k/uL RBC 4.14 (3.80-5.40) m/uL Hgb 13.2 (11.4-16.0) gm/dL Hct 41.8 (34.0-46.0) % Plt Count 237 (150-450) k/uL Comprehensive Metabolic Panel 03/14/24 Range/Units 06:25 Sodium 141 (137-145) mmol/L Potassium 4.4 (3.5-5.1) mmol/L Chloride 107 (98-107) mmol/L Carbon Dioxide 28 (22-30) mmol/L BUN 18 H (7-17) mg/dL Creatinine 0.63 (0.52-1.04) mg/dL Glucose 113 H (74-99) mg/dL Calcium 9.0 (8.4-10.2) mg/dL AST 52 H (14-36) U/L ALT 34 (4-34) U/L Alkaline Phosphatase 52 (38-126) U/L Total Protein 7.2 (6.3-8.2) g/dL Albumin 4.0 (3.5-5.0) g/dL Current Medications Generic Name Dose Route Start Last Admin Trade Name Freq PRN Reason Stop Dose Admin Atorvastatin Calcium 80 mg 03/15/24 09:00 Atorvastatin 80 Mg Tab PO DAILY THANH Famotidine 20 mg 03/14/24 21:00 Famotidine 20 Mg/2 Ml Vial IV Q12HR THANH Heparin Sodium (Porcine) 5,000 unit 03/14/24 21:00 Heparin Sodium,Porcine 5,000 Unit/Ml 1 Ml Vial SQ Q12HR THANH Heparin Sodium (Porcine) 4,000 unit 03/14/24 11:30 Heparin Sodium 1,000 Un/Ml (10ml Vl) IV 03/14/24 11:31 ONCE ONE Heparin Sodium (Porcine) 0 unit 03/14/24 11:30 Heparin Sodium 1,000 Un/Ml (10ml Vl) IV PER PROTOCOL PRN Low PTT Protocol Heparin Sodium/Sodium Chloride 250 mls @ 11.43 mls/hr 03/14/24 11:30 25,000 unit/ Sodium Chloride IV .[id number] [facility] Protocol 12 UNITS/KG/HR Lisinopril 5 mg 03/15/24 09:00 Lisinopril 5 Mg Tab PO DAILY [facility] Metoprolol Tartrate 12.5 mg 03/14/24 21:00 Metoprolol Tartrate 12.5 Mg Tab PO HS [facility] Metoprolol Tartrate 25 mg 03/15/24 09:00 Metoprolol Tartrate 25 Mg Tab PO DAILY [facility] Nitroglycerin 0.4 mg 03/14/24 08:21 Nitroglycerin Sl Tabs 0.4 Mg Tab SUBLINGUAL Q5M PRN Chest Pain Nitroglycerin 0.5 inch 03/14/24 11:30 Nitroglycerin Oint 1 Inch/Gm Packet TOPICAL Q8HR [facility] Non-Formulary Medication 81 mg 03/15/24 09:00 Aspirin [Adult Low Dose Aspirin Ec] PO DAILY [facility] Intake and Output 03/13/24 03/14/24 03/14/24 22:59 06:59 14:59 Other: Weight 95.254 kg 03/14/24 06:25 03/14/24 06:25
[2024-03-14 11:56] LABS: Basophils % (A) 0 %; Eosinophils # (A) 0.1 k/uL (0-0.7); Eosinophils % (A) 2 %; HCT 40.4 % (34.0-46.0); HGB 13.2 gm/dL (11.4-16.0); Lymphocytes # (A) 1.3 k/uL (1.0-4.8); Lymphocytes % (A) 26 %; MCH 32.5 pg (25.0-35.0); MCHC 32.6 g/dL (31.0-37.0); MCV 99.7 fL (80.0-100.0); Mean Platelet Volume 8.9; Monocytes # (A) 0.3 k/uL (0-1.0); Monocytes % (A) 5 %; Neutrophils # (A) 3.3 k/uL (1.3-7.7); Neutrophils % (A) 65 %; Platelet Count 201 k/uL (150-450); RBC 4.05 m/uL (3.80-5.40); RDW 12.6 % (11.5-15.5); WBC 5.1 k/uL (3.8-10.6)
[2024-03-14] MEDS: NITROGLYCERIN OINT 1 INCH/GM PACKET TOPICAL SCH (12:09)
[2024-03-14 12:11] LABS: INR 0.9 (<1.2); Prothrombin Time 10.3 sec (10.0-12.5)
[2024-03-14] MEDS: HEPARIN SODIUM 1,000 UN/ML (10ML VL) IV ONE (12:11)
[2024-03-14] MEDS: ATORVASTATIN 80 MG TAB PO STA (12:17)
[2024-03-14] MEDS: SODIUM CHLORIDE 0.9% 1,000 ML IV SCH (12:17)
[2024-03-14] MEDS: HEPARIN SOD,PORK IN 0.45% NACL 25,000 UNIT in 0.45% NACL 1 250ML.BAG IV SCH (12:31)
[2024-03-14] MEDS: ASPIRIN 325 MG TAB PO STA (12:35)
[2024-03-14] MEDS ORDERED: VERAPAMIL 2.5 MG/ML 2 ML AMP ONE (12:39)
[2024-03-14] MEDS ORDERED: LIDOCAINE 1% INJ 10MG/ML (20 ML MDV) ONE (12:39)
[2024-03-14] MEDS ORDERED: HEPARIN SODIUM 1,000 UN/ML (10ML VL) ONE (12:40)
[2024-03-14] MEDS ORDERED: fentaNYL (PF) 50 MCG/ML 2 ML AMP ONE (12:49)
[2024-03-14] MEDS: MIDAZOLAM 2 MG/2 ML VIAL IVP ONE (12:49)
[2024-03-14] MEDS: LIDOCAINE 1% INJ 10MG/ML (20 ML MDV) SQ ONE (12:53)
[2024-03-14] MEDS: fentaNYL (PF) 50 MCG/ML 2 ML AMP IVP ONE (12:53)
[2024-03-14] MEDS: VERAPAMIL SYRINGE (5 MG/10 ML) INTRAARTER ONE (12:56)
[2024-03-14] MEDS: HEPARIN SODIUM 1,000 UN/ML (10ML VL) IVP ONE (12:59)
[2024-03-14] MEDS: IOPAMIDOL-370 200ML BTL INJ ONE (13:19)
[2024-03-14] MEDS: SODIUM CHLORIDE 0.9% 1,000 ML IV ONE (13:19)
[2024-03-14] MEDS: HEPARIN SODIUM,PORCINE 10,000 UNIT in SODIUM CHLORIDE 0.9% 1,000 ML IRRIGATION ONE (13:20)
[2024-03-14] MEDS: HEPARIN SODIUM,PORCINE (1 ML) 2,500 UNIT in SODIUM CHLORIDE 0.9% 250 ML IRRIGATION ONE (13:22)
[2024-03-14] MEDS: SODIUM CHLORIDE 0.9% 1,000 ML in EMPTY BAG 1 BAG IV SCH (14:28)
--- NOTE | 2024-03-14 17:24 | CA ---
Transthoracic Echo Report Name: Gertrude Greene Age: 53 Gender: F : 1970 Exam Date: 03/14/2024 14:31 Exam Location: [facility] Ht (in): 64 Wt (lb): 210 Ordering Physician: Palomo Duarte PAC Attending/Referring Phys: SUNNY, Gerald Relief Docking Master Ana Conner RDCS Procedure CPT: Indications: Chest Pain Cardiac Hx: 4 stents Technical Quality: Good Contrast 1: Total Dose (mL): Contrast 2: Total Dose (mL): MEASUREMENTS (Male / Female) Normal Values 2D ECHO LV Diastolic Diameter PLAX 5.6 cm 4.2 - 5.9 / 3.9 - 5.3 cm LV Systolic Diameter PLAX 3.8 cm IVS Diastolic Thickness 1.0 cm 0.6 - 1.0 / 0.6 - 0.9 cm LVPW Diastolic Thickness 1.1 cm 0.6 - 1.0 / 0.6 - 0.9 cm LV Relative Wall Thickness 0.4 RV Internal Dim ED PLAX 3.0 cm LA Systolic Diameter LX 3.7 cm 3.0 - 4.0 / 2.7 - 3.8 cm LV Diastolic Volume MOD 4C 100.7 cm??? LV Systolic Volume MOD 4C 46.4 cm??? LV Ejection Fraction MOD 4C 53.9 % LV Cardiac Index MOD 4C 1435.0 cm???/min???m??? LV Diastolic Length 4C 8.2 cm LV Systolic Length 4C 6.6 cm LV Diastolic Volume MOD 2C 89.0 cm??? LV Systolic Volume MOD 2C 38.9 cm??? LV Ejection Fraction MOD 2C 56.3 % LV Cardiac Index MOD 2C 1326.6 cm???/min???m??? LV Diastolic Length 2C 8.3 cm LV Systolic Length 2C 6.8 cm LA Volume 50.4 cm??? 18 - 58 / 22 - 52 cm??? LA Volume Index 23.8 cm???/m??? 16 - 28 cm???/m??? M-MODE Aortic Root Diameter MM 3.0 cm AV Cusp Separation MM 2.2 cm DOPPLER AV Peak Velocity 137.5 cm/s AV Peak Gradient 7.6 mmHg MV Area PHT 3.2 cm??? Mitral E Point Velocity 95.0 cm/s Mitral A Point Velocity 78.3 cm/s Mitral E to A Ratio 1.2 MV Deceleration Time 238.8 ms FINDINGS Left Ventricle Left ventricular ejection fraction is estimated at 50-55 %. Mildly increased septal wall thickness. Mildly increased posterior wall thickness. Mildly increased left ventricular diastolic diameter. Normal left ventricular wall motion. No obvious regional wall motion abnormalities. Right Ventricle Normal right ventricular size and function. Unable to estimate the right ventricular systolic pressure. Right Atrium Normal right atrial size. No right atrial thrombus or mass seen. Left Atrium Normal left atrial size. No left atrial thrombus or mass present. Mitral Valve Structurally normal mitral valve. No mitral stenosis, regurgitation or prolapse. Aortic Valve Trileaflet aortic valve. No aortic valve stenosis or regurgitation. Tricuspid Valve Structurally normal tricuspid valve. No tricuspid stenosis, regurgitation or prolapse. Pulmonic Valve Structurally normal pulmonic valve. No pulmonic regurgitation. Pericardium No pericardial or pleural effusion. Aorta Normal size aortic root and proximal ascending aorta. CONCLUSIONS Normal LV function Previewed by: Dr. Shant Guzman MD (Electronically Signed) Final Date: 14 March 2024 17:22
--- NOTE | 2024-03-14 20:37 | CC ---
CARDIAC CATHETERIZATION REPORT PROCEDURES PERFORMED: Left heart catheterization and coronary angiography. PERFORMED BY: Dr. Mara Cardona. ANESTHESIA: Moderate conscious sedation time was 20 minutes. The patient was administered Versed. Oxygen saturation, hemodynamics and EKG were monitored closely. CLINICAL INFORMATION: Ms. Gertrude Hayden is a 53-year-old lady with a known history of previous LAD stenting in 2018 when she presented with a ely-ZH-zxxhenowy GA with a 90% mid lesion and a long area of intrinsic dissection. Since then, she has done well. A repeat cardiac cath a year later revealed that the vessel was patent. She comes into the hospital with chest pain responsive to nitroglycerin with recurrent fashion. Troponins were negative. She was advised cardiac cath by Dr. Guzman. I saw the patient, reviewed with her the rationale, risks, benefits, options. She understood all details and wished to proceed with the procedure. PROCEDURE NOTE: Under strict aseptic precautions and local anesthesia with the help of ultrasound guidance and a micropuncture needle technique, an access was obtained into the right radial artery. Using JL 3.5 and JR4 catheters, I performed coronary angiography and the same right Arben catheter was used to check LV pressures, but LV-gram was not performed. The sheath was taken out and TR band applied as per protocol with saturation of the fingers of the right hand of 98%. The patient tolerated the procedure well without complications. CARDIAC CATHETERIZATION FINDINGS: The left ventricular end-diastolic pressure was 9 mmHg without any gradient across the aortic valve. CORONARY ANGIOGRAPHY FINDINGS: Right coronary artery: Dominant vessel. No significant disease. Distally bifurcates into large PDA and PLV. Minor irregularities. No significant disease. Left main coronary artery: Long patent disease-free vessel that bifurcates into LAD and circumflex. Left anterior descending coronary artery: Good caliber vessel that is quite large in caliber and distribution, runs all the way to the apex and gives off several septal and diagonal branches. No significant disease. The midportion has a long stented segment that is widely patent with remarkably good flow. Circumflex coronary artery: Nondominant vessel gives off a high first obtuse marginal and then runs in the AV groove and gives off 2 small distal posterolateral branches. The circumflex has very minor irregularities. No significant disease. FINAL IMPRESSION: This patient has a right-dominant system. Normal filling pressures. No gradient. No significant coronary artery disease and mid LAD that was stented in 2018 is widely patent with brisk flow without any significant residual stenosis. RECOMMENDATIONS: Findings were discussed with the patient and . Continued risk factor modification with medical therapy. The patient can be discharged later on today and I will see her in the office on Tuesday at 8 a.m. Discharge instructions were given. The patient will be discharged later on today if stable. MMODL / IJN: [id number] /
[2024-03-14] MEDS ORDERED: HEPARIN SODIUM,PORCINE 5,000 UNIT/ML 1 ML VIAL SQ SCH (21:00)
[2024-03-14] MEDS: FAMOTIDINE 20 MG/2 ML VIAL IV SCH (21:43)
[2024-03-14] MEDS: METOPROLOL TARTRATE 12.5 MG TAB PO SCH (21:43)
[2024-03-14] MEDS ORDERED: HYDROcodone/APAP 7.5-325MG 1 EACH TAB PO PRN (22:53)
[2024-03-14] MEDS: PREGABALIN 75 MG CAP PO SCH ×2 (23:05)
[2024-03-15] MEDS ORDERED: SODIUM CHLORIDE 0.9% 1,000 ML in EMPTY BAG 1 BAG IV SCH (03:00)
[2024-03-15] MEDS ORDERED: ATORVASTATIN 80 MG TAB PO ONE (05:00)
[2024-03-15] MEDS ORDERED: ASPIRIN 325 MG TAB PO ONE (05:00)
[2024-03-15] MEDS ORDERED: HEPARIN SODIUM,PORCINE 10,000 UNIT in SODIUM CHLORIDE 0.9% 1,000 ML IRRIGATION PRN (07:00)
[2024-03-15] MEDS ORDERED: HEPARIN SODIUM,PORCINE (1 ML) 2,500 UNIT in SODIUM CHLORIDE 0.9% 250 ML IRRIGATION PRN (07:00)
[2024-03-15 07:17] VITALS: BP 114/72; PULSE 63; RESP 17; TEMP 97.8
[2024-03-15] MEDS: ASPIRIN 81 MG PO SCH (08:46)
[2024-03-15] MEDS: LORATADINE 10 MG TAB PO SCH (08:47)
[2024-03-15] MEDS: DOCUSATE 100 MG CAP PO SCH (08:47)
[2024-03-15] MEDS: ATORVASTATIN 80 MG TAB PO SCH (08:47)
[2024-03-15] MEDS: FERROUS SULFATE 325 MG TAB PO SCH (08:47)
[2024-03-15] MEDS: METOPROLOL TARTRATE 25 MG TAB PO SCH (08:47)
[2024-03-15] MEDS: lisinopriL 5 MG TAB PO SCH (08:47)
[2024-03-15] MEDS ORDERED: ASPIRIN 325 MG TAB PO SCH (09:00)
--- NOTE | 2024-03-15 09:32 | P.PN ---
Subjective HISTORY OF PRESENT ILLNESS: This is a 53-year-old female with a past medical history significant for CAD with previous stenting, hypertension, and hyperlipidemia. Patient follows in the office with Dr. Cardona. We have been asked to see the patient in consultation for chest pain. Patient examined at the bedside. Patient states that she woke up this morning with chest discomfort. She dates the pain was in the middle of her chest and radiated down to her left arm. She states that she had to take nitro this morning. She does report some relief of the pain with nitro. She does report having a similar episode about 2 days ago as well. She also states just prior to us entering the room she had an episode of chest pain that lasted for about 10 minutes. DIAGNOSTICS: - EKG reveals sinus mechanism with T wave inversions inferiorly. - Chest xray negative for acute cardiopulmonary abnormality - Laboratory data: WBC 5.1. Hemoglobin 13.2. Platelet count 237. Sodium 141. Potassium 4.4. BUN 18. Creatinine 0.63. Troponin negative x 1 - Current home cardiac medications include lisinopril 5 mg daily, metoprolol tartrate 25 mg in the morning and 12.5 mg at night, Plavix 75 mg daily, Lipitor 80 mg daily, aspirin 81 mg daily - Most recent echocardiogram obtained in 2019 revealing ejection fraction 55 to 60% - Cardiac catheterization history: 2019 with widely patent LAD at the site of previously stented segment. Dominant RCA and nondominant circumflex are free of significant disease. 03/15/2024 Patient is status post cardiac catheterization by Dr. Cardona revealing no significant coronary artery disease and mid LAD that was stented in 2018 is widely patent with brisk flow without any significant residual stenosis. Patient denies any further chest pain or pressure. Denies short of breath. Vital signs are stable. PHYSICAL EXAM: VITAL SIGNS: Reviewed. GENERAL: Well-developed in no acute distress. HEENT: Head is normocephalic. Pupils are equal, round. Sclerae anicteric. Mucous membranes of the mouth are moist. Neck supple. No JVD or thyromegaly LUNGS: Respirations even and unlabored. Lungs essentially clear to auscultation bilaterally. HEART: Regular rate and rhythm. S1 and S2 heard. ABDOMEN: Soft. Nondistended. Nontender. EXTREMITIES: Normal range of motion. No clubbing or cyanosis. Peripheral pulses intact. No lower extremity edema NEUROLOGIC: Awake and alert. Oriented x 3. ASSESSMENT: Unstable angina, status post cardiac catheterization revealing patent stent in the LAD and no other significant CAD Coronary artery disease with previous stenting of the LAD Hypertension Hyperlipidemia PLAN: continue current cardiac medications Patient may be discharged home today from a cardiac standpoint Patient has a follow-up appointment tomorrow with Dr. Cardona at 0800 Nurse practitioner note has been reviewed by physician. Signing provider agrees with the documented findings, assessment, and plan of care documented by PURCHASING SPECIALIST as a scribe. Objective - Vital Signs Vital signs: Vital Signs Temp 97.8 F 03/15/24 07:00 Pulse 63 03/15/24 07:00 Resp 17 03/15/24 07:00 BP 114/72 03/15/24 07:00 Pulse Ox 97 03/15/24 07:00 FiO2 Intake & Output 03/14/24 03/15/24 03/15/24 18:59 06:59 18:59 Intake Total 465 840 Balance 465 840 Weight 95.254 kg Intake: IV 225 Oral 240 840 Other: Voiding Method Toilet Toilet # Voids 1 3 - Labs CBC & Chem 7: 03/14/24 11:34 03/14/24 06:25
[2024-03-15] MEDS ORDERED: FAMOTIDINE 20 MG TAB PO SCH (21:00)
--- NOTE | 2024-03-21 11:13 | P.DS ---
Providers Date of admission: 03/14/24 08:19 Attending physician: Ember Stein Consults: 03/14/24 08:21 Consult Physician Urgent Consulting Provider: Trupti Harris Consult Reason/Comments: chest pain Do you want consulting provider notified?: Yes Primary care physician: Kentrell Joseph Hospital Course: Diagnoses: Chest pain, rule out cardiac causes. Most likely musculoskeletal Hypertension Obesity with BMI of 36 Hospital course: This is a pleasant 53 years old female who presents because of chest pain of 1 day duration. Patient says 2 days ago also she had chest pain which is resolved. This time comes with chest pain of 1 day duration on the left side 6/10 in severity radiating to the left arm and shoulder felt like sharp with no specific precipitating or relieving factors per patient but associated with significant tenderness Patient evaluated by multi operation forming machine setter, she had negative stress test. Chest pain has resolved and patient was cleared for discharge by multi operation forming machine setter Patient denies any other new complaint of discharge like no dyspnea or coughing, no GI/ symptoms Problems and management plan were discussed with the patient and he verbalized understanding and acceptance Patient was found stable and can be discharged home in guarded prognosis however he needs follow-up as an outpatient. Patient was instructed to follow up with PCP within one week and patient agrees Patient was instructed to follow-up with Dr. Cardona upon discharge and she agrees Physical exam Gen: patient is a AAOx3, no distress CVS: S1-S2, RRR, no murmur Lungs: B/L CTA, no wheezing Abdomen: soft, no distention, no tenderness, positive bowel sounds Extremity: no leg edema or induration Time spent more than 35 minutes Patient Condition at Discharge: Fair Plan - Discharge Summary Discharge Rx Participant: No New Discharge Prescriptions: Continue Aspirin [Adult Low Dose Aspirin EC] 81 mg PO DAILY Nitroglycerin Sl Tabs [Nitrostat] 0.4 mg SUBLINGUAL Q5M PRN #25 tab PRN Reason: Chest Pain Clopidogrel [Plavix] 75 mg PO DAILY Docusate [Colace] 100 mg PO BID Metoprolol Tartrate [Lopressor] 25 mg PO DAILY Atorvastatin [Lipitor] 80 mg PO DAILY lisinopriL [Prinivil] 5 mg PO DAILY Pregabalin [Lyrica] 75 mg PO HS HYDROcodone/APAP 7.5-325MG [[place] 7.5-325] 1 tab PO BID PRN PRN Reason: Pain Metoprolol Tartrate [Lopressor] 12.5 mg PO HS Pregabalin [Lyrica] 150 mg PO BID Cetirizine HCl [Zyrtec] 10 mg PO DAILY Ferrous Sulfate [Iron (65 MG Elemental)] 325 mg PO BID Famotidine 20 mg PO BID Discharge Medication List Aspirin [Adult Low Dose Aspirin EC] 81 mg PO DAILY 10/29/17 [History] Nitroglycerin Sl Tabs [Nitrostat] 0.4 mg SUBLINGUAL Q5M PRN #25 tab 11/02/17 [Rx] Clopidogrel [Plavix] 75 mg PO DAILY 02/13/18 [History] Docusate [Colace] 100 mg PO BID 02/13/18 [History] Atorvastatin [Lipitor] 80 mg PO DAILY 08/23/18 [History] Metoprolol Tartrate [Lopressor] 25 mg PO DAILY 08/23/18 [History] lisinopriL [Prinivil] 5 mg PO DAILY 11/22/18 [History] Pregabalin [Lyrica] 75 mg PO HS 07/17/19 [History] Cetirizine HCl [Zyrtec] 10 mg PO DAILY 08/09/22 [History] Famotidine 20 mg PO BID 08/09/22 [History] HYDROcodone/APAP 7.5-325MG [[place] 7.5-325] 1 tab PO BID PRN 08/09/22 [History] Metoprolol Tartrate [Lopressor] 12.5 mg PO HS 08/09/22 [History] Pregabalin [Lyrica] 150 mg PO BID 08/09/22 [History] Ferrous Sulfate [Iron (65 MG Elemental)] 325 mg PO BID 08/09/23 [History] Follow up Appointment(s)/Referral(s): Kentrell Joseph MD [Primary Care Provider] - 1-2 days Bella Cardona MD [STAFF PHYSICIAN] - 03/16/24 8:00 am Patient Instructions/Handouts: After Radial Heart Catheterization (GEN) Activity/Diet/Wound Care/Special Instructions: heart healthy diet activity is restricted till you see your doctor Discharge Disposition: HOME SELF-CARE
== END 2024-03-15 11:48 | disposition home or self-care (01) ==
LOC: EC 06:10 → 6NMEDSUR 08:19
PROVIDERS: ADMIT Hospitalist; ATTEND Hospitalist
DX: I25.110 Atherosclerotic heart disease of native coronary artery with unstable angina pectoris (principal); I10 Essential (primary) hypertension; E66.9 Obesity, unspecified; Z68.36 Body mass index [BMI] 36.0-36.9, adult; E78.5 Hyperlipidemia, unspecified; Z79.82 Long term (current) use of aspirin; Z79.02 Long term (current) use of antithrombotics/antiplatelets; Z79.899 Other long term (current) drug therapy; Z88.6 Allergy status to analgesic agent; Z95.5 Presence of coronary angioplasty implant and graft; Z87.891 Personal history of nicotine dependence
CPT/HCPCS: 36415; 71046; 80053; 83735; 83880; 84484; 85025; 85610; 85730; 93005; 93306; 93458; 96374; 96375; 96376; 99285

== ENCOUNTER → 2024-08-31 | Outpatient (CLI) | payer BC ==
--- NOTE | 2024-08-31 12:45 | XR ---
EXAMINATION TYPE: XR foot complete RT DATE OF EXAM: 08/31/2024 12:40 PM COMPARISON: None. CLINICAL INDICATION: Female, 54 years old with history of M79.671 Pain rt foot, pain TECHNIQUE: Frontal, lateral, and oblique images of the right foot are obtained. FINDINGS: There is no acute fracture/dislocation evident in the right foot. The joint spaces in the right foot appear within normal limits. Moderate size inferior calcaneal spur. The overlying soft t issue appears unremarkable. IMPRESSION: As above. [facility], , 08/31/2024 12:43 PM
== END | disposition home or self-care (01) ==
LOC: RADXRMAIN 12:22
PROVIDERS: ATTEND Family Medicine
DX: M79.671 Pain in right foot (principal)

== ENCOUNTER → 2024-09-28 | Outpatient (CLI) | payer BC ==
--- NOTE | 2024-09-28 14:34 | MM ---
Reason for Exam: Screening (asymptomatic). Last mammogram was performed 2 year(s) and 3 month(s) ago. Patient History: Menarche at age 13. First Full-Term at age 24. Premenopausal. Hormonal Contraceptives for 2 years, 6 months. Maternal aunt had breast cancer. Risk Values: Mirna 5 year model risk: 1.0%. NCI Lifetime model risk: 8.5%. Prior Study Comparison: 04/23/2019 Bilateral Screening Mammogram, [facility]. 02/25/2021 Bilateral Screening Mammogram, [facility]. 06/08/2022 Bilateral MG screening mammo w CAD, [facility]. Tissue Density: There are scattered areas of fibroglandular density. Findings: Analyzed By CAD. There is no suspicious group of microcalcifications or new suspicious mass in either breast. Benign-appearing calcifications. Overall Assessment: Benign, BI-RAD 2 Management: Screening Mammogram of both breasts in 1 year. . Patient should continue monthly self-breast exams. A clinical breast exam by your physician is recommended on an annual basis. This exam should not preclude additional follow-up of suspicious palpable abnormalities. Note on Mirna scores and lifetime risk: 1. A Mirna score greater than 3% is considered moderate risk. If this is the case, consider specialist referral to assess eligibility for a risk reducing agent. 2. If overall lifetime risk for the development of breast cancer is 20% or higher, the patient may qualify for future screening with alternating mammogram and breast MRI. [facility], , 09/28/2024 2:30 PM. Electronically signed and approved by: Wing Shukla M.D. Radiolog[facility]
== END | disposition home or self-care (01) ==
LOC: RADMAMWWP 13:36
PROVIDERS: ATTEND Family Medicine
DX: Z12.31 Encounter for screening mammogram for malignant neoplasm of breast (principal); R92.323 Mammographic fibroglandular density, bilateral breasts; R92.1 Mammographic calcification found on diagnostic imaging of breast; Z80.3 Family history of malignant neoplasm of breast; Z92.0 Personal history of contraception
CPT/HCPCS: 77063; 77067